=== PATIENT | female | born 1975 | race Caucasian/White ===

== ENCOUNTER 2023-09-09 10:20 | Outpatient (OUT) | payer OTHER, SELFPAY ==
[2023-09-09 11:13] LABS: Basophils Absolute Auto 0.1 10^3/uL (0.0-0.1); Basophils Percent Auto 0.7 % (0.2-2.0); Eosinophils Absolute Auto 0.1 10^3/uL (0.0-0.7); Eosinophils Percent Auto 0.9 % (0.9-7.0); Hematocrit 41.6 % (36.0-48.0); Immature Granulocytes Abs Auto 0.04 10^3/uL (0.00-0.03); Immature Granulocytes Pct Auto 0.4 % (0.0-0.5); Lymphocytes Absolute Auto 3.5 10^3/uL (1.2-3.8); Lymphocytes Percent Auto 38.1 % (20.5-60.0); Mean Corpuscular HGB Conc 33.7 g/dL (29.9-35.2); Mean Corpuscular Volume 92.2 fL (81.0-99.0); Monocytes Absolute Auto 0.7 10^3/uL (0.3-0.8); Monocytes Percent Auto 7.8 % (1.7-12.0); Neutrophils Absolute Auto 4.7 10^3/uL (1.4-6.5); Neutrophils Percent Auto 52.1 % (43.0-75.0); Platelet Count 296 10^3/uL (150-450); Red Blood Count 4.51 10^6/uL (4.20-5.40); Red Cell Distribution Width 12.9 % (11.0-15.0); White Blood Count 9.1 10^3/uL (4.0-11.0)
== END 2023-09-09 10:21 | disposition home or self-care (01) ==
LOC: PST 10:29
PROVIDERS: PCP Family Medicine; Visit Provider Otolaryngology
DX: Z01.812 Encounter for preprocedural laboratory examination (principal); H69.93 Unspecified Eustachian tube disorder, bilateral
CPT/HCPCS: 85025

== ENCOUNTER 2023-09-16 07:54 | Day surgery (SDC) | payer OTHER, SELFPAY ==
[2023-09-09 11:01] VITALS: BP 144/94; PULSE 75; RESP 20; TEMP 36.2; O2SAT 98; BMI 34.6
[2023-09-16] VITALS (11 sets, daily range): BP systolic 87–156; BP diastolic 52–95; PULSE 69–78; RESP 8–16; TEMP 35.9–36.2; O2SAT 92–98; BMI 34.4
--- NOTE | 2023-09-16 | OP_ITS ---
OPERATION DATE: 09/16/2023 PRIMARY CARE PHYSICIAN: Fausto Jarvis M.D. SURGEON: Myesha Allison M.D. PREOPERATIVE DIAGNOSIS: Right eustachian tube dysfunction. POSTOPERATIVE DIAGNOSIS: Right eustachian tube dysfunction. PROCEDURE: Right myringotomy and tube with microdissection, placement of a T- tube. ANESTHESIA: General LMA. COMPLICATIONS: None. FINDINGS: Anterior right tympanic membrane retraction. INDICATIONS: This 48-year-old woman has a history of chronic eustachian tube dysfunction and developed symptoms once her previously placed tube came out and the eardrum healed. PROCEDURE: Patient identified in the holding area and taken back to the OR where she was placed in the supine position. After induction of general anesthesia, the right ear was approached with the otomicroscope. An anterior radial myringotomy was performed and a modified Wes?s T-tube was folded, inserted through the myringotomy and opened in the middle ear using microdissection. Patient was then awakened and taken to the recovery room in good condition. [place]
--- OUTSIDE RECORDS SUMMARY | 2023-09-16 07:57 | XMS_ITS | CCD ---
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 Name Role Phone LUISANA ANG Unavailable Unavailable KALYANI JERRY (PA) Unavailable Unavail able Charlotte Sweeney Primary Care Provider BRUCE RODRIGUEZ Referring Unavailable CHARLOTTE SWEENEY Primary Care Unavailable Charlotte Sweeney MD Primary Care Provider [phone] CHARLOTTE SWEENEY Primary Care Unavailable KAY LAU Referring Unavailable YESSENIA, SELVON F Referring Unavailable DEFCHARLOTTE ROMERO Primary Care Unavailable YESSENIA, SELVON F Referring Unavailable DEFCHARLOTTE ROMERO Primary Care Unavailable GAMAL DOMINGUEZ Consulting Unavailab le YESSENIA, SELVON F Attending Unavailable YESSENIA, SELVON F Admitting Unavailable DEFCHARLOTTE ROMERO Primary Care Unavailable MARY ALONSO Consulting UnavailANDI Blunt Consulting Unavailable TIMMIS, DR MICHAELS Attending Unavailable TIMMIS, DR MICHAELS Consulting Unavailable TIMMIS, DR MICHAELS Admitting Unavailable DEFRANCE, DR PORTER Primary Care Unavailable CHARLOTTE BEAR Consulting Unavailable NINI II, BETSY Consulting Unavailable TIMMIS, DR MICHAELS Attending Unavailable TIMMIS, DR MICHAELS Consulting Unavailable TIMMIS, DR MICHAELS Admitting Unavailable DEFRANCE, DR PORTER Primary Care Unavailable CRISTOBAL CRUZ Consulting Unavailable NINI II, BETSY Consulting Unavailable Charlotte Sweeney MD Primary Care Provider CHARLOTTE PRUITT Referring Unavailable CHARLOTTE SWEENEY Primary Care Unavailable CHARLOTTE SWEENEY Primary Care Unavailable BRUCE RODRIGUEZ Referring Unavailable CHARLOTTE SWEENEY Primary Care Unavailable BRUCE RODRIGUEZ Referring Unavailable Noel Gould Unavailable MD Neel Fernandes Attending Provider [phone] MD Charlotte Sweeney Primary Care Provider [phone] Neel Fernandes Admitting Unavailable Neel Fernandes Attending Unavailable Charlotte Sweeney Primary Care Unavailable BRANDO JIMENEZ Attending Unavailable UNALLOCATED, NOMS PROVIDER Referring Unava ilable Charlotte Sweeney MD Primary Care Provider Allergies Allergy Classification Reported Allergen(s) Allergy Type Date of Onset Reaction(s) Facility Adhesive Tape (1 source) Adhesive Tape Substance Allergy 018 [facility] Cephalosporins (antibiotic) (1 source) Cefaclor Drug Allergy [facility] Corticosteroids (1 source) predniSONE Drug Allergy Palpitations [facility] Opioid Agonists (1 source) HYDROcodone Drug Allergy 018 [facility] sulfaSALAzine (1 source) sulfaSALAzine Drug Allergy 017 [facility] Sulfonamides (antibiotic) (1 source) Sulfonamides (Antibiotic) Drug Allergy [facility] (12 sources) cefaclor; Translations: [CEFACLOR] Drug Allergy [facility] Repository (1 source) Contrast media; Translations: [CONTRAST DYE] Propensity to adverse reactions to drug (disorder) 006 [facility] Repository (6 sources) Sulfonamides (Antibiotic); Translations: [SULFA (SULFONAMIDE ANTIBIOTICS)] Propensity to adverse reactions to drug (disorder) [facility] Repository (7 sources) Adhesive Tape; Translations: [Adhesive tape] Propensity to adverse reactions to drug 014 Dermatitis [facility], [place] (9 sources) HYDROcodone Drug Allergy 018 Itching, Nausea And Vomiting [facility], [place] (9 sources) predniSONE Drug Allergy 018 Palpitations [facility], [place] (9 sources) sulfaSALAzine Drug Allergy 017 [facility], [place] (5 sources) Sulfonamides (Antibiotic) Propensity to adverse reactions to drug 003 [facility], [place] (9 sources) Iodides Propensity to adverse reactions to drug 018 Hives, Swelling [facility] [employer], [place] (2 sources) Other Propensity to adverse reactions 015 [facility] [employer] (3 sources) Acetaminophen / Codeine Drug Allergy 022 Nausea And Vomiting [facility] Phone: (6 sources) celecoxib Drug Allergy 021 Hives, Swelling, Other (See Comments) [facility] Phone: (6 sources) Ciprofloxacin Drug Allergy 022 TRANSCORP [facility] Phone: (3 sources) Nitrofurantoin Drug Allergy 022 Hives, Other (See Comments) [facility] Phone: (3 sources) Cefaclor Drug Allergy 014 Unknown [facility] Repository (1 source) celecoxib Drug Allergy [facility] Repository (1 source) Influenza virus vaccine Drug Allergy [facility] Repository (1 source) Iodine (And Iodine Containting Drugs) Drug allergy (disorder) [facility] Repository (1 source) methylPREDNISolone Drug Allergy [facility] Repository (1 source) Nitrofurantoin Drug Allergy 021 [facility] Repository (1 source) Sulfonamides (Antibiotic) Drug allergy (disorder) [facility] Repository (1 source) Sulfonamides (Antibiotic) Propensity to adverse reactions to drug 003 Hives [facility] [employer] [facility] sources) Iodides Propensity to adverse reactions to drug 017 Hives, Swelling [facility] (2 sources) Contrast media Propensity to adverse reactions Unknown [facility] Other (2 sources) Sulfacetamide / Sulfur Drug Allergy Unknown [employer] Other (2 sources) Iodinated Cont[employer] Media; Translations: [Iodinated Contrast Media] Allergy to substance 023 Anaphylaxis [facility] (3 sources) NITROFURANTOIN, MACROCRYSTALS / Nitrofurantoin, Monohydrate Drug Allergy 022 Other (See Comments) [facility] (3 sources) Adhesive Tape-Silicones Propensity to adverse reactions to drug [facility] NEGATED: Highlighted row has been ruled out!Unclassified (1 source) Other Propensity to adverse reactions [facility] [employer] [facility] Medications Current Medications Medication Drug Class(es) Dates Sig (Normalized) Sig (Original) acetaminophen 325 mg / oxyCODONE hydrochloride 5 mg oral tablet (1 source) Opioid Agonist Start: 01-19-2022 End: 01-26-2022 oxyCODONE-acetamin ophen (PERCOCET) 5-325 MG per tablet Indications: Lumbosacral spinal stenosis Take 1 tablet by mouth every 6 hours as needed for Pain for up to 7 days. Intended supply: 7 days. Take lowest dose possible to manage pain 28 tablet 0 01/19/2022 01/26/2022 Active amoxicillin 500 mg oral capsule (4 sources) Penicillin-class Antibacterial Start: 05-02-2021 amoxicillin (AMOXIL) 500 MG capsule Indications: Prophylactic antibiotic Take 2 tabs 1 hour prior to appointment time, and 1 tab twice daily until gone 6 capsule 0 05/02/2021 Active 5 ml bupivacaine hydrochloride 5 mg/ml injection (2 sources) Amide Local Anesthetic Start: 03-10-2023 bupivacaine (PF) (MARCAINE) 0.5 % injection Start: 05-09-2020 End: 05-09-2020 bupivacaine (PF) (MARCAINE) 0.5 % injection 20 mg [id number] 0.3 ml EPINEPHrine 1 mg/ml auto-injector (3 sources) alpha-Adrenergic Agonist, beta-Adrenergic Agonist, Catecholamine Start: 09-13-2021 EPINEPHrine (EPIPEN) 0.3 mg/0.3 mL auto-injector inject 0.3 milliliters ( 0.3 milligrams ) intramuscularly in OUTE... (REFER TO PRESCRIPTION NOTES). 0 09/13/2021 Active hydrOXYzine pamoate 25 mg oral capsule (2 sources) Antihistamine Start: 01-19-2022 End: 01-27-2022 take 1 capsule by mouth three times daily as needed for muscle spasms hydrOXYzine (VISTARIL) 25 MG capsule Take 1 capsule by mouth 3 times daily as needed (muscle spasms) 21 capsule 0 01/20/2022 01/27/2022 Active levothyroxine sodium 0.05 mg oral tablet (15 sources) l-Thyroxine Start: 05-16-2023 End: 09-04-2023 take 1 tablet by mouth in the morning levothyroxine (SYNTHROID, LEVOTHROID) 50 MCG tablet Take 1 tablet (50 mcg total) by mouth in the morning. 90 tablet 3 09/04/2023 Active Start: 01-19-2022 take 50 ug by mouth once daily 50 mcg, Oral, DAILY, First dose on 01/19/22 at 0700, Until Discontinued Tube feeding (TF) interaction, obtain physician order to manage, recommend holding TF for 30 minutes before and after dose. Levothyroxine So dium 50 MCG Oral for 90 Days Active 10 ml lidocaine hydrochloride 10 mg/ml injection (3 sources) Antiarrhythmic, Amide Local Anesthetic Start: 03-10-2023 lidocaine 1 % injection Start: 05-09-2020 End: 05-09-2020 lidocaine 1 % injection Start: 05-09-2020 End: 05-09-2020 lidocaine PF 1 % injection 4 mL 1 ml methylPREDNISolone acetate 40 mg/ml injection (1 source) Corticosteroid Start: 03-10-2023 methylPREDNISo lone acetate (DEPO-MEDROL) injection ondansetron (ZOFRAN-ODT) disintegrating tablet 4 mg (1 source) Start: 01-18-2022 ondansetron (Z OFRAN-ODT) disintegrating tablet 4 mg oxyCODONE (2 sources) Opioid Agonist Start: 01-19-2022 oxyCODONE (RENATO ICODONE) immediate release tablet 5 mg Start: 01-18-2022 End: 01-19-2022 oxyCODONE (ROXICODONE) immed iate release tablet 5 mg pantoprazole 40 mg delayed release oral tablet (15 sources) Proton Pump Inhibitor Start: 09-08-2023 take 1 tablet by mouth once daily in the morning pantoprazole (PROTONIX) 40 mg EC tablet take 1 tablet by mouth every morning 90 tablet 3 09/08/2023 Active Start: 07-20-2018 End: 09-08-2023 take 1 tablet by mouth once daily in the morning pantoprazole (PROTONIX) 40 mg EC tablet take 1 tablet by mouth every morning 90 tablet 0 06/13/2023 09/08/2023 Discontinued 72 hr scopolamine 0.0139 mg/hr transdermal system (1 source) Anticholinergic Start: 01-18-2022 scopolamine (TRANSDERM-SCOP) transdermal patch 1 patch sertraline 100 mg oral tablet (19 sources) Serotonin Reuptake Inhibitor Start: 01-14-2020 End: 09-03-2023 take 1 tablet by mouth once daily sertraline (ZOLOFT) 100 mg tablet take 1 tablet by mouth once daily 90 tablet 0 09/03/2023 Active Start: 01-14-2020 End: 01-03-2022 take 1 tablet by mouth once daily sertraline (ZOLOFT) 50 MG tablet Take 50 mg by mouth daily 0 01/14/2020 01/03/2022 Discontinued (Therapy completed) Completed/Discontinued Medications Medication Drug Class(es) Dates Sig (Normalized) Sig (Original) acetaminophen 325 mg oral tablet (1 source) Start: 01-18-2022 take 650 mg by mouth every six hours as needed, then take 4000 mg by mouth every twenty-four hours as needed 650 mg, Oral, EVERY 6 HOURS PRN, Starting on Fri01/18/22 at 1556, Until Discontinued, Pain Mild (1-3) Maximum dose of acetaminophen is 4000 mg from all sources in 24 hours. Post-op betamethasone 3 mg/ml / betamethasone acetate 3 mg/ml injectable suspension (1 source) Corticosteroid Start: 05-09-2020 End: 05-09-2020 betamethasone acetate-betamethas one sodium phosphate (CELESTONE) injection 6 mg bisacodyl 5 mg delayed release oral tablet (2 sources) Stimulant Laxative Start: 01-18-2022 take 5 mg by mouth once daily 5 mg, Oral, DAILY, First dose on Fri01/18/22 at 1730, Until Discontinued Do not crush or break. Post-op Start: 01-18-2022 take 10 mg rectal ro [place] once daily as needed 10 mg, Rectal, DAILY PRN, Starting on Fri01/18/22 at 1702, Until Discontinued, Constipation First line therapy for constipation Post-op calcium carbonate 500 mg oral tablet (2 sources) End: 01-03-2022 take 1 tablet by mouth once daily calcium carbonate (OSCAL) 500 MG TABS tablet Take 500 mg by mouth daily 0 01/03/2022 Discontinued (Therapy completed) cyclobenzaprine hydrochloride 10 mg oral tablet (1 source) Muscle Relaxant Start: 01-18-2022 take 10 mg by mouth three times daily as needed 10 mg, Oral, 3 TIMES DAILY PRN, Starting on Fri01/18/22 at 1452, Until Discontinued, Muscle spasms, Post-op diclofenac sodium 50 mg delayed release oral tablet (6 sources) Nonsteroidal Anti-inflammatory Drug Start: 05-19-2019 End: 01-19-2022 take 1 tablet by mouth twice daily diclofenac (VOLTAREN) 50 MG EC tablet Indications: Pain, joint, hip, right Take 1 tablet by mouth 2 times daily 60 tablet 3 05/19/2019 01/19/2022 Discontinued (Stop Taking at Discharge) docusate sodium 50 mg / sennosides, intermediate 8.6 mg oral tablet (1 source) Start: 01-18-2022 take 1 tablet by mouth twice daily 1 tablet, Oral, 2 TIMES DAILY, First dose on Fri01/18/22 at 2100, Until Discontinued, Post-op folic acid 0.8 mg oral tablet (4 sources) End: 01-03-2022 take 1 tablet by mouth once daily folic acid (FOLVITE) 800 MCG tablet Take 800 mcg by mouth daily 0 01/03/2022 Discontinued (Therapy completed) gabapentin 600 mg oral tablet (8 sources) Anti-epileptic Agent Start: 01-18-2022 take 600 mg by mouth three times daily 600 mg, Oral, 3 TIMES DAILY, First dose on Fri01/18/22 at 2100, Until Discontinued Start: 09-18-2018 End: 01-03-2022 take 1 tablet by mouth every month gabapentin (NEURONTIN) 800 MG tablet Take 800 mg by mouth.. 0 09/18/2018 01/03/2022 Discontinued (DOSE ADJUSTMENT) 1 ml HYDROmorphone hydrochloride 1 mg/ml cartridge (3 sources) Opioid Agonist Start: 01-18-2022 End: 01-18-2022 HYDROmorphone (DILAUDID) 1 MG/ML injection Start: 01-18-2022 End: 01-19-2022 HYDROmorphone (DILAUDID) inj ection 0.5 mg ibuprofen 800 mg oral tablet (6 sources) Nonsteroidal Anti-inflammatory Drug Start: 08-13-2018 End: 01-19-2022 ibuprofen (ADVIL;MOTRIN) 800 MG tablet Take 800 mg by mouth 0 08/13/2018 01/19/2022 Discontinued (Stop Taking at Discharge) meloxicam 15 mg oral tablet (2 sources) Nonsteroidal Anti-inflammatory Drug Start: 09-13-2020 End: 01-03-2022 take 1 tablet by mouth once daily meloxicam (MOBIC) 15 MG tablet Indications: Right hip pain Take 1 tablet by mouth daily 30 tablet 3 09/13/2020 01/03/2022 Discontinued (Therapy completed) polyethylene glycol 3350 07538 mg powder for oral solution (1 source) Osmotic Laxative Start: 01-18-2022 17 g, Oral, DAILY, First dose on Fri01/18/22 at 1730, Until Discontinued, Post-op Sodium Chloride (5 sources) Start: 01-19-2022 End: 01-19-2022 0.9 % sodium chloride bolus Start: 01-18-2022 take 1 dose intraven ously twice daily 5-40 mL, IntraVENous, EVERY 12 HOURS SCHEDULED (2 times per day), First dose on Fri01/18/22 at 2100, Until Discontinued For Line Patency: Peripheral IV = 5 mL; Midline or Central Line = 10 mL/lumen. If following IV push medication, administer flush at same rate as the IV push. Flush volume is determined by type of infusion therapy being given. For non-viscous solutions use: Peripheral IV = 5 mL Midline or Central Line = 10 mL/lumen For viscous solutions (i.e. blood components, parenteral nutrition, contrast media, or after obtaining blood sample) use: Peripheral IV = 10 mL Midline or Central Line = 20 mL/lumen Post-op Start: 01-18-2022 IntraVENous, a t 5-250 mL/hr, PRN, if patient receiving piggyback infusions and maintenance fluids are not ordered OR KVO fluids to protect IV site / prevent frequent line interruptions/ long duration, Starting on Fri01/18/22 at 1702 For piggyback infusion, administer at same rate as piggyback for a total of 25 mL. Enter 25 mL into dose field and piggyback rate into rate field of order. If piggyback is infusing at a rate less than 100 mL/hr, enter 25 mL into dose field and 100 mL/hr into rate field of order. For KVO fluids, enter rate of 20 mL/hr or less into rate field of order. Post-op Start: 01-18-2022 take 5-40 mL intrave nously once as needed 5-40 mL, IntraVENous, PRN, Starting on Fri01/18/22 at 1702, Until Discontinued, Line Care, After every IV line use For Line Patency: Peripheral IV = 5 mL; Midline or Central Line = 10 mL/lumen. If following IV push medication, administer flush at same rate as the IV push. Flush volume is determined by type of infusion therapy being given. For non-viscous solutions use: Peripheral IV = 5 mL Midline or Central Line = 10 mL/lumen For viscous solutions (i.e. blood components, parenteral nutrition, contrast media, or after obtaining blood sample) use: Peripheral IV = 10 mL Midline or Central Line = 20 mL/lumen Post-op Start: 01-18-2022 End: 01-18-2022 0.9 % sodium chloride infusi on vancomycin (VANCOCIN) 1,500 mg in dextrose 5 % 500 mL IVPB (1 source) Start: 01-19-2022 End: 01-19-2022 1,500 mg, IntraVENous, EVERY 12 HOURS, 1 dose, First dose on Fri01/19/22 at 0200 Antimicrobial Indications: Surgical Prophylaxis Post-op vitamin b12 0.5 mg oral tablet (4 sources) Vitamin B12 End: 01-03-2022 take 1 tablet by mouth once daily cyanocobalamin 500 MCG tablet Take 500 mcg by mouth daily 0 01/03/2022 Discontinued (Therapy completed) Problems Active Problems Problem Classification Problem Date Documented Da te Episodic/Chronic Abdominal hernia (6 sources) Hiatal hernia; Translations: [Diaphragmatic hernia without obstruction or gangrene] Episodic Biliary tract disease (1 source) Disease of gallbladder, unspecified Episodic Cardiac dysrhythmias (3 sources) Premature atrial contraction; Translations: [Atrial premature depolarization] Onset: 9 12-14-2018 Chronic Esophageal disorders (6 sources) Gastroesophageal reflux disease; Translations: [Gastro-esophageal reflux disease without esophagitis] Chronic Esophageal disorders (1 source) Esophageal disorders; Translations: [Gastro-esophageal reflux disease without esophagitis] Onset: 3 Menopausal disorders (1 source) Hormone replacement therapy; Translations: [HORMONE REPLACEMENT THERAPY] Onset: 3 Episodic Osteoarthritis (15 sources) Osteoarthritis of right hip joint; Translations: [Unilateral primary osteoarthritis, right hip] Onset: 8 06-02-2018 Chronic Osteoarthritis (2 sources) Osteoarthritis of right hip joint; Translations: [Primary osteoarthritis of right hip] Onset: 8 06-02-2018 Other aftercare (1 source) Other senior care (current) drug therapy; Translations: [OTH BASTER HAND CURRENT DRUG THERAPY] Onset: 3 Episodic Other connective tissue disease (1 source) Fibromyalgia; Translations: [FIBROMYALGIA] Onset: 3 Episodic Other ear and sense organ disorders (1 source) Sensorineural hearing loss, bilateral; Translations: [SENSORINEURAL HEAR LOSS BILATERAL] Onset: 3 Chronic Other gastrointestinal disorders (2 sources) Food-borne gastroenteritis; Translations: [Toxic gastroenteritis and colitis] Episodic Other non-traumatic joint disorders (1 source) Pain of left hip joint; Translations: [Pain in left hip] Episodic Other non-traumatic joint disorders (1 source) Pain in left hip; Translations: [Pain in left hip] Onset: 3 Episodic Other non-traumatic joint disorders (1 source) Pain of left hip joint; Translations: [Pain of left hip joint] Other nutritional; endocrine; and metabolic disorders (3 sources) Obesity; Translations: [Obesity, unspecified] 12-10-2018 Chronic Otitis media and related conditions (5 sources) Other specified disorders of Eustachian tube, bilateral; Translations: [OTH SPEC D/O EUST TUBE BILATERAL] Onset: 3 Episodic Residual codes; unclassified (1 source) Tobacco use; Translations: [TOBACCO USE] Onset: 3 Episodic Residual codes; unclassified (2 sources) Postoperative state; Translations: [Postoperative state] 06-03-2018 Spondylosis; intervertebral disc disorders; other back problems (11 sources) Lumbosacral stenosis; Translations: [Spinal stenosis, lumbosacral region] Onset: 8 Episodic Substance-related disorders (1 source) Nicotine dependence, cigarettes, uncomplicated; Translations: [NICOTINE DEPEND CIGARETTES UNCOMP] Onset: 3 Chronic Thyroid disorders (7 sources) Hypothyroidism, unspecified; Translations: [Acquired hypothyroidism] Onset: 8 04-30-2018 Chronic Unclassified (1 source) Patient encounter status; Translations: [Encounter for well woman exam with routine gynecological exam] Unclassified (1 source) PERSONAL HISTORY OF COVID-19; Translations: [PERSONAL HISTORY OF COVID-19] Onset: 3 Past or Other Problems Problem Classification Problem Date Documented Date Episodic/Chronic Cardiac dysrhythmias (3 sources) Palpitations; Translations: [Palpitations] Onset: 12-14-2018 12-14-2018 Episodic Mood disorders (3 sources) Mood disorders Onset: 06-24-2023 06-24-2023 Other and unspecified benign neoplasm (3 sources) History of polyp of colon; Translations: [Personal history of colonic polyps] Onset: 02-12-2018 02-12-2018 Episodic Other connective tissue disease (3 sources) Fibromyalgia; Translations: [Fibromyalgia] Onset: 10-15-2017 10-15-2017 Episodic Other connective tissue disease (3 sources) Diastasis recti; Translations: [Separation of muscle (nontraumatic), other site] Onset: 11-09-2020 11-09-2020 Episodic Other non-traumatic joint disorders (3 sources) Hip pain; Translations: [Pain in right hip] Onset: 02-18-2018 02-18-2018 Episodic Other screening for suspected conditions (not mental disorders or infectious disease) (3 sources) History of adenomatous polyp of colon; Translations: [Encounter for screening for malignant neoplasm of colon] Onset: 11-09-2020 11-09-2020 Episodic Residual codes; unclassified (8 sources) Postoperative state; Translations: [Other specified postprocedural states] Onset: 11-07-2018 06-03-2018 Episodic Residual codes; unclassified (6 sources) Family history of cancer of colon; Translations: [Family history of malignant neoplasm of digestive organs] Onset: 02-12-2018 02-12-2018 Episodic Unclassified (3 sources) Onset: 02-07-2021 02-07-2021 Results Test Name Value Interpretation Reference Range Facility HCG ( test) Wilian d Ql (U)Ordered By: Neel Fernandes on 07-08-2023 HCG ( test) Ql (U) Negative [facility] HCG,Urineon 07-08-2023 Beta HCG ( test) Ql (U) Negative Normal [facility] Comment on above: Result Comment: PERF ORMED BY: [place] [address] PATHOLOGIST HEARING AID TECHNICIAN CAIN ALMAGUER M.D. Performed By: #### U HCG #### [address] IR ARTHR/ASP/INJ MAJOR JT/BU RSA LEFT WO USon 03-10-2023 IR ARTHR/ASP/INJ MAJOR JT/BURSA LEFT WO US EXAMINATION: FLUOROSCOPIC GUIDED INJECTION OF THE LEFT HIP 03/10/2023 9:00 am HISTORY: ORDERING SYSTEM PROVIDED HISTORY: Pain of left hip joint FLUOROSCOPY DOSE AND TYPE: Radiation Exposure Index: Fluoro time 0.3 minutes DAP 29.28 cGy cm 2 Views: 4 PROCEDURE: TRIMMER HELPER: Aj Larry This procedure was performed by Aj Larry PA-C under indirect supervision of . Informed consent was obtained after a detailed explanation of the procedure including the risks, benefits, and alternatives. All elements of maximal sterile barrier technique, including cap, mask, sterile gown, sterile gloves, a large sterile sheet, hand hygiene and 2% chlorhexidine for cutaneous antisepsis were followed. The patient was placed supine and the left hip was prepped and draped in standard sterile fashion using maximum sterile barrier technique. Using fluoroscopic guidance a appropriate location was chosen on theleft hip and local anesthesia was achieved using 1% lidocaine. Using fluoroscopic guidance, a 20 g needle was advanced to the superior lateral margin of the femoral head neck junction until bone was reached. Subsequently, the steroid mixture (4 mL 1% xylocaine, 4 mL 0.5 percent Marcaine, and 1 mL of 80 milligram/milliliter Depo-Medrol) was administered. The needle was withdrawn and a Band-Aid was applied at the site. Estimated blood loss was less than 1 mL. The patient tolerated the procedure well and left the Department in stable condition. IMPRESSION: Successful fluoroscopic-guided left hip injection. Interpreted by: MD Aj Herrera PA Signed by: Gennaro Lamb MD 03/10/23 Final result Normal [facility] Successful fluoroscopic-guided left hip injection. [facility] EXAMINATION: FLUOROSCOPIC GUIDED INJECTION OF THE LEFT HIP 03/10/2023 9:00 am HISTORY: ORDERING SYSTEM PROVIDED HISTORY: Pain of left hip joint FLUOROSCOPY DOSE AND TYPE: Radiation Exposure Index: Fluoro time 0.3 minutes DAP 29.28 cGy cm 2 Views: 4 PROCEDURE: TRIMMER HELPER: Aj Larry This procedure was performed by Aj Larry PA-C under indirect supervision of . Informed consent was obtained after a detailed explanation of the procedure including the risks, benefits, and alternatives. All elements of maximal sterile barrier technique, including cap, mask, sterile gown, sterile gloves, a large sterile sheet, hand hygiene and 2% chlorhexidine for cutaneous antisepsis were followed. The patient was placed supine and the left hip was prepped and draped in standard sterile fashion using maximum sterile barrier technique. Using fluoroscopic guidance a appropriate location was chosen on theleft hip and local anesthesia was achieved using 1% lidocaine. Using fluoroscopic guidance, a 20 g needle was advanced to the superior lateral margin of the femoral head neck junction until bone was reached. Subsequently, the steroid mixture (4 mL 1% xylocaine, 4 mL 0.5 percent Marcaine, and 1 mL of 80 milligram/milliliter Depo-Medrol) was administered. The needle was withdrawn and a Band-Aid was applied at the site. Estimated blood loss was less than 1 mL. The patient tolerated the procedure well and left the Department in stable condition. [facility] Gennaro Lamb MD - 03/10/2023 EXAMINATION: FLUOROSCOPIC GUIDED INJECTION OF THE LEFT HIP 03/10/2023 9:00 am HISTORY: ORDERING SYSTEM PROVIDED HISTORY: Pain of left hip joint FLUOROSCOPY DOSE AND TYPE: Radiation Exposure Index: Fluoro time 0.3 minutes DAP 29.28 cGy cm 2 Views: 4 PROCEDURE: TRIMMER HELPER: Aj Larry This procedure was performed by Aj Larry PA-C under indirect supervision of . Informed consent was obtained after a detailed explanation of the procedure including the risks, benefits, and alternatives. All elements of maximal sterile barrier technique, including cap, mask, sterile gown, sterile gloves, a large sterile sheet, hand hygiene and 2% chlorhexidine for cutaneous antisepsis were followed. The patient was placed supine and the left hip was prepped and draped in standard sterile fashion using maximum sterile barrier technique. Using fluoroscopic guidance a appropriate location was chosen on theleft hip and local anesthesia was achieved using 1% lidocaine. Using fluoroscopic guidance, a 20 g needle was advanced to the superior lateral margin of the femoral head neck junction until bone was reached. Subsequently, the steroid mixture (4 mL 1% xylocaine, 4 mL 0.5 percent Marcaine, and 1 mL of 80 milligram/milliliter Depo-Medrol) was administered. The needle was withdrawn and a Band-Aid was applied at the site. Estimated blood loss was less than 1 mL. The patient tolerated the procedure well and left the Department in stable condition. IMPRESSION: Successful fluoroscopic-guided left hip injection. [facility] Radiology Study observation (narrative) [facility] IR ARTHR/ASP/INJ MAJOR JT/BU RSA LEFT WO USOrdered By: Gennaro Lamb on 03-10-2023 [facility] Work Phone: XR PELVIS (1-2 VIEWS)on XR PELVIS (1-2 VIEWS) X-rays taken today reviewed by me show standing AP of the pelvis. Patient is status post right total of arthroplasty components appear to be in good position alignment without any interval change from previous views. Patient has some very modest joint space narrowing of the left hip no evidence for avascular necrosis very minimal acetabular impingement. A's small screw was visible from the lower lumbar spine Interpreted by: Bruce Rodriguez MD Signed by: Bruce Rodriguez MD 02/27/23 Final result Normal [facility] PREG HCG QUALon 12-31-2022 , QUAL Negative Normal NEGATIVE [facility] Comment on above: Performed By: #### P REG #### [facility] [address] [address] [address] Eusebio Augustine XR CHEST 2 Von 12-26-2022 XR CHEST 2 V EXAMINATION: XR CHES T 2 V HISTORY: Smoker COMPARISON: No relevant comparison available. TECHNIQUE: PA and lateral FINDINGS: LUNGS: No significant pulmonary parenchymal abnormalities. VASCULATURE: No increased pulmonary vasculature. PLEURA: No pneumothorax, effusion, or pleural thickening. CARDIAC: No cardiomegaly or cardiac silhouette abnormality. MEDIASTINUM: No visible mass or adenopathy. BONES: No fracture or visible bone lesion. OTHER: Negative. IMPRESSION: No acute disease. Electronically authenticated by: CHARLOTTE BEAR Date: 2022-12-26 08:25 Normal [facility] CBC AUTO DIFFon 12-24-2022 BASO # 0.1 103/ul Normal 0.0-0.1 [facility] Comment on above: Performed By: #### C BC #### [facility] [address] [place] [address] Dr. Eusebio Augustine Basophils/100 WBC (Bld) 0.5 % Normal 0.2-2.0 [facility] Comment on above: Performed By: #### C BC #### [facility] [address] [place] [address] Dr. Eusebio Augustine EO # 0.1 103/ul Normal 0.0-0.7 [facility] Comment on above: Performed By: #### C BC #### [facility] [address] [place] [address] Dr. Eusebio Augustine Eosinophils/100 WBC (Bld) 0.6 % Critically low 0.9-7.0 [facility] Comment on above: Performed By: #### C BC #### [facility] [address] [address] [address] Eusebio Augustine Erythrocyte distribution width (RBC) [Ratio] 13.5 % Normal 11.0-15.0 [facility] Comment on above: Performed By: #### C BC #### [facility] [address] [place] [address] Dr. Eusebio Augustine Hematocrit (Bld) [Volume fraction] 43.6 % Normal 36.0-48.0 [facility] Comment on above: Performed By: #### C BC #### [facility] [address] [address] [address] Eusebio Augustine Hemoglobin (Bld) [Mass/Vol] 14.6 g/dL Normal 12.0-16.0 [facility] Comment on above: Performed By: #### C BC #### [facility] [address] [address] [address] Eusebio Augustine IG # 0.02 10e3/ul Normal 0.00-0.03 [facility] Comment on above: Performed By: #### C BC #### [facility] [address] [place] [address] Dr. Eusebio Augustine IG % 0.2 % Normal 0.0-0.5 [facility] Comment on above: Performed By: #### C BC #### [facility] [address] [place] [address] Dr. Eusebio Augustine LYMPH # 3.5 103/ul Normal 1.2-3.8 [facility] Comment on above: Performed By: #### C BC #### [facility] [address] [place] [address] Dr. Eusebio Augustine Lymphocytes/100 WBC (Bld) 30.5 % Normal 20.5-60.0 [facility] Comment on above: Performed By: #### C BC #### [facility] [address] [place] [address] Dr. Eusebio Augustine MANUAL DIFF REQ NO Normal [facility] Comment on above: Performed By: #### C BC #### [facility] [address] [place] [address] Dr. Eusebio Augustine MCH (RBC) [Entitic mass] 31.5 pg Normal 26.7-34.0 [facility] Comment on above: Performed By: #### C BC #### [facility] [address] [place] [address] Dr. Eusebio Augustine MCHC (RBC) [Mass/Vol] 33.5 g/dL Normal 29.9-35.2 [facility] Comment on above: Performed By: #### C BC #### [facility] [address] [address] [address] Eusebio Augustine MCV (RBC) [Entitic vol] 94.0 fL Normal 81.0-99.0 [facility] Comment on above: Performed By: #### C BC #### [facility] [address] [address] [address] Eusebio Augustine MONO # 0.8 103/ul Normal 0.3-0.8 [facility] Comment on above: Performed By: #### C BC #### [facility] [address] [address] [address] Eusebio Augustine Monocytes/100 WBC (Bld) 7.0 % Normal 1.7-12.0 [facility] Comment on above: Performed By: #### C BC #### [facility] [address] [place] [address] Dr. Eusebio Augustine NEUT # 6.9 103/ul Critically high 1.4-6.5 [facility] Comment on above: Performed By: #### C BC #### [facility] [address] [place] [address] Dr. Eusebio Augustine Neutrophils/100 WBC (Bld) 61.2 % Normal 43.0-75.0 [facility] Comment on above: Performed By: #### C BC #### [facility] [address] [place] [address] Dr. Eusebio Augustine Platelet mean volume (Bld) [Entitic vol] 10.2 fL Normal 9.5-13.5 [facility] Comment on above: Performed By: #### C BC #### [facility] [address] [place] [address] Dr. Eusebio Augustine PLT 334 103/ul Normal 150-450 [facility] Comment on above: Performed By: #### C BC #### [facility] [address] [address] [address] Eusebio Augustine RBC 4.64 106/ul Normal 4.20-5.40 [facility] Comment on above: Performed By: #### C BC #### [facility] [address] [place], [place] [address] Dr. Eusebio Augustine WBC 11.3 103/ul Critically high 4.0-11.0 [facility] Comment on above: Performed By: #### C BC #### [facility] [address] [place], [place] [address] Dr. Eusebio Augustine ANION GAPon 01-20-2022 Anion gap [Moles/Vol] 8.0 mmol/L Normal 8.0-16.0 [facility] Comment on above: Result Comment: ANIO N GAP = Sodium -(Chloride + CO2) Performed By: #### H H, BMP, ANION, EGFR1 #### [facility] [address] [place] [address] Anion Gapon 01-20-2022 Anion gap [Moles/Vol] 8.0 mmol/L 8.0 - 16.0 meq/L [facility] Comment on above: ANION GAP = Sodium - (Chloride + CO2) Performed at [facility] [address] [place] [id number] BASIC METABOL PANELon 2021 Calcium [Mass/Vol] 8.2 mg/dL Low 8.5-10.5 [facility] Comment on above: Performed By: #### H H, BMP, ANION, EGFR1 #### [facility] [address] [place] [address] Chloride [Moles/Vol] 108 mmol/L Normal 98-111 [facility] Comment on above: Performed By: #### H H, BMP, ANION, EGFR1 #### [facility] [address] [place] [address] CO2 [Moles/Vol] 25 mmol/L Normal 23-33 [facility] Comment on above: Performed By: #### H H, BMP, ANION, EGFR1 #### [facility] [address] [place] [address] Creatinine [Mass/Vol] 0.6 mg/dL Normal 0.4-1.2 [facility] Comment on above: Performed By: #### H H, BMP, ANION, EGFR1 #### [facility] [address] [place] [address] Glucose [Mass/Vol] 91 mg/dL Normal 70-108 [facility] Comment on above: Performed By: #### H H, BMP, ANION, EGFR1 #### [facility] [address] [place] [address] Potassium [Moles/Vol] 4.0 mmol/L Normal 3.5-5.2 [facility] Comment on above: Performed By: #### H H, BMP, ANION, EGFR1 #### [facility] [address] [place] [address] Sodium [Moles/Vol] 141 mmol/L Normal 135-145 [facility] Comment on above: Performed By: #### H H, BMP, ANION, EGFR1 #### [facility] [address] [place] [address] Urea nitrogen [Mass/Vol] 11 mg/dL Normal 7-22 [facility] Comment on above: Performed By: #### H H, BMP, ANION, EGFR1 #### [facility] [address] [place] [address] Basic Metabolic Panelon 12-24 Calcium [Mass/Vol] 8.2 mg/dL Low 8.5 - 10.5 mg/dL [facility] Comment on above: Performed at [facility] [address] [place] [address] Chloride [Moles/Vol] 108 mmol/L 98 - 111 meq/L [facility] [employer] CO2 [Moles/Vol] 25 mmol/L 23 - 33 meq/L [facility] Creatinine [Mass/Vol] 0.6 mg/dL 0.4 - 1.2 mg/dL [facility] [employer] Glucose [Mass/Vol] 91 mg/dL 70 - 108 mg/dL [facility] Interpretation and review of laboratory results Abnormal [facility] Potassium [Moles/Vol] 4.0 mmol/L 3.5 - 5.2 meq/L [facility] [employer] Sodium [Moles/Vol] 141 mmol/L 135 - 145 meq/L [facility] [employer] Urea nitrogen (BldV) [Mass/Vol] 11 mg/dL 7 - 22 mg/dL [facility] GFR, ESTIMATEDon 01-20-2022 GFR/1.73 sq M.predicted MDRD (S/P/Bld) [Vol rate/Area] mL/min/{1.73_m2} Normal [facility] Comment on above: Result Comment: Stag e Description GFR, ml/min/1.73 m2 - At increased risk > or = 60 (with chronic kidney disease risk factors) 1 Normal or increased GFR > or = 90 2 Mildly or decreased GFR 60 - 89 3 Moderately decreased GFR 30 - 59 4 Severely decreased GFR 15 - 29 5 Kidney failure <15 (or dialysis) Estimated GFR calculated using abbreviated MDRD formula as recommended by National Kidney Foundation. Calculation based upon serum creatinine and adjusted for age, gender & race. Lindsay. Internal Med., Vol. 139 (2) pg 137-147. Performed By: #### C BCND, PT, BMP, ANION, EGFR1, APTT #### [facility] [address] [place] [address] Glomerular Filtration Rate, Estimatedon 01-20-2022 GFR/1.73 sq M.predicted MDRD (S/P/Bld) [Vol rate/Area] mL/min/{1.73_m2} ml/min/1.73 m2 [facility] Comment on above: Stage Description GF R, ml/min/1.73 m2 - At increased risk > or = 60 (with chronic kidney disease risk factors) 1 Normal or increased GFR > or = 90 2 Mildly or decreased GFR 60 - 89 3 Moderately decreased GFR 30 - 59 4 Severely decreased GFR 15 - 29 5 Kidney failure <15 (or dialysis) Estimated GFR calculated using abbreviated MDRD formula as recommended by National Kidney Foundation. Calculation based upon serum creatinine and adjusted for age, gender & race. Lindsay. Internal Med., Vol. 139 (2) pg 137-147. Performed at [facility] [address] [place] [address] HGB,HCTon 01-20-2022 Hematocrit (Bld) [Volume fraction] 32.8 % Low 37.0-47.0 [facility] Comment on above: Performed By: #### H H, BMP, ANION, EGFR1 #### [facility] [address] [place] [address] Hemoglobin (Bld) [Mass/Vol] 10.5 g/dL Low 12.0-16.0 [facility] Comment on above: Performed By: #### H H, BMP, ANION, EGFR1 #### [facility] [address] [place] [address] Hemoglobin and hematocrit, b loodon 01-20-2022 Hematocrit (Bld) [Volume fraction] 32.8 % Low 37.0 - 47.0 % [facility] Comment on above: Performed at [facility] [address] [place] [address] Hemoglobin.gastro intestinal spec 1 Ql (Stl) 10.5 Low [facility] Interpretation and review of laboratory results Abnormal [facility] No Panel Informationon 01-20 [facility] ANION GAPon 01-19-2022 Anion gap [Moles/Vol] 11.0 mmol/L Normal 8.0-16.0 [facility] Comment on above: Result Comment: ANIO N GAP = Sodium -(Chloride + CO2) Performed By: #### C BCND, PT, BMP, ANION, EGFR1, APTT #### [facility] [address] [place] [address] Anion Gapon 01-19-2022 Anion gap [Moles/Vol] 11.0 mmol/L 8.0 - 16.0 meq/L [facility] Comment on above: ANION GAP = Sodium - (Chloride + CO2) Performed at [facility] [address] [place] [address] BASIC METABOL PANELon 2021 Calcium [Mass/Vol] 8.5 mg/dL Normal 8.5-10.5 [facility] Comment on above: Performed By: #### C BCND, PT, BMP, ANION, EGFR1, APTT #### [facility] [address] [place] [address] Chloride [Moles/Vol] 106 mmol/L Normal 98-111 [facility] Comment on above: Performed By: #### C BCND, PT, BMP, ANION, EGFR1, APTT #### [facility] [address] [place] [address] CO2 [Moles/Vol] 25 mmol/L Normal 23-33 [facility] Comment on above: Performed By: #### C BCND, PT, BMP, ANION, EGFR1, APTT #### On [facility] [address] [place] [address] Creatinine [Mass/Vol] 0.5 mg/dL Normal 0.4-1.2 [facility] Comment on above: Performed By: #### C BCND, PT, BMP, ANION, EGFR1, APTT #### [facility] [address] [place] [address] Glucose [Mass/Vol] 117 mg/dL High 70-108 [facility] Comment on above: Performed By: #### C BCND, PT, BMP, ANION, EGFR1, APTT #### [address] [address] Potassium [Moles/Vol] 4.5 mmol/L Normal 3.5-5.2 [facility] Comment on above: Performed By: #### C BCND, PT, BMP, ANION, EGFR1, APTT #### [address] [address] Sodium [Moles/Vol] 142 mmol/L Normal 135-145 [facility] Comment on above: Performed By: #### C BCND, PT, BMP, ANION, EGFR1, APTT #### [address] [address] Urea nitrogen [Mass/Vol] 11 mg/dL Normal 7-22 [facility] Comment on above: Performed By: #### C BCND, PT, BMP, ANION, EGFR1, APTT #### [address] [address] Basic Metabolic Panelon 05-2 Calcium [Mass/Vol] 8.5 mg/dL 8.5 - 10.5 mg/dL [facility] Comment on above: Performed at [facility] [address] [place] [address] Chloride [Moles/Vol] 106 mmol/L 98 - 111 meq/L [facility] CO2 [Moles/Vol] 25 mmol/L 23 - 33 meq/L [facility] Creatinine [Mass/Vol] 0.5 mg/dL 0.4 - 1.2 mg/dL [facility] Glucose [Mass/Vol] 117 mg/dL High 70 - 108 mg/dL [facility] Interpretation and review of laboratory results Abnormal [facility] Potassium [Moles/Vol] 4.5 mmol/L 3.5 - 5.2 meq/L [facility] Sodium [Moles/Vol] 142 mmol/L 135 - 145 meq/L [facility] Urea nitrogen (BldV) [Mass/Vol] 11 mg/dL 7 - 22 mg/dL [facility] GFR, ESTIMATEDon 01-19-2022 GFR/1.73 sq M.predicted MDRD (S/P/Bld) [Vol rate/Area] mL/min/{1.73_m2} Normal [facility] Comment on above: Result Comment: Stag e Description GFR, ml/min/1.73 m2 - At increased risk > or = 60 (with chronic kidney disease risk factors) 1 Normal or increased GFR > or = 90 2 Mildly or decreased GFR 60 - 89 3 Moderately decreased GFR 30 - 59 4 Severely decreased GFR 15 - 29 5 Kidney failure <15 (or dialysis) Estimated GFR calculated using abbreviated MDRD formula as recommended by National Kidney Foundation. Calculation based upon serum creatinine and adjusted for age, gender & race. Lindsay. Internal Med., Vol. 139 (2) pg 137-147. Performed By: #### C BCND, PT, BMP, ANION, EGFR1, APTT #### [facility] [address] [place] [address] Glomerular Filtration Rate, Estimatedon 01-19-2022 GFR/1.73 sq M.predicted MDRD (S/P/Bld) [Vol rate/Area] mL/min/{1.73_m2} ml/min/1.73 m2 [facility] Comment on above: Stage Description GF R, ml/min/1.73 m2 - At increased risk > or = 60 (with chronic kidney disease risk factors) 1 Normal or increased GFR > or = 90 2 Mildly or decreased GFR 60 - 89 3 Moderately decreased GFR 30 - 59 4 Severely decreased GFR 15 - 29 5 Kidney failure <15 (or dialysis) Estimated GFR calculated using abbreviated MDRD formula as recommended by National Kidney Foundation. Calculation based upon serum creatinine and adjusted for age, gender & race. Lindsay. Internal Med., Vol. 139 (2) pg 137-147. Performed at [facility] [address] [place] [address] HGB,HCTon 01-19-2022 Hematocrit (Bld) [Volume fraction] 35.7 % Low 37.0-47.0 [facility] Comment on above: Performed By: #### C BCND, PT, BMP, ANION, EGFR1, APTT #### On License Of [facility] [address] [place] [address] Hemoglobin (Bld) [Mass/Vol] 11.7 g/dL Low 12.0-16.0 [facility] Comment on above: Performed By: #### C BCND, PT, BMP, ANION, EGFR1, APTT #### [place] [address] Hemoglobin and hematocrit, b loodon 01-19-2022 Hematocrit (Bld) [Volume fraction] 35.7 % Low 37.0 - 47.0 % [facility] Comment on above: Performed at [facility] [address] [place] [address] Hemoglobin.gastro intestinal spec 1 Ql (Stl) 11.7 Low [facility] Interpretation and review of laboratory results Abnormal [facility] [employer] No Panel Informationon 01-19 [facility] TYPE AND SCREENon 01-18-2022 ABO O [facility] Rh Factor Positive [facility] [employer] [facility] [facility] TYPE AND SCREEN CAPTUREon ABO CAPTURE O Normal [facility] Comment on above: Performed By: #### C BCND, PT, BMP, ANION, EGFR1, APTT #### [facility] [place] [address] INDIRECT GREG CAPTURE Negative Normal [facility] Comment on above: Performed By: #### C BCND, PT, BMP, ANION, EGFR1, APTT #### [facility] [place] [address] RH CAPTURE (2 D CLONES) Positive Normal [facility] Comment on above: Performed By: #### C BCND, PT, BMP, ANION, EGFR1, APTT #### [facility] [address] [place] [address] XR LUMBAR SPINE 1 VWon 01-18 Limited intraoperati ve images demonstrating L4 S1 laminectomy and fusion This report has been created using voice recognition software. It may contain minor errors which are inherent in voice recognition technology. Final report electronically signed by Dr. Gennaro Hernandez on 01/18/2022 3:33 PM [facility] Gennaro Carlson MD - 01/18/2022 PROCEDURE: XR LUMBAR SPINE 1 VW CLINICAL INFORMATION: post L4 S1 decompression . TECHNIQUE: Crosstable lateral portable in the OR COMPARISON: No prior study. FINDINGS: Single lateral image demonstrates L4-S1 laminectomy and fusion. Pedicle screws superimpose the pedicles on the lateral projection.. IMPRESSION: Limited intraoperative images demonstrating L4 S1 laminectomy and fusion This report has been created using voice recognition software. It may contain minor errors which are inherent in voice recognition technology. Final report electronically signed by Dr. Gennaro Hernandez on 01/18/2022 3:33 PM [employer] Phone: Radiology Study observation (narrative) [employer] Phone: XR LUMBAR SPINE 1 VWOrdered By: Gennaro Hernandez on 01-18-2022 [employer] Phone: ANION GAPon 01-03-2022 Anion gap [Moles/Vol] 10.0 mmol/L Normal 8.0-16.0 [facility] Comment on above: Result Comment: ANIO N GAP = Sodium -(Chloride + CO2) Performed By: #### C BCND, PT, BMP, ANION, EGFR1, APTT #### [facility] [address] [place] [address] APTTon 01-03-2022 aPTT Coag (Bld) [Time] 37.6 s Normal 22.0-38.0 [facility] Comment on above: Result Comment: Ther apeutic Heparin Reference Range= 60-95 seconds (corresponds to 0.3 to 0.7 u/mL Anti-Xa factor activity) Performed By: #### C BCND, PT, BMP, ANION, EGFR1, APTT #### On License Of [facility] [address] [place] [address] aPTT Coag (Bld) [Time] 37.6 s [facility] Comment on above: Therapeutic Heparin Reference Range= 60-95 seconds (corresponds to 0.3 to 0.7 u/mL Anti-Xa factor activity) Performed at [facility] [address] Anion Gapon 01-03-2022 Anion gap [Moles/Vol] 10.0 mmol/L 8.0 - 16.0 meq/L [facility] Comment on above: ANION GAP = Sodium - (Chloride + CO2) [place] [address] BASIC METABOL PANELon 2021 Calcium [Mass/Vol] 9.6 mg/dL Normal 8.5-10.5 [facility] Comment on above: Performed By: #### C BCND, PT, BMP, ANION, EGFR1, APTT #### [facility] [employer] [address] [place] [address] Chloride [Moles/Vol] 103 mmol/L Normal 98-111 [facility] Comment on above: Performed By: #### C BCND, PT, BMP, ANION, EGFR1, APTT #### On License Of [facility] [address] [place] [address] CO2 [Moles/Vol] 26 mmol/L Normal 23-33 [facility] Comment on above: Performed By: #### C BCND, PT, BMP, ANION, EGFR1, APTT #### [employer] [facility] [employer] [address] [place] [address] Creatinine [Mass/Vol] 0.5 mg/dL Normal 0.4-1.2 [facility] Comment on above: Performed By: #### C BCND, PT, BMP, ANION, EGFR1, APTT #### [employer] [facility] [employer] [address] [place] [address] Glucose [Mass/Vol] 92 mg/dL Normal 70-108 [facility] Comment on above: Performed By: #### C BCND, PT, BMP, ANION, EGFR1, APTT #### [address] [address] Potassium [Moles/Vol] 4.6 mmol/L Normal 3.5-5.2 [facility] Comment on above: Performed By: #### C BCND, PT, BMP, ANION, EGFR1, APTT #### [address] [address] Sodium [Moles/Vol] 139 mmol/L Normal 135-145 [facility] Comment on above: Performed By: #### C BCND, PT, BMP, ANION, EGFR1, APTT #### [address] [address] Urea nitrogen [Mass/Vol] 12 mg/dL Normal 7-22 [facility] Comment on above: Performed By: #### C BCND, PT, BMP, ANION, EGFR1, APTT #### [address] [address] Basic Metabolic Panelon 12-23 Calcium [Mass/Vol] 9.6 mg/dL 8.5 - 10.5 mg/dL [facility] [employer] Comment on above: Performed at [facility] [address] [place] [address] Chloride [Moles/Vol] 103 mmol/L 98 - 111 meq/L [facility] [employer] CO2 [Moles/Vol] 26 mmol/L 23 - 33 meq/L [facility] Creatinine [Mass/Vol] 0.5 mg/dL 0.4 - 1.2 mg/dL [facility] [employer] Glucose [Mass/Vol] 92 mg/dL 70 - 108 mg/dL [facility] [employer] Potassium [Moles/Vol] 4.6 mmol/L 3.5 - 5.2 meq/L [facility] Sodium [Moles/Vol] 139 mmol/L 135 - 145 meq/L [facility] [employer] Urea nitrogen (BldV) [Mass/Vol] 12 mg/dL 7 - 22 mg/dL [facility] [employer] CBCon 01-03-2022 Erythrocyte distribution width (RBC) [Ratio] 12.9 % 11.5 - 14.5 % [facility] [employer] Erythrocyte distribution width (RBC) [Ratio] 44.8 fL 35.0 - 45.0 fL [facility] Hematocrit (Bld) [Volume fraction] 44.2 % 37.0 - 47.0 % [facility] Hemoglobin.gastro intestinal spec 1 Ql (Stl) 15.0 [facility] MCH (RBC) [Entitic mass] 32.3 pg 26.0 - 33.0 pg [facility] MCHC (RBC) [Mass/Vol] 33.9 g/dL [facility] MCV (RBC) [Entitic vol] 95.1 fL 81.0 - 99.0 fL [facility] [employer] Platelet mean volume (Bld) [Entitic vol] 9.7 fL 9.4 - 12.4 fL [facility] Comment on above: Performed at [facility] [address] [place] [address] Platelets (Bld) [#/Vol] 332 10*3/uL [facility] [employer] RBC (Bld) [#/Vol] 4.65 10*6/uL [facility] [employer] WBC (Bld) [#/Vol] 10.5 10*3/uL [facility] CBC NO DIFFERENTIALon 2021 Erythrocyte distribution width (RBC) [Ratio] 12.9 % Normal 11.5-14.5 [facility] Comment on above: Performed By: #### C BCND, PT, BMP, ANION, EGFR1, APTT #### [facility] [employer] [address] [place] [address] Hematocrit (Bld) [Volume fraction] 44.2 % Normal 37.0-47.0 [facility] Comment on above: Performed By: #### C BCND, PT, BMP, ANION, EGFR1, APTT #### [employer] [address] [place] [address] Hemoglobin (Bld) [Mass/Vol] 15.0 g/dL Normal 12.0-16.0 [facility] Comment on above: Performed By: #### C BCND, PT, BMP, ANION, EGFR1, APTT #### [facility] [employer] [address] [place] [address] MCH (RBC) [Entitic mass] 32.3 pg Normal 26.0-33.0 [facility] Comment on above: Performed By: #### C BCND, PT, BMP, ANION, EGFR1, APTT #### [place] [address] MCHC (RBC) [Mass/Vol] 33.9 g/dL Normal 32.2-35.5 [facility] Comment on above: Performed By: #### C BCND, PT, BMP, ANION, EGFR1, APTT #### [place] [address] MCV (RBC) [Entitic vol] 95.1 fL Normal 81.0-99.0 [facility] Comment on above: Performed By: #### C BCND, PT, BMP, ANION, EGFR1, APTT #### [place] [address] PLATELET 332 thou/mm3 Normal 130-400 [facility] Comment on above: Performed By: #### C BCND, PT, BMP, ANION, EGFR1, APTT #### [place] [address] Platelet mean volume (Bld) [Entitic vol] 9.7 fL Normal 9.4-12.4 [facility] Comment on above: Performed By: #### C BCND, PT, BMP, ANION, EGFR1, APTT #### [place] [address] RBC 4.65 mill/mm3 Normal 4.20-5.40 [facility] Comment on above: Performed By: #### C BCND, PT, BMP, ANION, EGFR1, APTT #### [place] [address] RDW-SD 44.8 fL Normal 35.0-45.0 [facility] Comment on above: Performed By: #### C BCND, PT, BMP, ANION, EGFR1, APTT #### [place] [address] WBC 10.5 thou/mm3 Normal 4.8-10.8 [facility] Comment on above: Performed By: #### C BCND, PT, BMP, ANION, EGFR1, APTT #### [facility] [address] [place] [address] EKG 12 LeadOrdered By: Gavin Guerrero on 01-03-2022 Atrial Rate 65 BPM [employer] Work Phone: P [place] 53 degrees [employer] Work Phone: P-R Interval 162 ms [employer] Work Phone: Q-T Interval 430 ms [employer] Work Phone: QRS Duration 92 ms [employer] Work Phone: QTc Calculation (Bazett) 447 ms [employer] Work Phone: R [place] 4 degrees [employer] Phone: T [place] 15 degrees [employer] Phone: Ventricular Rate 65 BPM [employer] Work Phone: [employer] Phone: EKG 12 Leadon 01-03-2022 Normal sinus rhythm Normal ECG No previous ECGs available Confirmed by MICHAELLE GUERRERO ([id number]) on 01/03/2022 1:51:07 PM [facility] Michaelle Marin MD - 01/03/2022 Normal sinus rhythm Normal ECG No previous ECGs available Confirmed by MICHAELLE GUERRERO ([id number]) on 01/03/2022 1:51:07 PM [employer] Work Phone: EKG 12-LEADon 01-03-2022 EKG 12-LEAD 65 65 162 92 [phone] Normal sinus rhythm Normal ECG No previous ECGs available Confirmed by MICHAELLE GUERRERO ([id number]) on 01/03/2022 1:51:07 PM [email or web address]=07-29-2022&Time= 12%3a42%3a25%3a00&TestType= ECG&Site=3&OutputType=PDF&E xt=PDF Normal [facility] GFR, ESTIMATEDon 01-03-2022 GFR/1.73 sq M.predicted MDRD (S/P/Bld) [Vol rate/Area] mL/min/{1.73_m2} Normal [facility] Comment on above: Result Comment: Stag e Description GFR, ml/min/1.73 m2 - At increased risk > or = 60 (with chronic kidney disease risk factors) 1 Normal or increased GFR > or = 90 2 Mildly or decreased GFR 60 - 89 3 Moderately decreased GFR 30 - 59 4 Severely decreased GFR 15 - 29 5 Kidney failure <15 (or dialysis) Estimated GFR calculated using abbreviated MDRD formula as recommended by National Kidney Foundation. Calculation based upon serum creatinine and adjusted for age, gender & race. Lindsay. Internal Med., Vol. 139 (2) pg 137-147. Performed By: #### C BCND, PT, BMP, ANION, EGFR1, APTT #### [employer] [address] [place] [address] Glomerular Filtration Rate, Estimatedon 01-03-2022 GFR/1.73 sq M.predicted MDRD (S/P/Bld) [Vol rate/Area] mL/min/{1.73_m2} ml/min/1.73 m2 [facility] Comment on above: Stage Description GF R, ml/min/1.73 m2 - At increased risk > or = 60 (with chronic kidney disease risk factors) 1 Normal or increased GFR > or = 90 2 Mildly or decreased GFR 60 - 89 3 Moderately decreased GFR 30 - 59 4 Severely decreased GFR 15 - 29 5 Kidney failure <15 (or dialysis) Estimated GFR calculated using abbreviated MDRD formula as recommended by National Kidney Foundation. Calculation based upon serum creatinine and adjusted for age, gender & race. Lindsay. Internal Med., Vol. 139 (2) pg 137-147. Performed at [facility] [address] [place], [place] [id number] NASAL COMPLETE SCREEN RT-PCR on 01-03-2022 MRSA SCREEN RT-PCR Negative Normal [facility] Comment on above: Result Comment: MRSA target DNA NOT DETECTED by Real Time - Polymerase Chain Reaction. A MRSA NEGATIVE, test result does not preclude MRSA nasal colonization. . Performed By: #### N ASCP #### [facility] [employer] [address] [place] [address] SA SCREEN RT-PCR Positive Abnormal [facility] Comment on above: Result Comment: Stap hylococcus aureus (SA) target DNA DETECTED by Real Time - Polymerase Chain Reaction. A positive test result does not necessarily indicate the presence of viable organisms. It is, however presumptive for the presence of SA DNA. Performed By: #### N ASCP #### [place] [address] Nasal Complete Screen RT-PCR on 01-03-2022 Interpretation and review of laboratory results Abnormal [facility] MRSA Nasal Screen RT-PCR Negative [facility] Comment on above: MRSA target DNA NOT DETECTED by Real Time - Polymerase Chain Reaction. A MRSA NEGATIVE, test result does not preclude MRSA nasal colonization. . Staph Aureus Screen RT-PCR Positive Abnormal [facility] Comment on above: Staphylococcus aureu s (SA) target DNA DETECTED by Real Time - Polymerase Chain Reaction. A positive test result does not necessarily indicate the presence of viable organisms. It is, however presumptive for the presence of SA DNA. Performed at [facility] [address] [place] [address] No Panel Informationon 01-03 [facility] [employer]BIN TIMEon 01-03-2022 INR Coag (Bld) [Relative time] 1.00 {INR} Normal 0.85-1.13 [facility] Comment on above: Result Comment: ---- -----INDICATION INR Reference Range DVT, PE, AF, AMI, tissue heart valve 2.0 to 3.0 Mechanical prosthetic valves 2.5 to 3.5 Performed By: #### C BCND, PT, BMP, ANION, EGFR1, APTT #### [facility] [place] [address] [employer] 01-03-2022 INR Coag (Bld) [Relative time] 1.00 {INR} [facility] Comment on above: ---------INDICATION- INR Reference Range DVT, PE, AF, AMI, tissue heart valve 2.0 to 3.0 Mechanical prosthetic valves 2.5 to 3.5 Performed at [facility] [address] [place] [id number] [place] [address] XR CHEST (2 VW)on 01-03-2022 There is no acute intrathoracic process. This report has been created using voice recognition software. It may contain minor errors which are inherent in voice recognition technology. Final report electronically signed by Dr Carl Troy on 01/03/2022 1:32 PM [facility] Carl Lentz MD - 01/03/2022 PROCEDURE: XR CHEST (2 VW) CLINICAL INFORMATION: Lumbosacral spinal stenosis, Preop testing. COMPARISON: No prior study. TECHNIQUE: PA and lateral views of the chest were obtained. FINDINGS: The lungs are clear. The cardiac silhouette and pulmonary vasculature are within normal limits. There is no significant pleural effusion or pneumothorax. Visualized portions of the upper abdomen are within normal limits. The osseous structures are intact. No acute fractures or suspicious osseous lesions. IMPRESSION: There is no acute intrathoracic process. This report has been created using voice recognition software. It may contain minor errors which are inherent in voice recognition technology. Final report electronically signed by Dr Carl Troy on 01/03/2022 1:32 PM [facility] Work Phone: Radiology Study observation (narrative) [employer] Work Phone: XR CHEST (2 VW)Ordered By: Eduard Troy on 01-03-2022 [facility] [employer] Coding Summaryon 05-23-2021 Coding Summary [employer]Base 64 VlzaglrgEPy2vDe+PGhlYWQ+PE1 USCCmL59doJXudB1GT1yWHL4PJG VIZHAFBS8ZTV0zrGY1AMcvQ0Cvt iAv QdxvbTOtUJ28UUz7YKP1dPiiNAb rwG7clZYtQ8w1SbGmLY46jX80UH duZIWnGaS8YhHphphriAQj D7ijQsTfbBLdYnp+PHRhYmxlIHd gZNQeKYjoGMNkIhEqcEdjLG6xVw 9yZGVyLWNvbGxhcHNlOiBj y0hcUWHjIMmiKA3zcOqqX2RnvLJ 8OIOdy3l5Jn83fFA+TFPbULQ1rR byAWqpe916WvWzy2mzWFW6 oRUcSLzhIPR3V37so5A6HEIzSVK bLCE4oOJ0xC3cuVrdqjsvW4MyvN JoIjI2XNX2xIAjkG6zhNud kxphrN8wTfn+O94MLR5EGQBTGE1 WLdf4X7GcJzavsQJ+BT38CEUjZN 44qVZkbOZvy1gawVj0YnWj AFZsZAC9kWzlUHefl4MlBBAoX87 czWRao0D5LXMcpRfhqSPwPsXpnM H9fL5gEZtebgrwx9slylms Xbxja5jotw56aU47M55vEOkuBMW jPCR5SBElWOUauCrkpw7njR9sTg 8+NGqqc2esg6btuXm2VeJr KKBevhBuxVabUVQ9p0NqYp51N1P gbLhxg4KpHph3at83yRNxr0S2cH F1EUslNKYxoA3sNLbfBsA9 SDOeWlXytE41nHQoVPbpWj1lpJk apHxbHG8lPWRotkuxYWFomE9tYT WmzKIevWkbHN9kAVXoqeuf d861TqExADT1ZQVvzPGpJ3KeqB9 xFjQlGZNsBDDpJ0DyhJNoFMbhQ3 32LRngWwF3HNLgryJfS7Ln FXBoySwdCkN8o5L7Ux9Iy1Piqik fMDZ6ECirJAN4NcD4SbAvFyL0Q2 NqUfz1ERUeaVolGF2yA4Pi VCBsilxxboyhfEO5BYFjQDRiyM2 6aSMqILjhNp3pm8N5m497BVGnZP MpaM98Ia8glZmkSDNddNXC tC4skwghs6tcuwkdJlGtCQFaCPc 9SYb3UECfsBshJjUiYXB1GhN2OV Z5oZNycE9kvPrkzkzltG6a Oyc+U20kpV9gCYZ2MBH2ipwdQXM ijoWjQK99HD01B8MsSqdwzGZxxF U+AKSibwLgiJrcNU3bRjMp o3hwn1LpSZbhI5RuNKTsNUvbJll 5OQFyQMT5nAU9mK7zGZJqFMfgb0 E9bKC8T5OjirOyyc0mx6cf HEDsNBuzR07erDIto3S3CFKfaXT 4GECbcUjsJaYvzT06Wza+PGNvbG xox8IdRtesd2mqf8tngRf4 IrPqVZEsikZvmKwpVIZ1b5EuFk5 3D96xLWwqBBQyJPHsBHXiGNNthM uric9hrV9mQo6+PGNvbCB3 qLI7kX0xVULzWqD9SYwoC621UrP moDXtDlexp3fhs0ffoPd5XcKvEJ KjnxJzxTvbZOA7g9EgRq08 L64oYEhoDIDrLPCzGHWtVENliWw are1deC7rCt6+NG9tc1molh13iF 48dHI+QHKwFHN2lUlqFKsa YQDsqY0mWYrjYoM0JNFqQdQmdW9 1fDIsPVvrWc5hzHgblGaaRI7mHR Zjgdyly535CjAbu8gdQNWc vKDgVWzuAQA1N06lv0C7NOGiOVT jRIN5yUQ7xF6loDdlirgimTHurJ lcrwYjkWxyGDobNDbtD695 IHRvcDsnPlBhdGllbnQgTmFtZTo 3S4FiVuo0IQMrpLpxZO8hiOBnZO qbBz7zyBicyYupJE1oZBWe cixqx065ZgLoc5yoPEMbtYGxUBm yAKV2J90jm7Y3AGEdBGPaFTI8lM X4dV0xzHmxyosabICecQxl oyRruJzpZPeeNMnoL763JTQzaWl tUcPwqpSxCDZjuKP9AA75XK38qZ Nyf9I2fKQ3X3ApTQTokupj tqxvgOM8FHWfAYExlQ67Fc1keJh vIq5hNXVbIED6MEByfTKfD4NojN 3uGgPwSCFqLKUbV0TfiRSl WHkaB570KKdeZuG1XXVgghKaW1Z nWVKpiSqePhU7h4E1Dr6CB9E0KM 22YE32wPXdg4H7lGM6P3Ak NWFfaabvrsrrmAB3WCHhDAUezV0 3Ws9mxTqmBe8jWNHyHFY7YNPcoB TmW7EafO4qSiDkCHYhZIMy M5BdmHAyBVdrE353HQtmZaM0PLQ wglDvW7EbYZKnuZgyQsM8z0S5Fj 1BEDh3FQ10WM15mTDln4A8 vOQ0U6DgJQDvzjlibxcfsFM3JVQ rRJMqtD57Zw1vjJudAp8fPTWiFX Y1OOLdjDKnG3MfyY1uWoNg YQPzIHZhK9ErnEIuDBpjR968FYt pZcP4HQPrkbXpI7HyPVHxpCwaZf R9u1Q9Pm1ZBSZeSM77LTG1 iYW7BS85MY54B8AcFusuoISorKT +PHRhYmxlIHdpZHRoPScxMDAlJy ZpcRzkSV5bWb9gUFVbGTYp vXtfcUOqSxKhn5nrQGKbHWjzAP4 jiPxkA0IwvYG0IGFuz9g4Oy96X1 7bJ9NixNW+SVOklCG8kHB0 tA4zMiWgPgB6LGkoB771YdIejUR nEznbb1kyr0gwhRe9MmA6HBHszk JdkZopQME5b7GvZz37G97a IHdpZHRoPSIxNSUiIHZhbGlnbj0 jyU1vQz0+TXWnkMD6cGC1fR6uEb CtIgI3WUraU180PwScwIGh Pmrsb1nlf6lxtHv4EoKfIPBqkuT ydTnuMCZ3j6HuJp75G7QdzFvly6 GxOia0kd47dQBvu3W0cFK3 H7YoRHNaaedcdHXjvVylLE7cYID envlvMWWdiX1nXNShL2g2RhJpLk K1PMqkQ0BysfU8YCWwdLFa FUbaSZN5J01uu6R2EOMbBERpTAY 2nSM3oA2vgChehnetzXGpsHphng ZmkVcpJQavCJxbZ003XXZq iBgbGMWrmV1uQKKbpDRsrBqvET6 wNTBpbjsnPkhBQVIsIEtFTExZIE x3Z1PjJqw3EBWvrKqaLL4n qOMnWTqpHz3qmXccvExpEZ8uZFB kyyasGCXemV2iSHDvaAKpcOlqGV 3zGHTmwaznh397QzRmQFO4 LJYjvVFoP2JdwF5jPnBjLUMeJSC yI5JliFHcBNtaD054CNmuXcJ1FF QnblWaB9VtDEKojVtnPgP8 u2F5Ou8dVQ1xXN5qVTdqWP38JY9 6cXItf5R1pMZ9G7DwDKJnbvrbdd ysuVA6TMAgYHSemS14dPCr NWfjAw7fr1W7z726KSNlGRHyrH1 3Mr2xnYogHXNnvXTKpG0mzevsb8 bxtyoyOlAtSHAuGOf0LPe9 GOQsrSuyVgZzDQR3ZoM4FGA7tSI tiA1euDhrurohwW5gXmc+NDggWW QzohF3M8CiBvc2MQNbeJzg AP3bjRDgZZknTe4ryOqfbPopEJ9 tDLYfcawlOXPfgF9eFXEgwPMgkJ eaBC9iLDPwcxdlb475XiCd CSS5XRGjyGXwP3OtzN6aGhAeQRH fGAYlS5BzvNCkOAetC338VNvySx O5ZMIvpiGrA0LaVUVluLri FjA3k3B7Dg5OJZ1VPFW5P1ZlZpe 9AHNuuUgnHN0thRDcNEwaWv1fgH rmeZodBI5tPSQnsayeJAHa yR8jLQCteZNxuAwhGD5lFWHgbmn bd066HmPnQYP3AYDngEXbV7KltD 4dDsXjIPTcCUKoQ8DgqZFx IVpgK309WRrhFnV0NVQjwnMzM0T pGDCqxZzzWvE6y8X3Gh5VRWsmrZ Q+MY73hx84N0IcFpoiBff5 YDInDHE2rHL9aJ1jMIFqCWlbw3Q 5rDK9V2NnduLulu4cd6stBSPdDJ fhQ71ywXUqh5N1FTAldYD2 OUYwgVtlBiTvdH56Gug+PGNvbGd xn8QyNrfmr0cdz8ethRd9BwKdXY CeyxMqzRlqSGH4u7AqMc50 K65jUFjzZPBrWSApDMYuLQSvdYx mjb4nlV3qMp2+RSQpjXC3rKT5tP 8aTlUkJqH7TYngL926UxYo rEHvOkyuy2hsq4ekpOy3CnBmHFA phoRhtSjoDAQ1p9MwTy21P0UbwP jcb8DjHiy3mi55zHUwd8Y4 aIY9T8OpEGMidtuslIPmzXmxGG2 uWMHserofCSHliZ7oOZCpW2l7Jk FbVeA2RVjnX5RzxjS6NKMw iNYmAJVhpCTKkP0gqwcow2cdvct dEsSmZTTyCFy6IHv2XFZkiParTq EjRAX1WsJ8RNB0aZFjsL0y tLbdrfbxoN6lZag+NBx7r2jzrFM jUE5vlXG5JX70MO94nQFkd2B3sN O3I2AuVJXewpsundqqhUF5 YNNjLEXkyA59Qa6ncTndKw0uPOW iESO1FENqqBKsQ8TubE4aCeVzZX EfBLWfC7VitZAzBFpiI102 QKebMgH1FPJpgkUfJ3LyGHCggCb lPnZ9f4X9Qt8IOU61LB16QG87uJ Aij9W4vIA5U1MrZFGbokjq ezzkkTB4QTDyQKBteX76Wo6eaSv iWl4rQHGaIMT1GBShsOKrF1AmcD 8jVvKqBIDpYMCuE3XxwJLp ZLhbQ872RUlcPvI5WSQlhkUjT0E yHIFxnHhwPuP1g6B9Qj3KCr45BA 85AC62nDAsb5Q0hOQ6R0Pr JBEgalwcurryiUJ1QJWjOGUevI1 0Ka9zvGljYt8fFGGnUXR7GXSwpL JsC9LvjG2fKzKpRTEwSDXi J0CopFWdAXskV813YJyaRnU7PYB mvtWwP6EaGPShsUqfDsN2k5Y6Ou 3EETpbrdi4G2HyKxaxyZH+ FM02UHTjZB16yHOdnXYdk3rjvOt 5LnMeAKTiWER4yQszOFors5UwHJ LlA08tcNQtu1P0GPImwPcg cHN (more content not included)... Normal [facility] ED Clinical Summaryon 2020 ED Clinical Summary [facility] ? Urgent Care [address] [place] [address] [id number] Clinical Summary PERSON INFORMATION Name: TORY GATES Age: 46 Years Sex: FEMALE : 1975 MRN: Acct#: Visit Reason: UC - Allergic Reaction: minor; RASH ALL OVER BODY/POSS ALLERGIC REACTION Arrival: 05/19/2021 20:15:53 Discharge: 05/19/2021 20:44:00 LOS: 000 00:29 Check In: 05/19/2021 20:15:53 Checkout: 05/19/2021 20:44:00 Address: [address] [place], [place] [id number] PCP: CHARLOTTE SWEENEY PROVIDER INFORMATION Provider Role Assigned Unassigned Ira FLOR, Andreia Grider ED Nurse 05/19/2021 20:18:53 Tay Peña PA-C ED PA 05/19/2021 20:20:45 VITALS INFORMATION Vital Sign Triage Latest Temperature Tympanic Temperature Temporal Artery Pulse Rate O2 Sat 97 % 97 % Respiratory Rate Blood Pressure /83 mmHg /83 mmHg MEDICAL INFORMATION Medications Given: Medication Dose Route methylPREDNISolone (SOLU-Medrol) 125 mg IM Allergy Information: sulfamethoxazole; cefaclor; contrast dye PHYSICIAN DOCUMENTATION DISCHARGE INFORMATION: Discharge Disposition: Home Discharge Location: Home PATIENT EDUCATION INFORMATION Instructions: Drug Rash; Drug Allergy, Vcka-bc-Njzn Follow-Up: With: Address: When: CHARLOTTE SWEENEY [address] [place] [id number] [facility] (1) Within 1 week Comments: Please follow-up with Dr. Sweeney, call the office schedule an appointment to be seen in a week or sooner for continued care, take your prednisone as prescribed, take gdye-gwn-vceytql Benadryl every 8 hours as needed there are 25 mg tablets, please and forget that Benadryl can cause sedation, try not to work or drive while you are taking Benadryl, and return back to the urgent care center for any worsening symptoms, concerns, or complications. DIAGNOSIS: 1:Medication reaction Patient Understands: Yes - Patient/family/caregiver verbalizes understanding of instructions given Comment: Normal [facility] ED Patient Summaryon 021 ED Patient Summary [facility] ? Urgent Care [address] [place] [address] [id number] PATIENT DISCHARGE INSTRUCTIONS Patient Information Name: TORY GATES Age: 46 Years Date of : 1975 Reason For Visit: UC - Allergic Reaction: minor; RASH ALL OVER BODY/POSS ALLERGIC REACTION Arrival Time: 05/19/2021 20:15:53 Primary Care Physician: CHARLOTTE SWEENEY Attending Physician: Tay Peña PA-C Comment: Patient Education With: Address: When: CHARLOTTE SWEENEY [facility] [address] [employer] (1[place] Within 1 week Comments: Please follow-up with Dr. Sweeney, call the office schedule an appointment to be seen in a week or sooner for continued care, take your prednisone as prescribed, take pxvp-nfv-upfmwle Benadryl every 8 hours as needed there are 25 mg tablets, please and forget that Benadryl can cause sedation, try not to work or drive while you are taking Benadryl, and return back to the urgent care center for any worsening symptoms, concerns, or complications. Drug Rash A drug rash occurs when a medicine causes a change in the color or texture of the skin. It can develop minutes, hours, or days after you take the medicine. The rash may appear on a small area of skin or all over your body. What are the causes? This condition is usually caused by your body's reaction (allergy) to a medicine. It can also be caused by exposure to sunlight after taking a medicine that makes your skin sensitive to light. Though any medicine can cause a rash or reaction, medicines that are more likely to cause rashes include: ? Penicillin. ? Antibiotic medicines. ? Medicines that treat seizures. ? Medicines that treat cancer (chemotherapy). ? Aspirin and other NSAIDs. ? Injectable dyes that contain iodine. ? Insulin. What are the signs or symptoms? Symptoms of this condition include: ? Redness. ? Tiny bumps. ? Peeling. ? Itching. ? Itchy welts (hives). ? Swelling. How is this diagnosed? This condition may be diagnosed based on: ? A physical exam. ? Tests to find out which medicine caused the rash. These tests may include: ? Skin tests. ? Blood tests. ? Challenge test. For this test, you stop taking all the medicines that you do not need to take. Then, you start taking them again by adding back one medicine at a time. How is this treated? This condition is treated with medicines, including: ? Antihistamine. This may be given to relieve itching. ? NSAIDs. These may be given to reduce swelling and to treat pain. ? A steroid medicine. This may be given to reduce swelling. The rash usually goes away when you stop taking the medicine that caused it. Follow these instructions at home: ? Take isfm-umo-btrttpl and prescription medicines only as told by your health care provider. ? Tell all your health care providers about any medicine reactions that you have had in the past. ? If your rash was caused by sensitivity to sunlight, and while your rash is healing: ? Avoid being in the sun if possible, especially when it is strongest, usually between 10 a.m. and 4 p.m. ? Cover your skin with pants, long sleeves, and a hat when you are exposed to sunlight. ? If you have hives: ? Take a cool shower or use a cool compress to relieve itchiness. ? Take xnhy-tiz-mjfnhze antihistamines, as recommended by your health care provider, until the hives are gone. Hives are not contagious. ? Keep all follow-up visits as told by your health care provider. This is important. Contact a health care provider if you have: ? A fever. ? A rash that is not going away. ? A rash that gets worse. ? A rash that comes back. ? Wheezing or coughing. Get help right away if: ? You start to have breathing problems. ? You start to have shortness of breath. ? Your face or throat starts to swell. ? You have severe weakness with dizziness or fainting. ? You have chest pain. These symptoms may represent a serious problem that is an emergency. Do not wait to see if the symptoms will go away. Get medical help right away. Call your local emergency services (911 in the [place] Do not drive yourself to the hospital. Summary ? A drug rash occurs when a medicine causes a change in the color or texture of the skin. The rash may appear on a small area of skin or all over your body. ? It can develop minutes, hours, or days after you take the medicine. ? Your health care provider will do various tests to determine what medicine caused your rash. ? The rash may be treated with medicine to relieve itching, swelling, and pain. This information is not intended to replace advice given to you by your health care provider. Make sure you discuss any questions you have with your health care provider. Document Revised: 07/24/2018 Document Reviewed: 07/02/2018 [employer] Patient Education ? 2019 (more content not included)... Normal [facility] [address] Urgent Care Record [facility] ? Urgent Care [address] [place] [address] PATIENT DISCHARGE INSTRUCTIONS Patient Information Name: TORY GATES Age: 46 Years Date of : 1975 Reason For Visit: RASH ALL OVER BODY/POSS ALLERGIC REACTION Arrival Time: 05/19/2021 20:15:53 Primary Care Physician: CHARLOTTE SWEENEY Attending Physician: Tay Peña PA-C Comment: Visit Diagnosis: Diagnoses This Visit Medication reaction (T50.905A) If you received any narcotics, sedation, or any other medication that causes drowsiness for the next 24 hours, unless otherwise directed: ? Do not drive a car. ? Do not operate machinery such as power tools, lawn mowers, drills, sewing machines, or stoves ? Avoid alcoholic beverages and drugs for allergies, nerves, or sleep ? Do not make important personal or business decisions or sign any legal documents With: Address: When: CHARLOTTE SWEENEY [address] [place] [id number] Business (1) Within 1 week Comments: Please follow-up with Dr. Sweeney, call the office schedule an appointment to be seen in a week or sooner for continued care, take your prednisone as prescribed, take [id number] Benadryl every 8 hours as needed there are 25 mg tablets, please and forget that Benadryl can cause sedation, try not to work or drive while you are taking Benadryl, and return back to the urgent care center for any worsening symptoms, concerns, or complications. Medication Information: The exam and treatment you received today in the [facility] were for an urgent problem and are not intended as complete care. It is important for you to follow up with a doctor, nurse practitioner, or physician?s licensed physical therapy assistant for ongoing care. If your symptoms become worse or you do not improve as expected and you are unable to reach your usual health care provider, you should return to the Emergency Department, we are available 24 hours a day. For those patients who have received Radiology results, the interpretation of your X-ray as given to you by our Urgent Care physician is only a preliminary report. The Radiologist will review your films and if there is a change in the diagnosis you will be notified by phone. Please make sure you have provided a working phone number so we can reach you if necessary. In the event that you had a lab culture while you were a patient in the Urgent Care, you will be notified by phone if there is a need to change your antibiotic. Please make sure you have provided a working phone number so we can reach you if necessary. [facility] has provided you with a complete list of medications post discharge. Please inform your line driver/provider of your visit and for further instruction on these medications. Any specific questions regarding your chronic medications and dosages should be discussed with your primary care physician(s) and/or pharmacist. New Medications [facility], [address] [place], [place] [id number], [phone] predniSONE (predniSONE 20 mg oral tablet) 2 tab(s) Oral every day for 7 Days. Refills: 0. Visit Information Allergies: Substance Reaction Symptoms Type Comments contrast dye sulfamethoxazole cefaclor Drug Vital Signs: Vitals and Measurements this Visit (last charted value for your 05/19/2021 visit) No vitals and measurements documented Problems List: Problem Onset Comments Degenerative disc disease Patient Education Drug Rash A drug rash occurs when a medicine causes a change in the color or texture of the skin. It can develop minutes, hours, or days after you take the medicine. The rash may appear on a small area of skin or all over your body. What are the causes? This condition is usually caused by your body's reaction (allergy) to a medicine. It can also be caused by exposure to sunlight after taking a medicine that makes your skin sensitive to light. Though any medicine can cause a rash or reaction, medicines that are more likely to cause rashes include: ? Penicillin. ? Antibiotic medicines. ? Medicines that treat seizures. ? Medicines that treat cancer (chemotherapy). ? Aspirin and other NSAIDs. ? Injectable dyes that contain iodine. ? Insulin. What are the signs or symptoms? Symptoms of this condition include: ? Redness. ? Tiny bumps. ? Peeling. ? Itching. ? Itchy welts (hives). ? Swelling. How is this diagnosed? This condition may be diagnosed based on: ? A physical exam. ? Tests to find out which medicine caused the rash. These tests may include: ? Skin tests. ? Blood tests. ? Challenge test. For this test, you stop taking all the medicines that you do not need to take. Then, you start taking them again by adding back one medicine at a time. How is this treated? This condition is treated with medicines, (more content not included)... [facility] Cytologyon 03-08-2021 Cytology (NOTE) INTERPRETATION Cervical material, (ThinPrep vial, Imaging-assisted review): Specimen Adequacy: Satisfactory for evaluation. - Endocervical/transformation zone component present. Descriptive Diagnosis: Negative for intraepithelial lesion or malignancy. Political Science Research Assistant: TRINY GONZALEZ(ASCP) Electronically Signed Out /03/15/2021 Source: 1: Cervical material, (ThinPrep vial, Imaging-assisted review) Clinical History Endometrial ablation LEEP Z01.419 Routine automatic seamer exam without abnormal findings High risk HPV DNA testing is requested if the diagnosis is abnormal GYNECOLOGIC CYTOLOGY REPORT Patient Name: TORY GATES [facility] Rec: [id number] Path Number: [id number] [facility] ANATOMIC PATHOLOGY [address] [place] [id number] [facility] Comment on above: Performed By: #### P PPVP #### [employer] [address] [place] [id number] Automotive Alignment Specialist: Andrew Mas MD IR ARTHR/ASP/INJ MAJOR JT/BU RSA LEFT WO USon 05-09-2020 IR ARTHR/ASP/INJ MAJOR JT/BURSA LEFT WO US EXAMINATION: FLUOROSCOPIC GUIDED INJECTION OF THE LEFT HIP 05/09/2020 11:06 am HISTORY: ORDERING SYSTEM PROVIDED HISTORY: Pain of left hip joint TECHNOLOGIST PROVIDED HISTORY: Is the patient ?->No FLUOROSCOPY DOSE AND TYPE OR TIME AND EXPOSURES: 33 seconds; D AP 79 cGy cm2 PROCEDURE: TRIMMER HELPER: Goyo Guerrero MD Informed consent was obtained and universal protocol was observed. Under standard sterile condition, local anesthesia with subcutaneous 2% lidocaine was administered. A skin entry site was selected with fluoroscopy. A 22 gauge spinal needle was inserted into the left hip joint under fluoroscopic guidance. Fluoroscopy shows mild degenerative changes of the hip. Approximately 2 cc of air was injected verifying needle position within the joint space. The patient reports a history of iodine contrast allergy. Subsequently, 4 cc of 1% xylocaine, 4 cc of 0.5% bupivacaine, and 1 cc Celestone (6 mg) were injected into the joint as requested. The needle was removed and a sterile bandage was placed. The hip joint was then passively exercised. EBL: None IMPRESSION: Successful fluoroscopic-guided left hip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 [facility] Start: 07-08-2023 [facility] Start: 04-25-2023 Influenza vaccination Influenza Vacc ine [facility] Start: 2023 Administration of varicella zoster vaccine Zoster (Shingles) Vaccine (1 of 2) [facility] Start: 03-25-2023 Influenza vaccination Flu vaccine (# 1) [facility] Start: 03-13-2023 Screening for malign ant neoplasm of cervix Cervical cancer screen [place], [place] Start: 04-25-2022 Influenza vaccination Flu vacc ine (Season Ended) [facility] Start: 01-18-2022 End: 01-18-2022 Admission to same day surgery center 01/18/2022 Surgery IP Unit Dileep Abad MD [address] [place] [address] L4-S1 DECOMPRESSION L4-S1 POSTERIOR FUSION L5-S1 TLIF [facility] OR Comment on above: L4-S1 DECOMPRESSION L4-S1 POSTERIOR FUSION L5-S1 TLIF Start: 01-18-2022 End: 01-18-2022 Posterior segmental instrumentation 3-6 vrt seg [facility] OR Start: 01-18-2022 Subsequent hospital visit by physician 01/18/2022 Hospital Encounter IP Unit Dileep Abad MD [address] [place] [address] [facility] OR Start: 09-24-2021 Screening for malign ant neoplasm of cervix Cervical cancer screen [place], [place] Start: 04-25-2021 Influenza vaccination Flu vaccine (# 1) [facility] Work Phone: Start: 03-19-2021 End: 03-19-2021 Office Visit 03/19/2021 Office Visit Obstetrics and Gynecology Kay [place] [address] [phone] [facility] Start: 04-25-2020 Influenza vaccination Flu vaccine (# 1) [place] Start: 2018 Screening for malign ant neoplasm of colon [facility] Start: 2013 Lipid panel [facility] Start: 2003 Screening for malign ant neoplasm of cervix HPV (without or with Pap) [facility] [employer] Start: 1991 Adult BMI Follow Up Plan Adult BMI Follow Up Plan [facility] [employer] [facility] Start: 1991 Hepatitis C screening Hepatitis C [facility] Start: 1988 HIV screening HIV screen [facility] Start: 1985 COVID-19 Vaccine (1) COVID-19 Vaccin e (1) [facility] [employer] Work Phone: Start: 1985 Depression Screen Depression Screen [facility] Start: 1979 Pneumococcal 0-64 ye ars Vaccine (1 - PCV) Pneumococcal 0-64 years Vaccine (1 - PCV) [facility] Start: 1979 Pneumococcal 0-64 ye ars Vaccine (1 of 1 - PPSV23) Pneumococcal 0-64 years Vaccine (1 of 1 - PPSV23) [facility] [employer] Start: 1979 Pneumococcal 0-64 ye ars Vaccine (1 of 2 - PPSV23) Pneumococcal 0-64 years Vaccine (1 of 2 - PPSV23) [facility] [employer] Phone: Start: 1978 COVID-19 Vaccine (1) COVID-19 Vaccin e (1) [facility] [employer] Start: 1973 COVID-19 Vaccine (#1) COVID-19 Vacci ne (#1) [facility] [employer] [facility] [employer] Start: 1973 Hepatitis C screening Hepatitis C in sobeida [facility] [employer] Phone: Start: 1973 Tobacco Counseling Tobacco Counselin g [facility] [employer] [facility] End: 01-25-2022 Basic metabolic 2000 panel - Serum or Plasma Basic Metabolic Panel Lab Routine Daily for 1 Weeks starting 01/19/2022 until 01/25/2022, 2 completed [employer] Phone: Comment on above: Daily for [address] arting 01/19/2022 until 01/25/2022, 2 completed End: 03-13-2020 Cytopathology procedure, preparation of smear, genital source PAP SMEAR Lab Routine Encounter for well woman exam with routine gynecological exam 1 Occurrences starting 03/13/2020 until 03/13/2020 [facility]- [place], [place] Comment on above: 1 Occurrences starti ng 03/13/2020 until 03/13/2020 End: 03-08-2021 Cytopathology procedure, preparation of smear, genital source PAP SMEAR Lab Routine Women's annual routine gynecological examination 1 Occurrences starting 03/08/2021 until 03/08/2021 [facility] Work Phone: Comment on above: 1 Occurrences starti ng 03/08/2021 until 03/08/2021 End: 01-25-2022 Hemoglobin and hematocrit, blood Hemoglobin and hematocrit, blood Lab Routine Daily for 1 Weeks starting 01/19/2022 until 01/25/2022, 2 completed [employer] Phone: Comment on above: Daily for [address] arting 01/19/2022 until 01/25/2022, 2 completed Oxygen therapy [[facility] Data Set] Initiate Oxygen Therapy Protocol Respiratory Care Routine As Needed until discontinued starting 01/18/2022 [employer] Phone: Comment on above: As Needed until disc ontinued starting 01/18/2022 Spirometry panel Incentive rangel metry Respiratory Care Routine Every 2hr while awake until discontinued starting 01/18/2022 [employer] Phone: Comment on above: Every 2hr while awak e until discontinued starting 01/18/2022 Immunizations Immunization Date Immunization Notes Care Provider Nevin leon 04-15-2017 tetanus toxoid, redu gary diphtheria toxoid, and acellular pertussis vaccine, adsorbed Charlotte Sweeney MD Work Phone: [facility] 12-28-2003 hepatitis B vaccine, adult dosage Charlotte Sweeney MD Work Phone: [facility] 12-28-2003 hepatitis B vaccine, unspecified formulation Charlotte Sweeney MD Work Phone: [facility] 08-26-2003 hepatitis B vaccine, adult dosage Charlotte Sweeney MD Work [facility] 08-26-2003 hepatitis B vaccine, unspecified formulation Charlotte Sweeney MD Work Phone: [facility] [employer] System Payers Date Payer Category Payer Self-pay 2023 Medicaid [facility] MEDICAID [facility] [id number] 2023-Present [phone] [address] [place] [address] [id number] 2021 Unknown [id number]. [id number] 2021 Unknown [id number]. [id number] 2015 Unknown [employer] [address] [id number] 2015-Present [phone] [address] [place] [address] [id number] [id number]. [id number] 2015 Unknown [id number] [id number]. [id number] 1973 Unknown [id number] [id number] 1973 Unknown [id number] [id number] 1973 Unknown [id number] [id number] 1973 Unknown [id number] [id number] 1973 Unknown [id number] 2.16.840.1.200976.3.579.2.93 1973 Unknown [id number] [id number] 1973 Unknown [id number] [id number] 1973 Unknown [id number] [id number] 1973 Unknown [id number] [id number] 1973 Unknown [id number] [id number] 1973 Unknown [id number] [id number] 1959 Unknown [id number] Unknown [id number] Social History Date Type Detail Facility Start: 03-13-2020 End: 10-11-2022 Tobacco smoking status NHIS Current every day smoker [place], [place] Start: 03-13-2020 End: 10-02-2020 Cigarettes smoked current (pack per day) - Reported [facility] Start: 03-13-2020 End: 10-11-2022 Tobacco use and exposure Never used [place], [place] Start: 03-13-2020 End: 03-10-2023 Alcohol intake Current non-drinker of alcohol (finding) [place], [place] Start: 1975 Sex Assigned At Not on file [place], [place] Start: 12-24-2021 End: 01-18-2022 Exposure to SARS-CoV-2 (event) Not sure [place], [place] History of tobacco use Cigarette Smoker [facility] [employer] Work Phone: Start: 04-12-2020 End: 10-02-2020 Sex Assigned At [facility] Start: 07-08-2023 Tobacco smoking stat us WVIS Smoker (finding) [facility] Start: 1975 Sex Assigned At Female F [facility] Start: 06-24-2023 Alcohol intake Ex-drinker (finding) [facility] Do you belong to any clubs or organizations such as nondenominational groups, unions, fraternal or athletic groups, or school groups? No [facility] Are you now , , , , never or living with a partner? [facility] How often to you hav e a drink containing alcohol? Never [facility] How many standard dr inks containing alcohol do you have on a typical day? Patient declined [facility] Do you feel stress - tense, restless, nervous, or anxious, or unable to sleep at night because your mind is troubled all the time - these days [OSQ] Not at all [facility] Start: 04-12-2020 Education 15 [facility] Medical Equipment Procedure Code Equipment Code Equipment Origin al Text Equipment Identifier Dates Impl Hip Liner A cet Neut 36mm Sz E [id number] Start: 06-02-2018 Impl Hip Shell A cet 3hl Finned 52mm [id number] Start: 06-02-2018 Impl Hip Stem Fe m Std Offst/Tap [id number] Start: 06-02-2018 Impl Hip Head Ce r Biolox Option Hd 36mm [id number] Start: 06-02-2018 Impl Hip Sleeve Cer Option Type 1 Tpr Sz 3 [id number] Start: 06-02-2018 Set Scr Spnl Ti Streamline - [id number] Start: 01-18-2022 Screw Spnl L40mm Dia6.5mm Thorlum Ti Ally Polyax Streamline - [id number] Start: 01-18-2022 Screw Spnl L45mm Dia6.5mm 60deg Thorlum Pedcl Ti Ally - [id number] Start: 01-18-2022 Davis Spnl L60mm [id number] Thorlum Prebent For Fix Sys Qnt - [id number] Start: 01-18-2022 Goals Date Patient Goal Desired Activity /State Clinical Notes 05-19-2021 to 09-07-2023 Telephone Encounter - Adwoa Quintero LPN - 09/07/2023 9:55 AM ESTTelephone Encounter - Adwoa Quintero LPN - 09/07/2023 9:55 AM ESTTelephone Encounter - Adwoa Quintero LPN - 09/04/2023 9:54 AM EST Note Date & Type Note Facility 09-07-2023 Miscellaneous Notes Formattin g of this note might be different from the original. [facility] requesting refill of Pantoprazole documented in this encounter [facility] 09-07-2023 Telephone encount er Note [facility] requesting refill of Pantoprazole [facility] 09-04-2023 Miscellaneous Notes Formattin g of this note might be different from the original. [facility] requesting refill of Levothyroxine documented in this encounter [facility] 09-04-2023 Telephone encount er Note [facility] requesting refill of Levothyroxine [facility] 09-03-2023 Miscellaneous Notes Formattin g of this note might be different from the original. [facility] requesting refill of Sertraline documented in this encounter [facility] 09-03-2023 Telephone encount er Note [facility] requesting refill of Sertraline [facility] 07-08-[address] [facility] 07-01-2023 Evaluation note Encounter Date Diagnosis Assessment Notes Jun, GERD (gastroesophag eal reflux disease) (ICD-10 - K21.9) Patient has taken naproxen in the past for 5 years and stop with some relief to her symptoms Patient is advised to have an EGD to screen for Melchor's esophagus Jun, Hiatal hernia (ICD-10 - K44.9) Patient is currently taking Protonix with mild relief Patient is advised to have an EGD scheduled today prep instrudtions given Jun, Gallbladder disorder (ICD-10 - K82.9) Patient did have a CT scan of the abdomin that did show a contracted gall bladder Pateint is advised to have a CT of the gall bladder ordered today [facility] Other 05-09-2023 NoteOPERATIVE NOTE OPERATION DATE: 12/31/2022 PRIMARY CARE PHYSICIAN: Charlotte Sweeney M.D. SURGEON: Charlotte Sweeney M.D. PREOPERATIVE DIAGNOSIS: Eustachian tube dysfunction. POSTOPERATIVE DIAGNOSIS: Eustachian tube dysfunction. PROCEDURE: Bilateral myringotomy and tubes with microdissection, placement of Triune tubes. ANESTHESIA: General. COMPLICATIONS: None. FINDINGS: Right anterior and left posterior tympanic membrane retraction pockets. INDICATIONS: This 47-year-old woman presented with symptomatic eustachian tube dysfunction, unresponsive to aggressive medical management. PROCEDURE: Patient identified in the holding area and taken back to the OR where she was placed in the supine position. After induction of general anesthesia, the right ear was approached with the otomicroscope. An anterior radial myringotomy was performed and a Triune tube was inserted with microdissection. Attention was then turned to the left ear and the same procedure performed. Patient was then awakened and taken to the recovery room in good condition.[facility] [id number] History of Present illness Narrative* Camilo Caldwell RN - 01/20/2022 2:27 PM EDT Discharge instructions given to patient and family. Scripts given. All questions answered. All belongings packed and ready for transport. Transport called to assist to private car via wheelchair. * Lise Gonzalez OT - 01/20/2022 9:01 AM EDT [facility] INPATIENT OCCUPATIONAL THERAPY [facility] 7K EVALUATION Time: Time In: 900 Time Out: 932 Timed Code Treatment Minutes: 23 Minutes Minutes: 32 Date: 01/20/2022 Patient Name: Tory Gates, Gender: female : 1975 (46 y.o.) Referring Practitioner: SEJAL Strange Diagnosis: Lumbosacral spinal stenosis Additional Pertinent Hx: admit with above diagnosis, s/p L4-S1 decompression and fusion on 01-18-22 Restrictions/Precautions: Required Braces or Orthoses Spinal: Lumbar Corset Position Activity Restriction Spinal Precautions: No Bending,No Lifting,No Twisting Subjective Chart Reviewed: Yes,Orders,Progress Notes,Operative Notes Patient assessed for rehabilitation services?: Yes Response to previous treatment: Patient with no complaints from previous session Family / Caregiver Present: Yes (daughter and boyfriend) Subjective: RN approved of OT session. Pt sitting EOB on OT arrival and agreeable to therapy. Pt requested to receive home health therapy once discharged - RN notifed Pain: 06/03: lower back at end of session - RN notified Vitals: Vitals not assessed per clinical judgement, see nursing flowsheet Social/Functional History: Lives With: Daughter Type of Home: House Home Layout: Two level,Bed/Bath upstairs Home Access: Stairs to enter without rails Entrance Stairs - Number of Steps: 1 Home Equipment: Walker, rolling (borrowing walker) Bathroom Shower/Tub: Tub/Shower unit Bathroom Toilet: Standard ADL Assistance: Independent Homemaking Assistance: Independent Ambulation Assistance: Independent Transfer Assistance: Independent 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 cues for hand placement *discussed LHAE with pt. Pt declined as family is there to help. OT recommended manager branch to help incase drop anything. *discussed shower safety. Pt stated she plans to sit on the edge of the tub to take a shower. OT voiced safety concerns and recommended pt use a shower chair. OT provided where to purchase a shower chair at. *If pt disregards recommendations,OT recommended to at least place a non-slip mat down on the edge of the tub to avoid a fall and have someone present entire shower - however OT again advised not siton the edge of the tub and to use a shower chair instead d/t safety concerns. BALANCE: Sitting Balance: Modified Independent. Standing Balance: Stand By Assistance. with 2 UE support on walker BED MOBILITY: Sit to Supine: Supervision TRANSFERS: Sit to Stand: Stand By Assistance. Stand to Sit: Stand By Assistance. FUNCTIONAL MOBILITY: Assistive Device: 4 Wheeled Walker Assist Level: Stand By Assistance. Distance: to/from bathroom & around unit Exercise: OT provided pt with mod resistant theraband and BUE exercise handout Activity Tolerance: Patient tolerance of treatment: good. Assessment: Assessment: Pt admitted to the hospital d/t lumosacral spinal stenosis. Pt demo'ed performance deficits with requiring SBA for ADL tasks and requires SBA for functional mobility and transfers which effect ability to perform ADLs and IADLs. Pt displayed decreased endurance, balance, safety awarenessand ability to complete ADL tasks and mobility at OF. Pt requires further skilled OT Services to improve performance in functional tasks and educate on safety awareness for more indep with ADL tasks and mobility to return home. Performance deficits / Impairments: Decreased functional mobility ,Decreased ADL status,Decreased endurance,Decreased high-level IADLs,Decreased strength REQUIRES OT FOLLOW-UP: Yes Decision Making: Medium Complexity Treatment Initiated: Treatment and education initiated within context of evaluation. Evaluation time included review of current medical information, gathering information related to past medical, social and functional history, completion of standardized testing, formal and informal observation of tasks, assessment of data and development of plan of care and goals. Treatment time included skilled education and facilitation of tasks to increase safety and independence with ADL's for improved functional independence and quality of life. Discharge Recommendations: Home with assist PRN,Home with Home health OT Patient Education: Patient Education Education Given To: Patient Education Provided: Role of Therapy,Plan of Care,ADL Adaptive Strategies,Precautions,Home Exercise Program Equipment Recommendations: Equipment Needed: Yes (manager branch, tub transfer bench) Plan: Times per Week: 6x Times per Day: Daily Current Treatment Recommendations: Strengthening,Balance training,Functional mobility training,Painmanagement,Safety education & training,Self-Care / ADL,Patient/Caregiver education & training,Endurance training,Equipment evaluation, education, & procurement. See long-term goal time frame for expected duration of plan of care. If no long-term goals established, a short length of stayis anticipated. Goals: Patient goals : return home Short Term Goals Time Frame for Short term goals: by discharge Short Term Goal 1: pt will complete BADL tasks mod-I, using LHAE prn, while maintaining spinal precautions to increase indep with self care tasks Short Term Goal 2: pt will complete BUE mod resisitive exercises with using handout to increase strength and endurance required for ADLs Short Term Goal 3: pt will complete functional mobility within HH distances mod- I to access ADLs [employer] Leader Goals Time Frame for [facility] goals : no LTG established to ELOS Following session, patient left in safe position with all fall risk precautions in place. * Mary Alonso MD - 01/20/2022 7:09 AM EDT IM Progress Note Dr. Alonso for Dr Antunez 01/20/2022 7:09 AM Patient name Tory Gates [facility]1975 PCP: Charlotte Sweeney MD Admit Date: 01/18/2022 Subjective: Interval History: Pt sitting in side of bed No cp or sob Had low BP yesterday improved with fluids , suspect sec to narcotics Diet: ADULT DIET; Regular I/O last 3 completed shifts: In: 2009 [P.O.:2009] Out: 2980 [Urine:2275; Drains:705] No intake/output data recorded. Admission weight: 181 lb 12.8 oz (82.5 kg) as of 01/18/2022 8:32 AM Wt Readings from Last 3 Encounters: 01/18/22 181 lb 12.8 oz (82.5 kg) 01/03/22 180 lb 1.9 oz (81.7 kg) 03/08/21 184 lb (83.5 kg) Body mass index is 33.25 kg/m . ROS CVS; no cp or palpitation Resp: no SOB or cough Neuro: No numbness or weakness or dizziness Abd: no nausea or vomiting or abd pain Medications: Scheduled Meds: scopolamine 1 patch TransDERmal Once gabapentin 600 mg Oral TID levothyroxine 50 mcg Oral Daily pantoprazole 40 mg Oral QAM AC sertraline 100 mg Oral Daily sodium chloride flush 5-40 mL IntraVENous 2 times per day polyethylene glycol 17 g Oral Daily bisacodyl 5 mg Oral Daily sennosides-docusate sodium 1 tablet Oral BID Continuous Infusions: sodium chloride Labs : CBC: Recent Labs 01/19/22 0610 01/20/22 0546 HGB 11.7* 10.5* BMP: Recent Labs 01/19/22 0610 01/20/22 0546 NA 142 141 K 4.5 4.0 CL 106 108 CO2 25 25 BUN 11 11 CREATININE 0.5 0.6 GLUCOSE 117* 91 Hepatic: No results for input(s): AST, ALT, ALB, BILITOT, ALKPHOS in the last 72 hours. Troponin: No results for input(s): TROPONINI in the last 72 hours. BNP: No results for input(s): BNP in the last 72 hours. Lipids: No results for input(s): CHOL, HDL in the last 72 hours. Invalid input(s): LDLCALCU INR: No results for input(s): INR in the last 72 hours. Radiology Objective: Vitals: BP 133/78 Pulse 59 Temp 97.7 F (36.5 C) (Oral) Resp 18 Ht 5' 2 (1.575 m) Wt 181 lb 12.8 oz (82.5 kg) SpO2 98% BMI 33.25 kg/m HEENT: Head:pupils react Neck: supple Lungs: clear to auscultation Heart: regular rate and rhythm Abdomen: soft BS heard Extremities: warm edema Neurologic: Alert, oriented X3 Impression: : Status post L4-L5 decompression and fusion Hypothyroidism Anxiety History of fibromyalgia Hyperglycemia resolved Anemia GERD Plan: Cont PT OT Cont home meds Bowel program Mary Alonso MD, MD * SEJAL Strange - 01/20/2022 7:06 AM EDT Department of Orthopedic Surgery Spine Service Attending Progress Note Subjective: POD#2 patient c/o back pain. Radicular sx improved. No BM. (+) flatus. Ambulated in halls. No issues voiding since having barth removed. Vitals VITALS: BP 133/78 Pulse (!) 40 Temp 97.7 F (36.5 C) (Oral) Resp 18 Ht 5' 2 (1.575 m) Wt 181 lb 12.8 oz (82.5 kg) SpO2 98% BMI 33.25 kg/m 24HR INTAKE/OUTPUT: Intake/Output Summary (Last 24 hours) at 01/20/2022 0706 Last data filed at 01/20/2022 0313 Gross per 24 hour Intake 1670 ml Output 1595 ml Net 75 ml URINARY CATHETER OUTPUT (Barth): [REMOVED] Urinary Catheter-Output (mL): 1200 mL DRAIN/TUBE OUTPUT: Closed/Suction Drain Inferior;Midline;Left Back Accordion- Output (ml): 50 ml Closed/Suction Drain Inferior;Midline;Right Back Accordion-Output (ml): 45 ml PHYSICAL EXAM: Orientation: alert and oriented to person, place and time Incision: dressing in place, clean, dry, intact Lower Extremity Motor : quadriceps, extensor hallucis longus, dorsiflexion, plantarflexion 5/5 bilaterally Lower Extremity Sensory: Intact L1-S1 Flatus: positive LABS: HgB: Lab Results Component Value Date HGB 10.5 01/20/2022 Hemoglobin/Hematocrit: Lab Results Component Value Date HGB 10.5 01/20/2022 HCT 32.8 01/20/2022 BMP: Lab Results Component Value Date NA 141 01/20/2022 K 4.0 01/20/2022 CL 108 01/20/2022 CO2 25 01/20/2022 BUN 11 01/20/2022 CREATININE 0.6 01/20/2022 CALCIUM 8.2 01/20/2022 GFRAA >60 05/19/2018 LABGLOM >90 01/20/2022 GLUCOSE 91 01/20/2022 ASSESSMENT AND PLAN: Post operative day 2 status post L4-S1 decompression and fusion 1: Monitor labs and drain output 2: Activity Level: As tolerated, PT/OT, back brace ordered and to be worn when ambulating 3: Pain Control: Better 4: Discharge Planning: Discharge home today. HH not set up at this time, patient okay with managingdrain and will follow up in office on Friday to have drain removed. 5: Patient to continue stool softener/bowel medication at home while taking pain medications. SEJAL Strange * Camilo Caldwell RN - 01/19/2022 4:18 PM EDT Patient to go home and manage her own drains. Patient educated on how to manage them and record output. Patient to call Durga Swartz with drain output on Friday01/23/22 and iif able to removed will go to office at 1200 that day to remove. * Camilo Caldwell RN - 01/19/2022 1:34 PM EDT Patient insistent on going outside to smoke. Discussed liability with patient. Patient signed smoking waiver. Discussed with Durga Swartz PAC. See order for ok to go outside. Patient offered nicotine replacement and refused. Discussed with patient. Wheelchair provided and patient to go outside with family members. Patient instructed to keep off unit activities to 30 min or less. * Felecia Erickson, PT - 01/19/2022 11:45 AM EDT [facility] INPATIENT PHYSICAL THERAPY EVALUATION [facility] 7K - 7K-07/007-A Time In: 1030 Time Out: 1106 Timed Code Treatment Minutes: 23 Minutes Minutes: 36 Date: 01/19/2022 Patient Name: Tory Gates, Gender: female : 1975 (46 y.o.) Referring Practitioner: SEJAL Baird Diagnosis: lumbosacral stenosis Additional Pertinent Hx: admit with above diagnosis, s/p L4-S1 decompression and fusion on 01-18-22 Restrictions/Precautions: Required Braces or Orthoses Spinal: Thoracic Lumbar Sacral Orthotics Position Activity Restriction Spinal Precautions: No Bending,No Lifting,No Twisting Subjective: Chart Reviewed: Yes Patient assessed for rehabilitation services?: Yes Subjective: pleasant and cooperative, pt motivated to get up and moving and go home General: Hearing: Within functional limits Pain: 04/03: back per pt Vitals: Vitals not assessed per clinical judgement, see nursing flowsheet Social/Functional History: Lives With: Daughter Type of Home: House Home Layout: Two level,Bed/Bath upstairs Home Access: Stairs to enter without rails Entrance Stairs - Number of Steps: 1 Home Equipment: Walker, rolling (borrowing walker) Ambulation Assistance: Independent Transfer Assistance: Independent OBJECTIVE: Range of Motion: Bilateral Lower Extremity: WFL Strength: Bilateral Lower Extremity: WFL Balance: Static Sitting Balance: Modified Independent Dynamic Sitting Balance: Modified Independent, for toileting and adjusting gown/back brace Static Standing Balance: Stand By Assistance Dynamic Standing Balance: Contact Guard Assistance, without AD, SBA with RW Bed Mobility: Rolling to Left: Modified Independent Supine to Sit: Stand By Assistance Scooting: Stand By Assistance Cues for log roll technique Transfers: Sit to Stand: Contact Guard Assistance Stand to Sit:Stand By Assistance Ambulation: Contact Guard Assistance, first 5' without AD, SBA with RW Distance: 5'x2, 10'x1, 100'x1, 130'x1 Surface: Level Tile Device:Rolling Walker Gait Deviations: Slow Sharon and unsteady for first 5' without AD, improved balance and posture with use of RW Negotiated 4 steps with LHR, nonreciprocal, cues to maintain precautions and for sequencing, SBA Functional Outcome Measures: Completed [facility] Inpatient Mobility Raw Score : 19 [facility] Inpatient T-Scale Score : 45.44 ASSESSMENT: Activity Tolerance: Patient tolerance of treatment: good. Treatment Initiated: Treatment and education initiated within context of evaluation. Evaluation time included review of current medical information, gathering information related to past medical, social and functional history, completion of standardized testing, formal and informal observation of tasks, assessment of data and development of plan of care and goals. Treatment time included skilled education and facilitation of tasks to increase safety and independence with functional mobility forimproved independence and quality of life. Assessment: Body Structures, Functions, Activity Limitations Requiring Skilled Therapeutic Intervention: Decreased functional mobility ,Decreased strength,Decreased endurance,Decreased tolerance to work activity,Decreased balance,Increased pain Assessment: pt s/p lumbar surgery with drain and back brace, back pain, generalized weakness, dec balance, use of walker and inc assist for safe mobility, recommend cont PT to inc pt I with functional mobility Therapy Prognosis: Excellent Requires PT Follow-Up: Yes Discharge Recommendations: Discharge Recommendations: Continue to assess pending progress,Home with assist PRN Patient Education: . Patient Education Education Given To: Patient Education Provided: Role of Therapy,Plan of Care,Precautions Education Method: Demonstration,Verbal Education Outcome: Verbalized understanding,Demonstrated understanding,Continued education needed Equipment Recommendations: Equipment Needed: No Plan: Specific Instructions for Next Treatment: therex and mobility with back precautions Plan: (6X O) Specific Instructions for Next Treatment: therex and mobility with back precautions Goals: Patient goals : go home Short Term Goals Time Frame for Short term goals: by discharge Short term goal 1: bed mobility with MOD I to get in/out of bed Short term goal 2: transfer with MOD I to get in/out of chairs Short term goal 3: amb >150'x1 with LRAD and MOD I to walk safely in home Short term goal 4: negotiate flight of steps with HR and S to get to second floor bedroom/bathroom safely Jail Goals Time Frame for molecular technologist goals : no LTGs set secondary to short ELOS Following session, patient left in safe position with all fall risk precautions in place. * SEJAL Strange - 01/19/2022 9:45 AM EDT Department of Orthopedic Surgery Spine Service Attending Progress Note Subjective: POD#1 patient doing well, denies leg pain. Numbness in right foot improving from preop.Barth in place. No BM. Patient has not been out of bed yet, but is hopeful for discharge home today. Hgb 11.7 Vitals VITALS: BP (!) 112/42 Pulse 81 Temp 97.3 F (36.3 C) (Oral) Resp 18 Ht 5' 2 (1.575 m) Wt 181 lb 12.8 oz (82.5 kg) SpO2 96% BMI 33.25 kg/m 24HR INTAKE/OUTPUT: Intake/Output Summary (Last 24 hours) at 01/19/2022 0945 Last data filed at 01/19/2022 0348 Gross per 24 hour Intake 3190 ml Output 1635 ml Net 1555 ml URINARY CATHETER OUTPUT (Barth): Urinary Catheter-Output (mL): 250 mL DRAIN/TUBE OUTPUT: Closed/Suction Drain Inferior;Midline;Left Back Accordion- Output (ml): 40 ml Closed/Suction Drain Inferior;Midline;Right Back Accordion-Output (ml): 30 ml PHYSICAL EXAM: Orientation: alert and oriented to person, place and time Incision: dressing in place, clean, dry, intact Lower Extremity Motor : quadriceps, extensor hallucis longus, dorsiflexion, plantarflexion 5/5 bilaterally Lower Extremity Sensory: Intact L1-S1 Flatus: positive LABS: HgB: Lab Results Component Value Date HGB 11.7 01/19/2022 Hemoglobin/Hematocrit: Lab Results Component Value Date HGB 11.7 01/19/2022 HCT 35.7 01/19/2022 BMP: Lab Results Component Value Date NA 142 01/19/2022 K 4.5 01/19/2022 CL 106 01/19/2022 CO2 25 01/19/2022 BUN 11 01/19/2022 CREATININE 0.5 01/19/2022 CALCIUM 8.5 01/19/2022 GFRAA >60 05/19/2018 LABGLOM >90 01/19/2022 GLUCOSE 117 01/19/2022 ASSESSMENT AND PLAN: Post operative day 1 status post L4-S1 decompression and fusion 1: Monitor labs and drain output 2: Activity Level: As tolerated, PT/OT, back brace ordered and to be worn when ambulating 3: Pain Control: Ok, change muscle relaxer 4: Discharge Planning: Pending - plan for discharge home tomorrow. HH not set up at this time, patient okay with managing drain and will follow up in office on Friday to have drain removed. 5: Remove barth SEJAL Strange * Arabella Bone RN - 01/18/2022 5:40 PM EDT Patient arrived to floor flailing around in bed and stating that she is having excruciating pain at10/10. RN informed her that morphine was given right before transport and patient states that morphine does not work for her. RN contacted SEJAL Lew regarding patient's request for different pain medication. New orders placed. RN administered pain medication per MAR and educated patient on importance of not twisting around in bed due to recent back surgery. Patient verbalized understanding, but continued to move about. RN attempted to reposition patient several times. Patient voices that the pain is not getting any better, and RN informs that the medication does take time to work. 1809- RN rounded on patient. Appears to be resting comfortably in bed at this time. Family present at bedside. * Cara Dobson RN - 01/18/2022 4:48 PM EDT Transport on unit to take pt to . * Cara Dobson RN - 01/18/2022 4:30 PM EDT Report called to . Spoke with Shahida FLOR. * Cara Dobson RN - 01/18/2022 3:45 PM EDT Pt returned to [facility] room 16. Vitals and assessment as charted. 0.9 infusing. Family at the bedside. Pt and family verbalized understanding of discharge criteria and call light use. Call light in reach. * Luis Monsalve RN - 01/18/2022 2:56 PM EDT 1440 Arouses to name on arrival to PACU with NC , HOB elevated 1442 awake and oriented ,pt moaning and c/o # 10 back pain , 1445 medicated with Dilaudid 0.5 mg IV 1450 no change , medicated with Dilaudid 0.5 mg IV 1500 resting with snoring resp 1515 resting resp easy 1525 pt awakens to name , once awake states pain a # 10 but drifts back to sleep easily 1530 meets criteria fro discharge ,transported to [facility] until room ready * Sophy Vargas RN - 01/18/2022 9:15 AM EDT ADMITTED TO [facility] AND ORIENTED TO UNIT. SCDS ON. FALL AND ALLERGY BANDS ON. PT VERBALIZED APPROVAL FOR FIRST NAME, LAST INITIAL AND PHYSICIAN NAME ON UNIT WHITEBOARD. Boyfriend, Robert with the patient. * Josy Garcia RN - 01/16/2022 11:42 AM EDT I for [facility] medical records; please fax consent and pre Op clearance. Thank you. * Harman French - 12/31/2021 10:18 AM EDT PAT appointment reminder call Arrival time and location given 01/03 at 10:30 in [facility] Bring drivers license and insurance Bring list of medications with dosage and frequency If possible bring caregiver for appointment Appointment may last 2 hours documented in this [facility] Work Phone: [phone]) 335-277305-29-2022 Hospital Discharge instructions* Pharmacy* Camilo Caldwell RN - 01/20/2022 10:04 AM EDT Take medications as directed * Discharge Instr - Activity* Camilo Caldwell RN - 01/20/2022 10:04 AM EDT Up and walking as tolerated * Discharge Instr - Diet* Camilo Caldwell RN - 01/20/2022 10:05 AM EDT Good nutrition is important when healing from an illness, injury, or surgery. Follow any nutrition recommendations given to you during your hospital stay. If you were given an oral nutrition supplement while in the hospital, continue to take this supplement at home. You can take it with meals, in-between meals, and/or before bedtime. These supplements can be purchased at most local grocery stores, pharmacies, and chain [employer]-stores. If you have any questions about your diet or nutrition, call the hospital and ask for the dietitian. Regular Diet Increase fluid and fiber intake to prevent constipation * Additional Instructions* Camilo Caldwell, RN - 01/19/2022 Hold ibuprofen and Diclofenac for 6 months after surgery Record drain outputs every 8 hours Empty and then re-compress Keep track of all measurements Back Surgery Activity No lifting, pushing, or pulling Up as tolerated at least 3-4 times per day. Up walking-helps to decrease the risk of blood clots Wear champ hose as directed per your physician No driving until cleared by your physician Back Brace or abdominal binder If your physician prescribes a brace/abdominal binder, wear back brace at all times. May remove when in bed or bathing Follow all back precautions. Incision Care Keep back incision dry and intact. Apply clean dry dressing once a day AFTER DRAIN REMOVED. May shower if no drainage from your incision-unless otherwise directed per your physician No tub baths-no soaking of incision-no swimming No heaving lifting of more than 5 lbs/or as directed per your physician Diet Increase Fluid/Water intake, eat foods high in fiber; fruits and vegetables to help to prevent constipation Examples of foods high in fiber Vegetables All vegetables, especially asparagus, casas sprouts, broccoli, [place] sprouts, cabbage, carrots, cauliflower, celery, corn, greens, green beans, green pepper, onions, peas, potatoes (with skin), snow peas, spinach, squash, sweet potatoes, tomatoes, zucchini For maximum fiber intake, eat the peels of fruits and vegetables just be sure to wash them well first. Fruits All fruits, especially apples, berries, grapefruits, mangoes, nectarines, oranges, peaches, pears, dried fruits (figs, dates, prunes, raisins) Choose raw fruits and vegetables over juice, cooked, or canned raw fruit has more fiber. Dried fruit is also a good source of fiber. Some of the common symptoms of a surgical site infection are: Symptoms in the area where the surgery took place: Redness Drainage Pus Pain Swelling Bad smell Prevention of surgical site infection: Make sure that your healthcare providers clean their hands before examining you - either with soap and water or an alcohol-based hand rubs. Family and friends who visit you should not touch the surgical wound or dressings. Family and friends should clean their hands with soap and water or an alcohol- based hand rub beforeand after visiting you. If you do not see them clean their hands, ask them to clean their hands. Wash hands frequently Do not allow pet to sleep in the bed with you until your incision is completely healed. Keep bed sheets clean If you are taking medications, follow these general guidelines: Take your medication as directed. Do not change the amount or the schedule. Do not stop taking them without talking to your doctor. Do not share them. Know what the results and side effects are. Report them to your doctor. Some drugs can be dangerous when mixed. Talk to a doctor or pharmacist if you are taking more than one drug. This includes [id number] medication and herb or dietary supplements. Plan ahead for refills so you do not run out. Call Your Doctor If Any of the Following Occurs It is important for you to check your recovery once you leave the hospital. That way, you can alertyour doctor to any problems immediately. If any of the following occur, call your doctor: Signs of infection, including fever, chills, redness, swelling, increasing pain, excessive bleeding, or discharge from the incision site The stitches or tati come apart at the incision site Nausea and/or vomiting that you can't control with the medications you were given after surgery, orwhich persist for more than two days after discharge from the hospital Pain that you can't control with the medications you've been given Cough shortness of breath, or chest pain Joint pain, fatigue, stiffness, rash, or other new symptoms Numbness, tingling, pain, or weakness, especially in the arms, hands, legs, or feet Pain, swelling in your feet, legs, or calves Loss of bladder or bowel function Pain, burning, urgency, frequency of urination, or persistent blood in the urine In case of an emergency call 911 Refer to medication education sheets for general information and possible side effects documented in this [facility] [employer] Work Phone: [phone]) 258-125005-27-2022 NotePROCEDURE: XR LUMBAR SPINE 1 VW CLINICAL INFORMATION: post L4 S1 decompression . TECHNIQUE: Crosstable lateral portable in the OR COMPARISON: No prior study. FINDINGS: Single lateral image demonstrates L4-S1 laminectomy and fusion. Pedicle screws superimpose the pedicles on the lateral projection.. IMPRESSION: Limited intraoperative images demonstrating L4 S1 laminectomy and fusion This report has been created using voice recognition software. It may contain minor errors which are inherent in voice recognition technology. Final report electronically signed by Dr. Gennaro Hernandez on 01/18/2022 3:33 PM Interpreted by: Gennaro Hernandez MD Signed by: Gennaro Hernandez MD 01/18/[address] [facility]2022 NotePROCEDURE: XR LUMBAR SPINE 1 VW CLINICAL INFORMATION: post L4 S1 decompression . TECHNIQUE: Crosstable lateral portable in the OR COMPARISON: No prior study. FINDINGS: Single lateral image demonstrates L4-S1 laminectomy and fusion. Pedicle screws superimpose the pedicles on the lateral projection.. [facility] [id number] NotePROCEDURE: XR CHEST (2 VW) CLINICAL INFORMATION: Lumbosacral spinal stenosis, Preop testing. COMPARISON: No prior study. TECHNIQUE: PA and lateral views of the chest were obtained. FINDINGS: The lungs are clear. The cardiac silhouette and pulmonary vasculature are within normal limits. There is no significant pleural effusion or pneumothorax. Visualized portions of the upper abdomen are within normal limits. The osseous structures are intact. No acute fractures or suspicious osseous lesions. IMPRESSION: There is no acute intrathoracic process. This report has been created using voice recognition software. It may contain minor errors which are inherent in voice recognition technology. Final report electronically signed by Dr Carl Troy on 01/03/2022 1:32 PM Interpreted by: Carl Troy MD Signed by: Carl Troy MD 01/03/[address] [facility] NotePROCEDURE: XR CHEST (2 VW) CLINICAL INFORMATION: Lumbosacral spinal stenosis, Preop testing. COMPARISON: No prior study. TECHNIQUE: PA and lateral views of the chest were obtained. FINDINGS: The lungs are clear. The cardiac silhouette and pulmonary vasculature are within normal limits. There is no significant pleural effusion or pneumothorax. Visualized portions of the upper abdomen are within normal limits. The osseous structures are intact. No acute fractures or suspicious osseous lesions. 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 * Josy Garcia RN - 01/03/2022 10:30 AM EDT Nasal Swab positive for MSSA. Mupirocin ointment 22 grams BID to both nostrils for 5 days, with No refills called into [facility] pharmacy in [facility]. I Left telephone message for Tory regarding positive nasal swab for MSSA and I asked her to call me back to confirm she received message; [phone]. * Josy Garcia RN - 01/03/2022 10:30 AM EDT Preliminary Discharge Planning Questionnaire Date of Surgery 01/18/[address] [facility] Having the proper help and care after surgery is very important to your recovery. Who will be able to help you at home when you are discharged from the hospital? ([facility] - 17/03 for a minimum of 2 weeks) significant other Name(s) Robert How many steps to enter your home? 3 Bathroom on first floor? Yes Bedroom on the first floor? No Do you have an elevated toilet seat to use at home? No Do you have a walker to use at home? Total Joints - with wheels No Spine - with wheels No Have you been doing home exercises? Yes *You will go home with some outpatient physical therapy, where do you prefer to go? Prefers Home therapy *If needed, what home health agency would you like to use? Lives in [facility] *Cardiac Rehab plans NA * Josy Garcia RN - 01/03/2022 10:30 AM EDT Pain: Tory has constant posterior lower back pain- across back radiating to bilateral hips, thighs, legs and feet with numbness R > L , rated 7/10 today. Pain is sharp at times. Pain scale and pain management reviewed with understanding verbalized. * Josy Garcia RN - 01/03/2022 10:30 AM EDT Images from the original note were not included. Keeping You Safe for Surgery Staphylococcus aureus or Staph is a germ that lives on the skin and in the nose of some healthy people. Your skin protects you from those germs. However, when you have surgery, we will be cutting your skin. Sometimes germs can get into those cuts and cause infection. How do we screen for Staph? We will swab your nose to see if you are a carrier of Staph. The results will be available about 2 hours after we obtain the nasal specimen. A positive test does not mean you have an infection; it just means you are a carrier of Staph. Yoursurgery most likely will not be canceled or delayed. If my test is positive, what happens? If your test is positive, a nurse will call you and tell you to get Mupirocin Ointment (Bactroban) at your pharmacy. The medicine may come in one large tube or may come in many small packets. When the medication is administered into your nose, it works by killing some of the germs that could cause you to get a surgical site infection. If you get a big tube of Mupirocin, place enough medicine to cover the tip of a cotton swab (Q-tip). Place the cotton swab inside one nostril and rub the medicine onto the inside of the nose. Then repeat this same procedure in your other nostril. If you get small individual tubes, put half the tube on a cotton swab and put the medicine in one nostril. Then the other half in the other nostril. After the medication has been inserted into each nostril, gently press your nose together and release for about a minute to get the medicine all over the inside of your nose. Do this once in the morning and once at night for 5 days prior to your scheduled surgery date. If I have Staph, will I be treated differently in the hospital? If you have a certain type of Staph called MRSA (Methicillin-Resistant Staph aureus), you will be in a single room on Contact Precautions. This means your doctors and nurses will wear gloves and gowns when taking care of you. We do this (along with good hand hygiene) to make sure we do not spread MRSA to any another patients in our care. SURGERY PREPARATION CHECKLIST NAME: Tory Gates DATE OF SURGERY: 01/18/22 Enter Dates, Check (?) circles to indicate task is completed. Date MUPIROCIN NASAL OINTMENT BODY CLEANSING DAY 1 01/13 Morning Evening Day 2 01/14 Morning Evening Day 3 01/15 Morning Evening Day 4 01/16 Morning Evening Day 5 01/17 Morning Evening Day 6 01/18 (Day of Surgery) PLEASE COMPLETE and BRING THIS CHECKLIST WITH YOU TO THE HOSPITAL to give to your nurse on the day of surgery. You will be notified if you need to use Mupirocin Nasal Ointment. * Josy Garcia RN - 01/03/2022 10:30 AM EDT Images from the original note were not included. Lumbar Spine Surgery Pre-op Instructions Nothing to eat or drink after midnight Bring your medications in the original bottles Bring photo ID and any health insurance cards Wear comfortable clean loose fitting clothing Do not wear any jewelry Bring your walker Bring your back brace if you were given one Bring your CPAP machine if you have one Wear clean clothes to bed and place fresh clean sheets and pillowcases on your bed the night beforesurgery Patient viewed physical therapy video Routine preop instructions given for pain, hand hygiene, fall prevention, infection prevention, anesthesia, cough and deep breath, and progressive diet and ambulation Showering: o Shower 2 days before, day before and morning of surgery using the StartClean kit provided (followthe instructions provided with the kit), o Do not shave the surgical area! If needed, your nurse will use clippers to remove any excess hairat the surgical site when you come in for surgery. Do not use a razor on the site of your surgery for at least 2 days prior to surgery because shaving can leave tiny nicks in the skin which may allowgerms to enter and cause infection. Perform the exercises given in your booklet 3 times daily starting today Start Clean Shower Instructions _01/16 (date) FIRST SHOWER: Two days before surgery: Take a shower and wash your entire body, including your hair and scalp in the following manner: Wash your hair using normal shampoo. Make sure you rinse the shampoo from your hair and body. Wash your face with your regular soap or cleanser. Use one of the sponges in the StartClean kit and apply 1/3 of the Chlorhexidine soap to the sponge,wash from your neck down. This is very important. Do not use the soap on your face or hair and avoid private areas. Rinse your body thoroughly. This is very important. Using a fresh, clean towel, dry your body. Dress in freshly washed clothes. Do not use lotions, powders, or creams after this shower. ___01/17 (date) SECOND SHOWER: The day before surgery: Take a shower and wash your entire body,including your hair and scalp in the following manner: Wash your hair using normal shampoo. Make sure you rinse the shampoo from your hair and body. Wash your face with your regular soap or cleanser. Use one of the sponges in the StartClean kit and apply 1/3 of the Chlorhexidine soap to the sponge,wash from your neck down. This is very important. Do not use the soap on your face or hair and avoid private areas. Rinse your body thoroughly. This is very important. Using a fresh, clean towel, dry your body. Dress in freshly washed clothes. Fresh clean sheets and pillow cases should be used after this shower. Do not use lotions, powders, or creams after this shower. __01/18 (date) THE FINAL SHOWER: The morning of surgery: Take a shower and wash your entire body, including your hair and scalp in the following manner: Wash your hair using normal shampoo. Make sure you rinse the shampoo from your hair and body. Wash your face with your regular soap or cleanser. Use one of the sponges in the StartClean kit and apply 1/3 of the Chlorhexidine soap to the sponge,wash from your neck down. This is very important. Do not use the soap on your face or hair and avoid private areas. Rinse your body thoroughly. This is very important. Using a fresh, clean towel, dry your body. Dress warmly with freshly washed clean clothes. Keeping warm before surgery decreases your risk of developing and infection. * Krystin Sawyer RN - 01/03/2022 10:30 AM EDT PAT call attempted to rmind pt of her PAT appoiment, patient unavailable, left message to please call us back at your earliest convenience; [phone] * Sophy Shaver RN - 01/03/2022 10:30 AM EDT PAT appointment reminder call unable to leave message voice mail not set up. documented in this [facility] [employer] Work Phone: [phone] [phone] NotePatient Education Materials Follows: Drug Rash A drug rash occurs when a medicine causes a change in the color or texture of the skin. It can develop minutes, hours, or days after you take the medicine. The rash may appear on a small area of skinor all over your body. What are the causes? This condition is usually caused by your body's reaction (allergy) to a medicine. It can also be caused by exposure to sunlight after taking a medicine that makes your skin sensitive to light. Though any medicine can cause a rash or reaction, medicines that are more likely to cause rashes include: ? Penicillin. ? Antibiotic medicines. ? Medicines that treat seizures. ? Medicines that treat cancer (chemotherapy). ? Aspirin and other NSAIDs. ? Injectable dyes that contain iodine. ? Insulin. What are the signs or symptoms? Symptoms of this condition include: ? Redness. ? Tiny bumps. ? Peeling. ? Itching. ? Itchy welts (hives). ? Swelling. How is this diagnosed? This condition may be diagnosed based on: ? A physical exam. ? Tests to find out which medicine caused the rash. These tests may include: ? Skin tests. ? Blood tests. ? Challenge test. For this test, you stop taking all the medicines that you do not need to take. Then, you start taking them again by adding back one medicine at a time. How is this treated? This condition is treated with medicines, including: ? Antihistamine. This may be given to relieve itching. ? NSAIDs. These may be given to reduce swelling and to treat pain. ? A steroid medicine. This may be given to reduce swelling. The rash usually goes away when you stop taking the medicine that caused it. Follow these instructions at home: ? Take mqvi-dwb-ffrnpnk and prescription medicines only as told by your health care provider. ? Tell all your health care providers about any medicine reactions that you have had in the past. ? If your rash was caused by sensitivity to sunlight, and while your rash is healing: ? Avoid being in the sun if possible, especially when it is strongest, usually between 10 a.m. and 4 p.m. ? Cover your skin with pants, long sleeves, and a hat when you are exposed to sunlight. ? If you have hives: ? Take a cool shower or use a cool compress to relieve itchiness. ? Take fmox-ujn-cdyndgp antihistamines, as recommended by your health care provider, until the hives are gone. Hives are not contagious. ? Keep all follow-up visits as told by your health care provider. This is important. Contact a health care provider if you have: ? A fever. ? A rash that is not going away. ? A rash that gets worse. ? A rash that comes back. ? Wheezing or coughing. Get help right away if: ? You start to have breathing problems. ? You start to have shortness of breath. ? Your face or throat starts to swell. ? You have severe weakness with dizziness or fainting. ? You have chest pain. These symptoms may represent a serious problem that is an emergency. Do not wait to see if the symptoms will go away. Get medical help right away. Call your local emergency services (911 in the [place] Do not drive yourself to the hospital. Summary ? A drug rash occurs when a medicine causes a change in the color or texture of the skin. The rash may appear on a small area of skin or all over your body. ? It can develop minutes, hours, or days after you take the medicine. ? Your health care provider will do various tests to determine what medicine caused your rash. ? The rash may be treated with medicine to relieve itching, swelling, and pain. This information is not intended to replace advice given to you by your health care provider. Make sure you discuss any questions you have with your health care provider. Document Revised: 07/24/2018 Document Reviewed: 07/02/2018 [employer] Patient Education ? 2020 [employer] Pharmacology Drug Allergy A drug allergy is when your body reacts in a bad way to a medicine. The reaction may be mild or very bad. In some cases, it can be life-threatening. If you have an allergic reaction, get help right away. You should get help even if the reaction seems mild. What are the causes? This condition is caused by a reaction in your body's defense system (immune system). The system sees a medicine as being harmful when it is not. What are the signs or symptoms? Symptoms of a mild reaction ? A stuffy nose (nasal congestion). ? Tingling in your mouth. ? An itchy, red rash. Symptoms of a very bad reaction ? Swelling of your eyes, lips, face, or tongue. ? Swelling of the back of your mouth and your throat. ? Breathing loudly (wheezing). ? A hoarse voice. ? Itchy, red, swollen areas of skin (hives). ? Feeling dizzy or light-headed. ? Passing out (fainting). ? Feeling worried or nervous (anxiety). ? Feeling mixed up (confused). ? Pain in your belly (abdomen). ? Trouble (more content not included)...[facility] Diagnosis Women's annual routine gynecological examination documented in this encounter [employer] Phone: evaluation note* Diagnosis Lumbosacral spinal stenosis Spinal stenosis, lumbar region, without neurogenic claudication Preop testing Preoperative examination, unspecified documented in this encounter [employer] Phone: evaluation note* Diagnosis Lumbosacral spinal stenosis- Primary Spinal stenosis, lumbar region, without neurogenic claudication documented in this encounter [facility] [employer] Phone: evaluation note* Diagnosis Pain of left hip joint documented in this encounter [facility] [employer] [facility]ystem[facility]ristianacare noteNo assessment information available [facility] Work Phone: Evaluation noteNo InformationNort [employer] Other History and physical note Author Neel Fernandes [facility] July 08, 2023 12:40pm Note Date/Time July 08, 2023 12:40pm [facility] [address] [place] [address] Gastroenterology H&P Signed Patient: Tory Ochoa MR#: [id number] : 1975 Acct:[id number] Age/Sex: 48 / F Adm Date: 3 Loc: Room: Type: [facility] Attending Dr: Neel Fernandes MD Copies to: MD Charlotte Love MD~ Date of Service: 07/08/2023 HISTORY & PHYSICAL: Patient's history with special attention to the cardiovascular, pulmonary systems and the current problem was reviewed with the patient immediately prior to the procedure. Present medications and doses reviewed in the EMR. Allergies and pertinent laboratory tests were also reviewedat this time in the EMR. The physical examination, as below, was then performed. Indication, assessment and HPI: 48-year-old female with a history of GERD presents for Melchor's screening Family history of GI malignancy? No PHYSICAL EXAMINATION Mouth and Pharynx : Moist mucus membranes, normal dentition Cardiac: Regular rate, regular rhythm Pulmonary: Clear to auscultation bilaterally, no wheezing Neurological: Alert and oriented x3, no focal deficits noted Abdomen: Abdomen soft, non-tender REVIEW OF SYSTEMS Constitutional: Denies malaise, fevers Cardiovascular: Denies chest pain, palpitations Respiratory: Denies shortness of breath, wheezing Gastrointestinal: Per HPI Genitourinary: Denies dysuria, polyuria Musculoskeletal: Denies joint swelling, joint stiffness Neurological: Denies numbness, tingling Integumentary: Denies rashes, skin lesions Endocrine: Denies fatigue, weight loss Written informed consent obtained from the patient. Risks (including but not limited to perforation, infection, bloating, bleeding, need for emergent surgeryand loss of life), benefits and alternatives explained and questions answered. The patient verbalized understanding. Based on history patient is an appropriate candidate for the procedure. Neel Fernandes MD Documented By: Neel Fernandes MD 07/08/231239 Signed By: <Electronically signed by Neel Fernandes MD> 07/08/231239 [facility] Work Phone: History general Narrative - Reported* Type Description Date Medical History Fibromyalgia Medical History Arthritis Surgical History ablasion Surgical History ear tubes Hospitalization History see above [employer] Other Hospital Discharge instructions Additional Instructions DISCHARGE INSTRUCTIONS FOR UPPER ENDOSCOPY WHAT TO EXPECT: - You may feel full, gassy or cramping after your procedure. In some cases, this may be from a few hours to a day. Walking may help relieve the discomfort. - Your throat may feel sore today from the scope that the doctor passed through your throat to visualize your stomach. Take a throat lozenge or suck on ice to ease the discomfort. - You may notice some streaks of blood in your sputum if the doctor has taken a biopsy. - You should begin to recover from anesthesia within 1 hour of the procedure, however may feel groggy for the next 24 hours. DO's AND DON'Ts: - Call your doctor right away if you have a hard abdomen, severe pain, vomiting or if you cough up large amounts of blood. - Call your doctor if you develop any rashes, hives or difficulty breathing. - If you take 81 mg aspirin for your heart it is safe to resume this medication. - If you take other blood thinner medications your doctor will instruct you when these can safely be resumed. - Do NOT drive for 24 hours. - Do NOT operate machinery such as power tools, [employer] mowers, snow blowers, sewing machines, etc. for 24 hours. - Avoid alcoholic beverages and drugs for allergies, nerves, or sleep. - Do NOT stay alone. Do NOT leave your child unattended. - Do NOT make important personal or business decisions or sign any legal documents. - Eat solid foods and drink liquids in smaller amounts than usual until normal appetite returns. If you should experience an upset stomach, liquids high in sugar content (soda, Alistair-Aid, non-acid juices) are recommended. - Do NOT smoke. - Do take it easy today. You need not stay in bed, but avoid strenuous activities such as jogging or working out. FOLLOW UP & RECOMMENDATIONS: -The GI office will schedule a follow up appointment. -Notify the doctor if you have any problems. -Follow up with PCP. -Office number [phone].[facility] Work Phone: InstructionsNot on filedocumented in this encounter [facility] Narr[facility]* Auth/Cert Specialty Diagnoses / Procedures Referred By Osiel langston Referred To Contact Diagnoses Lumbosacral spinal stenosis LUMBOSACRAL SPINAL STENOSIS Procedures POSTERIOR SEGMENTAL INSTRUMENTATION 3-6 VRT SEG LA ARTHRODESIS COMBINED TQ 1NTRSPC LUMBAR LA ARTHRODESIS PST/PSTLAT TQ 1NTRSPC EA ADDL NTRSPC LA FITCH FACETEC/FORAMOT DRG ARTHRD LUMBAR 1 VRT SGM LA FITCH FACETEC/FORAMOT DRG ARTHRD LMBR EA ADDL SGM LA INSJ BIOMCHN DEV INTERVERTEBRAL DSC SPC W/ARTHRD LA ALLOGRAFT FOR SPINE SURGERY ONLY MORSELIZED LAMINEC/FACETECT/FORAMIN,LUMBA R 1 SEG L4-S1 DECOMPRESSION L4-S1 POSTERIOR FUSION L5-S1 TLIF Dileep Abad MD [address] [place] [address] [place] [address] [facility] [address] [place] [address] Referral ID Status Reason Start Date Expiration Date Visits Re quested Visits Authorized 1 1 [facility] Work Phone: Summary Purpose Family History Relationship Condition Age at Onset Recorded Date/T meg Not Specified Heart disease Unknown Malignant neoplasm of kidney Unknown father Malignant neoplasm of colon Unknown sister Cerebrovascular accident (CVA) Unknown Advance Directives Documents on File Type Date Recorded 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 Advance Directives and Living Will Power of Director Of Maternity Services Latest Code Status on File Code Status Date Activated Date Inactivated Comments Full Code 06/02/2018 4:10 PM 06/03/2018 4:21 PM Full Code 06/02/2018 10:40 AM 06/02/2018 4:00 PM Documents on File Type Date Recorded 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 ACP-Advance Directive ACP-Power of Director Of Maternity Services Latest Code Status on File Code Status Date Activated Date Inactivated Comments Full Code 06/02/2018 4:10 PM 06/03/2018 4:21 PM Full Code 06/02/2018 10:40 AM 06/02/2018 4:00 PM Documents on File Type Date Recorded 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 ACP-Advance Directive ACP-Power of Director Of Maternity Services Latest Code Status on File Code Status Date Activated Date Inactivated Comments Full Code 01/18/2022 9:06 AM Full Code 06/02/2018 4:10 PM 06/03/2018 4:21 PM Latest Code Status on File Code Status Date Activated Date Inactivated Comments Full Code 01/23/2022 12:11 PM Code Status History Code Status Date Activated Date Inactivated Comments Full Code 01/18/2022 9:06 AM 01/20/2022 4:37 PM Full Code 06/02/2018 4:10 PM 06/03/2018 4:21 PM Full Code 06/02/2018 10:40 AM 06/02/2018 4:00 PM Advance Directive Response Recorded Date/ Time Advance Directives No June 11:27am Assessments Diagnosis Encounter for well woman exam with routine gynecological exam Diagnosis Pain of left hip joint Reason for Referral Status Reason Specialty Diagnoses / Procedures Referre d By Contact Referred To Contact Closed Radiology Diagnoses Pain of left hip joint Procedures IR ARTHR/ASP/INJ MAJOR JT/BURSA LEFT WO Bruce Fowler MD [address] [place] [id number] Specialty Diagnoses / Procedures Referred By Contac t Referred To Contact Radiology Diagnoses Pain of left hip joint Procedures IR ARTHR/ASP/INJ MAJOR JT/BURSA LEFT WO Bruce Fowler MD [address] [place] [address] Referral ID Status Reason Start Date Expiration Date Visits Re quested Visits Authorized [id number] Open 02/27/2023 02/27/2024 1 1 Discharge Instructions * Instructions* Rupinder Leone RN - 05/09/2020 After your JOINT INJECTION: You should be able to return to a normal routine the next day. Please refrain from strenuous athletic activity for 24-48 hours. Most of the contrast medium will be absorbed by the first 24 hours and any gas should be absorbed by 48 hours. Slight swelling and discomfort may occur after the exam which can be relieved with ice compresses. If you develop signs of infection (redness, swelling, drainage, fever > 101 degrees) call your physician immediately. If the joint becomes red, hot and painfully swollen or itchy, please contact your physician immediately. Please call your physician's office for follow-up treatment. If you have questions, you can contact our department at [phone] for further information IF YOU CANNOT REACH THE DOCTOR, GO TO THE NEAREST EMERGENCY FACILITY. documented in this encounter Chief Complaint and Reason for Visit Chief Complaint Melchor's Esophagus, Hiatal Hernia, GERD Additional Source Comments INFORMATION SOURCE (unrecogn ized section and content) DATE CREATED AUTHOR 04/24/2018 [employer] [facility] DATE CREATED AUTHOR AUTHOR'S ORGANIZ ATION 05/12/2020 [facility] DATE CREATED AUTHOR AUTHOR'S ORGANIZ ATION 03/16/2021 [facility] DATE CREATED AUTHOR AUTHOR'S ORGANIZ ATION 05/23/2021 [facility] DATE CREATED AUTHOR AUTHOR'S ORGANIZ ATION 01/25/2022 [facility] DATE CREATED AUTHOR AUTHOR'S ORGANIZ ATION 01/03/2023 [facility] DATE CREATED AUTHOR AUTHOR'S ORGANIZ ATION 04/09/2023 [facility] DATE CREATED AUTHOR AUTHOR'S ORGANIZ ATION 07/15/2023 [facility] DATE CREATED AUTHOR AUTHOR'S ORGANIZ ATION 08/28/2023 [facility] EPIC Reason for Visit (unrecogniz ed section and content) Status Reason Specialty Diagnoses / Procedures Referre d By Contact Referred To Contact Closed Radiology Diagnoses Pain of left hip joint Procedures IR ARTHR/ASP/INJ MAJOR JT/BURSA LEFT WO Bruce Fowler MD [address] [place] [address] Specialty Diagnoses / Procedures Referred By Contac t Referred To Contact Radiology Diagnoses Pain of left hip joint Procedures IR ARTHR/ASP/INJ MAJOR JT/BURSA LEFT WO Bruce Rodriguez MD [address] [place] [address] Referral ID Status Reason Start Date Expiration Date Visits Re quested Visits Authorized [id number] Open 02/27/2023 02/27/2024 1 1 Reason Comments Med Refill Care Teams (unrecognized sec tion and content) 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 Start Date End Date Charlotte Sweeney MD [address] [place], [place] [phone] PCP - General Family Medicine 07/22/16 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 [place] [address] [place] [address] [id number] PCP - [facility] 07/22/16 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 Start Date End Date Charlotte Sweeney MD [address] [place], [place] [phone] PCP - General [facility] 07/22/16 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 Start Date End Date Charlotte Sweeney MD [address] [place] [address] PCP - [facility] 07/22/16 Team Status: Active Member Role Status Dates Charlotte Sweeney MD Primary Care Provider Active Team Status: Inactive Member Role Status Dates Neel Fernandes MD Attending Provider Active Charlotte Sweeney MD Primary Care Provider Active 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 Intended supply: 7 days. Take lowest dose possible to manage pain 28 tablet 0 01/19/2022 01/26/2022 Scheduled Active and Recently Administ ered Medications (unrecognized section and content) Medication Order 01/18/2022 01/19/2022 01/20/2022 0.9 % sodium chloride bolus (COMPLETED) 500 mL (6.06 mL/kg), IntraVENous, at 166.7 mL/hr, Administer over 180 Minutes, ONCE, On 01/19/22 at 2115, For 1 dose 2101 (New Bag - Provider: Jessica Arroyo RN)2328 (Stopped - Provider: Betsy Zaman LPN) bisacodyl (DULCOLAX) EC tablet 5 mg 5 mg, Oral, DAILY, First dose on Fri01/18/22 at 1730, Until Discontinued, Do not crush or break., Post-op 1729 (Due) 09 (Not Given - Provider: Geovanna Arzate LPN - Reason: Patient/family refused) 08 (Given - Provider: Camilo Caldwell, BASIA) gabapentin (NEURONTIN) tablet 600 mg 600 mg, Oral, 3 TIMES DAILY, First dose on Fri01/18/22 at 2100, Until Discontinued 2130 (Given - Provider: Naomi Mantilla RN) 09 (Given - Provider: Geovanna Arzate LPN)1310 (Given - Provider: Geovanna Arzate LPN)2103 (Given - Provider: Jessica Arroyo RN) 0821 (Given - Provider: Camilo Caldwell, BASIA)1400 (Due)2100 (Due) levothyroxine (SYNTHROID) tablet 50 mcg 50 mcg, Oral, DAILY, First dose on 01/19/22 at 0700, Until Discontinued, Tube feeding (TF) interaction, obtain physician order to manage, recommend holding TF for 30 minutes before and after dose. 0611 (Given - Provider: Naomi Mantilla RN) 0521 (Given - Provider: Betsy Zaman LPN) pantoprazole (PROTONIX) tablet 40 mg 40 mg, Oral, DAILY BEFORE BREAKFAST, First dose on Fri01/19/22 at 0700, Until Discontinued, Do not crush or break. 0611 (Given - Provider: Naomi Mantilla RN) 0521 (Given - Provider: Betsy Zaman LPN) polyethylene glycol (GLYCOLAX) packet 17 g 17 g, Oral, DAILY, First dose on Fri01/18/22 at 1730, Until Discontinued, Post-op 173 (Due) 09 (Given - Provider: Geovanna Arzate LPN) 0822 (Given - Provider: Camilo Caldwell, BASIA) scopolamine (TRANSDERM-SCOP) transdermal patch 1 patch 1 patch, TransDERmal, Administer over 72 Hours, ONCE, On Fri01/18/22 at 1015, For 1 dose 1006 (Patch Applied - Provider: Sophy Vargas RN) sennosides-docusate sodium (SENOKOT-S) 8.6-50 MG tablet 1 tablet 1 tablet, Oral, 2 TIMES DAILY, First dose on Fri01/18/22 at 2100, Until Discontinued, Post-op 2105 (Given - Provider: Naomi Mantilla RN) 09 (Not Given - Provider: Geovanna Arzate LPN - Reason: Patient/family refused)2103 (Given - Provider: Jessica Arroyo RN) 821 (Given - Provider: Camilo Caldwell, BASIA)2099 (Due) sertraline (ZOLOFT) tablet 100 mg 100 mg, Oral, DAILY, First dose on Fri01/19/22 at 0900, Until Discontinued 901 (Given - Provider: Geovanna Arzate LPN) 820 (Given - Provider: Camilo Caldwell, BASIA) sodium chloride flush 0.9 % injection 5-40 mL 5-40 mL, IntraVENous, EVERY 12 HOURS SCHEDULED (2 times per day), First dose on Fri01/18/22 at 2100, Until Discontinued, For Line Patency: Peripheral IV = 5 mL; Midline or Central Line = 10 mL/lumen. If following IV push medication, administer flush at same rate as the IV push. Flush volume is determined by type of infusion therapy being given. For non-viscous solutions use: Peripheral IV = 5 mL Midline or Central Line = 10 mL/lumen For viscous solutions (i.e. blood components, parenteral nutrition, contrast media, or after obtaining blood sample) use: Peripheral IV = 10 mL Midline or Central Line = 20 mL/lumen, Post-op 2130 (Given - Provider: Naomi Mantilla RN) 908 (Not Given - Provider: Geovanna Arzate LPN - Reason: IV Fluid Infusing)2103 (Given - Provider: Jessica Arroyo RN) 822 (Given - Provider: Camilo Caldwell, BASIA)2099 (Due) vancomycin (VANCOCIN) 1,500 mg in dextrose 5 % 500 mL IVPB (COMPLETED) 1,500 mg, IntraVENous, TYPE DISK QUALITY CONTROL SUPERVISOR TO O.R., 1 dose, On Fri01/18/22 at 0930, Antimicrobial Indications: Surgical Prophylaxis, Administer within 1 hour prior to incision., Pre-op (day of surgery) 1232 (New Bag - Provider: CHAMP Dasilva CRNA - Comment: Administered slowly over 1 hr) vancomycin (VANCOCIN) 1,500 mg in dextrose 5 % 500 mL IVPB (COMPLETED) 1,500 mg, IntraVENous, EVERY 12 HOURS, 1 dose, First dose on Fri01/19/22 at 0200, Antimicrobial Indications: Surgical Prophylaxis, Post-op 0158 (New Bag - Provider: Naomi Mantilla RN)0406 (Stopped - Provider: Naomi Mantilla RN) Continuous Medication Order 01/18/2022 01/19/2022 01/20/2022 0.9 % sodium chloride infusion (CANCELED) IntraVENous, at 125 mL/hr, CONTINUOUS, Starting on Fri01/18/22 at 0930, Pre-op (day of surgery) 0957 (New Bag - Provider: Sophy Vargas RN)1211 (Paused - Provider: CHAMP Dasilva CRNA - Comment: Switch to gravity)1212 (Restarted - Provider: CHAMP Dasilva CRNA)1308 (New Bag - Provider: CHAMP Dasilva CRNA)1410 (Stopped - Provider: CHAMP Dasilva CRNA) PRN Medication Order 01/18/2022 01/19/2022 01/20/2022 0.9 % sodium chloride infusion IntraVENous, at 5-250 mL/hr, PRN, if patient receiving piggyback infusions and maintenance fluids are not ordered OR KVO fluids to protect IV site / prevent frequent line interruptions/ long duration, Starting on Fri01/18/22 at 1702, For piggyback infusion, administer at same rate as piggyback for a total of 25 mL. Enter 25 mL into dose field and piggyback rate into rate field of order. If piggyback is infusing at a rate less than 100 mL/hr, enter 25 mL into dose field and 100 mL/hr into rate field of order. For KVO fluids, enter rate of 20 mL/hr or less into rate field of order., Post-op acetaminophen (TYLENOL) tablet 650 mg 650 mg, Oral, EVERY 6 HOURS PRN, Starting on Fri01/18/22 at 1556, Until Discontinued, Pain Mild (1-3), Maximum dose of acetaminophen is 4000 mg from all sources in 24 hours., Post-op 1219 (Given - Provider: Geovanna Arzate LPN) 0306 (Given - Provider: Betsy Zaman LPN) bisacodyl (DULCOLAX) suppository 10 mg 10 mg, Rectal, DAILY PRN, Starting on Fri01/18/22 at 1702, Until Discontinued, Constipation, First line therapy for constipation, Post-op cyclobenzaprine (FLEXERIL) tablet 10 mg 10 mg, Oral, 3 TIMES DAILY PRN, Starting on Fri01/18/22 at 1452, Until Discontinued, Muscle spasms, Post-op 1611 (Given - Provider: Cara Dobson RN) 1825 (Given - Provider: Geovanna Arzate LPN) 0306 (Given - Provider: Betsy Zaman LPN) HYDROmorphone (DILAUDID) injection 0.5 mg (CANCELED) HYDROmorphone (DILAUDID) 1.5mg IV is equivalent to morphine 10mg IV, 0.5 mg, IntraVENous, EVERY 5 MIN PRN, 4 doses, Starting on Fri01/18/22 at 1453, Until Fri01/18/22 at 1701, Pain Severe (7-10), Phase I - Initial therapy for severe pain., PACU only 1445 (Given - Provider: Luis Monsalve RN)1450 (Given - Provider: Luis Monsalve RN) HYDROmorphone (DILAUDID) injection 0.5 mg (CANCELED) HYDROmorphone (DILAUDID) 1.5mg IV is equivalent to morphine 10mg IV, 0.5 mg, IntraVENous, EVERY 4 HOURS PRN, Starting on Fri01/18/22 at 1743, Until Fri01/19/22 at 0907, Pain Severe (7-10), If oral and IV narcotics ordered, use oral first and only use IV if oral is ineffective or cannot take oral. Do Not give oral and IV within 1 hour of each other unless specifically ordered. 1753 (Given - Provider: Arabella Bone RN)2250 (Given - Provider: Clementine Thrasher RN) 0401 (Given - Provider: Naomi Mantilla RN) hydrOXYzine (VISTARIL) capsule 25 mg 25 mg, Oral, 3 TIMES DAILY PRN, Starting on 01/19/22 at 0911, Until Discontinued, Itching 1220 (Given - Provider: Geovanna Arzate LPN)2328 (Given - Provider: Betsy Zaman LPN) morphine (PF) injection 4 mg (CANCELED) 4 mg, IntraVENous, EVERY 2 HOURS PRN, Starting on Fri01/18/22 at 1556, Until Fri01/18/22 at 1745, Pain Severe (7-10), If oral and IV narcotics ordered, use oral first and only use IV if oral is ineffective or cannot take oral. Do Not give oral and IV within 1 hour of each other unless specifically ordered., Post-op 1607 (Given - Provider: Cara Dobson RN) ondansetron (ZOFRAN) injection 4 mg(Linked Group 1) 4 mg, IntraVENous, EVERY 6 HOURS PRN, Starting on Fri01/18/22 at 1556, Until Discontinued, Nausea, Vomiting, Administer if oral route cannot be used., Post-op ondansetron (ZOFRAN-ODT) disintegrating tablet 4 mg(Linked Group 1) 4 mg, Oral, EVERY 8 HOURS PRN, Starting on Fri01/18/22 at 1556, Until Discontinued, Nausea, Vomiting, Post-op oxyCODONE (ROXICODONE) immediate release tablet 10 mg (CANCELED) 10 mg, Oral, EVERY 6 HOURS PRN, Starting on Fri01/18/22 at 1452, Until 01/19/22 at 1223, Pain Severe (7-10), Post-op 1706 (Given - Provider: Arabella Bone RN) 0203 (See Alternative - Provider: Naomi Mantilla RN)0824 (Given - Provider: Camilo Caldwell, BASIA) oxyCODONE (ROXICODONE) immediate release tablet 10 mg(Linked Group 2) 10 mg, Oral, EVERY 4 HOURS PRN, Starting on 01/19/22 at 1230, Until Discontinued, Pain Severe (7-10), Post-op 1223 (Given - Provider: Camilo Caldwell, BASIA)1638 (Given - Provider: Camilo Caldwell, BASIA)232 (Given - Provider: Betsy Zaman LPN) 0521 (Given - Provider: Betsy Zaman LPN)0938 (Given - Provider: Geovanna Arzate LPN)1334 (Given - Provider: Geovanna Arzate LPN) oxyCODONE (ROXICODONE) immediate release tablet 5 mg (CANCELED) 5 mg, Oral, EVERY 6 HOURS PRN, Starting on Fri01/18/22 at 1452, Until 01/19/22 at 1223, Pain Moderate (4-6), Post-op 1706 (See Alternative - Provider: Arabella Bone RN) 0203 (Given - Provider: Naomi Mantilla RN)0824 (See Alternative - Provider: Camilo Caldwell RN) oxyCODONE (ROXICODONE) immediate release tablet 5 mg(Linked Group 2) 5 mg, Oral, EVERY 4 HOURS PRN, Starting on 01/19/22 at 1230, Until Discontinued, Pain Moderate (4-6), Post-op 1223 (See Alternative - Provider: Camilo Caldwell RN)1638 (See Alternative - Provider: Camilo Caldwell RN)2329 (See Alternative - Provider: Betsy Zaman LPN) 0521 (See Alternative - Provider: Betsy Zaman LPN)0938 (See Alternative - Provider: Geovanna Arzate LPN)1334 (See Alternative - Provider: Geovanna Arzate LPN) sodium chloride flush 0.9 % injection 5-40 mL 5-40 mL, IntraVENous, PRN, Starting on Fri01/18/22 at 1702, Until Discontinued, Line Care, After every IV line use, For Line Patency: Peripheral IV = 5 mL; Midline or Central Line = 10 mL/lumen. If following IV push medication, administer flush at same rate as the IV push. Flush volume is determined by type of infusion therapy being given. For non-viscous solutions use: Peripheral IV = 5 mL Midline or Central Line = 10 mL/lumen For viscous solutions (i.e. blood components, parenteral nutrition, contrast media, or after obtaining blood sample) use: Peripheral IV = 10 mL Midline or Central Line = 20 mL/lumen, Post-op vancomycin (VANCOCIN) injection (CANCELED) PRN, Starting on Fri01/18/22 at 1353, Until Fri01/18/22 at 1439, Intra-op 1353 (Given - Provider: Dileep Abad MD) Linked Groups Order Group 1: ondansetron (ZOFRAN-ODT) disintegrating tablet 4 mgJump to med 4 mg, Oral, EVERY 8 HOURS PRN, Starting on Fri01/18/22 at 1556, Until Discontinued, Nausea, Vomiting, Post-op Or ondansetron (ZOFRAN) injection 4 mgJump to med 4 mg, IntraVENous, EVERY 6 HOURS PRN, Starting on Fri01/18/22 at 1556, Until Discontinued, Nausea, Vomiting
Administer if oral route cannot be used.
Post-op Group 2: oxyCODONE (ROXICODONE) immediate release tablet 5 mgJump to med 5 mg, Oral, EVERY 4 HOURS PRN, Starting on 01/19/22 at 1230, Until Discontinued, Pain Moderate (4-6), Post-op Or oxyCODONE (ROXICODONE) immediate release tablet 10 mgJump to med 10 mg, Oral, EVERY 4 HOURS PRN, Starting on 01/19/22 at 1230, Until Discontinued, Pain Severe (7-10), Post-op FOR RECORDS PERTAINING TO PATIENTS WHO ARE OR HAVE BEEN ENROLLED IN A CHEMICAL DEPENDENCY/SUBSTANCEABUSE PROGRAM, SOME INFORMATION MAY BE OMITTED. This clinical summary was aggregated from multiple sources. Caution should be exercised in using it in the provision of clinical care. This summary normalizes information from multiple sources, and as a consequence, information in this document may materially change the coding, format and clinical context of patient data. In addition, data may be omitted in some cases. CLINICAL DECISIONS SHOULD BE BASED ON THE PRIMARY CLINICAL RECORDS. [employer] [facility]. provides no warranty or guarantee of the accuracy or completeness of information in this document.
[2023-09-16] MEDS: LACTATED RINGER'S SOLUTION 1,000 ML 50 ML IV (08:21)
--- NOTE | 2023-09-16 11:08 | PC.NURSE ---
No active ear drainage noted
== END 2023-09-16 11:08 | disposition home or self-care (01) ==
PROVIDERS: PCP Family Medicine; Visit Provider Otolaryngology
PROC: (CPT 126; principal; 2023-09-16 09:00)
DX: H69.81 Other specified disorders of Eustachian tube, right ear (principal); E03.9 Hypothyroidism, unspecified; M50.30 Other cervical disc degeneration, unspecified cervical region
CPT/HCPCS: 69436; 36415; J1100; J2250; J2405; J2704

== ENCOUNTER 2025-04-07 07:50 | Emergency (ER) | payer OTHER, SELFPAY ==
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
--- OUTSIDE RECORDS SUMMARY | 2025-04-05 13:54 | XMS_ITS | Encounter Summary ---
Author Organization [facility] tem Address [id number] [address] [place] [address] Care Team Providers Care Male Infertility Specialist Name Role Phone Unavailable Primary Care Provider Unavailabl e Reason for Visit * Reason Comments Facial Swelling Patient c/o facial s welling that started 1 day ago. States she has small cysts underneath chin,right side on cheek and left side of forehead. Patient states that cyst under chin has yellowish/green discharge Encounter Details Date Type Department Care Team (Late st Contact Info) Description 04/05/2025 1:54 PM EDT - 04/05/2025 2:35 PM EDT Emergency [facility] - Emergency [address] [place] [address] Impetigo (Primary Dx) Discharge Disposition: Home Social History Tobacco Use Types Packs/Day Years Used Date Smoking Tobacco: Every Day Cigarettes 0.5 20 Smokeless Tobacco: Never Alcohol Use Standard Drinks/Week Comments Not Currently 0 (1 standard drink = 0.6 oz pur e alcohol) Social Connection and Isolat ion Panel [NHANES] Answer Date Recorded In a typical week, how many times do you talk on the phone with family, friends, or neighbors? Three times a week 04/12/2020 How often do you get togethe r with friends or relatives? More than three times a week 04/12/2020 How often do you attend chur ch or pentecostalism services? 1 to 4 times per year 04/12/2020 Do you belong to any clubs o r organizations such as restorationism groups, unions, fraternal or athletic groups, or school groups? No 04/12/2020 How often do you attend meet ings of the clubs or organizations you belong to? Never 04/12/2020 Are you , , di vorced, , never , or living with a partner? 04/12/2020 AUDIT-C Answer Date Recorded Q1: How often do you have a drink containing alc ohol? Never 04/12/2020 Q2: How many drinks containi ng alcohol do you have on a typical day when you are drinking? Patient declined 04/12/2020 Q3: How often do you have si x or more drinks on one occasion? Never 04/12/2020 Overall Financial Resource Strain (CARDIA) Answe r Date Recorded How hard is it for you to pa y for the very basics like food, housing, medical care, and heating? Not hard at all 04/12/2020 PHQ-2 Answer Date Recorded Total Score 0 06/24/2023 [facility] Stress Questionnaire Answer Date Recorded Do you feel stress - tense, restless, nervous, or anxious, or unable to sleep at night because your mind is troubled all the time - these days? Not at all 04/12/2020 Exercise Vital Sign Answer Date Recorde d On average, how many days pe r week do you engage in moderate to strenuous exercise (like a brisk walk)? 4 days 04/12/2020 On average, how many minutes do you engage in exercise at this level? 30 min 04/12/2020 PRAPARE - Transportation Answer Date Re corded In the past 12 months, has l ack of transportation kept you from medical appointments or from getting medications? No 03/25 In the past 12 months, has l ack of transportation kept you from meetings, work, or from getting things needed for daily living? No 04/12/2020 Childcare Answer Date Recorded Do problems getting child ca re make it difficult for you to work or study? No 04/12/2020 Employment Answer Date Recorded Do you need help finding a l ocal career center and/or a training program? No 04/12/2020 Hunger Screening Answer Date Recorded Within the past 12 months we worried whether our food would run out before we got money to buy more. Never True 04/05/2025 Within the past 12 months th e food we bought just didn't last and we didn't have money to get more. Never True 04/05/2025 Purpose - Life Answer Date Recorded Purpose and direction in life Unknown Education Answer Date Recorded What is the highest level of school you have completed or the highest degree you have received? Associate degree: occupational, technical, or vocational program 04/12/2020 Comments No Sex and Gender Information Value Date Recorded Sex Assigned at Not on file Legal Sex Female 11:37 AM EDT Gender Identity Not on file Sexual Orientation Not on file documented as of this encounter Last Filed Vital Signs Vital Sign Reading Time Taken Comments Blood Pressure 156/91 04/05/2025 2:29 PM EDT Provider notified of BP, okay with DC. Pulse 75 04/05/2025 2:29 PM EDT Temperature 36.9 C (98.5 F) 04/05/2025 1:07 PM EDT Respiratory Rate 18 04/05/2025 2:29 PM EDT Oxygen Saturation 96% 04/05/2025 2:2 9 PM EDT Inhaled Oxygen Concentration - - Weight 81.6 kg (180 lb) 04/05/2025 1:07 PM EDT Height 160 cm (5' 3 ) 04/05/2025 1:07 PM EDT Body Mass Index 31.89 04/05/2025 1:07 PM EDT documented in this encounter Discharge Instructions * Discharge Instructions* JUVE Tobin - 04/05/2025 2:20 PM EDT Thank you for choosing us for your medical care. We know you have a choice, and we appreciate you choosing us for your medical concerns! You may receive a survey from the hospital about your visit. We very much appreciate your comments and concerns. Please read all medication insert instructions and side effects when dispensed by the pharmacy. Every medication has side effects, and you may experience any of them. Please call the emergency room with any questions or concerns you have. Please call your doctor for outpatient follow up and recommendations. The emergency room cannot replace ongoing care, and it is important for your personal physician to evaluate you and monitor your health. Return to the ER for increased pain, fever > 101.5, vomiting twice, or any concern you deem emergent. Chanda Robles CNP * Attachments The following attachments cannot be sent through Care Everywhere. * Impetigo ED ([place]imbabwean) documented in this encounter Medications at Time of Discharge albuterol (PROVENTIL HFA;VENTOLIN HFA) 90 mcg/actuation inhalerIndicati ons:Viral URI with cough Inhale 2 puffs every 4 (four) hours as needed for wheezing. 18 g 09/27/2024 atorvastatin (LIPITOR) 40 mg tablet Take 1 tablet (40 mg total) by mouth in the morning. 03/14/2025 benzonatate (TESSALON PERLES) 100 mg capsule Take 1 capsule (100 mg total) by mouth every 8 (eight) hours. 21 capsule 09/27/2024 CEPHalexin (KEFLEX) 500 mg capsule Take 1 capsule (500 mg total) by mouth in the morning and 1 capsule (500 mg total) before bedtime. Do all this for 10 days. 20 capsule 04/05/2025 04/15/20 25 diclofenac (VOLTAREN) 75 mg EC tablet Take 1 tablet (75 mg total) by mouth in the morning and 1 tablet (75 mg total) before bedtime. 03/14/2025 04/13/20 25 EPINEPHrine (EPIPEN) 0.3 mg/0.3 mL auto-injector inject 0.3 milliliters ( 0.3 milligrams ) intramuscularly in OUTE... (REFER TO PRESCRIPTION NOTES). 09/13/2021 ibuprofen (MOTRIN) 800 mg tablet Take 1 tablet (800 mg total) by mouth every 6 (six) hours as needed for pain. 30 tablet 10/13/2024 levothyroxine (SYNTHROID, LEVOTHROID) 50 MCG tablet Take 1 tablet (50 mcg total) by mouth in the morning. 90 tablet 3 09/04/2023 orphenadrine (NORFLEX) 100 mg 12 hr tablet Take 1 tablet (100 mg total) by mouth 2 (two) times a day as needed for muscle spasms. 14 tablet 10/13/2024 pantoprazole (PROTONIX) 40 mg EC tablet take 1 tablet by mouth every morning 90 tablet 3 09/08/2023 sertraline (ZOLOFT) 100 mg tablet TAKE 1 TABLET BY MOUTH IN THE MORNING 90 tablet 09/20/2024 tiZANidine (ZANAFLEX) 4 mg tablet Take 1 tablet (4 mg total) by mouth every 8 (eight) hours as needed for muscle spasms. 9 tablet 05/03/2024 venlafaxine XR (EFFEXOR XR) 37.5 mg 24 hr capsule Take 1 capsule (37.5 mg total) by mouth in the morning. 02/16/2025 04/17/20 documented as of this encounter ED Notes * Chanda Robles APRN-WESLY - 04/05/2025 2:20 PM EDT Images from the original note were not included. [facility] - EMERGENCY Pt Name: Pia Hernandez Birthdate: 1975 Chief Complaint: Chief Complaint Patient presents with Facial Swelling Patient c/o facial swelling that started 1 day ago. States she has small cysts underneath chin,right side on cheek and left side of forehead. Patient states that cyst under chin has yellowish/green discharge History of Present Illness: Pia Hernandez is a 49-year-old female that presents to ED with complaint of sores on face. A sore in the corner of her left side of her mouth. She states it got large crusty started having yellow drainage. She now has 1 on her chin her left yarsani and her right cheek. Patient states she was putting oil of oregano on it which seemed to improve and at 1st but now it is worse and painful. Past Medical History: Past Medical History: Diagnosis Date Allergic Arthritis Back pain DJD (degenerative joint disease) Fibromyalgia Fibromyalgia, primary GERD (gastroesophageal reflux disease) Hiatal hernia HL (hearing loss) Hypothyroid Migraine Neuropathy Obese Prolonged emergence from general anesthesia Recurrent UTI TMJ (dislocation of temporomandibular joint) Varicella Past Surgical History: Past Surgical History: Procedure Laterality Date CERVICAL BIOPSY W/ LOOP ELECTRODE EXCISION COLONOSCOPY N/A 02/12/2021 Performed by Martín Aranda MD at [facility] COLONOSCOPY N/A 02/06/2018 Performed by Martín Aranda MD at [facility] ENDOMETRIAL ABLATION INJECTION LARGE JOINT BURSA Right Hip Joint Right 02/27/2018 Performed by Sonido Saldana MD at [facility] INJECTION SI JOINT Bilateral SI joint Bilateral 12/26/2017 Performed by Sonido Saldana MD at [facility] JOINT REPLACEMENT Right Hip Right sacroiliac joint injection x1 Right 12/05/2017 Performed by Sonido Saldana MD at [facility] TUBAL LIGATION TYMPANOSTOMY TUBE PLACEMENT Family History: Family History Problem Relation Age of Onset Breast cancer Maternal Aunt 60 Cancer Mother Heart disease Mother Hypertension Mother COPD Mother Arthritis Mother Asthma Mother Clotting disorder Mother Stroke Mother Vision loss Mother Hypertension Father Colon cancer Father Heart disease Father Hyperlipidemia Father Stroke Sister Hypertension Sister Cancer Maternal Grandmother Breast cancer Maternal Grandmother Cancer Maternal Grandfather Aneurysm Paternal Grandmother Osteoporosis Paternal Grandmother Heart disease Paternal Grandfather Hypertension Sister Social History: Social History Socioeconomic History Marital status: Highest education level: Associate degree: occupational, technical, or vocational program Tobacco Use Smoking status: Every Day Current packs/day: 0.50 Average packs/day: 0.5 packs/day for 20.0 years (10.0 ttl pk-yrs) Types: Cigarettes Smokeless tobacco: Never Vaping Use Vaping status: Never Used Substance and Sexual Activity Alcohol use: Not Currently Drug use: Not Currently Sexual activity: Defer Other Topics Concern Caffeine Use Yes Social Drivers of Health Financial Resource Strain: Medium Risk (02/13/2025) Received from [facility] Overall Financial Resource Strain (CARDIA) Difficulty of Paying Living Expenses: Somewhat hard Food Insecurity: No Food Insecurity (04/05/2025) Hunger Screening Food Insecurity - Worry: Never True Food Insecurity - Inability: Never True Recent Concern: Food Insecurity - Food Insecurity Present (02/13/2025) Received from [facility] Hunger Vital Sign Worried About Running Out of Food in the Last Year: Sometimes true Ran Out of Food in the Last Year: Sometimes true Transportation Needs: No Transportation Needs (02/13/2025) Received from [facility] PRAPARE - Transportation Lack of Transportation (Medical): No Lack of Transportation (Non-Medical): No Physical Activity: Insufficiently Active (02/13/2025) Received from [facility] Exercise Vital Sign Days of Exercise per Week: 4 days Minutes of Exercise per Session: 30 min Stress: Stress Concern Present (02/13/2025) Received from [facility] [place] [facility] - Occupational Stress Questionnaire Feeling of Stress : Rather much Social Connections: Unknown (02/13/2025) Received from [facility] Social Connection and Isolation Panel [NHANES] Frequency of Communication with Friends and Family: More than three times a week Frequency of Social Gatherings with Friends and Family: Patient declined Attends Congregational Services: Patient declined Active Member of Clubs or Organizations: No Attends Club or Organization Meetings: Never Marital Status: Interpersonal Safety: Not At Risk (02/13/2025) Received from [facility] Humiliation, Afraid, Rape, and Kick questionnaire Fear of Current or Ex-Partner: No Emotionally Abused: No Physically Abused: No Sexually Abused: No Housing Instability: High Risk (02/13/2025) Received from [facility] Housing Stability Vital Sign Unable to Pay for Housing in the Last Year: Yes Homeless in the Last Year: No Review of Systems: Review of Systems Constitutional: Negative for chills and fever. HENT: Negative for ear pain. Eyes: Negative for pain. Respiratory: Negative for shortness of breath. Cardiovascular: Negative for chest pain/discomfort. Gastrointestinal: Negative for abdominal pain, diarrhea, nausea and vomiting. Genitourinary: Negative for flank pain. Musculoskeletal: Negative for back pain. Skin: Positive for wound. Negative for rash. Neurological: Negative for headaches. Psychiatric/Behavioral: Negative for sleep disturbance and suicidal ideas. Physical Exam: ED Triage Vitals [04/05/25 1307] Temp Heart Rate Resp BP SpO2 36.9 ??C (98.5 ??F) 79 20 163/85 98 % Temp Source Heart Rate Source Patient Position BP Location FiO2 (%) Oral Monitor Sitting Left arm -- Vitals: 04/05/25 1307 BP: 163/85 Temp: 36.9 ??C (98.5 ??F) TempSrc: Oral Pulse: 79 Resp: 20 SpO2: 98% Height: 160 cm (5' 3 ) Weight: 81.6 kg (180 lb) Physical Exam Vitals reviewed. HENT: Head: Normocephalic and atraumatic. Eyes: Conjunctiva/sclera: Conjunctivae normal. Musculoskeletal: General: Normal range of motion. Skin: General: Skin is warm and dry. Neurological: General: No focal deficit present. Mental Status: She is alert and oriented to person, place, and time. GCS: GCS eye subscore is 4. GCS verbal subscore is 5. GCS motor subscore is 6. Procedure: Procedures Re-evaluation: Re-Evaluation Medical Decision Making Plan of care - discharge with antibiotic. Patient has allergies to sulfa drugs Risk Prescription drug management. ED Course: Clinical Impressions as of 04/05/251423 Impetigo . ED Disposition ED Disposition Discharge Date/Time FriApr 05, 2025 2:20 PM Comment At the time of discharge, the plan has been discussed with the patient regarding the diagnosis and prognosis. All questions have been answered. Verbal discharge instructions were discussed with the patient. The patient has been advised to follow up w ith their Primary Care Provider within 1 week. The patient was also instructed to return to the ED if their symptoms change, worsen, new symptoms arise or if they have any additional concerns. Medications Prescribed this Visit Sig CEPHalexin (KEFLEX) 500 mg capsule Take 1 capsule (500 mg total) by mouth in the morning and 1 capsule (500 mg total) before bedtime. Do all this for 10 days. ANGEL Supervision Only Supervising Physician was Dr. Qi Grider Please note that portions of this note were completed with a voice recognition program. Efforts were made to edit the dictations but occasionally words are mis-transcribed. JUVE Tobin 04/05/251423 documented in this encounter Plan of Treatment Not on file documented as of this encounter Visit Diagnoses Diagnosis Impetigo- Primary documented in this encounter Additional Health Concerns Assessment Noted Time PHQ-9 Depression Total Score: 0 06/24/20 7:00 AM EDT A Body Mass Index follow-up plan has been documented for the patient 02/07/2021 11:16 AM EDT documented as of this encounter
[2025-04-07 08:01] VITALS: BP 167/93; PULSE 78; TEMP 36.9; O2SAT 97; BMI 31.9
--- OUTSIDE RECORDS SUMMARY | 2025-04-07 08:03 | XMS_ITS | Patient Health Record ---
Author Organization [facility] Address [address] [place] [address] Care Team Providers Care Top Waddy Name Role Phone Fausto Sweeney MD Primary Care Provider Unavail able Dileep Abad Unavailable [phone] Allergies Allergen (clinical drug ingredient) Drug/Non Drug Allergy documented on EMR Reaction Allergy Type Onset Date Status IV DYE (uncoded) hives Allergy Act kristopher Ceclor hives Drug Allergy Active nitrofurantoin, macrocrystals / nitrofurantoin, monohydrate Macrobid hives Drug Allergy Active Reason For Referral No Information Medications Medication SIG (Take, Route, Fr equency, Duration) Notes Start Date End Date Status gabapentin Active Levothyroxine Active pantoprazole Unknown Centrum Unknown Protonix Active Zoloft Active Tylenol Active cyclobenzaprine 10 mg 1 tab(s) orally 3 times a day 02/28/2022 Active traMADol 50 mg 1 tab(s) orally ever y 4 hours PRN for 7 days 02/28/2022 Active Social History Tobacco Use: Social History Observation Description Date Details (start date - stop date) Current Smoker NA - NA Smoking History Question Answer Notes Smoking Status Current Smoker Problems Problem Type SNOMED Code ICD Code Onset Dates Problem Status W/U Status Risk Notes Problem 519782068 Aftercare following surgery of the musculoskeletal system (Z47.89) Active confirmed Problem Skin sensation disturbance (87786329) Numbness and tingling (R20.2) Active confirmed Problem 515574851291156 Carpal tunnel syndrome of right wrist (G56.01) Active confirmed Problem Numbness (28022533) Numbness (R20.0) Active confirmed Problem 25188577 Left hip pain (M25.552) Active confirmed Problem 709351440 Spinal stenosis, lumbosacral region (M48.07) Active confirmed Problem Degeneration of lumbosacral intervertebral disc (55863624) Other intervertebral disc degeneration, lumbosacral region (M51.37) Active confirmed Problem History of left hip replacement (1165805259395641) History of left hip replacement (Z96.642) Active confirmed Problem Total hip replacement Prosthesis (412912226) History of arthroplasty of right hip (Z96.641) Active confirmed Problem 73202190 Left sided sciatica (M54.32) Active confirmed Plan Of Treatment No Information Insurance Providers Payer Name Payer Address Payer Phone Subscriber Number Group Number Insured Name Patient Relationship to Insured Coverage Start Date Coverage End Date [place] [address] [place] [address] [id number] BRIGID [employer]IDER Spouse - patient is the spouse of the insured Medical (General) History Medical History History ICD Code Anesthetic Reactions Yes Hypothyroidism Yes Anxiety: Yes Surgical History Surgery Date(Month/Year) L4-S1 laminectomy, PSF 12/2021 Right total hip replacement 2018 Ablasion 2011 Tubes Tied 2004
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
--- OUTSIDE RECORDS SUMMARY | 2025-04-07 08:03 | XMS_ITS | Encounter Summary ---
Author Organization [facility] Address [id number] [address] [place] [address] Care Team Providers Care Tax Director Name Role Phone Fausto Sweeney MD Primary Care Provider + [phone] Encounter Details Date Type Department Care Team (Late st Contact Info) Description 12/25/2022 Orders Only [facility] [address] [place] [id number] External, Scanning Provider Social History Tobacco Use Types Packs/Day Years [...] often do you attend chur ch or mu-ism services? 1 to 4 times per year 04/12/2020 Do you belong to any clubs o r organizations such as jew groups, unions, fraternal or athletic groups, or [...] PHQ-2 Answer Date Recorded Total Score 0 10/11/2022 [facility] [place] [facility] Occup[facility] ional [facility] - Occupational Stress Questionnaire Answer Date Recorded [...] Do you need help finding a l al career center and/or a training program? No 04/12/2020 Purpose - Life Answer Date Recorded Purpose [...] on file documented as of this encounter Plan of Treatment Not on file documented as of this encounter Procedures Procedure Name Priority Date/Time Associated Diagnosis Comments MULTIPLE LABS Routine 12/24/2022 documented in this encounter Results * Multiple labs (12/24/2022) us Scanning Provider External [facility] Final Result MANUALLY TRANSCRIBED RESULTS documented in this encounter Visit Diagnoses Not on filedocumented in this encounter Additional Health Concerns Infection Onset Date Last Indicated Resolved Time Respiratory Rule-Out 09/27/2024 09/27/2024 025 12:21 PM EST Assessment Noted Time PHQ-9 Depression Total Score: 0 10/11/19 23 7:00 AM EST A Body Mass Index follow-up plan has been documented for the patient 02/07/2021 11:16 AM EDT documented as of this encounter Care Teams Tax Director Relationship Specialty Start Date End Date Fausto Sweeney MD [address] Provider retired 11/23/24 [place] [address] PCP - General Family Medicine 10/13/24 10/19/24 documented as of this encounter
--- OUTSIDE RECORDS SUMMARY | 2025-04-07 08:03 | XMS_ITS | Encounter Summary ---
Author Organization [facility] Address [address] [place] [address] Care Team Providers Care Airport Operations Duty Manager Name Role Phone Fausto Sweeney MD Primary Care Provider [phone] Todd Acosta DO Primary Care Provider [phone] Todd Acosta DO Primary Care Provider [phone] Encounter Details Date Type Department Care Team (Late st Contact Info) Description 07/06/2024 [facility] [address] [place] [id number] Pasha Romano, DPObdulia [address] [place] [address] Social History Tobacco Use Types Packs/Day Years Used Date Smoking Tobacco: Every Day Cigarettes 0.5 33.6 Started: 08/25/1991 Smokeless Tobacco: Never Alcohol Use Standard Drinks/Week Comments Yes 1 (1 standard drink = 0.6 oz pure alcohol) caffeine intake: 1-2 cups per day AUDIT-C Answer Date Recorded Q1: How often do you have a drink containing alc ohol? Monthly or less 09/13/2023 Q2: How many drinks containi ng alcohol do you have on a typical day when you are drinking? 1 or 2 09/13/2023 Q3: How often do you have si x or more drinks on one occasion? Never 09/13/2023 Comments Unknown Sex and Gender Information Value Date Recorded Sex Assigned at Not on file Legal Sex Female 7:06 PM EDT Gender Identity Not on file Sexual Orientation Not on file documented as of this encounter Plan of Treatment Not on file documented as of this encounter Visit Diagnoses Not on filedocumented in this encounter Care Teams Airport Operations Duty Manager Relationship Specialty Start Date End Date Fausto Sweeney MD PCP - General Family Medicine 08/26/23 01/05/25 Todd Acosta DO PCP - General Family Medicine 01/18/25 02/14/25 Todd Acosta DO [address] [address] PCP - General Family Medicine 02/15/25 documented as of this encounter
--- OUTSIDE RECORDS SUMMARY | 2025-04-07 08:03 | XMS_ITS | Encounter Summary ---
Author Organization [employer] Address [id number] [address] [place] [address] Care Team Providers Care Building Construction Superintendent Name Role Phone Unavailable Primary Care Provider Unavailabl e Encounter Details Date Type Department Care Team (Latest Contact Info) Description 04/05/2025 Travel Social History Tobacco Use Types Packs/Day Years [...] 04/12/2020 How often do you attend chur or anabaptist services? 1 to 4 times per year 04/12/2020 Do you belong to any clubs o r organizations such as holiness groups, unions, fraternal or athletic groups, or [...] Answer Date Recorded Total Score 0 [facility] Questionnaire Answer Date Recorded [...] Recorded Do you need help finding a [facility] career center and/or a training program? No [...] filedocumented in this encounter Additional Health Concerns Assessment Noted Time PHQ-9 Depression Total Score: 0 06/24/20 23 7:00 AM EDT A Body Mass Index follow-up plan has been documented for the patient 02/07/2021 11:16 AM EDT documented as of this encounter
--- OUTSIDE RECORDS SUMMARY | 2025-04-07 08:03 | XMS_ITS | Encounter Summary ---
Author Organization [employer] Address [id number] [address] [place] [address] Care Team Providers Care Painting Manager Name Role Phone Fausto Sweeney MD Primary Care Provider + [phone] Reason for Visit * Reason Comments Med Refill Encounter Details Date Type Department Care Team (Late st Contact Info) Description 03/03/2021 Refill [facility] [address] [place] [address] Fausto Sweeney MD [address]. Provider retired 11/23/24 [place] [address] Neuropathy Social History Tobacco Use Types Packs/Day Years [...] often do you attend chur ch or synagogue services? 1 to 4 times per year 04/12/2020 Do you belong to any clubs o r organizations such as samaritan groups, unions, fraternal or athletic groups, or [...] PHQ-2 Answer Date Recorded Total Score 0 02/07/2021 [facility] - Occupational Stress [...] Recorded Do you need help finding a [employer] al career center and/or a training program? [...] on file Sexual Orientation Not on file COVID-19 Exposure Response Date Recorded In the last month, have you been in contact with someone who was confirmed or suspected to have Coronavirus / COVID-19? No / Unsure 02/12/2021 6:22 AM EDT documented as of this encounter Miscellaneous Notes * Telephone Encounter - Adwoa Quintero LPN - 03/03/2021 9:48 AM EDT Requesting refill of Gabapentin documented in this encounter Plan of Treatment Not on file documented as of this encounter Visit Diagnoses Diagnosis Neuropathy Mononeuritis of unspecified site documented in this encounter Additional Health Concerns Infection Onset Date Last Indicated Resolved Time Respiratory Rule-Out 09/27/2024 09/27/2024 025 12:21 PM EST Assessment Noted Time PHQ-9 Depression Total Score: 0 02/08/20 21 10:00 AM EDT A Body Mass Index follow-up plan has been documented for the patient 02/07/2021 11:16 AM EDT documented as of this encounter Care Teams Painting Manager Relationship Specialty Start Date End Date Fausto Sweeney MD [address]. Provider retired 11/23/24 [place] [address] PCP - General Family Medicine 10/13/24 10/19/24 documented as of this encounter
--- OUTSIDE RECORDS SUMMARY | 2025-04-07 08:03 | XMS_ITS | Encounter Summary ---
Author Organization [employer] Address [id number] [address] [place] [address] Care Team Providers Care Malt House Operator Name Role Phone Fausto Sweeney MD Primary Care Provider + [phone] Reason for Visit * Reason Comments Med Refill Encounter Details Date Type Department Care Team (Late st Contact Info) Description 01/28/2021 Refill [facility] [address] [place] [address] Fausto Sweeney MD [address]. Provider retired 11/23/24 [place] [address] Neuropathy Social History Tobacco Use [...] often do you attend chur ch or yazidism services? 1 to 4 times per year 04/12/2020 Do you belong to any clubs o r organizations such as mu-ism groups, unions, fraternal or athletic groups, or [...] PHQ-2 Answer Date Recorded Total Score 0 11/17/2020 [facility]at ional [facility] - Occupational [...] Recorded Do you need help finding a [email or web address] al career center and/or a training program? [...] on file documented as of this encounter Miscellaneous Notes * Telephone Encounter - Adwoa Quintero LPN - 01/28/2021 9:48 AM EDT Requesting refill of Gabapentin documented in this encounter Plan of Treatment Not on file documented as of this encounter Visit Diagnoses Diagnosis Neuropathy Mononeuritis of unspecified site documented in this encounter Additional Health Concerns Infection Onset Date Last Indicated Resolved Time Respiratory Rule-Out 09/27/2024 09/27/2024 025 12:21 PM EST Assessment Noted Time PHQ-9 Depression Total Score: 0 11/18/19 21 3:00 PM EDT A Body Mass Index follow-up plan has been documented for the patient 11/09/2020 2:22 PM EDT documented as of this encounter Care Teams Malt House Operator Relationship Specialty Start Date End Date Fausto Sweeney MD [address] Provider retired 11/23/24 [place] [address] PCP - General Family Medicine 10/13/24 10/19/24 documented as of this encounter
--- OUTSIDE RECORDS SUMMARY | 2025-04-07 08:03 | XMS_ITS | Encounter Summary ---
Author Organization [employer] [facility] [employer] Address [facility] [id number] [address] [place] [address] Care Team Providers Care Seam Hammerer Name Role Phone Fausto Sweeney MD Primary Care Provider + [phone] Reason for Visit * Reason Comments Med Refill Encounter Details Date Type Department Care Team (Late st Contact Info) Description 06/02/2021 Refill [facility] [address] [place] [address] Fausto Sweeney MD [address]. Provider retired 11/23/24 [place] [address] Neuropathy Social History Tobacco Use [...] often do you attend chur ch or rastafarian services? 1 to 4 times per year 04/12/2020 Do you belong to any clubs o r organizations such as hoahaoism groups, unions, fraternal or athletic groups, or [...] Answer Date Recorded Total Score 0 02/07/2021 [facility]at ional [facility] - Occupational Stress [...] Recorded Do you need help finding a [employer] al career center and/or a training program? [...] have Coronavirus / COVID-19? No / Unsure 05/26/2021 12:05 PM EDT documented as of this encounter Plan of [...] documented as of this encounter Care Teams Seam Hammerer Relationship Specialty Start Date End Date Fausto Sweeney MD [address]. Provider retired 11/23/24 [place] [address] PCP - General Family Medicine 10/13/24 10/19/24 documented as of this encounter
--- OUTSIDE RECORDS SUMMARY | 2025-04-07 08:03 | XMS_ITS | Encounter Summary ---
Author Organization [employer] [facility] [employer] Address [id number] [address] [place] [address] Care Team Providers Care Stretching Machine Tender Frame Name Role Phone Fausto Sweeney MD Primary Care Provider + [phone] Reason for Visit * Reason Onset Date Comments Med Refill 07/05/2021 Encounter Details Date Type Department Care Team (Late st Contact Info) Description 07/05/2021 Refill [facility] [address] [place] [id number] Milton Velez CNA Neuropathy Social History Tobacco Use Types Packs/Day [...] any clubs o r organizations such as anabaptist groups, unions, fraternal or athletic groups, or [...] PHQ-2 Answer Date Recorded Total Score 0 07/09/2021 [facility] of Occupat ional Health - Occupational Stress [...] encounter Miscellaneous Notes * Telephone Encounter - Milton Velez CMA - 07/05/2021 10:33 AM EST Patient requesting refill of gabapentin. Patient is scheduled for 3 month check up 07-09-21 documented in this encounter Plan of Treatment Not on file documented as of this encounter Visit Diagnoses Diagnosis Neuropathy Mononeuritis of unspecified site documented in this encounter Additional Health Concerns Infection Onset Date Last Indicated Resolved Time Respiratory Rule-Out 09/27/2024 09/27/2024 025 12:21 PM EST Assessment Noted Time PHQ-9 Depression Total Score: 0 02/08/20 10:00 AM EDT A Body Mass Index follow-up plan has been documented for the patient 02/07/2021 11:16 AM EDT documented as of this encounter Care Teams Stretching Machine Tender Frame Relationship Specialty Start Date End Date Fausto Sweeney MD [address]. Provider retired 11/23/24 [place] [address] PCP - General Family Medicine 10/13/24 10/19/24 documented as of this encounter
--- OUTSIDE RECORDS SUMMARY | 2025-04-07 08:03 | XMS_ITS | Encounter Summary ---
Author Organization [facility] Address [facility] [id number] [address] [place] [address] Care Team Providers Care Coding Educator Name Role Phone Fausto Sweeney MD Primary Care Provider + [phone] Encounter Details Date Type Department Care Team (Late st Contact Info) Description 07/09/2023 Orders Only [facility] [address] [place] [phone] External, Scanning Provider Social History Tobacco Use [...] often do you attend chur ch or mormon services? 1 to 4 times per year 04/12/2020 Do you belong to any clubs o r organizations such as evangelical groups, unions, fraternal or athletic groups, or [...] Answer Date Recorded Total Score 0 06/24/2023 [facility] [place] [facility] Occupat ional Health - Occupational Stress [...] got money to buy more. Never True 06/24/2023 Within the past 12 months th e food we bought just didn't last and we didn't have money to get more. Never True 06/24/2023 Purpose - Life Answer Date Recorded Purpose [...] Date/Time Associated Diagnosis Comments MULTIPLE LABS Routine 07/09/2023 8:49 AM EST documented in this encounter Results * Multiple labs (07/09/2023 8:49 AM EST) us Scanning Provider External [facility] IMAGING Final Result MANUALLY TRANSCRIBED RESULTS documented [...] documented as of this encounter Care Teams Coding Educator Relationship Specialty Start Date End Date Fausto Sweeney MD [address]. Provider retired 11/23/24 [place] [address] PCP - General Family Medicine 10/13/24 10/19/24 documented as of this encounter
--- OUTSIDE RECORDS SUMMARY | 2025-04-07 08:03 | XMS_ITS | Clinical Summary ---
Author Organization [facility] Address [address], [address] [place] [address] Care Team Providers Care Bessemer Bottom Maker Name Role Phone Fausto Sweeney MD Primary Care Provider [phone] Allergies Active Allergy Reactions Criticality Noted Date Comments Cefaclor Hives Medium 05/04/2003 ceclor Celecoxib Hives,Swelling,Other (See Comments) High 07/02/2021 Throat swelling Ciprofloxacin Hives Medium 10/09/2021 Hydrocodone Itching,Nausea And Vomiting Medium 06/17/2018 hot flashes Influenza Virus Vaccine 12/24/2023 Iodides Anaphylaxis,Hives High 04/15/2017 Latex Itching 09/16/2023 Nitrofurantoin Hives,Other (See Comments) Medium 12/21/2021 Prednisone Palpitations High 05/19/2018 Specifically Med-dose Pack Sulfa Antibiotics Hives Medium 05/04/2003 Sulfasalazine Hives Medium 04/15/2017 Sulfur 07/01/2023 Adhesive Tape Dermatitis Medium 05/19/2018 Do not usew clear plastic tape. Paper tape is OK to use. Acetaminophen-Codeine Nausea And Vomiting Low 01/03 Medications levothyroxine (SYNTHROID) 50 MCG tablet Take 1 tablet by mouth Daily Active sertraline (ZOLOFT) 100 MG tablet Take 1 tablet by mouth daily 01/14/20 20 Active EPINEPHrine (EPIPEN) 0.3 MG/0.3ML SOAJ injection inject 0.3 milliliters ( 0.3 milligrams ) intramuscularly in OUTE... (REFER TO PRESCRIPTION NOTES). 09/13/19 22 Active fluticasone (FLONASE) 50 MCG/ACT nasal spray 1 spray by Nasal route daily 11/19/19 23 Active amoxicillin (AMOXIL) 500 MG capsuleIndicati ons:Prophylacti c antibiotic Take 2 tabs 1 hour prior to appointment time, and 1 tab twice daily until gone 6 capsule 1 07/20/20 24 Active erythromycin base (E-MYCIN) 500 MG tabletIndicatio ns:Need for antibiotic prophylaxis for dental procedure,Histo ry of total hip arthroplasty, right Take 2 capsules 1 hour prior to appointment, then 1 capsule twice a day until gone. 6 tablet 10/01/19 25 Active Active Problems Problem Noted Date Diagnosed Date Presence of right artificial hip joint Posttraumatic stress disorder 01/21/2024 Migraine headache 01/21/2024 Menopause present 01/21/2024 History of spinal surgery 01/21/2024 History of endometrial ablation 01/21/2024 Foodborne gastroenteritis 01/21/2024 Disease due to severe acute respiratory syndrome coronavirus 2 (SARS-CoV-2) 01/21/2024 Degeneration of lumbosacral intervertebral disc 01/21/2024 Carpal tunnel syndrome of right wrist 01/21/2024 Aftercare following surgery of the musculoskelet al system 01/21/2024 Disease of gallbladder, unspecified 01/21/2024 Gastroesophageal reflux disease 07/08/2023 Dysfunction of eustachian tube 12/31/2022 Lumbosacral spinal stenosis 01/18/2022 Primary osteoarthritis of right hip 06/02/2018 History of colonic polyps 02/12/2018 Family history of malignant neoplasm of colon Postoperative state Resolved Problems Problem Noted Date Diagnosed Date Resolved Date Backache 12/24/2023 12/24/2023 DJD (degenerative joint disease) 12/24/2023 12/24/2023 Obese 12/24/2023 12/24/2023 Chronic myringitis of left ear 01/16/2023 12/24/2023 Deviated nasal septum 01/16/20232023 Dysfunction of both eustachian tubes 01/16/2023 12/24/2023 Hypertrophy of nasal turbinates 01/16/2023 12/24/2023 Perforation of tympanic membrane 01/16/2023 12/24/2023 Personal history of COVID-19 01/02/2023 12/24/2023 Diastasis recti 11/09/2020 12/24/2023 PAC (premature atrial contraction) 12/14/2018 12/24/2023 Palpitation 12/14/2018 12/24/2023 Acquired hypothyroidism 04/30/2018 05/0 08/2023 Disorder of sacrum 11/17/2017 Overview (12/24/2023): Added automatically from request for surgery [id number] Family History Medical History Relation Name Comments Colon Cancer Father High Blood Pressure Father High Cholesterol Father Colon Cancer Maternal Grandfather Kidney Cancer Maternal Grandfather Other Maternal Grandfather aneurys m Breast Cancer Maternal Grandmother Other Maternal Grandmother aneurys m Atrial Fibrillation Mother COPD Mother Heart Failure Mother High Blood Pressure Mother Kidney Cancer Mother Stroke Mother Breast Cancer Paternal Aunt Cancer Paternal Aunt liver High Cholesterol Paternal Grandfather High Cholesterol Paternal Grandmother Stroke Sister 2 Relation Name Status Comments Father Alive Maternal Grandfather Maternal Grandmother Mother Alive Paternal Aunt Paternal Grandfather Paternal Grandmother Sister 1 Alive Sister 2 Alive Social History Tobacco Use Types Packs/Day Years Used Date Smoking Tobacco: Every Day Cigarettes 0.5 31 Smokeless Tobacco: Never Tobacco Cessation:Ready to Q uit: Yes; Counseling Given: Yes Alcohol Use Standard Drinks/Week Comments No 0 (1 standard drink = 0.6 oz pur e alcohol) PHQ-2 Answer Date Recorded PHQ-9 Total Score 0 01/21/2024 Comments No Sex and Gender Information Value Date Recorded Sex Assigned at Not on file Legal Sex Female 2:09 PM EST Gender Identity Not on file Sexual Orientation Not on file Last Filed Vital Signs Vital Sign Reading Time Taken Comments Blood Pressure 148/98 01/21/2024 11:17 AM EDT Pulse 81 03/10/2023 8:30 AM EDT Temperature 36.4 C (97.5 F) 01/20/2022 8:11 AM EDT Respiratory Rate 14 04/08/2023 10:01 AM EDT Oxygen Saturation 97% 03/10/2023 8:30 AM EDT Inhaled Oxygen Concentration - - Weight 87.5 kg (193 lb) 01/21/2024 11:08 AM EDT Height 157.5 cm (5' 2 ) 01/21/2024 11:08 AM EDT Body Mass Index 35.3 01/21/2024 11:08 AM EDT Plan of Treatment Upcoming Encounters Date Type Department Care Team (Late st Contact Info) Description 05/10/2025 11:00 AM EDT Office Visit [facility] Part of [address] [place] [address] Ene Martinez APRN - [place] [place] [address] yearly--last seen by Dr Asher Health Maintenance Due Date Last Done Comments HIV screen 1988 Hepatitis C screen 1991 Pneumococcal 50+ years Vaccine (1 of 2 - PCV) 1992 HPV (without or with Pap) 2003 Hepatitis B vaccine (3 of 3 - 19+ 3-dose series) 02/24/2004 12/28/2003, 08/26/2003 Lipids 2013 Colonoscopy 2018 Colorectal Cancer Screen 2018 FIT/FOBT: Average risk 2018 Fecal-DNA (Cologuard): Average risk 2018 Sigmoidoscopy/CT colonography 2018 Breast cancer screen 10/20/2019 10/20/2017 Shingles vaccine (1 of 2) 2023 COVID-19 Vaccine ( - season) 2024 Depression Screen 01/20/2025 01/21/2024 Cervical cancer screen 12/23/2026 Pap smear 12/23/2026 12/24/2023, 02/22, 03/13/2020, Additional history exists DTaP/Tdap/Td vaccine (2 - Td or Tdap) 04/15/2027 04/15/2017 Hepatitis A vaccine Aged Out No longe r eligible based on patient's age to complete this topic Hib vaccine Aged Out No longer eligi ble based on patient's age to complete this topic Meningococcal (ACWY) vaccine Aged Out No longer eligible based on patient's age to complete this topic Meningococcal B vaccine Aged Out No l onger eligible based on patient's age to complete this topic Polio vaccine Aged Out No longer elig ible based on patient's age to complete this topic Medical Devices Implanted Type Area Pets Salesperson Device Identifier Shelf Expiration Date Model / Serial / Lot Impl Hip Liner Acet Neut 36mm Sz E Implanted:Qty: 1 on 06/02/2018 by Bruce Nick MD at [facility] Hip Right: Hip [employer]PMM 01/02/2023 [id number] / / [id number] Impl Hip Shell Acet 3hl Finned 52mm Implanted:Qty: 1 on 06/02/2018 by Bruce Nick MD at [facility] Hip Right: Hip [employer]-PMM 02/02/2028 [id number] / / [id number] Impl Hip Stem Fem Std Offst/Tap [id number] Implanted:Qty: 1 on 06/02/2018 by Bruce Nick MD at [facility] Hip Right: Hip [employer]-PMM 01/23/2028 [id number] / / [id number] Impl Hip Head Cer Biol[employer] Option Hd 36mm Implanted:Qty: 1 on 06/02/2018 by Bruce Nick MD at [facility] Hip Right: Hip [employer]-PMM 12/13/2027 [id number] / / [id number] Impl Hip Sleeve Cer Option Type 1 Tpr Sz 3 Implanted:Qty: 1 on 06/02/2018 by Bruce Nick MD at [facility] Hip Right: Hip [employer]-PMM 01/21/2028 [id number] / / [id number] Set Scr Spnl Ti Streamline - [id number] Implanted:Qty: 6 on 01/18/2022 by Dileep Lozano MD at [facility] N/A: Spine Lumbar [employer] [id number] / / Screw Spnl L40mm Dia6.5mm Thorlum Ti Ally Polyax Streamline - [id number] Implanted:Qty: 2 on 01/18/2022 by Dileep Lozano MD at [facility] N/A: Spine Lumbar [employer] [id number] / / Screw Spnl L45mm Dia6.5mm 60deg Thorlum Pedcl Ti Ally - [id number] Implanted:Qty: 4 on 01/18/2022 by Dileep Lozano MD at [facility] N/A: Spine Lumbar [employer] [id number] / / Davis Spnl L60mm [id number] Thorlum Prebent For Fix Sys Qnt - [id number] Implanted:Qty: 2 on 01/18/2022 by Dileep Lozano MD at [facility] N/A: Spine Lumbar [employer] [id number] / / Procedures Procedure Name Priority Date/Time Associated Diagnosis Comments INDUSTRIAL HYGIENE MANAGER CYTOLOGY Routine 12/24/2023 12:00 AM EDT from Last 3 Months or Most Recently Relevant to Health Maintenance Results * INDUSTRIAL HYGIENE MANAGER Cytology (12/24/2023 12:00 AM EDT) Cytology Report Path Number: [id number] DIAGNOSIS Imaged ThinPrep Pap - Cervical (1 monolayer slide): Specimen Adequacy: Satisfactory for evaluation. - Endocervical/trans formation zone component present. Descriptive Diagnosis: Negative for intraepithelial lesion or malignancy. Comments: Specimen was screened at [facility], [address] [place] [address] Cytotech Screener: CS Electronically Signed Out CARLOS Khan(ASCP) cs/12/30/2023 Source of Specimen: A: Imaged ThinPrep Pap - Cervical (1 monolayer slide) HPV Reflex?........... ...........HPV if Abnormal Clinical History Tubal ligation LEEP Endometrial ablation Z01.419 Routine protohistorian exam without abnormal findings Processing Lab: [address] [id number] Interpretation performed at [facility], [address] [place], [place] [address] This Pap Test has been evaluated with the assistance of the Aviga SystemsPrep Pap Test Imaging System. The Pap smear is a screening test primarily for squamous epithelial lesions, which is subject to both false negative and false positive results. Your patient should be reminded to consult you immediately if she experiences any suspicious signs or symptoms, regardless of her Pap smear result. GYNECOLOGIC CYTOLOGY REPORT Patient Name: PIA HERNANDEZ. [facility] Rec: [id number] [facility] [employer] ANATOMIC PATHOLOGY [address] [place] [id number] [employer] CERVICAL MATERIAL 12/24/2023 024 9:32 AM EDT Griffin Lau MD PATHOLOGY/CYTOLOGY ORDERABLES Final Result [facility] [address] [place], [place] [id number] [phone] [facility] from Last 3 Months or Most Recently Relevant to Health Maintenance Insurance [facility] Advance Directives * Full Code (Latest Code Status on File) Date Activated Date Inactivated Comments 01/23/2022 12:11 PM * Full Code Date Activated Date Inactivated Comments 01/18/2022 9:06 AM 01/20/2022 4:37 PM * Full Code Date Activated Date Inactivated Comments 06/02/2018 4:10 PM 06/03/2018 4:21 PM * Full Code Date Activated Date Inactivated Comments 06/02/2018 10:40 AM 06/02/2018 4:00 PM Care Teams Bessemer Bottom Maker Relationship Specialty Start Date End Date Fausto Sweeney MD [address] [place] [address] PCP - General Family Medicine 07/22/16
--- OUTSIDE RECORDS SUMMARY | 2025-04-07 08:03 | XMS_ITS | Encounter Summary ---
Author Organization [facility] Address [address] [facility] [place] [address] Care Team Providers Care Dicer Operator Name Role Phone Todd Acosta DO Primary Care Provider [phone] Todd Acosta DO Primary Care Provider [phone] Encounter Details Date Type Department Care Team (Late st Contact Info) Description 01/18/2025 Abstract [facility] [address] [place] [address] Todd Acosta DO [address] [address] Social History Tobacco Use Types Packs/Day Years Used Date Smoking Tobacco: Every Day Cigarettes 0.5 33.6 Started: 08/25/1991 Smokeless Tobacco: Never Alcohol Use Standard Drinks/Week Comments Yes 1 (1 standard drink = 0.6 oz pure alcohol) caffeine intake: 1-2 cups per day AUDIT-C Answer Date Recorded Q1: How often do you have a drink containing alcohol? Never 01/18/2025 Q2: How many drinks containi ng alcohol do you have on a typical day when you are drinking? Patient does not drink Q3: How often do you have si x or more drinks on one occasion? Never 01/18/2025 PHQ-2 Answer Date Recorded Patient Health Questionnaire-2 Score 0 01/18/2025 Comments Unknown Sex and Gender Information Value Date Recorded Sex Assigned at Not on file Legal Sex Female 7:06 PM EDT Gender Identity Not on file Sexual Orientation Not on file documented as of this encounter Functional Status * Audit-C Score Answer Date of Assessment Author 0 01/18/2025 2:48 PM EDT Lauri Hewitt LPN * Question Answer Date of Assessment Author Q1: How often do you have a drink containing alcohol? Never 01/18/2025 2:48 PM EDT Belkys Hewitt LPN Q2: How many drinks containing alcohol do you have on a typical day when you are drinking? Patient does not drink 01/18/2025 2:48 PM EDT Belkys Hewitt LPN Q3: How often do you have six or more drinks on one occasion? Never 01/18/2025 2:48 PM EDT Belkys Hewitt LPN * Over the past 2 weeks, how often have you been bothered by any of the following problems? Question Answer Date of Assessment Author Little interest or pleasure in doing things Not at all 01/18/2025 2:48 PM EDT Belkys Hewitt LPN Feeling down, depressed, or hopeless Not at all 01/18/2025 2:48 PM EDT Belkys Hewitt LPN Patient Health Questionnaire -2 Score 0 01/18/2025 2:48 PM EDT Belkys Hewitt LP N documented as of this encounter Plan of Treatment Not on file documented as of this encounter Visit Diagnoses Not on filedocumented in this encounter Care Teams Dicer Operator Relationship Specialty Start Date End Date Todd Acosta DO PCP - General Family Medicine 01/18/25 02/14/25 Todd Acosta DO [address] [address] PCP - General Family Medicine 02/15/25 documented as of this encounter
--- OUTSIDE RECORDS SUMMARY | 2025-04-07 08:03 | XMS_ITS | Encounter Summary ---
Author Organization [facility] Address [id number] [address] [place] [address] Care Team Providers Care Tattoo Technician Name Role Phone Fausto Sweeney MD Primary Care Provider + [phone] Reason for Visit * Reason Comments Med Refill Encounter Details Date Type Department Care Team (Late st Contact Info) Description 12/04/2020 Refill [facility] [address] [place] [address] Fausto Sweeney MD [address]. Provider retired 11/23/24 [place] [address] Neuropathy Social History Tobacco Use [...] often do you attend chur ch or islam services? 1 to 4 times per year 04/12/2020 Do you belong to any clubs o r organizations such as jain groups, unions, fraternal or athletic groups, or [...] Answer Date Recorded Total Score 0 11/17/2020 [facility] Occupat ional Health - Occupational [...] Recorded Do you need help finding a [employer] al career center and/or a training program? [...] or suspected to have Coronavirus / COVID-19? Yes 11/17/2020 3:37 PM EDT documented as of this encounter Miscellaneous Notes * Telephone Encounter - Milton Velez CMA - 12/04/2020 9:49 AM EDT Pharmacy requesting refill of gabapentin documented in this encounter Plan of Treatment [...] documented as of this encounter Care Teams Tattoo Technician Relationship Specialty Start Date End Date Fausto Sweeney MD [address] Provider retired 11/23/24 [place] [address] PCP - General Family Medicine 10/13/24 10/19/24 documented as of this encounter
--- OUTSIDE RECORDS SUMMARY | 2025-04-07 08:04 | XMS_ITS | Encounter Summary ---
Author Organization [facility] Address [id number] [address] [place] [address] Care Team Providers Care Film Cutter Name Role Phone Fausto Sweeney MD Primary Care Provider + [phone] Reason for Visit * Reason Comments Med Refill Encounter Details Date Type Department Care Team (Late st Contact Info) Description 04/20/2022 Refill [facility] [address] [place] [address] Fausto Sweeney MD [address]. Provider retired 11/23/24 [place] [address] Neuropathy Social History Tobacco Use [...] often do you attend chur ch or mosque services? 1 to 4 times per year 04/12/2020 Do you belong to any clubs o r organizations such as sikhism groups, unions, fraternal or athletic groups, or [...] PHQ-2 Answer Date Recorded Total Score 0 01/08/2022 [facility] of Occupat ional Health - Occupational [...] Recorded Do you need help finding a [employer] al career center and/or a training program? [...] have Coronavirus / COVID-19? No / Unsure 04/03/2022 8:22 AM EDT documented as of this encounter Miscellaneous Notes * Telephone Encounter - Adwoa Quintero LPN - 04/20/2022 9:51 AM EDT [facility] Mcd[facility] requesting refill of Gabapentin documented in this encounter Plan of Treatment Not on file documented as of this encounter Visit Diagnoses Diagnosis Neuropathy Mononeuritis of unspecified site documented in this encounter Additional Health Concerns Infection Onset Date Last Indicated Resolved Time Respiratory Rule-Out 09/27/2024 09/27/2024 025 12:21 PM EST Assessment Noted Time PHQ-9 Depression Total Score: 0 01/09/20 22 10:00 AM EDT A Body Mass Index follow-up plan has been documented for the patient 02/07/2021 11:16 AM EDT documented as of this encounter Care Teams Film Cutter Relationship Specialty Start Date End Date Fausto Sweeney MD [address] Provider retired 11/23/24 [place] [address] PCP - General Family Medicine 10/13/24 10/19/24 documented as of this encounter
--- OUTSIDE RECORDS SUMMARY | 2025-04-07 08:04 | XMS_ITS | Encounter Summary ---
Author Organization [facility] [employer] [facility] Address [id number] [address] [place] [address] Care Team Providers Care Medical Superintendent Name Role Phone Fausto Sweeney MD Primary Care Provider + [phone] Reason for Visit * Reason Comments Med Refill Encounter Details Date Type Department Care Team (Late st Contact Info) Description 04/29/2021 Refill [facility] [address] [place] [address] Fausto Sweeney MD [address]. Provider retired 11/23/24 [place] [address] Neuropathy Social History Tobacco Use [...] often do you attend chur ch or latter day services? 1 to 4 times per year [...] Answer Date Recorded Total Score 0 02/07/2021 [facility] of Occupat ional Health - Occupational Stress [...] Recorded Do you need help finding a [employer] al career center and/or a training program? [...] encounter Miscellaneous Notes * Telephone Encounter - Jasmin Martinez CMA - 04/29/2021 9:49 AM EDT Requesting refill of gabapentin documented in this encounter [...] documented as of this encounter Care Teams Medical Superintendent Relationship Specialty Start Date End Date Fausto Sweeney MD [address] Provider retired 11/23/24 [place] [address] PCP - General Family Medicine 10/13/24 10/19/24 documented as of this encounter
--- OUTSIDE RECORDS SUMMARY | 2025-04-07 08:04 | XMS_ITS | Encounter Summary ---
Author Organization [facility] Address [id number] [address] [place] [address] Care Team Providers Care Telex Operator Name Role Phone Fausto Sweeney MD Primary Care Provider + [phone] Reason for Visit * Reason Comments Med Refill Encounter Details Date Type Department Care Team (Late st Contact Info) Description 12/11/2021 Refill [facility] [address] [place] [address] Fausto Sweeney MD [address]. Provider retired 11/23/24 [place] [address] Neuropathy Social History Tobacco Use [...] often do you attend chur ch or temple services? 1 to 4 times per year 04/12/2020 Do you belong to any clubs o r organizations such as confucianist groups, unions, fraternal or athletic groups, or [...] PHQ-2 Answer Date Recorded Total Score 0 11/05/2021 [facility] of Occupat ional Health - Occupational [...] Recorded Do you need help finding a [employer] al career center and/or a training program? [...] Exposure Response Date Recorded In the last 10 days, have yo u been in contact with someone who was confirmed or suspected to have Coronavirus/COVID-19? No / Unsure 11/23/2021 9:40 AM EDT documented as of this encounter Miscellaneous Notes * Telephone Encounter - Adwoa Quintero LPN - 12/11/2021 9:49 AM EDT [facility] Mcdaniels requesting refill of Gabapentin documented in this encounter Plan of Treatment Not on file documented as of this encounter Visit Diagnoses Diagnosis Neuropathy Mononeuritis of unspecified site documented in this encounter Additional Health Concerns Infection Onset Date Last Indicated Resolved Time Respiratory Rule-Out 09/27/2024 09/27/2024 025 12:21 PM EST Assessment Noted Time PHQ-9 Depression Total Score: 0 11/06/19 22 9:00 AM EDT A Body Mass Index follow-up plan has been documented for the patient 02/07/2021 11:16 AM EDT documented as of this encounter Care Teams Telex Operator Relationship Specialty Start Date End Date Fausto Sweeney MD [address] Provider retired 11/23/24 [place] [address] PCP - General Family Medicine 10/13/24 10/19/24 documented as of this encounter
--- OUTSIDE RECORDS SUMMARY | 2025-04-07 08:04 | XMS_ITS | Clinical Summary ---
Author Organization [employer] tem Address [id number] [address] [place] [address] Care Team Providers Care Vault Clerk Name Role Phone Unavailable Primary Care Provider Unavailabl e Allergies Active Allergy Reactions Criticality Noted Date Comments Adhesive Tape-Silicones Medium 05/19/2018 Other reaction(s): Dermatitis Do not usew clear plastic tape. Paper tape is OK to use. Cefaclor Hives Low 04/15/2017 ceclor Celecoxib Other (See Comments) 07/02/2021 Ciprofloxacin Hives 10/09/2021 Hydrocodone 06/17/2018 nausea, itching, hot flashes Iodides Hives High 05/19/2018 Iodinated Contrast Media Hives Low 04/15/2017 Even with pretreatment Nitrofurantoin Monohyd/M-Cryst Other (See Comments) 12/21/2021 Prednisone Palpitations Low 04/17/2018 Heart palpitation Sulfa (Sulfonamide Antibiotics) Hives Medium 05/04/2003 Sulfasalazine Hives Low 04/15/2017 Medications EPINEPHrine (EPIPEN) 0.3 mg/0.3 mL auto-injector inject 0.3 milliliters ( 0.3 milligrams ) intramuscularly in OUTE... (REFER TO PRESCRIPTION NOTES). 09/13/19 22 Active levothyroxine (SYNTHROID, LEVOTHROID) 50 MCG tablet Take 1 tablet (50 mcg total) by mouth in the morning. 90 tablet 3 09/04/19 24 Active pantoprazole (PROTONIX) 40 mg EC tablet take 1 tablet by mouth every morning 90 tablet 3 09/08/19 24 Active tiZANidine (ZANAFLEX) 4 mg tablet Take 1 tablet (4 mg total) by mouth every 8 (eight) hours as needed for muscle spasms. 9 tablet 05/03/20 24 Active sertraline (ZOLOFT) 100 mg tablet TAKE 1 TABLET BY MOUTH IN THE MORNING 90 tablet 09/20/19 25 Active benzonatate (TESSALON PERLES) 100 mg capsule Take 1 capsule (100 mg total) by mouth every 8 (eight) hours. 21 capsule 09/27/19 25 Active Additional Information Patient not taking.Reported on 04/05/2025 albuterol (PROVENTIL HFA;VENTOLIN HFA) 90 mcg/actuation inhalerIndicat ions:Viral URI with cough Inhale 2 puffs every 4 (four) hours as needed for wheezing. 18 g 09/27/19 25 Active Additional Information Patient not taking.Reported on 04/05/2025 ibuprofen (MOTRIN) 800 mg tablet Take 1 tablet (800 mg total) by mouth every 6 (six) hours as needed for pain. 30 tablet 10/13/19 25 Active Additional Information Patient not taking.Reported on 04/05/2025 orphenadrine (NORFLEX) 100 mg 12 hr tablet Take 1 tablet (100 mg total) by mouth 2 (two) times a day as needed for muscle spasms. 14 tablet 10/13/19 25 Active venlafaxine XR (EFFEXOR XR) 37.5 mg 24 hr capsule Take 1 capsule (37.5 mg total) by mouth in the morning. 02/17/20 25 025 Active atorvastatin (LIPITOR) 40 mg tablet Take 1 tablet (40 mg total) by mouth in the morning. 03/14/20 25 Active diclofenac (VOLTAREN) 75 mg EC tablet Take 1 tablet (75 mg total) by mouth in the morning and 1 tablet (75 mg total) before bedtime. 03/14/20 25 025 Active CEPHalexin (KEFLEX) 500 mg capsule Take 1 capsule (500 mg total) by mouth in the morning and 1 capsule (500 mg total) before bedtime. Do all this for 10 days. 20 capsule 04/05/20 25 025 Active Active Problems Problem Noted Date Diagnosed Date Diastasis recti 11/09/2020 Family history of colon cancer in father 021 Encounter for colonoscopy du e to history of adenomatous colonic polyps 11/09/2020 Palpitation 12/14/2018 PAC (premature atrial contraction) 12/14/2018 Postoperative state 11/07/2018 Primary osteoarthritis of right hip 06/02/2018 Acquired hypothyroidism 04/30/2018 Bilateral hip pain 02/18/2018 Overview (02/18/2018): Added automatically from request for surgery [id number] History of colon polyps 02/12/2018 Family history of colon cancer 02/12/2018 Disorder of sacrum 11/17/2017 Overview (11/17/2017): Added automatically from request for surgery [id number] Fibromyalgia 10/15/2017 Hypothyroid Obese Hiatal hernia GERD (gastroesophageal reflux disease) Arthritis DJD (degenerative joint disease) Back pain Encounters Date Type Department Care Team Description 04/05/2025 1:54 PM EDT - 04/05/2025 2:35 PM EDT Emergency [facility] - Emergency [address] [place] [address] Impetigo (Primary Dx) Discharge Disposition: Home 04/05/2025 Travel 02/15/2025 Travel from Last 3 Months Immunizations Immunization Administration Dates Next Due Hep B, Unspecified 12/28/2003,08/26/2003 Hepatitis B 12/28/2003,08/26/2003 Tdap 04/15/2017 Family History Medical History Relation Name Comments Colon cancer Father Jakob daniels Heart disease Father Jakob daniels Hyperlipidemia Father Jakob daniels Hypertension Father Jakob daniels Breast cancer Maternal Aunt Peg vandusen Cancer Maternal Grandfather Breast cancer Maternal Grandmother Vijaya cross Cancer Maternal Grandmother Vijaya cross Arthritis Mother Adilene daniels Asthma Mother Adilene daniels COPD Mother Adilene daniels Cancer Mother Adilene daniels Clotting disorder Mother Adilene daniels Heart disease Mother Adilene daniels Hypertension Mother Adilene daniels Stroke Mother Adilene daniels Vision loss Mother Adilene haleon Heart disease Paternal Grandfather Jamaal haar Aneurysm Paternal Grandmother Osteoporosis Paternal Grandmother Hypertension Sister 1 Eirka haar Stroke Sister 1 Erika haar Hypertension Sister 2 Yael thurmanugh Relation Name Status Comments Daughter Alive Father Jakob daniels Alive Maternal Aunt Peg vandusen Maternal Grandfather Maternal Grandmother Vijaya wang Mother Adilene daniels Alive Paternal Grandfather Jamaal daniels Paternal Grandmother Sister 1 Erika daniels Alive Sister 2 Yael sadler Alive Son Alive Social History Tobacco Use Types Packs/Day Years Used Date Smoking Tobacco: Every Day Cigarettes 0.5 20 Smokeless Tobacco: Never Tobacco Cessation:Ready to Q uit: Not Asked; Counseling Given: Not Answered Alcohol Use Standard Drinks/Week Comments Not Currently [...] often do you attend chur ch or orthodox services? 1 to 4 times per year [...] Answer Date Recorded Total Score 0 06/24/2023 [facility] [place] [facility] - Occupational Stress [...] Recorded Do you need help finding a [employer] center and/or a training program? No 04/12/2020 [...] Mass Index 31.89 04/05/2025 1:07 PM EDT Plan of Treatment Health Maintenance Due Date Last Done Comments Tobacco Counseling 1973 Adult BMI Follow Up Plan 1991 Zoster (Shingles) Vaccine (1 of 2) 2023 Depression Screening 06/24/2024 06/24/2023 Influenza Vaccine 04/25/2025 Colonoscopy 02/12/2026 02/12/2021 Adult BMI Screening 04/05/2026 04/05/2025 Tobacco Screening 04/05/2026 04/05/2025 Pap Smear 12/23/2026 12/24/2023, 02/22, 03/13/2020, Additional history exists DTaP,Tdap and Td Vaccines (2 - Td or Tdap) 04/15/2027 04/15/2017 Medical Devices Not on file Procedures Procedure Name Priority Date/Time Associated Diagnosis Comments THYROID PROFILE INCLUDES TSH FT4 Routine 02/15/2025 8:51 AM EDT Amenorrhea, unspecified Flushing Other wallcovering texturer (current) drug therapy Hypothyroidism, unspecified Gastro-esophageal reflux disease without esophagitis Cramp and spasm VITAMIN B12 Routine 02/15/2025 8:51 AM EDT Amenorrhea, unspecified [place]ushing Other wallcovering texturer (current) drug therapy Hypothyroidism, unspecified Gastro-esophageal reflux disease without esophagitis Cramp and spasm ESTRADIOL Routine 02/15/2025 8:51 AM EDT Amenorrhea, unspecified [place] Other intermediate (current) drug therapy Hypothyroidism, unspecified Gastro-esophageal reflux disease without esophagitis Cramp and spasm MAGNESIUM Routine 02/15/2025 8:51 AM EDT Amenorrhea, unspecified [place] Other intermediate (current) drug therapy Hypothyroidism, unspecified Gastro-esophageal reflux disease without esophagitis Cramp and spasm FOLLICLE STIMULATING HORMONE Routine 02/15/2025 8:51 AM EDT Amenorrhea, unspecified [place] Other intermediate (current) drug therapy Hypothyroidism, unspecified Gastro-esophageal reflux disease without esophagitis Cramp and spasm LUTEINIZING HORMONE Routine 02/15/2025 8 :51 AM EDT Amenorrhea, unspecified [place] Other intermediate (current) drug therapy Hypothyroidism, unspecified Gastro-esophageal reflux disease without esophagitis Cramp and spasm LIPID PROFILE Routine 02/15/2025 8:51 AM EDT Amenorrhea, unspecified Flushing Other wallcovering texturer (current) drug therapy Hypothyroidism, unspecified Gastro-esophageal reflux disease without esophagitis Cramp and spasm COMPREHENSIVE METABOLIC PANEL Routine 02/15/2025 8:51 AM EDT Amenorrhea, unspecified Flushing Other wallcovering texturer (current) drug therapy Hypothyroidism, unspecified Gastro-esophageal reflux disease without esophagitis Cramp and spasm from Last 3 Months Results * Thyroid profile includes TSH FT4 (02/15/2025 8:51 AM EDT) FREE T4 0.64 0.61 - 1.60 ng/dL 02/15/2025 6:35 PM EDT [facility] TSH 2.91 0.49 - 4.67 uIU/mL 02/15/2025 6:35 PM EDT [facility] Blood Venous blood / Unknown Venipuncture / Unknown 02/15/2025 8:51 AM EDT 02/15/2025 8:51 AM EDT Todd Acosta MD LAB BLOOD ORDERABLES Final Re sult [facility] [address] [place] [address], [place] [phone] * Estradiol (02/15/2025 8:51 AM EDT) ESTRADIOL <15.0 pg/mL 02/15/2025 6:59 PM EDT [facility] Blood Venous blood / Unknown Venipuncture / Unknown 02/15/2025 8:51 AM EDT 02/15/2025 8:51 AM EDT Narrative [facility] - 02/15/2025 6:59 PM EDT NON- FEMALES Mid follicular: 25-115 pg/mL Ovulatory Peak: 32.1-517 pg/mL Mid Luteal: 36.5-246 pg/mL Post-Menopausal Females: <15.0-25.1 pg/mL (Not on hormone therapy) The Access Sensitive Estradiol assay results are not intended to be used to measure the effectiveness of exogeneous Estradiol supplementation, for example, when the patient is on hormone replacement therapy. The presence of estradiol drug analogues and their metabolites could have an impact on estradiol recovery when using this assay. us Todd Acosta MD LAB BLOOD ORDERABLES Final Re sult [facility] [address] [place] [address], [place] [phone] * Magnesium (02/15/2025 8:51 AM EDT) MAGNESIUM 1.9 1.8 - 2.6 mg/dL 02/15/2025 6:36 PM EDT [facility] Blood Venous blood / Unknown Venipuncture / Unknown 02/15/2025 8:51 AM EDT 02/15/2025 8:51 AM EDT us Todd Acosta MD LAB BLOOD ORDERABLES Final Re sult [facility] [address] [place] [address], [place] [phone] * Luteinizing hormone (02/15/2025 8:51 AM EDT) LUTEINIZING HORMONE 55.4 mIU/mL 02/15/2025 6:58 PM EDT [facility] Blood Venous blood / Unknown Venipuncture / Unknown 02/15/2025 8:51 AM EDT 02/15/2025 8:51 AM EDT Narrative [facility] - 02/15/2025 6:58 PM EDT NORMAL FEMALE Follicular 2.1-10.9 mIU/mL Mid Cycle 19.2-103 mIU/mL Luteal 1.2-12.9 mIU/mL Post Joi 10.9-58.6 mIU/mL Todd Acosta MD LAB BLOOD ORDERABLES Final Re sult Performing Organization Address [facility] Co de Phone Number [facility] [address] [place] [address] [place] [address], * Follicle stimulating hormone (02/15/2025 8:51 AM EDT) FOLLICLE STIM HORMONE 30.1 mIU/mL 02/15/2025 6:57 PM EDT [facility] Blood Venous blood / Unknown Venipuncture / Unknown 02/15/2025 8:51 AM EDT 02/15/2025 8:51 AM EDT Narrative [facility] - 02/15/2025 6:57 PM EDT NORMAL FEMALE: Luteal 1.8-5.1 mIU/mL Follicular 3.8-8.8 mIU/mL Mid Cycle 4.5-22.5 mIU/mL Post [place] 16.7-113.6 mIU/mL us Todd Acosta MD LAB BLOOD ORDERABLES Final Re sult [facility] [address] [place] [address], [place] [phone] * Vitamin B12 (02/15/2025 8:51 AM EDT) VITAMIN B12 420 180 - 914 pg/mL 02/15/2025 6:41 PM EDT [facility] Blood Venous blood / Unknown Venipuncture / Unknown 02/15/2025 8:51 AM EDT 02/15/2025 8:51 AM EDT Todd Acosta MD LAB BLOOD ORDERABLES Final Re sult [facility] [address] [place] [address], [place] [phone] * (ABNORMAL) Lipid profile (02/15/2025 8:51 AM EDT) CHOLESTEROL 306(H) 150 - 200 mg/dL 02/15/2025 6:36 PM EDT [facility] TRIGLYCERIDE 143 27 - 150 mg/dL 02/15/2025 6:36 PM EDT [facility] HDL CHOLESTEROL 62 >39 mg/dL 6:36 PM EDT [facility] Comment: HDL <40 mg/dL - High Risk HDL > or = 40mg/dL- Desirable HDL >60 mg/dL - Negative Risk LDL (CALC) 215(H) <130 mg/dL 02/15/2025 6:36 PM EDT [facility] Comment: LDL <100 mg/dL - Desirable LDL >160 mg/dL - High Risk CHOLESTEROL:HDL 4.9 1.0 - 5.0 6:36 PM EDT [facility] VERY LOW LIPOPROTEIN 29 0 - 30 mg/dL 02/15/2025 6:36 PM EDT [facility] Blood Venous blood / Unknown Venipuncture / Unknown 02/15/2025 8:51 AM EDT 02/15/2025 8:51 AM EDT Todd Acosta MD LAB BLOOD ORDERABLES Final Re sult [facility] [address] [place] [address], [place] [phone] * (ABNORMAL) Comprehensive metabolic panel (02/15/2025 8:51 AM EDT) SODIUM 143 134 - 146 mmol/L 02/15/2025 6:36 PM EDT [facility] POTASSIUM 4.0 3.5 - 5.0 mmol/L 02/15/2025 6:36 PM EDT [facility] CHLORIDE 104 98 - 109 mmol/L 02/15/2025 6:36 PM EDT [facility] CARBON DIOXIDE 25 22 - 32 mmol/L 02/15/2025 6:36 PM EDT [facility] ANION GAP 14 5 - 15 mmol/L 02/15/2025 6:36 PM EDT [facility] BLOOD UREA NITROGEN 14 5 - 23 mg/dL 02/15/2025 6:36 PM EDT [facility] CREATININE 0.70 0.40 - 1.00 mg/dL 02/15/2025 6:36 PM EDT [facility] Comment:METHOD TRACEABLE TO IDMT STANDARD GLUCOSE 101(H) 65 - 99 mg/dL 02/15/2025 6:36 PM EDT [facility] CALCIUM 9.4 8.5 - 10.5 mg/dL 02/15/2025 6:36 PM EDT [facility] TOTAL PROTEIN 7.3 6.0 - 8.0 g/dL 02/15/2025 6:36 PM EDT [facility] ALBUMIN 4.4 3.2 - 5.3 g/dL 02/15/2025 6:36 PM EDT [facility] ALKALINE PHOSPHATASE 101 39 - 130 U/L 02/15/2025 6:36 PM EDT [facility] AST 15 <=41 U/L 02/15/2025 6:36 PM EDT [facility] ALT 17 <=31 U/L 02/15/2025 6:36 PM EDT [facility] BILIRUBIN,TOTAL 0.6 0.3 - 1.2 mg/dL 02/15/2025 6:36 PM EDT [facility] EGFR Non-Race Dependent >90 >=60 ml/min/1.7 3sq.m 02/15/2025 6:36 PM EDT [facility] Comment: Reported eGFR is based on the CKD-EPI 2020 equation that does not use a race coefficient. Blood Venous blood / Unknown Venipuncture / Unknown 02/15/2025 8:51 AM EDT 02/15/2025 8:51 AM EDT us Todd Acosta MD LAB BLOOD ORDERABLES Final Re sult [facility] [address] [place] [address], from Last 3 Months Insurance [employer]
--- OUTSIDE RECORDS SUMMARY | 2025-04-07 08:04 | XMS_ITS | Encounter Summary ---
Author Organization [employer] Address [id number] [address] [place] [address] Care Team Providers Care X Ray Operator Name Role Phone Fausto Sweeney MD Primary Care Provider + [phone] Reason for Visit * Reason Comments Med Refill Encounter Details Date Type Department Care Team (Late st Contact Info) Description 10/06/2021 Refill [facility] [address] [place] [address] Fausto Sweeney MD [address]. Provider retired 11/23/24 [place] [address] Neuropathy Social History Tobacco Use [...] often do you attend chur ch or confucianist services? 1 to 4 times per year 04/12/2020 Do you belong to any clubs o r organizations such as mandaeism groups, unions, fraternal or athletic groups, or [...] PHQ-2 Answer Date Recorded Total Score 0 10/09/2021 [facility] - [...] Recorded Do you need help finding a [employer] career center and/or a training program? [...] have Coronavirus / COVID-19? No / Unsure 10/09/2021 10:06 AM EST documented as of this encounter Miscellaneous Notes * Telephone Encounter - Jasmin Martinez CMA - 10/06/2021 9:49 AM EST Requesting refill of gabapentin documented in this encounter Plan of Treatment Not on file documented as of this encounter Visit Diagnoses Diagnosis Neuropathy Mononeuritis of unspecified site documented in this encounter Additional Health Concerns Infection Onset Date Last Indicated Resolved Time Respiratory Rule-Out 09/27/2024 09/27/2024 025 12:21 PM EST Assessment Noted Time PHQ-9 Depression Total Score: 0 07/24/20 21 10:00 AM EST A Body Mass Index follow-up plan has been documented for the patient 02/07/2021 11:16 AM EDT documented as of this encounter Care Teams X Ray Operator Relationship Specialty Start Date End Date Fausto Sweeney MD [address] Provider retired 11/23/24 [place] [address] PCP - General Family Medicine 10/13/24 10/19/24 documented as of this encounter
--- OUTSIDE RECORDS SUMMARY | 2025-04-07 08:04 | XMS_ITS | Encounter Summary ---
Author Organization [employer] Address [facility] [id number] [address] [place] [address] Care Team Providers Care Cat Wagon Operator Name Role Phone Fausto Sweeney MD Primary Care Provider + [phone] Reason for Visit * Reason Comments Med Refill Encounter Details Date Type Department Care Team (Late st Contact Info) Description 08/03/2021 Refill [facility] [address] [place] [address] Fausto Sweeney MD [address] Provider retired 11/23/24 [place] [address] Neuropathy Social History Tobacco Use [...] often do you attend chur ch or denominational services? 1 to 4 times per year [...] PHQ-2 Answer Date Recorded Total Score 0 07/24/2021 [facility] - Occupational [...] Recorded Do you need help finding a [employer] career center and/or a training program? [...] have Coronavirus / COVID-19? No / Unsure 07/24/2021 9:49 AM EST documented as of this encounter Miscellaneous Notes * Telephone Encounter - Adwoa Quintero LPN - 08/03/2021 9:50 AM EST Requesting refill of Gabapentin documented in this [...] documented as of this encounter Care Teams Cat Wagon Operator Relationship Specialty Start Date End Date Fausto Sweeney MD [address]. Provider retired 11/23/24 [place] [address] PCP - General Family Medicine 10/13/24 10/19/24 documented as of this encounter
--- OUTSIDE RECORDS SUMMARY | 2025-04-07 08:04 | XMS_ITS | Encounter Summary ---
Author Organization [facility] [employer] [facility] [employer] Address [facility] [id number] [address] [place] [address] Care Team Providers Care Supervisor Stitching Department Name Role Phone Fausto Sweeney MD Primary Care Provider + [phone] Encounter Details Date Type Department Care Team (Late st Contact Info) Description 10/28/2022 Orders Only [facility] [address] [place] [id number] Adwoa Quintero LPN Plantar fasciitis of right foot Social History Tobacco Use Types Packs/Day Years [...] often do you attend chur ch or sabianism services? 1 to 4 times per year 04/12/2020 Do you belong to any clubs o r organizations such as adventism groups, unions, fraternal or athletic groups, or [...] Answer Date Recorded Total Score 0 10/11/2022 [facility]at ional [facility] - [...] have Coronavirus / COVID-19? No / Unsure 10/11/2022 3:06 PM EST documented as of this encounter Plan of Treatment Not on file documented as of this encounter Procedures Procedure Name Priority Date/Time Associated Diagnosis Comments AMB REFERRAL TO PODIATRY Routine 10/16/2022 Plantar fasciitis of right foot documented in this encounter Results * Ambulatory referral to Podiatry (10/16/2022) 10/16/2022 us Fausto Sweeney MD OUTPATIENT REFERRAL ORDERABL ES Final Result MANUALLY TRANSCRIBED RESULTS documented in this encounter Visit Diagnoses Diagnosis Plantar fasciitis of right foot documented in this encounter Additional Health Concerns Infection Onset Date Last Indicated Resolved Time Respiratory Rule-Out 09/27/2024 09/27/2024 025 12:21 PM EST Assessment Noted Time PHQ-9 Depression Total Score: 0 10/11/19 23 7:00 AM EST A Body Mass Index follow-up plan has been documented for the patient 02/07/2021 11:16 AM EDT documented as of this encounter Care Teams Supervisor Stitching Department Relationship Specialty Start Date End Date Fausto Sweeney MD [address]. Provider retired 11/23/24 [place] [address] PCP - General Family Medicine 10/13/24 10/19/24 documented as of this encounter
--- OUTSIDE RECORDS SUMMARY | 2025-04-07 08:04 | XMS_ITS | Encounter Summary ---
Author Organization [facility] Address [address] [place] [address] Care Team Providers Care Sybase Developer Name Role Phone Todd Acosta DO Primary Care Provider [phone] Encounter Details Date Type Department Care Team (Late st Contact Info) Description 03/03/2025 [facility] [address], [address] [place] [phone] Todd Acosat DO [address] [place] [address] MR cervical spine wo contrast, MR thoracic spine wo contrast Social History Tobacco Use Types Packs/Day Years Used Date Smoking Tobacco: Every Day Cigarettes 0.5 33.6 Started: 08/25/1991 Smokeless Tobacco: Never Alcohol Use Standard Drinks/Week Comments Yes 1 (1 standard drink = 0.6 oz pure alcohol) caffeine intake: 1-2 cups per day B1300 Health Literacy Answer Date Recor ded How often do you need to hav e someone help you when you read instructions, pamphlets, or other written material from your doctor or pharmacy? Never 02/13/2025 Humiliation, Afraid, Rape, and Kick questionnair e Answer Date Recorded Within the last year, have y ou been afraid of your partner or ex-partner? No 02/13/2025 Within the last year, have y ou been humiliated or emotionally abused in other ways by your partner or ex-partner? No Within the last year, have y ou been kicked, hit, slapped, or otherwise physically hurt by your partner or ex-partner? No 02/13/2025 Within the last year, have y ou been raped or forced to have any kind of sexual activity by your partner or ex-partner? No 02/13/2025 Social Connection and Isolat ion Panel [NHANES] Answer Date Recorded In a typical week, how many times do you talk on the phone with family, friends, or neighbors? More than three times a week 02/13/2025 How often do you get togethe r with friends or relatives? Patient declined 02/13/2025 How often do you attend chur or bahai services? Patient declined 02/13/2025 Do you belong to any clubs o r organizations such as methodist groups, unions, fraternal or athletic groups, or school groups? No 02/13/2025 How often do you attend meet ings of the clubs or organizations you belong to? Never 02/13/2025 Are you , , di vorced, , never , or living with a partner? 02/13/2025 AUDIT-C Answer Date Recorded Q1: How often do you have a drink containing alcohol? Never 02/16/2025 Q2: How many drinks containi ng alcohol do you have on a typical day when you are drinking? Patient does not drink Q3: How often do you have si x or more drinks on one occasion? Never 02/16/2025 Overall Financial Resource Strain (CARDIA) Answe r Date Recorded How hard is it for you to pa y for the very basics like food, housing, medical care, and heating? Somewhat hard 02/13/2025 PHQ-2 Answer Date Recorded Patient Health Questionnaire-2 Score 0 02/16/2025 [facility] ionnh Health - Occupational Stress Questionnaire Answer Date Recorded Do you feel stress - tense, restless, nervous, or anxious, or unable to sleep at night because your mind is troubled all the time - these days? Rather much 02/13/2025 Exercise Vital Sign Answer Date Recorde d On average, how many days pe r week do you engage in moderate to strenuous exercise (like a brisk walk)? 4 days 02/13/2025 On average, how many minutes do you engage in exercise at this level? 30 min 02/13/2025 Hunger Vital Sign Answer Date Recorded Within the past 12 months, y ou worried that your food would run out before you got the money to buy more. Sometimes true Within the past 12 months, t he food you bought just didn't last and you didn't have money to get more. Sometimes true PRAPARE - Transportation Answer Date Re corded In the past 12 months, has l ack of transportation kept you from medical appointments or from getting medications? No 01/24 In the past 12 months, has l ack of transportation kept you from meetings, work, or from getting things needed for daily living? No 02/13/2025 Housing Stability Vital Sign Answer Fidel e Recorded In the last 12 months, was t here a time when you were not able to pay the mortgage or rent on time? Yes 02/13/2025 Number of Times Moved in the Last Year Not on fi le 02/13/2025 At any time in the past 12 [facility], were you homeless or living in a assisted (including now)? No 02/13/2025 Comments Unknown Sex and Gender Information Value Date Recorded Sex Assigned at Not on file Legal Sex Female 7:06 PM EDT Gender Identity Not on file Sexual Orientation Not on file documented as of this encounter Plan of Treatment Not on file documented as of this encounter Visit Diagnoses Not on filedocumented in this encounter Care Teams Sybase Developer Relationship Specialty Start Date End Date Todd Acosta DO [address] [address] PCP - General Family Medicine 02/15/25 documented as of this encounter
--- OUTSIDE RECORDS SUMMARY | 2025-04-07 08:04 | XMS_ITS | Encounter Summary ---
Author [facility] Address [id number] [address] [place] [address] Care Team Providers Care Material Expeditor Name Role Phone Fausto Sweeney MD Primary Care Provider + [phone] Reason for Visit * Reason Onset Date Comments Med Refill 01/04/2020 Encounter Details Date Type Department Care Team (Late st Contact Info) Description 01/04/2020 Refill [facility] [address] [place] [phone] Adwoa Quintero LPN Neuropathy Social History Tobacco Use Types Packs/Day Years Used Date Smoking Tobacco: Every Day Cigarettes Smokeless Tobacco: Never Alcohol Use Standard Drinks/Week Comments No 0 (1 standard drink = 0.6 oz pur e alcohol) PHQ-2 Answer Date Recorded PHQ-2 Score 0 08/19/2018 Childcare Answer Date Recorded Childcare Unknown 01/25/2019 Employment Answer Date Recorded Employment Unknown 01/25/2019 Comments No Sex and Gender Information Value Date Recorded Sex Assigned at Not on file Legal Sex Female 11:37 AM EDT Gender Identity Not on file Sexual Orientation Not on file documented as of this encounter Miscellaneous Notes * Telephone Encounter - Adwoa Quintero LPN - 01/04/2020 1:18 PM EDT Patient requesting refill of Gabapentin to Beverly Quintero LPN 01/04/20 1318 documented in this encounter Plan of Treatment Not on file documented as of this encounter Visit Diagnoses Diagnosis Neuropathy Mononeuritis of unspecified site documented in this encounter Additional Health Concerns Infection Onset Date Last Indicated Resolved Time Respiratory Rule-Out 09/27/2024 09/27/2024 025 12:21 PM EST Assessment Noted Time PHQ-9 Depression Total Score: 0 10/14/19 20 10:00 AM EST A Body Mass Index follow-up plan has been documented for the patient 01/25/2019 10:06 AM EDT documented as of this encounter Care Teams Material Expeditor Relationship Specialty Start Date End Date Fausto Sweeney MD [address] Provider retired 11/23/24 [place] [address] PCP - General Family Medicine 10/13/24 10/19/24 documented as of this encounter
--- OUTSIDE RECORDS SUMMARY | 2025-04-07 08:04 | XMS_ITS | Encounter Summary ---
Author Organization [facility] [employer] Sys tem Address [id number] [address] [place] [address] Care Team Providers Care Inspector Radar And Electronics Name Role Phone Fausto Sweeney MD Primary Care Provider + [phone] Reason for Visit * Reason Comments Med Refill Encounter Details Date Type Department Care Team (Late st Contact Info) Description 09/07/2021 Refill [facility] [address] [place] [address] Fausto Sweeney MD [address]. Provider retired 11/23/24 [place] [address] Neuropathy Social History Tobacco Use [...] often do you attend chur ch or methodist services? 1 to 4 times per year 04/12/2020 Do you belong to any clubs o r organizations such as worship groups, unions, fraternal or athletic groups, or [...] Answer Date Recorded Total Score 0 07/24/2021 [facility] of Occupat ional Health - Occupational Stress [...] Recorded Do you need help finding a [employer] al career center and/or a training program? [...] documented as of this encounter Care Teams Inspector Radar And Electronics Relationship Specialty Start Date End Date Fausto Sweeney MD [address]. Provider retired 11/23/24 [place] [address] PCP - General Family Medicine 10/13/24 10/19/24 documented as of this encounter
--- OUTSIDE RECORDS SUMMARY | 2025-04-07 08:04 | XMS_ITS | Encounter Summary ---
Author Organization [facility] Sys tem Address [id number] [address] [place] [address] Care Team Providers Care Community Marketing Manager Name Role Phone Fausto Sweeney MD Primary Care Provider + [phone] Encounter Details Date Type Department Care Team (Late st Contact Info) Description 07/13/2021 Orders Only [facility] [address] [place] [address] Fausto Sweeney MD [address]. Provider retired 11/23/24 [place] [address] Social History Tobacco Use Types [...] often do you attend chur ch or worship services? 1 to 4 times per year 04/12/2020 Do you belong to any clubs o r organizations such as denominational groups, unions, fraternal or athletic groups, or [...] Answer Date Recorded Total Score 0 07/09/2021 [facility] of Occupat ional Health - [...] have Coronavirus / COVID-19? No / Unsure 07/16/2021 9:23 AM EST documented as of this encounter Plan of Treatment Not on file documented as of this encounter Visit Diagnoses Not on filedocumented in this encounter Additional Health Concerns Infection Onset Date Last Indicated Resolved Time Respiratory Rule-Out 09/27/2024 09/27/2024 025 12:21 PM EST Assessment Noted Time PHQ-9 Depression Total Score: 0 07/09/20 10:00 AM EST A Body Mass Index follow-up plan has been documented for the patient 02/07/2021 11:16 AM EDT documented as of this encounter Care Teams Community Marketing Manager Relationship Specialty Start Date End Date Fausto Sweeney MD [address] Provider retired 11/23/24 [place] [address] PCP - General Family Medicine 10/13/24 10/19/24 documented as of this encounter
--- OUTSIDE RECORDS SUMMARY | 2025-04-07 08:04 | XMS_ITS | Encounter Summary ---
Author Organization [facility] [employer] [facility] Address [id number] [address] [place] [address] Care Team Providers Care Electronic Technologist Name Role Phone Fausto Sweeney MD Primary Care Provider + [phone] Reason for Visit * Reason Comments Med Refill Encounter Details Date Type Department Care Team (Late st Contact Info) Description 02/29/2020 Refill [facility] [address] [place] [address] Fausto Sweeney MD [address]. Provider retired 11/23/24 [place] [address] Neuropathy Social History Tobacco Use [...] Telephone Encounter - Adwoa Quintero LPN - 02/29/2020 9:49 AM EDT Requesting refill of Gabapentin Adwoa Quintero LPN 02/29/20 1044 documented in this encounter Plan of Treatment Not on file documented as of this encounter Visit Diagnoses Diagnosis Neuropathy Mononeuritis of unspecified site documented in this encounter Additional Health Concerns Infection Onset Date Last Indicated Resolved Time Respiratory Rule-Out 09/27/2024 09/27/2024 025 12:21 PM EST Assessment Noted Time PHQ-9 Depression Total Score: 0 01/14/20 20 11:00 AM EDT A Body Mass Index follow-up plan has been documented for the patient 01/25/2019 10:06 AM EDT documented as of this encounter Care Teams Electronic Technologist Relationship Specialty Start Date End Date Fausto Sweeney MD [address]. Provider retired 11/23/24 [place] [address] PCP - General Family Medicine 10/13/24 10/19/24 documented as of this encounter
--- OUTSIDE RECORDS SUMMARY | 2025-04-07 08:04 | XMS_ITS | Encounter Summary ---
Author Organization [facility] [employer] [facility] Address [id number] [address] [place] [address] Care Team Providers Care Market President Name Role Phone Fausto Sweeney MD Primary Care Provider + [phone] Reason for Visit * Reason Comments Med Refill Encounter Details Date Type Department Care Team (Late st Contact Info) Description 09/18/2018 Refill [facility] [address] [place] [address] Fausto Sweeney MD [address]. Provider retired 11/23/24 [place] [address] Neuropathy Social History Tobacco Use Types Packs/Day Years Used Date Smoking Tobacco: Every Day Cigarettes Smokeless Tobacco: Never Alcohol Use Standard Drinks/Week Comments No 0 (1 standard drink = 0.6 oz pur e alcohol) PHQ-2 Answer Date Recorded PHQ-2 Score 0 08/19/2018 Comments No Sex and Gender Information Value [...] Noted Time PHQ-9 Depression Total Score: 0 09/05/19 10:00 AM EST A Body Mass Index follow-up plan has been documented for the patient 10/15/2017 10:38 AM EST documented as of this encounter Care Teams Market President Relationship Specialty Start Date End Date Fausto Sweeney MD [address]. Provider retired 11/23/24 [place] [address] PCP - General Family Medicine 10/13/24 10/19/24 documented as of this encounter
--- OUTSIDE RECORDS SUMMARY | 2025-04-07 08:04 | XMS_ITS | Encounter Summary ---
Author Organization [facility] Address [address] [place] [address] Care Team Providers Care Quality Rep Name Role Phone Todd Acosta DO Primary Care Provider [phone] Encounter Details Date Type Department Care Team (Latest Contact Info) Description 02/16/2025 Results Follow-Up [facility] [address], [address] [place] [address] Todd Acosta DO [address] [place] [address] Comprehensive metabolic panel, Lipid panel, TSH, Additional followed-up results: 6 Social History Tobacco Use Types Packs/Day Years [...] declined 02/13/2025 How often do you attend [facility] or sabianism services? Patient declined 02/13/2025 Do you belong to any clubs o r organizations such as muslim groups, unions, fraternal or athletic groups, or [...] Recorded Patient Health Questionnaire-2 Score 0 02/16/2025 [facility] of Occupat ional Health - [...] any time in the past 12 m [facility], were you homeless or living in a skilled nursing (including now)? No 02/13/2025 Comments Unknown Sex and Gender Information Value Date Recorded Sex Assigned at Not on file Legal Sex Female 7:06 PM EDT Gender Identity Not on file Sexual Orientation Not on file documented as of this encounter Functional Status * Audit-C Score Answer Date of Assessment Author 0 02/16/2025 3:20 PM EDT Lauri Hewitt LPN * Question Answer Date of Assessment Author Q1: How often do you have a drink containing alcohol? Never 02/16/2025 3:20 PM EDT Belkys Hewitt LPN Q2: How many drinks containing alcohol do you have on a typical day when you are drinking? Patient does not drink 02/16/2025 3:20 PM RUMAT Belkys Hewitt LPN Q3: How often do you have six or more drinks on one occasion? Never 02/16/2025 3:20 PM RUMAT Belkys Hewitt LPN * Over the past 2 weeks, how often have you been bothered by any of the following problems? Question Answer Date of Assessment Author Little interest or pleasure in doing things Not at all 02/16/2025 3:20 PM EDT Belkys Hewitt LPN Feeling down, depressed, or hopeless Not at all 02/16/2025 3:20 PM EDT Belkys Hewitt LPN Patient Health Questionnaire -2 Score 0 02/16/2025 3:20 PM EDT Belkys Hewitt LPN documented as of this encounter Plan of Treatment Not on file documented as of this encounter Visit Diagnoses Not on filedocumented in this encounter Care Teams Quality Rep Relationship Specialty Start Date End Date Todd Acosta DO [address] [facility] [address] [place] [address] PCP - General Family Medicine 02/15/25 documented as of this encounter
--- OUTSIDE RECORDS SUMMARY | 2025-04-07 08:04 | XMS_ITS | Encounter Summary ---
Author Organization [employer] [facility] [employer] Address [id number] [address] [place] [address] Care Team Providers Care Software Administrator Name Role Phone Fausto Sweeney MD Primary Care Provider + [phone] Reason for Visit * Reason Comments Med Refill Encounter Details Date Type Department Care Team (Late st Contact Info) Description 06/10/2022 Refill [facility] [address] [place] [address] Fausto Sweeney MD [address]. Provider retired 11/23/24 [place] [address] Social History Tobacco Use Types [...] often do you attend chur ch or voodoo services? 1 to 4 times per year 04/12/2020 Do you belong to any clubs o r organizations such as mormonism groups, unions, fraternal or athletic groups, or [...] Answer Date Recorded Total Score 0 01/08/2022 [facility] of Occupat ional Health - Occupational [...] Recorded Do you need help finding a [employer] al career center and/or a training program? [...] documented as of this encounter Care Teams Software Administrator Relationship Specialty Start Date End Date Fausto Sweeney MD [address]. Provider retired 11/23/24 [place] [address] PCP - General Family Medicine 10/13/24 10/19/24 documented as of this encounter
--- OUTSIDE RECORDS SUMMARY | 2025-04-07 08:04 | XMS_ITS | Encounter Summary ---
Author Organization [facility] [employer] [facility] [employer] Address [id number] [address] [place] [address] Care Team Providers Care Fashion Consultant Name Role Phone Fausto Sweeney MD Primary Care Provider + [phone] Reason for Visit * Reason Comments Med Refill Encounter Details Date Type Department Care Team (Late st Contact Info) Description 02/10/2022 Refill [facility] [address] [place] [address] Fausto Sweeney MD [address]. Provider retired 11/23/24 [place] [address] Neuropathy Social History Tobacco Use [...] any clubs o r organizations such as pentecostalism groups, unions, fraternal or athletic groups, or [...] Date Recorded Total Score 0 01/08/2022 [facility] of Occupat ional Health - [...] Recorded Do you need help finding a [employer] al career center and/or a training program? [...] Telephone Encounter - Adwoa Quintero LPN - 02/10/2022 9:50 AM EDT [facility] requesting refill of Gabapentin documented in this [...] documented as of this encounter Care Teams Fashion Consultant Relationship Specialty Start Date End Date Fausto Sweeney MD [address] Provider retired 11/23/24 [place] [address] PCP - General Family Medicine 10/13/24 10/19/24 documented as of this encounter
--- OUTSIDE RECORDS SUMMARY | 2025-04-07 08:04 | XMS_ITS | Encounter Summary ---
Author Organization [employer] Sys tem Address [id number] [address] [place] [address] Care Team Providers Care Commercial Sales Director Name Role Phone Fausto Sweeney MD Primary Care Provider + [phone] Encounter Details Date Type Department Care Team (Late st Contact Info) Description 05/27/2022 [facility] [address] [place] [phone] Padmini Mckeon CMA Social History Tobacco Use Types Packs/Day Years [...] often do you attend chur ch or yarsani services? 1 to 4 times per year [...] Answer Date Recorded Total Score 0 01/08/2022 [facility] of Occupat ional Health - Occupational Stress [...] encounter Miscellaneous Notes * Telephone Encounter - Padmini Mckeon CMA - 05/27/2022 9:01 AM EDT ----- Message from Adwoa Quintero LPN sent at 05/27/2022 7:14 AM EDT ----- Regarding: Appointment Please call patient and schedule 3 month check up appointment. Thanks * Telephone Encounter - Padmini Mckeon CMA - 05/27/2022 9:01 AM EDT Left message to call and schedule appt. documented in this encounter Plan of Treatment [...] documented as of this encounter Care Teams Commercial Sales Director Relationship Specialty Start Date End Date Fausto Sweeney MD [address] Provider retired 11/23/24 [place] [address] PCP - General Family Medicine 10/13/24 10/19/24 documented as of this encounter
--- OUTSIDE RECORDS SUMMARY | 2025-04-07 08:04 | XMS_ITS | Encounter Summary ---
Author Organization [employer] Sys [employer] Address [id number] [address] [place] [address] Care Team Providers Care Sql Bi Developer Name Role Phone Fausto Sweeney MD Primary Care Provider + [phone] Encounter Details Date Type Department Care Team (Late st Contact Info) Description 07/24/2021 Telephone [facility] [address] [address] Vanda Gonzáles MA Social History Tobacco Use Types Packs/Day Years [...] often do you attend chur ch or protestant services? 1 to 4 times per year 04/12/2020 Do you belong to any clubs o r organizations such as sabianism groups, unions, fraternal or athletic groups, or [...] Answer Date Recorded Total Score 0 07/24/2021 [facility] of Occupat ional Health - Occupational Stress [...] encounter Miscellaneous Notes * Telephone Encounter - Vanda Gonzáles MA - 07/24/2021 9:53 AM EST Left vm to schedule new patient appointment. DIAGNOSIS: FIBROMYALGIA documented in this encounter Plan of Treatment [...] documented as of this encounter Care Teams Sql Bi Developer Relationship Specialty Start Date End Date Fausto Sweeney MD [address] Provider retired 11/23/24 [place] [address] PCP - General Family Medicine 10/13/24 10/19/24 documented as of this encounter
--- OUTSIDE RECORDS SUMMARY | 2025-04-07 08:04 | XMS_ITS | Encounter Summary ---
Author Organization [facility] [employer] [facility] [employer] Address [facility] [id number] [address] [place] [address] Care Team Providers Care Product Representative Name Role Phone Fausto Sweeney MD Primary Care Provider + [phone] Reason for Visit * Reason Comments Med Refill Encounter Details Date Type Department Care Team (Late st Contact Info) Description 01/31/2020 Refill [facility] [address] [place] [address] Fausto Sweeney MD [address]. Provider retired 11/23/24 [place] [address] Neuropathy Social History Tobacco Use [...] have Coronavirus / COVID-19? No / Unsure 01/14/2020 10:45 AM EDT documented as of this encounter Plan [...] documented as of this encounter Care Teams Product Representative Relationship Specialty Start Date End Date Fausto Sweeney MD [address]. Provider retired 11/23/24 [place] [address] PCP - General Family Medicine 10/13/24 10/19/24 documented as of this encounter
--- OUTSIDE RECORDS SUMMARY | 2025-04-07 08:04 | XMS_ITS | Encounter Summary ---
Author Organization [facility] Address [address] [place] [address] Care Team Providers Care Customer Success Advocate Name Role Phone DaveTodd Primary Care Provider [phone] Encounter Details Date Type Department Care Team (Late st Contact Info) Description 04/05/2025 Telephone [facility] [address], [facility] [place] [address] [place] [id number] Beverly Wynn MA Social History Tobacco Use Types Packs/Day [...] How often do you attend chur or baptist services? Patient declined 02/13/2025 Do you belong [...] Recorded Patient Health Questionnaire-2 Score 0 02/16/2025 [facility] Answer Date Recorded [...] any time in the past 12 m [facility], were you homeless or living in a snf (including now)? No 02/13/2025 Comments Unknown Sex and Gender Information Value Date Recorded Sex Assigned at Not on file Legal Sex Female 7:06 PM EDT Gender Identity Not on file Sexual Orientation Not on file documented as of this encounter Miscellaneous Notes * Telephone Encounter - Beverly Wynn MA - 04/05/2025 3:19 PM EDT Attempted to schedule ER follow up and complete KIMBERLY- Patient did not answer. LVM. Updated KIMBERLY basedon ER note. documented in this encounter Plan of Treatment Not on file documented as of this encounter Visit Diagnoses Not on filedocumented in this encounter Care Teams Customer Success Advocate Relationship Specialty Start Date End Date Todd Acosta DO [address] [place] [address] PCP - General Family Medicine 02/15/25 documented as of this encounter
--- OUTSIDE RECORDS SUMMARY | 2025-04-07 08:04 | XMS_ITS | Encounter Summary ---
Author Organization [facility] [employer] Address [id number] [address] [place] [address] Care Team Providers Care Keno Manager Name Role Phone Fausto Sweeney MD Primary Care Provider [phone] Reason for Visit * Reason Comments Med Refill Encounter Details Date Type Department Care Team (Late st Contact Info) Description 03/14/2022 Refill [facility] [address] [place] [address] Fausto Sweeney MD [address] Provider retired 11/23/24 [place] [address] Neuropathy Social History Tobacco Use [...] often do you attend chur ch or sikhism services? 1 to 4 times per year [...] Date Recorded Total Score 0 01/08/2022 [facility] - Occupational [...] Recorded Do you need help finding a Med ePad al career center and/or a training program? [...] Telephone Encounter - Adwoa Quintero LPN - 03/14/2022 9:50 AM EDT [facility] requesting refill [...] documented as of this encounter Care Teams Keno Manager Relationship Specialty Start Date End Date Fausto Sweeney MD [address] Provider retired 11/23/24 [place] [address] PCP - General Family Medicine 10/13/24 10/19/24 documented as of this encounter
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
--- OUTSIDE RECORDS SUMMARY | 2025-04-07 08:04 | XMS_ITS | Encounter Summary ---
Author Organization [facility] Address [id number] [address] [place] [address] Care Team Providers Care Medical Record Administrator Name Role Phone Fausto Sweeney MD Primary Care Provider + [phone] Reason for Visit * Reason Comments Med Refill Encounter Details Date Type Department Care Team (Late st Contact Info) Description 03/31/2020 Refill [facility] [address] [place] [address] Fausto Sweeney MD [address] [place]. Provider retired 11/23/24 [place] [address] Neuropathy Social History Tobacco Use [...] encounter Miscellaneous Notes * Telephone Encounter - Sanna Vargas CMA - 03/31/2020 9:48 AM EDT Patient requesting refill of gabapentin. Sanna Vargas CMA 03/31/20 1032 documented in this encounter Plan of Treatment [...] as of this encounter Care Teams Medical Record Administrator Relationship Specialty Start Date End Date Fausto Sweeney MD [address]. Provider retired 11/23/24 [place] [address] PCP - General Family Medicine 10/13/24 10/19/24 documented as of this encounter
--- OUTSIDE RECORDS SUMMARY | 2025-04-07 08:04 | XMS_ITS | Encounter Summary ---
Author Organization [facility] Address [id number] [address] [place] [address] Care Team Providers Care Bible Reader Name Role Phone Fausto Sweeney MD Primary Care Provider + [phone] Reason for Visit * Reason Comments Med Refill Encounter Details Date Type Department Care Team (Late st Contact Info) Description 05/26/2022 Refill [facility] [address] [place] [address] Fausto Sweeney MD [address] [place]. Provider retired 11/23/24 [place] [address] Neuropathy Social History Tobacco Use [...] Answer Date Recorded Total Score 0 01/08/2022 [facility] of Occupat ional Health - [...] Recorded Do you need help finding a [employer] al career center and/or a training program? [...] Telephone Encounter - Adwoa Quintero LPN - 05/26/2022 9:51 AM EDT [facility] requesting refill of [...] documented as of this encounter Care Teams Bible Reader Relationship Specialty Start Date End Date Fausto Sweeney MD [address] Provider retired 11/23/24 [place] [address] PCP - General Family Medicine 10/13/24 10/19/24 documented as of this encounter
--- OUTSIDE RECORDS SUMMARY | 2025-04-07 08:04 | XMS_ITS | Encounter Summary ---
Author Organization [email or web address] Address [facility] [id number] [address] [place] [address] Care Team Providers Care Cocoa Powder Mixer Operator Name Role Phone Fausto Sweeney MD Primary Care Provider + [phone] Reason for Visit * Reason Comments Med Refill Encounter Details Date Type Department Care Team (Late st Contact Info) Description 08/02/2018 Refill [facility] [address] [place] [address] Fausto Sweeney MD [address] [place]. Provider retired 11/23/24 [place] [address] Neuropathy (Primary Dx) Social History Tobacco Use Types Packs/Day Years Used Date Smoking Tobacco: Every Day Cigarettes Smokeless Tobacco: Never Alcohol Use Standard Drinks/Week Comments No 0 (1 standard drink = 0.6 oz pur e alcohol) Comments No Sex and Gender Information Value Date Recorded Sex Assigned at Not on file Legal Sex Female 11:37 AM EDT Gender Identity Not on file Sexual Orientation Not on file documented as of this encounter Miscellaneous Notes * Telephone Encounter - Eric Ojeda LPN - 08/02/2018 5:56 AM EST Needs appt. Last seen 04/30/18. * Telephone Encounter - Padmini Mckeon - 08/02/2018 5:56 AM EST Left message on voicemail documented in this encounter Plan of Treatment Not on file documented as of this encounter Visit Diagnoses Diagnosis Neuropathy- Primary Mononeuritis of unspecified site documented in this encounter Additional Health Concerns Infection Onset Date Last Indicated Resolved Time Respiratory Rule-Out 09/27/2024 09/27/2024 025 12:21 PM EST Assessment Noted Time PHQ-9 Depression Total Score: 0 04/30/20 18 10:00 AM EDT A Body Mass Index follow-up plan has been documented for the patient 10/15/2017 10:38 AM EST documented as of this encounter Care Teams Cocoa Powder Mixer Operator Relationship Specialty Start Date End Date Fausto Sweeney MD [address]. Provider retired 11/23/24 [place] [address] PCP - General Family Medicine 10/13/24 10/19/24 documented as of this encounter
--- OUTSIDE RECORDS SUMMARY | 2025-04-07 08:04 | XMS_ITS | Encounter Summary ---
Author Organization [email or web address] s tem Address [facility] [id number] [address] [place] [address] Care Team Providers Care Plumber And Tinner Name Role Phone Fausto Sweeney MD Primary Care Provider + [phone] Encounter Details Date Type Department Care Team (Late st Contact Info) Description 06/24/2022 [facility] [address] [place] [id number] Padmini Mckeon CMA Social History Tobacco Use [...] often do you attend chur ch or restorationist services? 1 to 4 times per year [...] Answer Date Recorded Total Score 0 01/08/2022 [facility] of Occupat ional Health - Occupational Stress [...] Telephone Encounter - Padmini Mckeon CMA - 06/24/2022 11:21 AM EDT ----- Message from Adwoa Quintero LPN sent at 06/24/2022 10:35 AM EDT ----- Regarding: Appointment Please call patient and schedule check up appointment. I am not refilling her Gabapentin until she has appointment. Thanks * Telephone Encounter - Padmini Mckeon CMA - 06/24/2022 11:21 AM EDT Left message to call and schedule documented in this encounter Plan of Treatment [...] documented as of this encounter Care Teams Plumber And Tinner Relationship Specialty Start Date End Date Fausto Sweeney MD [address] Provider retired 11/23/24 [place] [address] PCP - General Family Medicine 10/13/24 10/19/24 documented as of this encounter
--- OUTSIDE RECORDS SUMMARY | 2025-04-07 08:04 | XMS_ITS | Encounter Summary ---
Author Organization [facility] [facility] Address [facility] [id number] [address] [place] [address] Care Team Providers Care Sewing Machine Mechanic Name Role Phone Fausto Sweeney MD Primary Care Provider + [phone] Reason for Visit * Reason Comments Med Refill Encounter Details Date Type Department Care Team (Late st Contact Info) Description 03/31/2021 Refill [facility] [address] [place] [address] Fausto Sweeney MD [address] [place]. Provider retired 11/23/24 [place] [address] Neuropathy Social History Tobacco Use [...] often do you attend chur ch or gnosticist services? 1 to 4 times per year 04/12/2020 Do you belong to any clubs o r organizations such as voodoo groups, unions, fraternal or athletic groups, or [...] Answer Date Recorded Total Score 0 02/07/2021 [facility] of Occupat ional Health - Occupational Stress [...] Recorded Do you need help finding a [employer] al career center and/or a training program? [...] Telephone Encounter - Adwoa Quintero LPN - 03/31/2021 9:49 AM EDT Requesting refill of Gabapentin documented [...] documented as of this encounter Care Teams Sewing Machine Mechanic Relationship Specialty Start Date End Date Fausto Sweeney MD [address] Provider retired 11/23/24 [place] [address] PCP - General Family Medicine 10/13/24 10/19/24 documented as of this encounter
--- OUTSIDE RECORDS SUMMARY | 2025-04-07 08:04 | XMS_ITS | Encounter Summary ---
Author Organization [facility] [employer] [facility] Address [id number] [address] [place] [address] Care Team Providers Care Customs And Immigration Officer Name Role Phone Fausto Sweeney MD Primary Care Provider + [phone] Reason for Visit * Reason Comments Med Refill Encounter Details Date Type Department Care Team (Late st Contact Info) Description 11/24/2019 Refill [facility] [address] [place] [address] [place] [address] [place] [address] [place]. Provider retired 11/23/24 [place] [address] Neuropathy Social History Tobacco Use [...] documented as of this encounter Care Teams Customs And Immigration Officer Relationship Specialty Start Date End Date Fausto Sweeney MD [address] Provider retired 11/23/24 [place] [address] PCP - General Family Medicine 10/13/24 10/19/24 documented as of this encounter
--- OUTSIDE RECORDS SUMMARY | 2025-04-07 08:04 | XMS_ITS | Encounter Summary ---
Author Organization [facility] Address [id number] [address] [place] [address] Care Team Providers Care Staff Counselor Name Role Phone Fausto Sweeney MD Primary Care Provider + [phone] Reason for Visit * Reason Onset Date Comments Med Refill 01/08/2022 Encounter Details Date Type Department Care Team (Late st Contact Info) Description 01/08/2022 Refill [facility] [address] [place] [id number] Adwoa Quintero LPN Social History Tobacco Use Types Packs/Day Years [...] often do you attend chur ch or presybeterian services? 1 to 4 times per year [...] Answer Date Recorded Total Score 0 01/08/2022 [facility] of Occupat ional Health - Occupational Stress [...] suspected to have Coronavirus/COVID-19? No / Unsure 01/08/2022 10:14 AM EDT documented as of this encounter [...] documented as of this encounter Care Teams Staff Counselor Relationship Specialty Start Date End Date Fausto Sweeney MD [address]. Provider retired 11/23/24 [place] [address] PCP - General Family Medicine 10/13/24 10/19/24 documented as of this encounter
--- OUTSIDE RECORDS SUMMARY | 2025-04-07 08:04 | XMS_ITS | Encounter Summary ---
Author Organization [facility] [employer] [facility] [employer] Address [id number] [address] [place] [address] Care Team Providers Care Studio Control Operator Name Role Phone Fausto Sweeney MD Primary Care Provider + [phone] Reason for Visit * Reason Comments Med Refill Encounter Details Date Type Department Care Team (Late st Contact Info) Description 06/24/2022 Refill [facility] [address] [place] [address] Fausto Sweeney MD [address] [place]. Provider retired 11/23/24 [place] [address] Neuropathy Social History Tobacco Use [...] Answer Date Recorded Total Score 0 01/08/2022 [facility] of Occupat ional Health - [...] Recorded Do you need help finding a [email or web address] al career center and/or a training program? [...] documented as of this encounter Care Teams Studio Control Operator Relationship Specialty Start Date End Date Fausto Sweeney MD [address]. Provider retired 11/23/24 [place] [address] PCP - General Family Medicine 10/13/24 10/19/24 documented as of this encounter
--- OUTSIDE RECORDS SUMMARY | 2025-04-07 08:04 | XMS_ITS | Encounter Summary ---
Author Organization [facility] [employer] [facility] Address [id number] [address] [place] [address] Care Team Providers Care Javascript Application Developer Name Role Phone Fausto Sweeney MD Primary Care Provider + [phone] Reason for Visit * Reason Comments Med Refill Encounter Details Date Type Department Care Team (Late st Contact Info) Description 09/16/2019 Refill [facility] [address] [place] [address] Fausto Sweeney MD [address]. Provider retired 11/23/24 [place] [address] Neuropathy Social History Tobacco Use [...] Noted Time PHQ-9 Depression Total Score: 0 07/15/20 10:00 AM EST A Body Mass Index follow-up plan has been documented for the patient 01/25/2019 10:06 AM EDT documented as of this encounter Care Teams Javascript Application Developer Relationship Specialty Start Date End Date Fausto Sweeney MD [address] Provider retired 11/23/24 [place] [address] PCP - General Family Medicine 10/13/24 10/19/24 documented as of this encounter
--- OUTSIDE RECORDS SUMMARY | 2025-04-07 08:05 | XMS_ITS | Encounter Summary ---
Author Organization [facility] Address [facility] [id number] [address] [place] [address] Care Team Providers Care Grease Rack Worker Name Role Phone Fausto Sweeney MD Primary Care Provider + [phone] Reason for Visit * Reason Comments Med Refill Encounter Details Date Type Department Care Team (Late st Contact Info) Description 06/29/2020 Refill [facility] [address] [place] [address] Fausto Sweeney MD [address]. Provider retired 11/23/24 [place] [address] Neuropathy Social History Tobacco Use [...] often do you attend chur ch or taoism services? 1 to 4 times per year 04/12/2020 Do you belong to any clubs o r organizations such as rastafari groups, unions, fraternal or athletic groups, or [...] at all 04/12/2020 PHQ-2 Answer Date Recorded PHQ-2 Score 0 08/19/2018 [facility] of Occupat ional Health - Occupational Stress [...] Recorded Do you need help finding a [facility] career center and/or a training program? No 04/12/2020 Education Answer Date Recorded What is the [...] Telephone Encounter - Adwoa Quintero LPN - 06/29/2020 9:49 AM EST Requesting refill of Gabapentin Adwoa Quintero LPN 06/29/20 0952 documented in this encounter Plan of Treatment Not on file documented as of this encounter Visit Diagnoses Diagnosis Neuropathy Mononeuritis of unspecified site documented in this encounter Additional Health Concerns Infection Onset Date Last Indicated Resolved Time Respiratory Rule-Out 09/27/2024 09/27/2024 025 12:21 PM EST Assessment Noted Time PHQ-9 Depression Total Score: 0 04/12/20 20 1:35 PM EDT A Body Mass Index follow-up plan has been documented for the patient 01/25/2019 10:06 AM EDT documented as of this encounter Care Teams Grease Rack Worker Relationship Specialty Start Date End Date Fausto Sweeney MD [address]. Provider retired 11/23/24 [place] [address] PCP - General Family Medicine 10/13/24 10/19/24 documented as of this encounter
--- OUTSIDE RECORDS SUMMARY | 2025-04-07 08:05 | XMS_ITS | Encounter Summary ---
Author Organization [facility] Address [id number] [address] [place] [address] Care Team Providers Care Dermatologist Managing Partner Name Role Phone Fausto Sweeney MD Primary Care Provider + [phone] Reason for Visit * Reason Onset Date Comments Med Refill 07/05/2019 Encounter Details Date Type Department Care Team (Late st Contact Info) Description 07/05/2019 Refill [facility] [address] [place] [address] Eric Ojeda LPN Social History Tobacco Use Types Packs/Day [...] Noted Time PHQ-9 Depression Total Score: 0 01/26/20 19 9:00 AM EDT A Body Mass Index follow-up plan has been documented for the patient 01/25/2019 10:06 AM EDT documented as of this encounter Care Teams Dermatologist Managing Partner Relationship Specialty Start Date End Date Fausto Sweeney MD [address]. Provider retired 11/23/24 [place] [address] PCP - General Family Medicine 10/13/24 10/19/24 documented as of this encounter
--- OUTSIDE RECORDS SUMMARY | 2025-04-07 08:05 | XMS_ITS | Clinical Summary ---
Author Organization [facility] Address [address] [place], [place] [address] Care Team Providers Care Relocation Associate Name Role Phone Fausto Mcfarlane Primary Care Provider [phone] Wagner Tiwari Unavailable +[phone]- [phone] Allergies Active Allergy Reactions Criticality Noted Date Comments Cefaclor 05/04/2003 ceclor Contrast Dye Hives 12/17/2005 Prednisone Other: See Comments 04/17/2018 Heart palpitation Sulfa (Sulfonamide Antibiotics) 05/04/2003 Medications SOMA 350 MG TAB as necessary 0 6 Active NAPRELAN 500 MG TABIndications:O ther and unspecified disc disorder of lumbar region,Nonallopa thic lesion of sacral region, not elsewhere classified one po bid 60 0 6 Active Additional Information Patient not taking.Reason: Course of Therapy Completed, Reported on 04/17/2018 levothyroxine (LEVOXYL) 50 mcg tablet Take 50 mcg by mouth daily before breakfast. Active pantoprazole DR (PROTONIX) 40 mg tablet Take 40 mg by mouth once daily. Active gabapentin (NEURONTIN) 800 mg tablet Take 800 mg by mouth three times daily. Active traMADol (ULTRAM) 50 mg tablet Take 50 mg by mouth every 6 hours as needed. Active ibuprofen (MOTRIN) 800 mg tablet Take 800 mg by mouth every 6 hours as needed. Active folic acid 800 mcg tablet Take 400 mcg by mouth once daily. Active cyanocobalamin (VITAMIN B-12) 500 mcg tab tab(s) Take by mouth once daily. Active diclofenac, EC, (VOLTAREN) 75 mg EC tablet Take 1 tablet by mouth twice daily. for pain. 60 tablet 1 8 Active Social History Tobacco Use Types Packs/Day Years Used Date Smoking Tobacco: Every Day Cigarettes 0.5 7 Smokeless Tobacco: Current Comments:off and on, not reg ular Alcohol Use Standard Drinks/Week Comments No 0 (1 standard drink = 0.6 oz pur e alcohol) Area Deprivation Index Answer Date Andrzej rded National Score (1-100), lower number is lower ri sk Not on file 08/02/2020 State Score (1-10), lower number is lower risk N ot on file 08/02/2020 Data from: https://www.neighborhoodatlas.medicine.[facility]/. Last address used for calculation Not on file 08/02/2020 Comments No Sex and Gender Information Value Date Recorded Sex Assigned at Not on file Legal Sex Female 9:59 AM EST Gender Identity Not on file Sexual Orientation Not on file Last Filed Vital Signs Vital Sign Reading Time Taken Comments Blood Pressure 116/80 12/17/2005 1:45 PM EDT Pulse 80 12/17/2005 1:45 PM EDT Temperature - - Respiratory Rate 16 12/17/2005 1:45 PM EDT Oxygen Saturation - - Inhaled Oxygen Concentration - - Weight - - Height - - Body Mass Index - - Plan of Treatment Health Maintenance Due Date Last Done Comments Anxiety Screening 1991 Depression Screening 1991 HIV Screening 1991 Hepatitis C Screening 1991 Cervical Cancer Screening 1994 Hepatitis B Vaccine (3 of 3 - 19+ 3-dose series) 02/24/2004 12/28/2003, 08/26/[address] Colonography 2018 Cologuard (FIT-DNA) 2018 Diabetes Screening 2018 Fecal Occult Blood 2018 Lipid Screening 2018 Sigmoidoscopy 2018 Colonoscopy 02/06/2019 02/06/2018 Colorectal Cancer Screening 02/06/2019 Pneumococcal Vaccine: 50+ (1 of 1 - PCV) 2023 Shingrix Vaccine (1 of 2) 2023 Influenza Vaccine (#1) 2025 DTaP,Tdap,Td Vaccine (2 - Td or Tdap) 04/15/2027 Insurance [employer] PPO Care Teams Relocation Associate Relationship Specialty Start Date End Date Fausto Mcfarlane [address] [place] [address] PCP - General Family Medicine 04/06/18 Wagner Tiwari PA [address] [place] [address] Referring Pain Management 04/06/18
--- OUTSIDE RECORDS SUMMARY | 2025-04-07 08:05 | XMS_ITS | CCD ---
Author Organization [facility] Informat ion Partnership [facility] Care Team Providers Care Supervisor [place] Name Role Phone LUISANA ANG Unavailable Unavailable KALYANI JERRY ([place]) Unavailable Unavail able Charlotte Sweeney Primary Care Provider BRUCE RODRIGUEZ Referring Unavailable CHARLOTTE SWEENEY Primary Care Unavailable Charlotte Sweeney MD Primary Care Provider [phone] POLLO, ANGELIVONeema F Referring Unavailable CHARLOTTE SWEENEY Primary Care Unavailable POLLODILEEP ALFARO Referring Unavailable CHARLOTTE SWEENEY Primary Care Unavailable GAMAL DOMINGUEZ Consulting Unavailab le POLLO, SELNITHYA F Attending Unavailable POLLODILEEP ALFARO Admitting Unavailable CHARLOTTE SWEENEY Primary Care Unavailable MARY ALONSO Consulting UnavailANDI Blunt A Consulting Unavailable TIMMIS, DR MICHAELS Attending Unavailable TIMMIS, DR MICHAELS Consulting Unavailable TIMMIS, DR MICHAELS Admitting Unavailable DEFRANCE, DR PORTER Primary Care Unavailable CHARLOTTE BEAR Consulting Unavailable NINI II, BETSY Consulting Unavailable TIMMIS, DR MICHAELS Attending Unavailable TIMMIS, DR MICHAELS Consulting Unavailable TIMMIS, DR MICHAELS Admitting Unavailable DEFRANCE, DR PORTER Primary Care Unavailable CRISTOBAL CRUZ Consulting Unavailable NINI II, BETSY Consulting Unavailable Defrance Charlotte SANZ Primary Care Provider Noel Gould Unavailable MD Neel Fernandes Attending Provider MD Charlotte Sweeney Primary Care Provider KAY LAU Referring Unavailable CHARLOTTE SWEENEY Primary Care Unavailable BRUCE RODRIGUEZ Referring Unavailable CHARLOTTE SWEENEY Primary Care Unavailable CHARLOTTE PRUITT Referring Unavailable DEFRANCE, CHARLOTTE Langston Primary Care Unavailable BRUCE RODRIGUEZ Referring Unavailable DEFRANCE, CHARLOTTE Langston Primary Care Unavailable Charlotte Sweeney MD Primary Care Provider [phone] Charlotte Sweeney MD Primary Care Provider [phone] Coleman Olviares MD Emergency Provider Zahra SANZ, Charlotte Primary Care Provider [phone] Charlotte Sweeney MD Primary Care Provider Unavailable Primary Care Provider Unavailba e Charlotte Sweeney Primary Care Unavailable Coleman Olivares Attending Unavailable Coleman Olivares Admitting Unavailable DaveTodd langston DO Primary Care Provider Todd Acosta DO Primary Care Provider TODD ACOSTA Attending Unavailable DAVETODD Attending Unavailable RUSHER, PASHA Callejas Attending Unavailable RUSHERPASHA Referring Unavailable DAVETODD Langston Referring Unavailable DAVETODD Referring Unavailable DEFNICK CHARLOTTE Kristy Primary Care Unavailable ANADEJUN E Attending Unavailable CHEHADE, JUN E Attending Unavailable CHEHADE JUN E Referring Unavailable DEFRANCE, CHARLOTTE Kristy Primary Care Unavailable DEFNICK, CHARLOTTE Kristy Primary Care Unavailable DEFNICK, CHARLOTTE Kristy Primary Care Unavailable FLY TAMEZ S Referring Unavailable DASHAWNFLY S Referring Unavailable DAVETODD Referring Unavailable Allergies Allergy Classification Reported Allergen(s) Allergy Type Date of Onset Reaction(s) Facility Adhesive Tape (1 source) Adhesive Tape Substance Allergy [facility] Cephalosporins (antibiotic) (1 source) Cefaclor Drug Allergy [facility] Corticosteroids (1 source) predniSONE Drug Allergy 018 Palpitations [facility] Opioid Agonists (1 source) HYDROcodone Drug Allergy [facility] sulfaSALAzine (1 source) sulfaSALAzine Drug Allergy 017 [facility] Sulfonamides (antibiotic) (1 source) Sulfonamides (Antibiotic) Drug Allergy [facility] (20 sources) cefaclor; Translations: [CEFACLOR] Drug Allergy [facility] Repository (1 source) Contrast media; Translations: [CONTRAST DYE] Propensity to adverse reactions to drug (disorder) 006 AOF [facility] Repository (12 sources) Sulfonamides (Antibiotic); Translations: [SULFA (SULFONAMIDE ANTIBIOTICS)] Propensity to adverse reactions to drug (disorder) 003 [facility] Repository (7 sources) Adhesive Tape; Translations: [Adhesive tape] Propensity to adverse reactions to drug 014 Dermatitis [place], [place] (14 sources) HYDROcodone; Translations: [HYDROCODONE] Drug Allergy 018 Itching, Nausea And Vomiting [place], [place] (14 sources) predniSONE; Translations: [PREDNISONE] Drug Allergy 018 Palpitations [place], [place] (14 sources) sulfaSALAzine; Translations: [SULFASALAZINE] Drug Allergy 017 [place], [place] (5 sources) Sulfonamides (Antibiotic) Propensity to adverse reactions to drug [place], [place] (14 sources) Iodides; Translations: [IODIDES] Propensity to adverse reactions to drug 018 Hives, Swelling [place], [place] (2 sources) Other Propensity to adverse reactions 015 [place], [place] (3 sources) Acetaminophen / Codeine Drug Allergy 022 Nausea And Vomiting [facility] [employer] Phone: (11 sources) celecoxib; Translations: [CELECOXIB] Drug Allergy 021 Hives, Swelling, Other (See Comments) [email or web address] Phone: (19 sources) Ciprofloxacin; Translations: [CIPROFLOXACIN] Drug Allergy 022 [facility] [email or web address] Phone: (3 sources) Nitrofurantoin Drug Allergy 022 Hives, Other (See Comments) [email or web address] Phone: (3 sources) Cefaclor Drug Allergy 014 Unknown [facility] Repository (1 source) celecoxib Drug Allergy [facility] Repository (1 source) Influenza virus vaccine Drug Allergy [facility] Repository (1 source) Iodine (And Iodine Containting Drugs) Drug allergy (disorder) [facility] Repository (1 source) methylPREDNISolone Drug Allergy [facility] Repository (1 source) Nitrofurantoin Drug Allergy [facility] Repository (1 source) Sulfonamides (Antibiotic) Drug allergy (disorder) [facility] Repository (10 sources) Sulfonamides (Antibiotic) Propensity to adverse reactions to drug Hives [facility] (17 sources) Iodides Propensity to adverse reactions to drug Hives, Swelling [facility] (2 sources) Contrast media Propensity to adverse reactions Unknown [facility] Other (2 sources) Sulfacetamide / Sulfur Drug Allergy Unknown [facility] Other (4 sources) Iodinated [employer]; Translations: [Iodinated Contrast Media] Allergy to substance Anaphylaxis [facility] (9 sources) celecoxib Drug Allergy [facility] (8 sources) NITROFURANTOIN, MACROCRYSTALS / Nitrofurantoin, Monohydrate; Translations: [NITROFURANTOIN MONOHYD/M-CRYST] Drug Allergy Other (See Comments) [email or web address] (8 sources) Adhesive Tape-Silicones; Translations: [ADHESIVE TAPE-SILICONES] Propensity to adverse reactions to drug [employer] (2 sources) Sulfacetamide; Translations: [sulfacetamide] Drug Allergy Unknown Reaction [facility] (2 sources) Sulfur; Translations: [sulfur] Drug Allergy Unknown Reaction [facility] NEGATED: Highlighted row has been ruled out!Unclassified (1 source) Other Propensity to adverse reactions [facility] Medications Current Medications Medication Drug Class(es) Dates Sig (Normalized) Sig (Original) acetaminophen 325 mg / oxyCODONE hydrochloride 5 mg oral tablet (2 sources) Opioid Agonist Start: 10-03-2024 take 1 tablet by mouth every four to six hours as needed for pain Oxycodone-Acetami nophen (Percocet) 5-325 mg tablet Active 1 TAB PO EVERY 4-6 HOURS as needed for pain 14 3 October 03, 2024 Start: 01-19-2022 End: 01-26-2022 oxyCODONE-acetaminophen (PER COCET) 5-325 MG per tablet Indications: Lumbosacral spinal stenosis Take 1 tablet by mouth every 6 hours as needed for Pain for up to 7 days. Intended supply: 7 days. Take lowest dose possible to manage pain 28 tablet 0 01/19/2022 01/26/2022 Active [id number] 200 actuat albuterol 0.09 mg/actuat metered dose inhaler (1 source) beta2-Adrenergic Agonist Start: 09-27-2024 take 2 puff(s) by inhalation every four hours as needed for wheezing albuterol (PROVENTIL HFA;VENTOLIN HFA) 90 mcg/actuation inhaler Indications: Viral URI with cough Inhale 2 puffs every 4 (four) hours as needed for wheezing. 18 g 09/27/2024 Active amoxicillin 500 mg oral capsule (4 sources) Penicillin-class Antibacterial Start: 05-02-2021 amoxicillin (AMOXIL) 500 MG capsule Indications: Prophylactic antibiotic Take 2 tabs 1 hour prior to appointment time, and 1 tab twice daily until gone 6 capsule 0 05/02/2021 Active atorvastatin 40 mg oral tablet (4 sources) HMG-CoA Reductase Inhibitor Start: 03-14-2025 take 1 tablet by mouth once daily atorvastatin (Lipitor) 40 MG tablet Indications: Hyperlipidemia, unspecified hyperlipidemia type Take 1 tablet by mouth once daily 90 tablet 03/14/2025 Active Start: 02-16-2025 End: 05-17-2025 take 1 tablet by mouth once daily atorvastatin (Lipitor) 40 MG tablet Indications: Hyperlipidemia, unspecified hyperlipidemia type Take 1 tablet (40 mg) by mouth Daily 90 tablet 02/16/2025 03/14/2025 Discontinued benzonatate 100 mg oral capsule (1 source) Non-narcotic Antitussive Start: 09-27-2024 take 1 capsule by mouth every eight hours benzonatate (TESSALON PERLES) 100 mg capsule Take 1 capsule (100 mg total) by mouth every 8 (eight) hours. 21 capsule 09/27/2024 Active 5 ml bupivacaine hydrochloride 5 mg/ml injection (2 sources) Amide Local Anesthetic Start: 03-10-2023 bupivacaine (PF) (MARCAINE) 0.5 % injection Start: 05-09-2020 End: 05-09-2020 bupivacaine (PF) (MARCAINE) 0.5 % injection 20 mg diclofenac sodium 75 mg delayed release oral tablet (10 sources) Nonsteroidal Anti-inflammatory Drug Start: 02-16-2025 End: 04-17-2025 take 1 tablet by mouth in the morning diclofenac (Voltaren) 75 MG EC tablet Indications: Chronic neck pain , Chronic bilateral thoracic back pain Take 1 tablet (75 mg) by mouth in the morning and 1 tablet (75 mg) before bedtime. 60 tablet 03/14/2025 04/13/2025 Active Start: 05-19-2019 End: 01-19-2022 take 1 tablet by mouth twice daily diclofenac (VOLTAREN) 50 MG EC tablet Indications: Pain, joint, hip, right Take 1 tablet by mouth 2 times daily 60 tablet 3 05/19/2019 01/19/2022 Discontinued (Stop Taking at Discharge) [id number] 0.3 ml EPINEPHrine 1 mg/ml auto-injector (13 sources) alpha-Adrenergic Agonist, beta-Adrenergic Agonist, Catecholamine Start: 08-06-2024 Epinephrine 0.3 mg/0.3 mL auto-injector Active 0.3 MG IM every 5 to 15 minutes as needed for anaphylaxis August 06, 2024 12:00am do not exceed 3 doses per episode Start: 09-13-2021 EPINEPHrine (E PIPEN) 0.3 mg/0.3 mL auto-injector inject 0.3 milliliters ( 0.3 milligrams ) intramuscularly in OUTE... (REFER TO PRESCRIPTION NOTES). 09/13/2021 Active EPINEPHrine (EPI PEN 2-KASEY IJ) Inject 1 Dose as directed if needed (As needed for bee sting) Active hydrOXYzine hydrochloride 25 mg oral tablet (7 sources) Antihistamine Start: 01-18-2025 End: 02-17-2025 hydrOXYzine HCl (Atarax) 25 MG tablet Indications: Generalized anxiety disorder Take 1 tablet (25 mg) by mouth as needed at bedtime for anxiety 30 tablet 01/18/2025 Active Start: 01-19-2022 End: 01-27-2022 take 1 capsule by mouth three times daily as needed for muscle spasms hydrOXYzine (VISTARIL) 25 MG capsule Take 1 capsule by mouth 3 times daily as needed (muscle spasms) 21 capsule 0 01/20/2022 01/27/2022 Active ibuprofen 800 mg oral tablet (7 sources) Nonsteroidal Anti-inflammatory Drug Start: 10-13-2024 take 1 tablet by mouth every six hours as needed for pain ibuprofen (MOTRIN) 800 mg tablet Take 1 tablet (800 mg total) by mouth every 6 (six) hours as needed for pain. 30 tablet 10/13/2024 Active Start: 08-13-2018 End: 01-19-2022 ibuprofen (ADVIL;MOTRIN) 800 MG tablet Take 800 mg by mouth 0 08/13/2018 01/19/2022 Discontinued (Stop Taking at Discharge) levothyroxine sodium 0.05 mg oral tablet (20 sources) l-Thyroxine Start: 03-14-2025 take 1 tablet by mouth once daily levothyroxine (Synthroid, Levoxyl) 50 MCG tablet Indications: Hypothyroidism, unspecified type TAKE 1 TABLET BY MOUTH ONCE DAILY AT THE SAME TIME EACH DAY 90 tablet 03/14/2025 Active Start: 02-10-2025 End: 05-11-2025 take 1 tablet by mouth once daily levothyroxine (Synthroid) 50 MCG tablet Indications: Hypothyroidism, unspecified type Take 1 tablet (50 mcg) by mouth 1 (one) time each day at the same time 90 tablet 02/10/2025 03/14/2025 Discontinued Start: 01-19-2022 End: 09-04-2023 take 1 tablet by mouth in the morning levothyroxine (SYNTHROID, LEVOTHROID) 50 MCG tablet Take 1 tablet (50 mcg total) by mouth in the morning. 90 tablet 3 09/04/2023 Active Levothyroxine So dium 50 MCG Oral for 90 Days Active 10 ml lidocaine hydrochloride 10 mg/ml injection (3 sources) Antiarrhythmic, Amide Local Anesthetic Start: 03-10-2023 lidocaine 1 % injection Start: 05-09-2020 End: 05-09-2020 lidocaine 1 % injection Start: 05-09-2020 End: 05-09-2020 lidocaine PF 1 % injection 4 mL meloxicam 15 mg oral tablet (4 sources) Nonsteroidal Anti-inflammatory Drug Start: 06-29-2024 End: 07-20-2024 take 1 tablet by mouth once daily meloxicam (Mobic) 15 MG tablet Indications: Plantar fasciitis , Sinus tarsi syndrome of right foot Take 1 tablet (15 mg) by mouth Daily for 21 days 21 tablet 06/29/2024 07/20/2024 Active Start: 09-13-2020 End: 01-03-2022 take 1 tablet by mouth once daily meloxicam (MOBIC) 15 MG tablet Indications: Right hip pain Take 1 tablet by mouth daily 30 tablet 3 09/13/2020 01/03/2022 Discontinued (Therapy completed) omeprazole 40 mg delayed release oral capsule (5 sources) Proton Pump Inhibitor take 1 capsule by mouth before mealtime omeprazole (PriLOSEC) [address] capsule Take 40 mg by mouth in the morning. Take before meals. Do not crush or chew. Active ondansetron (ZOFRAN-ODT) disintegrating tablet 4 mg (1 source) Start: 01-19-20 ondansetron (ZOFRAN-ODT) disintegrating tablet 4 mg 12 hr orphenadrine citrate 100 mg extended release oral tablet (1 source) Muscle Relaxant Start: 10-13-19 25 take 1 tablet by mouth twice daily as needed for muscle spasms orphenadrine (NORFLEX) 100 mg 12 hr tablet Take 1 tablet (100 mg total) by mouth 2 (two) times a day as needed for muscle spasms. 14 tablet 10/13/2024 Active oxyCODONE (2 sources) Opioid Agonist Start: 01-20-20 22 oxyCODONE (ROXICODONE) immediate release tablet 5 mg Start: 01-18-2022 End: 01-19-2022 oxyCODONE (ROXICODONE) immed iate release tablet 5 mg pantoprazole 40 mg delayed release oral tablet (20 sources) Proton Pump Inhibitor Start: 07-20-2018 End: 09-08-2023 take 1 tablet by mouth once daily in the morning pantoprazole (PROTONIX) 40 mg EC tablet take 1 tablet by mouth every morning 90 tablet 3 09/08/2023 Active End: 01-18-2025 take 1 tablet by mouth once daily pantoprazole (Protonix) 20 MG EC tablet Take 20 mg by mouth 1 (one) time each day at the same time. 01/18/2025 Discontinued (Therapy completed) 72 hr scopolamine 0.0139 mg/hr transdermal system (1 source) Anticholinergic Start: 01-18-2022 scopolamine (TRANSDERM-SCOP) transdermal patch 1 patch sertraline 100 mg oral tablet (20 sources) Serotonin Reuptake Inhibitor Start: 01-14-2020 End: 02-16-2025 take 1 tablet by mouth in the morning sertraline (ZOLOFT) 100 mg tablet TAKE 1 TABLET BY MOUTH IN THE MORNING 90 tablet 09/20/2024 Active Start: 01-14-2020 End: 01-03-2022 take 1 tablet by mouth once daily sertraline (ZOLOFT) 50 MG tablet Take 50 mg by mouth daily 0 01/14/2020 01/03/2022 Discontinued (Therapy completed) End: 02-16-2025 take 1 tablet by mouth once daily sertraline (Zoloft) 25 MG tablet Take 25 mg by mouth Daily 02/16/2025 Discontinued tiZANidine 4 mg oral tablet (3 sources) Central alpha-2 Adrenergic Agonist Start: 05-03-2024 take 1 tablet by mouth every eight hours as needed tiZANidine (ZANAFLEX) 4 mg tablet Take 1 tablet (4 mg total) by mouth every 8 (eight) hours as needed for muscle spasms. 9 tablet 05/03/2024 Active traMADol hydrochloride 50 mg oral tablet (3 sources) Opioid Agonist Start: 03-14-2025 End: 03-29-2025 take 0.5 tablet by mouth once daily as needed for pain traMADol (Ultram) 50 MG tablet Indications: Chronic neck pain , Chronic bilateral thoracic back pain Take 0.5 tablets (25 mg) by mouth Daily as needed for severe pain for up to 15 days 15 tablet 03/14/2025 03/29/2025 Active Start: 02-16-2025 End: 03-03-2025 take 0.5 tablet by mouth every six hours for pain traMADol (Ultram) 50 MG tablet Indications: Chronic neck pain , Chronic bilateral thoracic back pain Take 0.5 tablets (25 mg) by mouth every 6 (six) hours if needed for severe pain for up to 15 days 15 tablet 02/16/2025 03/03/2025 Active 24 hr venlafaxine 37.5 mg extended release oral capsule (3 sources) Serotonin and Norepinephrine Reuptake Inhibitor Start: 02-16-2025 End: 04-17-2025 take 1 capsule by mouth once daily venlafaxine XR (Effexor XR) 37.5 MG 24 hr capsule Indications: Menopausal hot flushes , Generalized anxiety disorder Take 1 capsule (37.5 mg) by mouth Daily Do not crush or chew. 30 capsule 1 02/16/2025 04/17/2025 Active Completed/Discontinued Medications Medication Drug Class(es) Dates Sig [...] from all sources in 24 hours. Post-op azithromycin 250 mg oral tablet (4 sources) Macrolide Antimicrobial Start: 01-18-2025 End: 02-16-2025 azithromycin (Zithromax Z-Kasey) 250 MG tablet Indications: Acute non-recurrent sinusitis, unspecified location Take as directed 6 tablet 01/18/2025 02/16/2025 Discontinued (Therapy completed) betamethasone 3 mg/ml / betamethasone acetate 3 [...] Start: 01-18-2022 take 10 mg rectal ro cadd[place] once daily as needed 10 mg, Rectal, [...] at 1452, Until Discontinued, Muscle spasms, Post-op docusate sodium 50 mg / sennosides, group home 8.6 mg oral tablet (1 source) Start: [...] (Therapy completed) gabapentin 600 mg oral tablet (14 sources) Anti-epileptic Agent Start: 01-18-2022 take 600 mg by mouth three times daily 600 mg, Oral, 3 TIMES DAILY, First dose on Fri01/18/22 at 2100, Until Discontinued Start: 09-18-2018 End: 01-03-2022 take 1 tablet by mouth every month gabapentin (NEURONTIN) 800 MG tablet Take 800 mg by mouth.. 0 09/18/2018 01/03/2022 Discontinued (DOSE ADJUSTMENT) End: 01-18-2025 take 1 capsule by mouth every twelve hours gabapentin (Neurontin) 300 MG capsule Take 300 mg by mouth every 12 (twelve) hours. 01/18/2025 Discontinued (Therapy completed) 1 ml HYDROmorphone hydrochloride 1 mg/ml cartridge (3 sources) Opioid Agonist Start: 01-18-2022 End: 01-18-2022 HYDROmorphone (DILAUDID) 1 MG/ML injection Start: 01-18-2022 End: 01-19-2022 HYDROmorphone (DILAUDID) inj ection 0.5 mg methylPREDNISolone (8 sources) Corticosteroid Start: 06-29-2024 End: 01-18-2025 methylPREDNISolone (Medrol Dospak) 4 MG tablets Indications: Plantar fasciitis , Sinus tarsi syndrome of right foot Take as directed on package. 21 tablet 06/29/2024 01/18/2025 Discontinued (Therapy completed) Start: 06-29-2024 methylPREDNISo lone (Medrol Dospak) 4 MG tablets Indications: Plantar fasciitis , Sinus tarsi syndrome of right foot Take as directed on package. 21 tablet 06/29/2024 Active Start: 03-10-2023 methylPREDNISo lone acetate (DEPO-MEDROL) injection End: 01-18-2025 take 1 tablet by mouth once daily methylPREDNISolone (Medrol) 4 MG tablet Take 4 mg by mouth Daily 01/18/2025 Discontinued (Therapy completed) ondansetron 4 mg disintegrating oral tablet (1 source) Serotonin-3 Receptor Antagonist Start: 08-06-2024 End: 10-03-2024 take 1 tablet by mouth every eight hours as needed for nausea and vomiting Ondansetron 4 mg tablet,disintegrating Discontinued 4 MG PO Every 8 hours as needed for nausea and vomiting 06 01August 06, 2024 12:00am October 03, 2024 3:04pm polyethylene glycol [id number] [id number] mg powder for oral solution (1 source) Osmotic Laxative Start: 01-18-2022 17 g, Oral, DAILY, First dose on Fri01/18/22 at 1730, Until Discontinued, Post-op saccharomyces boulardii 250 mg oral capsule (6 sources) End: 01-18-2025 take 1 capsule by mouth in the morning saccharomyces boulardii (Florastor) 250 MG capsule Take 250 mg by mouth in the morning and 250 mg before bedtime. 01/18/2025 Discontinued (Therapy completed) Sodium Chloride (5 sources) Start: 01-19-2022 End: [...] Date Documented Da te Episodic/Chronic Abdominal hernia (11 sources) Hiatal hernia; Translations: [Diaphragmatic hernia without obstruction or gangrene] Episodic Anxiety disorders (9 sources) Generalized anxiety disorder; Translations: [Generalized anxiety disorder] Onset: 5 01-18-2025 Chronic Biliary tract disease (1 source) Disease of gallbladder, unspecified Episodic Cardiac dysrhythmias (7 sources) Premature atrial contraction; Translations: [Atrial premature depolarization] Onset: 9 12-14-2018 Chronic Disorders of lipid metabolism (3 sources) Hyperlipidemia; Translations: [Hyperlipidemia, unspecified] 02-16-2025 Chronic Esophageal disorders (18 sources) Gastroesophageal reflux disease; Translations: [Gastro-esophageal reflux disease without esophagitis] Onset: 5 Chronic Headache; including migraine (2 sources) Headache; Translations: [Headache] 08-06-2024 Episodic Headache; including migraine (1 source) Headache; including migraine; Translations: [Headache, unspecified] Onset: 5 Influenza (1 source) Influenza Onset: 5 Menopausal disorders (2 sources) Menopausal flushing; Translations: [Menopausal and female climacteric states] 02-16-2025 Chronic Menopausal disorders (1 source) Hormone replacement therapy; Translations: [HORMONE REPLACEMENT THERAPY] Onset: 3 Episodic Menstrual disorders (3 sources) Amenorrhea; Translations: [Amenorrhea, unspecified] Onset: 5 01-18-2025 Chronic Osteoarthritis (20 sources) Osteoarthritis of right hip joint; Translations: [Unilateral primary osteoarthritis, right hip] Onset: 8 Resolved: 3 06-02-2018 Chronic Osteoarthritis (2 sources) Osteoarthritis of right hip joint; Translations: [Primary osteoarthritis of right hip] Onset: 8 06-02-2018 Other acquired deformities (2 sources) Equinus contracture of the ankle; Translations: [Contracture, right ankle] 06-29-2024 Chronic Other aftercare (2 sources) Other terminal block assembler (current) drug therapy; Translations: [OTH [facility] CURRENT DRUG THERAPY] Onset: 3 Episodic Other aftercare (2 sources) Drug therapy finding; Translations: [Other half-way (current) drug therapy] 01-18-2025 Episodic Other congenital anomalies (2 sources) Right metatarsus adductus; Translations: [Congenital metatarsus adductus, right foot] 06-29-2024 Chronic Other connective tissue disease (1 source) Fibromyalgia; Translations: [FIBROMYALGIA] Onset: 3 Episodic Other connective tissue disease (2 sources) Plantar fasciitis; Translations: [Plantar fascial fibromatosis] 06-29-2024 Episodic Other connective tissue disease (2 sources) Pain in right foot; Translations: [Pain in right foot] 06-29-2024 Episodic Other connective tissue disease (2 sources) Cramp; Translations: [Cramp and spasm] 01-18-2025 Episodic Other connective tissue disease (1 source) Cramp and spasm; Translations: [Cramp and spasm] Onset: 5 Episodic Other ear and sense organ disorders (1 source) Sensorineural hearing loss, bilateral; Translations: [SENSORINEURAL HEAR LOSS BILATERAL] Onset: 3 Chronic Other ear and sense organ disorders (9 sources) Chronic left myringitis; Translations: [Chronic myringitis, left ear] Onset: 3 01-16-2023 Chronic Other gastrointestinal disorders (3 sources) Food-borne gastroenteritis; Translations: [Toxic gastroenteritis and colitis] 08-06-2024 Episodic Other injuries and conditions due to external causes (1 source) Minor head injury; Translations: [Unspecified injury of head, initial encounter] 10-03-2024 Episodic Other nervous system disorders (2 sources) Right-sided piriformis syndrome; Translations: [Lesion of sciatic nerve, right lower limb] 01-18-2025 Chronic Other non-traumatic joint disorders (1 source) Pain of left hip joint; Translations: [Pain in left hip] Episodic Other non-traumatic joint disorders (2 sources) Sinus tarsi syndrome of right ankle; Translations: [Pain in right ankle and joints of right foot] 06-29-2024 Episodic Other non-traumatic joint disorders (9 sources) Hip pain; Translations: [Pain in right hip] Onset: 8 02-18-2018 Episodic Other non-traumatic joint disorders (1 source) Pain of left hip joint; Translations: [Pain of left hip joint] Other nutritional; endocrine; and metabolic disorders (7 sources) Obesity; Translations: [Obesity, unspecified] 12-10-2018 Chronic Other screening for suspected conditions (not mental disorders or infectious disease) (9 sources) History of adenomatous polyp of colon; Translations: [Encounter for screening for malignant neoplasm of colon] Onset: 1 11-09-2020 Episodic Other skin disorders (1 source) Facial swelling Onset: 5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 may occur with specimen-associated inhibition unable to be resolved with specimen repeat. Fact Sheet for Healthcare Providers: https://www.fda.gov/media /564018/download Fact Sheet for Patients: https://www.fda.gov/media /386817/download Normal [facility] Comment on above: Performed By: #### C OVFLR #### [facility] ([id number]) [address] [facility] [place] [address] Influenza virus A and B and SARS-CoV-2 (COVID-19) RNA panel - Respiratory system specon 08-06-2024 Influenza virus A and B RNA and SARS-CoV-2 (COVID-19) N gene panel BESSIE+probe (Resp) Influenza virus A and B and SARS-CoV-2 (COVID-19) RNA panel - Respiratory system spec [facility] Laboratory - Microbiology an d Antimicrobial susceptibilityon 08-06-2024 SARS-CoV-2 (COVID-19) RNA BESSIE+probe Ql (Unsp spec) Negative [facility] No Panel Informationon 08-06 POC Influenza B (BESSIE) Negative [facility] XR Foot - right 3 [facility] Result: AP, medial oblique, lateral views are weight-bearing. Slightly decreased calcaneal inclination and increased talar declination. Accessory ossicle versus dorsal osteophyte over the dorsal talonavicular joint. Small enthesophyte at the insertion of the plantar fascia. Small os trigonum noted over the posterior talar process. There is slight metatarsus adductus. No fractures or dislocations. [facility] Radiology Study observation (narrative) [facility] XR RIBS LT 3 VWS W PA CHESTo n 05-03-2024 XR RIBS LT 3 VWS W PA CHEST XR RIBS LT 3 VWS W PA CHEST XR RIBS LT 3 VWS W PA CHEST INDICATION: Sternal and left rib pain COMPARISON: None FINDINGS: Cardiomediastinal silhouette and pulmonary vasculature are within normal limits. Lungs and pleural space are clear. There is no pleural effusion or pneumothorax. No displaced left-sided rib fractures. Posterior lumbar fusion hardware. IMPRESSION: No acute cardiopulmonary process. No displaced left-sided rib fractures. Finalized by Micky Walker on 05/03/2024 10:13 AM Normal [facility] Cytology Reporton 12-24-2023 Cytology report Cyto stain.thin prep Doc (Cvx/Vag) (NOTE) Path Number: [id number] DIAGNOSIS Imaged ThinPrep Pap - Cervical (1 monolayer slide): Specimen Adequacy: Satisfactory for evaluation. - Endocervical/transformati on zone component present. Descriptive Diagnosis: Negative for intraepithelial lesion or malignancy. Comments: Specimen was screened at [facility], [address] [place] [address] Cytotech Screener: RAJENDRA Electronically Signed Out CARLOS Khan(ASCP) cs/12/30/2023 Source of Specimen: A: Imaged ThinPrep Pap - Cervical (1 monolayer slide) HPV Reflex?.................. 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 The Pap smear is a screening test primarily for squamous epithelial lesions, which is subject to both false negative and false positive results. Your patient should be reminded to consult you immediately if she experiences any suspicious signs or symptoms, regardless of her Pap smear result. GYNECOLOGIC CYTOLOGY REPORT Patient Name: T[facility] GATESPatricia [facility] Rec: [id number] [facility] ANATOMIC PATHOLOGY [address] [place] [address]. [place], [place] [address] Normal [facility] HCG ( test) IA.rapi d Ql (U)Ordered By: Neel Fernandes on 07-08-2023 HCG ( test) Ql (U) Negative [facility] XR LUMBAR SPINE (2-3 VIEWS)o n 04-22-2023 XR LUMBAR SPINE (2-3 VIEWS) AP lateral lumbar spine status post L4 to sacrum PLIF status post right total hip arthroplasty left hip with some mild to moderate arthritis Interpreted by: Charlotte Pruitt MD Signed by: Charlotte Pruitt MD 04/22/23 Final result Normal [facility] IR ARTHR/ASP/INJ MAJOR JT/BU RSA LEFT WO USon 03-10-2023 IR ARTHR/ASP/INJ MAJOR JT/BURSA LEFT WO US EXAMINATION: FLUOROSCOPIC GUIDED INJECTION OF THE LEFT HIP 03/10/2023 9:00 am HISTORY: ORDERING SYSTEM PROVIDED HISTORY: Pain of left hip joint FLUOROSCOPY DOSE AND TYPE: Radiation Exposure Index: Fluoro time 0.3 minutes DAP 29.28 cGy cm 2 Views: 4 PROCEDURE: LOG HANDLING EQUIPMENT OPERATOR: Aj Larry This procedure was performed by [...] Gennaro Lamb MD 03/10/23 Final result Normal [facility] Successful fluoroscopic-guided left hip injection. [facility] RIS CONSOLIDATED EXAMINATION: FLUOROSCOPIC GUIDED INJECTION OF THE LEFT HIP 03/10/2023 9:00 am HISTORY: ORDERING SYSTEM PROVIDED HISTORY: Pain of left hip joint FLUOROSCOPY DOSE AND TYPE: Radiation Exposure Index: Fluoro time 0.3 minutes DAP 29.28 cGy cm 2 Views: 4 PROCEDURE: LOG HANDLING EQUIPMENT OPERATOR: Aj Larry This procedure was performed by [...] and left the Department in stable condition. [facility] RIS Gennaro Sanchez MD - 03/10/2023 EXAMINATION: FLUOROSCOPIC GUIDED INJECTION OF THE LEFT HIP 03/10/2023 9:00 am HISTORY: ORDERING SYSTEM PROVIDED HISTORY: Pain of left hip joint FLUOROSCOPY DOSE AND TYPE: Radiation Exposure Index: Fluoro time 0.3 minutes DAP 29.28 cGy cm 2 Views: 4 PROCEDURE: LOG HANDLING EQUIPMENT OPERATOR: Aj Larry This procedure was performed by [...] condition. IMPRESSION: Successful fluoroscopic-guided left hip injection. [facility] Radiology Study observation (narrative) [facility] IR ARTHR/ASP/INJ MAJOR JT/BU RSA LEFT WO USOrdered By: Gennaro Lamb on 03-10-2023 [facility] Work Phone: XR PELVIS (1-2 VIEWS)on XR [...] Bruce Rodriguez MD 02/27/23 Final result Normal [facility] PREG HCG QUALon 12-31-2022 , QUAL Negative Normal NEGATIVE [facility] Comment on above: Performed By: #### P REG #### [facility] [address] [place] [address] Dr. Eusebio Augustine XR CHEST 2 Von [...] CHARLOTTE BEAR Date: 2022-12-26 08:25 Normal [facility] CBC AUTO DIFFon 12-24-2022 BASO # 0.1 103/ul Normal 0.0-0.[address] [facility] Comment on above: Performed By: #### C BC #### [facility] [address] [place] [address] [address] Eusebio Augustine Basophils/100 WBC (Bld) 0.5 % Normal 0.2-2.[address] [facility] Comment on above: Performed By: #### C BC #### [facility] [address] [place] [address] [address] Eusebio Augustine EO # 0.1 103/ul Normal 0.0-0.[address] [facility] Comment on above: Performed By: #### C BC #### [facility] [address] [place] [address] Dr. Eusebio Augustine Eosinophils/100 WBC (Bld) 0.6 % Critically low 0.9-7.[address] [facility] Comment on above: Performed By: #### C BC #### [facility] [address] [place] [address] Dr. Eusebio Augustine Erythrocyte distribution width (RBC) [Ratio] 13.5 % Normal 11.0-15.[address] [facility] Comment on above: Performed By: #### C BC #### [facility] [address] [place] [address] Dr. Eusebio Augustine Hematocrit (Bld) [Volume fraction] 43.6 % Normal 36.0-48.[address] [facility] Comment on above: Performed By: #### C BC #### [facility] [address] [place] [address] Dr. Eusebio Augustine Hemoglobin (Bld) [Mass/Vol] 14.6 g/dL Normal 12.0-16.0 [facility] Comment on above: Performed By: #### C BC #### [facility] [address] [place] [address] Dr. Eusebio Augustine IG # 0.02 10e3/ul Normal 0.00-0.[address] [facility] Comment on above: Performed By: #### C BC #### [facility] [address] [place] [address] Dr. Eusebio Augustine IG % 0.2 % Normal 0.0-0.[address] [facility] Comment on above: Performed By: #### C BC #### [facility] [address] [place] [address] Dr. Eusebio Augustine LYMPH # 3.5 103/ul Normal 1.2-3.[address] [facility] Comment on above: Performed By: #### C BC #### [facility] [address] [place] [address] Dr. Eusebio Augustine Lymphocytes/100 WBC (Bld) 30.5 % Normal 20.5-60.[address] [facility] Comment on above: Performed By: #### C BC #### [facility] [address] [place] [address] Dr. Eusebio Augustine MANUAL DIFF REQ NO Normal [facility] Comment on above: Performed By: #### C BC #### [facility] [address] [place] [address] Dr. Eusebio Augustine MCH (RBC) [Entitic mass] 31.5 pg Normal 26.7-34.[address] [facility] Comment on above: Performed By: #### C BC #### [facility] [address] [place] [address] Dr. Eusebio Augustine MCHC (RBC) [Mass/Vol] 33.5 g/dL Normal 29.9-35.[address] [facility] Comment on above: Performed By: #### C BC #### [facility] [address] [place] [address] Dr. Eusebio Augustine MCV (RBC) [Entitic vol] 94.0 fL Normal 81.0-99.[address] [facility] Comment on above: Performed By: #### C BC #### [facility] [address] [place] [address] Dr. Eusebio Augustine MONO # 0.8 103/ul Normal 0.3-0.[address] [facility] Comment on above: Performed By: #### C BC #### [facility] [address] [place] [address] Dr. Eusebio Augustine Monocytes/100 WBC (Bld) 7.0 % Normal 1.7-12.[address] [facility] Comment on above: Performed By: #### C BC #### [facility] [address] [place] [address] Dr. Eusebio Augustine NEUT # 6.9 103/ul Critically high 1.4-6.5 [facility] Comment on above: Performed By: #### C BC #### [facility] [address] [place] [address] Dr. Eusebio Augustine Neutrophils/100 WBC (Bld) 61.2 % Normal 43.0-75.[address] [facility] Comment on above: Performed By: #### C BC #### [facility] [address] [place] [address] Dr. Eusebio Augustine Platelet mean volume (Bld) [Entitic vol] 10.2 fL Normal 9.5-13.[address] [facility] Comment on above: Performed By: #### C BC #### [facility] [address] [place] [address] Dr. Eusebio Augustine PLT 334 103/ul Normal 150-450 [facility] Comment on above: Performed By: #### C BC #### [facility] [address] [place] [address] Dr. Eusebio Augustine RBC 4.64 106/ul Normal 4.20-5.[address] [facility] Comment on above: Performed By: #### C BC #### [facility] [address] [place] [address] Dr. Eusebio Augustine WBC 11.3 103/ul Critically high 4.0-11.0 [facility] Comment on above: Performed By: #### C BC #### [facility] [address] [place] [address] Dr. Eusebio Augustine ANION GAPon 01-20-2022 Anion gap [Moles/Vol] 8.0 mmol/L Normal 8.0-16.0 [facility] Comment on above: Result Comment: ANIO N GAP = Sodium -(Chloride + CO2) Performed By: #### H H, BMP, ANION, EGFR1 #### [facility] [address] [place] [address] Anion Gapon 01-20-2022 Anion gap [Moles/Vol] 8.0 mmol/L 8.0 - 16.0 meq/L [facility] Comment on above: ANION GAP = Sodium - (Chloride + CO2) Performed at [facility] [address] [place] [address] BASIC METABOL PANELon 2021 Calcium [Mass/Vol] 8.2 mg/dL Low 8.5-10.5 [facility] Comment on above: Performed By: #### H H, BMP, ANION, EGFR1 #### [facility] [address] [place] [phone] Chloride [Moles/Vol] 108 mmol/L Normal 98-111 [facility] Comment on above: Performed By: #### H H, BMP, ANION, EGFR1 #### [facility] [address] [place] [address] CO2 [Moles/Vol] 25 mmol/L Normal 23-33 [facility] Comment on above: Performed By: #### H H, BMP, ANION, EGFR1 #### [facility] [address] [place] [phone] Creatinine [Mass/Vol] 0.6 mg/dL Normal 0.4-1.2 [facility] Comment on above: Performed By: #### H H, BMP, ANION, EGFR1 #### [facility] [address] [place] [address] Glucose [Mass/Vol] 91 mg/dL Normal 70-108 [facility] Comment on above: Performed By: #### H H, BMP, ANION, EGFR1 #### [facility] [address] [place] [address] Potassium [Moles/Vol] 4.0 mmol/L Normal 3.5-5.2 [facility] Comment on above: Performed By: #### H H, BMP, ANION, EGFR1 #### [facility] [address] [place] [address] Sodium [Moles/Vol] 141 mmol/L Normal 135-145 [facility] Comment on above: Performed By: #### H H, BMP, ANION, EGFR1 #### [facility] [address] [place] [address] Urea nitrogen [Mass/Vol] 11 mg/dL Normal 7- [facility] Comment on above: Performed By: #### H H, BMP, ANION, EGFR1 #### [facility] [address] [place] [address] Basic Metabolic Panelon 12-24 Calcium [Mass/Vol] 8.2 mg/dL Low 8.5 - 10. 5 mg/dL [facility] Comment on above: Performed at [facility] [address] [place] [address] Chloride [Moles/Vol] 108 mmol/L 98 - 11 1 meq/L [facility] [employer] CO2 [Moles/Vol] 25 mmol/L 23 - 33 meq/L [facility] Creatinine [Mass/Vol] 0.6 mg/dL 0.4 - 1.2 mg/dL [facility] [employer] Glucose [Mass/Vol] 91 mg/dL 70 - 108 mg/dL [facility] Interpretation and review of laboratory results Abnormal [facility] Potassium [Moles/Vol] 4.0 mmol/L 3.5 - 5.2 meq/L [facility] Sodium [Moles/Vol] 141 mmol/L 135 - 145 meq/L [facility] Urea nitrogen (BldV) [Mass/Vol] 11 mg/dL 7 - 22 mg/dL [facility] [employer] [facility] GFR, ESTIMATEDon 01-20-2022 GFR/1.73 sq M.predicted MDRD (S/P/Bld) [Vol rate/Area] mL/min/{1.73_m2} Normal [facility] Comment on above: Result Comment: Stag [...] BCND, PT, BMP, ANION, EGFR1, APTT #### [facility] [address] [place] [address] Glomerular Filtration Rate, Estimatedon 01-20-2022 GFR/1.73 sq M.predicted MDRD (S/P/Bld) [Vol rate/Area] mL/min/{1.73_m2} ml/min/1.7 3m2 [facility] [employer] Comment on above: Stage Description GF R, [...] Vol. 139 (2) pg 137-147. Performed at [facility] [address] [place] [address] HGB,HCTon 01-20-2022 Hematocrit (Bld) [Volume fraction] 32.8 % Low 37.0-47.0 [facility] Comment on above: Performed By: #### H H, BMP, ANION, EGFR1 #### [employer] [address] [place] [address] Hemoglobin (Bld) [Mass/Vol] 10.5 g/dL Low 12.0-16.0 [facility] Comment on above: Performed By: #### H H, BMP, ANION, EGFR1 #### [facility] [address] [place] [address] Hemoglobin and hematocrit, b loodon 01-20-2022 Hematocrit (Bld) [Volume fraction] 32.8 % Low 37.0 - 47.0 % [facility] Comment on above: Performed at [facility] [employer] [facility] [address] [place] [address] 29284 Hemoglobin.gastrointes tinal spec 1 Ql (Stl) 10.5 Low [place] [employer] [facility] [employer] Interpretation and review of laboratory results Abnormal [facility] No Panel Informationon 01-20 [facility] ANION GAPon 01-19-2022 Anion gap [Moles/Vol] 11.0 mmol/L Normal 8.0-16.0 [facility] Comment on above: Result Comment: ANIO N GAP = Sodium -(Chloride + CO2) Performed By: #### C BCND, PT, BMP, ANION, EGFR1, APTT #### [facility] [address] [place] [address] Anion Gapon 01-19-2022 Anion gap [Moles/Vol] 11.0 mmol/L 8.0 - 16.0 meq/L [facility] Comment on above: ANION GAP = Sodium - (Chloride + CO2) Performed at [facility] [address] [place] [address] BASIC METABOL PANELon 2021 Calcium [Mass/Vol] 8.5 mg/dL Normal 8.5-10.5 [facility] Comment on above: Performed By: #### C BCND, PT, BMP, ANION, EGFR1, APTT #### [facility] [address] [place] [address] Chloride [Moles/Vol] 106 mmol/L Normal 98-111 [facility] Comment on above: Performed By: #### C BCND, PT, BMP, ANION, EGFR1, APTT #### [facility] [address] [place] [address]19 CO2 [Moles/Vol] 25 mmol/L Normal 23-33 [facility] Comment on above: Performed By: #### C BCND, PT, BMP, ANION, EGFR1, APTT #### [facility] [address] [place] [address]3679 Creatinine [Mass/Vol] 0.5 mg/dL Normal 0.4-1.2 [facility] Comment on above: Performed By: #### C BCND, PT, BMP, ANION, EGFR1, APTT #### [facility] [address] [place] [address]13 Glucose [Mass/Vol] 117 mg/dL High 70-108 [facility] Comment on above: Performed By: #### C BCND, PT, BMP, ANION, EGFR1, APTT #### [facility] [address] [place] [address]185 Potassium [Moles/Vol] 4.5 mmol/L Normal 3.5-5.2 [facility] Comment on above: Performed By: #### C BCND, PT, BMP, ANION, EGFR1, APTT #### [facility] [address] [place] [address] 14273 Sodium [Moles/Vol] 142 mmol/L Normal 135-145 [facility] Comment on above: Performed By: #### C BCND, PT, BMP, ANION, EGFR1, APTT #### [address] [address] Urea nitrogen [Mass/Vol] 11 mg/dL Normal 7-22 [facility] Comment on above: Performed By: #### C BCND, PT, BMP, ANION, EGFR1, APTT #### [address] [address] Basic Metabolic Panelon 12-24 Calcium [Mass/Vol] 8.5 mg/dL 8.5 - 10. 5 mg/dL [facility] Comment on above: Performed at [facility] [address] [place] [address]315 Chloride [Moles/Vol] 106 mmol/L 98 - 11 1 meq/L [facility] CO2 [Moles/Vol] 25 mmol/L 23 - 33 meq/L [facility] Creatinine [Mass/Vol] 0.5 mg/dL 0.4 - 1.2 mg/dL [facility] Glucose [Mass/Vol] 117 mg/dL High 70 - 108 mg/dL [facility] Interpretation and review of laboratory results Abnormal [facility] Potassium [Moles/Vol] 4.5 mmol/L 3.5 - 5.2 meq/L [facility] Sodium [Moles/Vol] 142 mmol/L 135 - 145 meq/L [facility] Urea nitrogen (BldV) [Mass/Vol] 11 mg/dL 7 - 22 mg/dL [facility] GFR, ESTIMATEDon 01-19-2022 GFR/1.73 sq M.predicted MDRD (S/P/Bld) [Vol rate/Area] mL/min/{1.73_m2} Normal [facility] Comment on above: Result Comment: Stag [...] BCND, PT, BMP, ANION, EGFR1, APTT #### [employer] [address] [place] [address]22 Glomerular Filtration Rate, Estimatedon 01-19-2022 GFR/1.73 sq M.predicted MDRD (S/P/Bld) [Vol rate/Area] mL/min/{1.73_m2} ml/min/1.[address] [place] [address] Comment on above: Stage Description GF R, [...] Vol. 139 (2) pg 137-147. Performed at [facility] [address] [place] [address] HGB,HCTon 01-19-2022 Hematocrit (Bld) [Volume fraction] 35.7 % Low 37.0-47.0 [facility] Comment on above: Performed By: #### C BCND, PT, BMP, ANION, EGFR1, APTT #### [employer] [address] [place] [address]13 Hemoglobin (Bld) [Mass/Vol] 11.7 g/dL Low 12.0-16.0 [facility] Comment on above: Performed By: #### C BCND, PT, BMP, ANION, EGFR1, APTT #### [employer] [address] [place] [address] Hemoglobin and hematocrit, b loodon 01-19-2022 Hematocrit (Bld) [Volume fraction] 35.7 % Low 37.0 - 47.0 % [facility] Comment on above: Performed at [facility] [address] [place] [address] Hemoglobin.gastrointes tinal spec 1 Ql (Stl) 11.7 Low [email or web address] Interpretation and review of laboratory results Abnormal [employer] No Panel Informationon 01-19 [facility] TYPE AND SCREENon 01-18-2022 ABO O [facility] Rh Factor Positive [employer] TYPE AND SCREEN CAPTUREon ABO CAPTURE O Normal [facility] Comment on above: Performed By: #### C BCND, PT, BMP, ANION, EGFR1, APTT #### [employer] [address] [place] [address] INDIRECT GREG CAPTURE Negative Normal [facility] Comment on above: Performed By: #### C BCND, PT, BMP, ANION, EGFR1, APTT #### [employer] [address] [place] [address] RH CAPTURE (2 D CLONES) Positive Normal [facility] Comment on above: Performed By: #### C BCND, PT, BMP, ANION, EGFR1, APTT #### [employer] [address] [place] [address] XR LUMBAR SPINE 1 VWon 01-18 Limited intraoperati ve images demonstrating L4 S1 laminectomy and fusion This report has been created using voice recognition software. It may contain minor errors which are inherent in voice recognition technology. Final report electronically signed by Dr. Gennaro Hernandez on 01/18/2022 3:33 PM [facility] Gennaro Sr MD - 01/18/2022 PROCEDURE: XR LUMBAR SPINE [...] Dr. Gennaro Hernandez on 01/18/2022 3:33 PM [facility] [employer] Phone: Radiology Study observation (narrative) [facility] [employer] Phone: XR LUMBAR SPINE 1 VWOrdered By: Gennaro Hernandez on 01-18-2022 [facility] [employer] Phone: ANION GAPon 01-03-2022 Anion gap [Moles/Vol] 10.0 mmol/L Normal 8.0-16.0 [facility] Comment on above: Result Comment: ANIO N GAP = Sodium -(Chloride + CO2) Performed By: #### C BCND, PT, BMP, ANION, EGFR1, APTT #### [facility] [employer] [address] [place] [address] APTTon 01-03-2022 aPTT Coag (Bld) [Time] 37.6 s Normal 22.0-38.0 [facility] Comment on above: Result Comment: Ther apeutic Heparin Reference Range= 60-95 seconds (corresponds to 0.3 to 0.7 u/mL Anti-Xa factor activity) Performed By: #### C BCND, PT, BMP, ANION, EGFR1, APTT #### [employer] [address] [place] [address] aPTT Coag (Bld) [Time] 37.6 s [facility] Comment on above: Therapeutic Heparin Reference Range= 60-95 seconds (corresponds to 0.3 to 0.7 u/mL Anti-Xa factor activity) Performed at [facility] [address] [place] [address] Anion Gapon 01-03-2022 Anion gap [Moles/Vol] 10.0 mmol/L 8.0 - 16.0 meq/L [facility] Comment on above: ANION GAP = Sodium - (Chloride + CO2) Performed at [address] [address] BASIC METABOL PANELon 2021 Calcium [Mass/Vol] 9.6 mg/dL Normal 8.5-10.5 [facility] Comment on above: Performed By: #### C BCND, PT, BMP, ANION, EGFR1, APTT #### [address] [address] Chloride [Moles/Vol] 103 mmol/L Normal 98-111 [facility] Comment on above: Performed By: #### C BCND, PT, BMP, ANION, EGFR1, APTT #### [facility] [address] [place] [address] 15377 CO2 [Moles/Vol] 26 mmol/L Normal 23-33 [facility] Comment on above: Performed By: #### C BCND, PT, BMP, ANION, EGFR1, APTT #### [facility] [address] [place] [address]552 Creatinine [Mass/Vol] 0.5 mg/dL Normal 0.4-1.2 [facility] Comment on above: Performed By: #### C BCND, PT, BMP, ANION, EGFR1, APTT #### [facility] [address] [place] [address] 78229 Glucose [Mass/Vol] 92 mg/dL Normal 70-108 [facility] Comment on above: Performed By: #### C BCND, PT, BMP, ANION, EGFR1, APTT #### [address] [address] Potassium [Moles/Vol] 4.6 mmol/L Normal 3.5-5.2 [facility] Comment on above: Performed By: #### C BCND, PT, BMP, ANION, EGFR1, APTT #### [address] [address] Sodium [Moles/Vol] 139 mmol/L Normal 135-145 [facility] Comment on above: Performed By: #### C BCND, PT, BMP, ANION, EGFR1, APTT #### [facility] [address] [place] [address] Urea nitrogen [Mass/Vol] 12 mg/dL Normal 7-22 [facility] Comment on above: Performed By: #### C BCND, PT, BMP, ANION, EGFR1, APTT #### [facility] [address] [place] [address] Basic Metabolic Panelon 12-23 Calcium [Mass/Vol] 9.6 mg/dL 8.5 - 10. 5 mg/dL [facility] Comment on above: Performed at [facility] [address] [place] [address] Chloride [Moles/Vol] 103 mmol/L 98 - 11 1 meq/L [facility] [employer] CO2 [Moles/Vol] 26 mmol/L 23 - 33 meq/L [facility] [employer] Creatinine [Mass/Vol] 0.5 mg/dL 0.4 - 1.2 mg/dL [facility] [employer] Glucose [Mass/Vol] 92 mg/dL 70 - 108 mg/dL [facility] [employer] Potassium [Moles/Vol] 4.6 mmol/L 3.5 - 5.2 meq/L [facility] [employer] Sodium [Moles/Vol] 139 mmol/L 135 - 145 meq/L [facility] Urea nitrogen (BldV) [Mass/Vol] 12 mg/dL 7 - 22 mg/dL [facility] [employer] CBCon 01-03-2022 Erythrocyte distribution width (RBC) [Ratio] 12.9 % 11.5 - 14.5 % [facility] Erythrocyte distribution width (RBC) [Ratio] 44.8 fL 35.0 - 45.0 fL [facility] Hematocrit (Bld) [Volume fraction] 44.2 % 37.0 - 47.0 % [facility] Hemoglobin.gastrointes tinal spec 1 Ql (Stl) 15.0 [facility] th MCH (RBC) [Entitic mass] 32.3 pg 26.0 - 33.0 pg [facility] MCHC (RBC) [Mass/Vol] 33.9 g/dL [facility] MCV (RBC) [Entitic vol] 95.1 fL 81.0 - 99.0 fL [facility] Platelet mean volume (Bld) [Entitic vol] 9.7 fL 9.4 - 12.4 fL [facility] Comment on above: Performed at [facility] [address] [place] [address] Platelets (Bld) [#/Vol] 332 10*3/uL [facility] RBC (Bld) [#/Vol] 4.65 10*6/uL [facility] WBC (Bld) [#/Vol] 10.5 10*3/uL [facility] CBC NO DIFFERENTIALon 2021 Erythrocyte distribution width (RBC) [Ratio] 12.9 % Normal 11.5-14.5 [facility] Comment on above: Performed By: #### C BCND, PT, BMP, ANION, EGFR1, APTT #### [address] [address] Hematocrit (Bld) [Volume fraction] 44.2 % Normal 37.0-47.0 [facility] Comment on above: Performed By: #### C BCND, PT, BMP, ANION, EGFR1, APTT #### [address] [address] Hemoglobin (Bld) [Mass/Vol] 15.0 g/dL Normal 12.0-16.0 [facility] Comment on above: Performed By: #### C BCND, PT, BMP, ANION, EGFR1, APTT #### [address] [address] MCH (RBC) [Entitic mass] 32.3 pg Normal 26.0-33.0 [facility] Comment on above: Performed By: #### C BCND, PT, BMP, ANION, EGFR1, APTT #### [address] [address] MCHC (RBC) [Mass/Vol] 33.9 g/dL Normal 32.2-35.5 [facility] Comment on above: Performed By: #### C BCND, PT, BMP, ANION, EGFR1, APTT #### [address] [address] MCV (RBC) [Entitic vol] 95.1 fL Normal 81.0-99.0 [facility] Comment on above: Performed By: #### C BCND, PT, BMP, ANION, EGFR1, APTT #### [place] [address] PLATELET 332 thou/mm3 Normal 130-400 [facility] Comment on above: Performed By: #### C BCND, PT, BMP, ANION, EGFR1, APTT #### [place] [address] Platelet mean volume (Bld) [Entitic vol] 9.7 fL Normal 9.4-12.4 [facility] Comment on above: Performed By: #### C BCND, PT, BMP, ANION, EGFR1, APTT #### [place] [address] RBC 4.65 mill/mm3 Normal 4.20-5.[address] [facility] Comment on above: Performed By: #### C BCND, PT, BMP, ANION, EGFR1, APTT #### [place] [address] RDW-SD 44.8 fL Normal 35.0-45.0 [facility] Comment on above: Performed By: #### C BCND, PT, BMP, ANION, EGFR1, APTT #### [address] [address] WBC 10.5 thou/mm3 Normal 4.8-10.[address] [facility] Comment on above: Performed By: #### C BCND, PT, BMP, ANION, EGFR1, APTT #### [place] [address] EKG 12 LeadOrdered By: Gavin Guerrero on 01-03-2022 Atrial Rate 65 BPM [employer] Phone: P [place] 53 degrees [employer] Phone: P-R Interval 162 ms [employer] Phone: Q-T Interval 430 ms [employer] Phone: QRS Duration 92 ms [email or web address] Phone: QTc Calculation (Bazett) 447 ms [email or web address] Phone: R [place] 4 degrees [employer] Phone: T [place] 15 degrees [email or web address] Phone: Ventricular Rate 65 BPM [employer] Work Phone: [employer] Phone: EKG 12 Leadon 01-03-2022 Normal sinus rhythm Normal ECG No previous ECGs available Confirmed by MICHAELLE GUERRERO ([id number]) on 01/03/2022 1:51:07 PM [facility] Michaelle Marin MD - 01/03/2022 Normal sinus rhythm Normal ECG No previous ECGs available Confirmed by MICHAELLE GUERRERO ([id number]) on 01/03/2022 1:51:07 PM [email or web address] Phone: EKG 12-LEADon 01-03-2022 EKG 12-LEAD 65 65 162 [phone] Normal sinus rhythm Normal ECG No previous ECGs available Confirmed by MICHAELLE GUERRERO ([id number]) on 01/03/2022 1:51:07 PM [email or web address] N=[id number]&Date=07-29-20 22&Time=[id number]%3a00 &TestType=ECG&Site=3&Outp utType=PDF&Ext=PDF Normal [facility] GFR, ESTIMATEDon 01-03-2022 GFR/1.73 sq M.predicted MDRD (S/P/Bld) [Vol rate/Area] mL/min/{1.73_m2} Normal [facility] Comment on above: Result Comment: Stag diamond Description GFR, ml/min/1.73 m2 - At increased [...] BCND, PT, BMP, ANION, EGFR1, APTT #### [place] [address] Glomerular Filtration Rate, Estimatedon 01-03-2022 GFR/1.73 sq M.predicted MDRD (S/P/Bld) [Vol rate/Area] mL/min/{1.73_m2} ml/min/1.[address] [place] [address] Comment on above: Stage Description GF R, [...] Vol. 139 (2) pg 137-147. [place] [address] NASAL COMPLETE SCREEN RT-PCR on 01-03-2022 MRSA SCREEN RT-PCR Negative Normal [facility] Comment on above: Result Comment: MRSA target DNA NOT DETECTED by Real Time - Polymerase Chain Reaction. A MRSA NEGATIVE, test result does not preclude MRSA nasal colonization. . Performed By: #### N ASCP #### [place] [address] SA SCREEN RT-PCR Positive Abnormal [facility] Comment on above: Result Comment: Stap hylococcus aureus (SA) target DNA DETECTED by Real Time - Polymerase Chain Reaction. A positive test result does not necessarily indicate the presence of viable organisms. It is, however presumptive for the presence of SA DNA. Performed By: #### N ASCP #### [address] [place] [address] Nasal Complete Screen RT-PCR on 01-03-2022 Interpretation and review of laboratory results Abnormal [facility] MRSA Nasal Screen RT-PCR Negative [facility] Comment on above: MRSA target DNA NOT DETECTED by Real Time - Polymerase Chain Reaction. A MRSA NEGATIVE, test result does not preclude MRSA nasal colonization. . Staph Aureus Screen RT-PCR Positive Abnormal [facility] Comment on above: Staphylococcus aureu s (SA) target DNA DETECTED by Real Time - Polymerase Chain Reaction. A positive test result does not necessarily indicate the presence of viable organisms. It is, however presumptive for the presence of SA DNA. Performed at [facility] [address] [place] [address] No Panel Informationon 01-03 [facility] [employer] PROTHOMBIN TIMEon 01-03-2022 INR Coag (Bld) [Relative time] 1.00 {INR} Normal 0.85-1.13 [facility] Comment on above: Result Comment: ---- -----INDICATION INR Reference Range DVT, PE, AF, AMI, tissue heart valve 2.0 to 3.0 Mechanical prosthetic valves 2.5 to 3.5 Performed By: #### C BCND, PT, BMP, ANION, EGFR1, APTT #### [employer] [address] [place], [place] [id number] [employer]Ron 01-03-2022 INR Coag (Bld) [Relative time] 1.00 {INR} [facility] Comment on above: ---------INDICATION- INR Reference Range DVT, PE, AF, AMI, tissue heart valve 2.0 to 3.0 Mechanical prosthetic valves 2.5 to 3.5 Performed at [facility] [address] [place] [address] [employer] XR CHEST (2 VW)on 01-03-2022 There is no acute intrathoracic process. This report has been created using voice recognition software. It may contain minor errors which are inherent in voice recognition technology. Final report electronically signed by Dr Carl rToy on 01/03/2022 1:32 PM [facility] Carl Lentz MD - 01/03/2022 PROCEDURE: [...] Dr Carl Troy on 01/03/2022 1:32 PM [employer] Phone: Radiology Study observation (narrative) [email or web address] Phone: XR CHEST (2 VW)Ordered By: Eduard Troy on 01-03-2022 [employer] Coding Summaryon 05-23-2021 Coding Summary [employer] 64 SxbsvmwjSKm6zXx+PGhlYWQ+P E7ADHMmW04haINotS5OD7yIXY 2JZYERAUYJHN3YGL2rtCS0NAr aK0WlekAw NfjsdQZuWN62YYl1IXY7oBcpE MyifA7heFRbZ7e4KnEtTK34cQ 27EHwhPAHyHkM9ZpJbtenzmFO y Z6lfAjElmJAvRbn+PHRhYmxlI HdpZHRoPScxMDAlJyBzdHlsZT 3oLr8xVULgXFZjnSmhzBEoIqI j t0auZJScJKwnCV5anHsyE2Xmg BO8YBVfh9e9Zu81wXS+PHRkIH H5jDrdZBpeu409PcRgq0ghETA 3 nBLfEAngXJC5A87jp9W0JIHrX VUdAML6gHN7mP3jkRamigcxA4 KmfSDxKjR2GSV2cBRyqF7agQu n nyptkL5oWfn+E69YVA0OXHWET K6XUtn1Y2YoRfylgIJ+PC90YW KeRJ89wZAkwXKqd0vnsMz8HsA w GEReNKH2yBueMAzjx0GzJHXeW 81ubGBsx4F9QFJbdKsvyYIeJb CflCA4gA7qFJavwwdbs9cjone n Iftou0gbtn29uN83H28hFGsmT ZQkOVC7ICTpJOAeyXnbzh1ycM 9wIi8+ZStki6wiw6vdvNr4XkG w AHLdtuPqdHxbAVH7i6RlOm77E 0HvrFzkl2ScUcw9xk87mQYln7 S9vZE3IGdnQUTnnY1fNTxfEcR 6 IMWsLjJkmT82vYRxLFbkUv1dy AmmcNsiUO9lMNZwjocgPDJapH 4vWOEmtNAgyTylPY8rSSGayjn m s204YvDyRZY0WDSrrQYrD1Tsy O1mPuGkWMOaMCAtC9XxfYWoOB wbN805RDcsJgP9SABgkrByV3N s YMQrsSpgFnX8z3R5Ec3Ip5Jyy bsxPOD9UXbgMJM3IuD9EmIhJw N8A7BfCkk9PYSrqBgjUP5uJ1A h TUOjtqgfelbvxZH4CTFaDQCsw A97gITkSVyrOe8bs1X1w751LQ XtHSKzsJ89Jp6omLfxNTMbuVV U mR8ffgori8yohaklMeSmKMPyY Hy8NGc4FYFklFhaRaSeUKG3Bv Y7DTN3gWSdkS1jhZgslcbyyH1 w Oyc+O50tvA0xPHK2GVS1xhteF XDmlfVjAJ39OV78Y0ZqMpdrtS FibGU+BQIabtVprLakAS0nHoI j g1dkh4HpWPgkM8RjIVBrQMdyB pe6NEWySWJ6kBA1dZ9iCEOzLX yhr7P8lFR3J2OgjlIbrl5yc7d s EXCfQGulO18opPVsf3H7AIWkp VI1YQEsrApyOlDxeR67Fgx+PG TmsWxgt5VbKsqmn3aob8lsgEz 9 TjMoHGHvklAepOqqJNP8f4TfU u33G13mLVtkKRAsUUMnIPIfWX WeeBaljd4ydN3eLb8+PGNvbCB 3 kFB7eG2bTJCjSsQ4XXlyG074T cWpxIGlXrpch0rpx2oibLi4Wy EfSVYedmMhgJcwAQK2k0McPd6 8 L33vNXosTJZlXNVrAEBkLTPzx Ljeag0xiD6cYn0+IS5yy6ojpt 89iX41tUY+DNMoTVV7iIobOFp w RLRmbY2jAOhcNiR8ZJObMmGif N33zIMvEIzoQe0anFgqxSmgXU 7gDXVjekhiy384KbMzg1pgULX w lGWvYEpwVTK9Y02bx4M2KOQlV BSnZYK1pLN5yO6vqGbrgrmckH IzbNaledZpqHykJPdrTTwyT69 6 IHRvcDsnPlBhdGllbnQgTmFtZ Ai6T7YmSfu8OJDwuTrsJU5wmA WcVIkkTf7duIcijZjbHA8tQZX p umvbu960StKsr1baFWFcaBBqD XorQLU9N80qk9I6BVKrVPOfOM V5pZE2bU4vqIprvjorjUYlaZs g ztGclIvqWTckYCwrN421ZVWxh UlbFtWvgwNqMRKpjKO5SU64WS 29tTApo8J8gUA9X5HwWJOxzpw t qdodkZE5GRFsNKOmwY48Aw0zx EduWs7sJLCdSGV9RJTumJFnF0 XgcT2mCeDtRAWjKCBiT0EpgZD t RMrcC633RMwtDtC5GHStssGbH 2YuBUUlxQcrZvN3s9Q5Ke8EF5 A0DN66WR38fSIct9E8aLZ7J8D h GHZwhaacmxgqjKN8UAYcZREts O57Xb8hgDijZw1tGMYvBNC4QT PxkFKzK8KrhJ6fTtRlPCCjIIG w L7UxtESiVFahF703BByoCuW4E ZYhkvXzC1TvFYVfxEvxEuX9p5 S5Pj2IFLq1SM93JB61qKOkt4N 5 wGX2W9QyMWMpcpzzmpgtlDX9B MElMMGnyA81Gk2hyBwkSx1kAS IwFCF0XSItcFMuZ4DtfD5tSlY j JDXvAKEmS3VbqGBwWWbbS066T UtkFeG2UIYsdwWiK5KlMTUfeQ fmBkP1q9M0Xg3WVEPnCH83LZH 5 pFF9NK69AA46Q3ExUyhwwFZjo +PHRhYmxlIHdpZHRoPScxMD ZgIiNzvNshOP1nFu0wSTIcLDS v kVcjeLUkEaCkm3psZPUaOGriN S6mvHevJ5JncJF2DDSvj5r2Ik 56K72xD2NjaOZ+SZFpsPA2wXI 0 eG1uUeKoFcG9WQkpN495IjXxh IFfPivbf8qaz3ylsJf9CaR4KJ ZwvnLphOeeYUC9v5BxKz61H61 s IHdpZHRoPSIxNSUiIHZhbGlnb w4chE1qYm4+JRUiiYZ9cXN4aR 7wFwZmYoT6NEryM325XhGzqDO v Afboz0gun7hslHr3StZbTCZff wXcoVbbKGA7v9JsMp81B5NrxL jwn6TrVcq6zb54uMTvr0J1iXI 9 G1GjLVUjhiryyAXagIwiQT5dA YXeuwzkMYRxfW4yVIZqN3a6Du KqOqK6SVldQ7TezoB7XKWimCD g ULskEXO7O48la7X3EDNkXJDuJ PE3mEC4hW7tmIksgemrjGEheD aqmnLtyGgyQRapMYaeR528VOO v fRzbUNDunA9yVVLyjMZwrOytQ C1bZPBfwcnfCioJKDEuAEyFBR iPGKm7E3UvZsd8XBDtfJdaMA4 n vYVjGHqmSy4drOuifMqsWM2rN CCpynryNXCepZ9iGYWnnHMhcK tcSB7kYBNoemgcx559XwQkUTW 0 CMNvbWBgU7XtoW7nJkJsYTKnB GYvJ1PfxWQkCUtdZ846VVxuPi G6ENZlxeFnV3OvRGGalOugDwF 0 x4Z2Wl4bTE9zEY8xDZcuIE79H Z00wFKiv9Q4xZD4C1HrRHCpcq cfoavchVA0BGHzMQYdsH77qDQ k GHozEt8em4F8u841PBQcMUDih Q00Yh3imCjtZPAbfCPTaI9xbb wee2hhhsklRxGxEYKmTKo9HHp 0 UAGsbSnhNiUpNPH0AuP0YHU2s CWmvT8cnRgexzjbiR9tRoh+ND icLATbohY6K6UzKwv2MOBnrBf s RR1rtMIiXEzoFc3nvKmbtDjnP R8jXLGbigxnXMZfsP7yEABkdW ClxVfjHF0fWRTyiguzl807LkZ x XPL1OGMkbVQfN2VwvQ5oEmVgN KEbEZBiI2LvrQPfZNzbZ141NE fiVkY1JGNldtJoL1LwSHRocMf u QuM1u8W7Qe0RGE7KSCE3R8ZhQ lv4PHEtrRtjTA5abSBoXSrdPz 7kuScdwYbmVA4bSDRpuhhlGLN k wL6zVWKhuGRquNskES0nCVMob qlcl039UpBcIKY9ZMLemYReU3 CdmL3bGyNsUEMsDBMyZ7VwqPD t HOvhB828NDvxRwE4OWReybZsW 2RyXNWhfMixSyA5z6G9Pn5WYB wvdGQ+PT40zu01V7SyCvoqZrr 0 LYYaJGV7xJZ6aI3uFNDcKSpyy 9C1lHF7Z4JvplOjdf4vc4hsDQ JgYJmmU18kaCBxd0Y2GTZapID 5 XWIgiMsdWjNhqQ15Rvu+PGNvb Whfv7RpRcrgy1jat2xasDx8Sd GmJDDowoMaqPvvEBL3e0EuGn6 8 F89nXVteBCNmFWBfBKBpQMUns Hmomj6hrS9wNm7+DWZueGX9jB I8rB4zCkWdHtY6GCwxK596EtM v sBWrYwoxa0hbt2fttPv2FnWtD UMqoqHgrNwbBHO5k2FcNe71J9 SptDubb0BmMdb2zc14eNXsc5L 5 bLR4X3NvIHOpzzgimWKqtBtkC X0lFEPidineXVQxiV8fDMTsD4 i6AoVmApY7JWpmF4YpbmG5YCM v kTYqRMElqUEYaT8nvecoy2aew bkcFsZsOZRoPDv1JVd9TEMebE lzJrTjPAC5XsJ2YXP7iWLgpA3 h kJndmlkteE1eTbf+UHq0y5icm GZcXZ9nmLF3IC13TH62kHSkz0 R5gCT8A3ZlPCSzcyrwgehvwWZ 6 QJXsJIOvpC02Ee7jpJsqNr3cQ YEtWMS7MIShwJLhD1YybP6zLm BjNYKqRNTjE9FgnDNzPWqgD59 6 TPwcLwS7XSGjvwCmW4QjGWNym JtsUgP5s2O6Ju6BKP24RP23TK 91sDTbb3N7yPY0A5XxWPSddja t ginzrXH0RAYsYNSoiX37Dz3cx XxtWg3wVTGoEOZ5AOCljHIkT9 CesR3vQsAvMCLmQWQwF7FqbLC t FDlyH316APhlNhZ9CBEvbxJaT 7UpAJFmnRiaJgM4m4P4Gl8HHm 25QA41UX39gUCqc3V1kSG6F2V h GKLjfllmeimnoAH7INNmWPTdh V27Ma5zaXkqIx0kDITyYTP1SZ LeuERlN7PjtP5dIeBzYYZdNTT w S1IdcWDmJQsgM840BEalJpH4W COmsdMhB2AlSMEslUicNyA3j8 Q6Xn8XQUdqbup5Z6DhYhjmgAS + FJ67VLMcKX71oSUzfDBia8ixn Wy3AeXzDTElLIQ3oMjqVObpo0 DzZMVgZ17efYXno8H4CJNqxAd h cHN (more content not included)... Normal [facility] ED Clinical Summaryon 2020 ED Clinical Summary [facility] ? Urgent Care [address] [place] [address] [id number] Clinical Summary PERSON INFORMATION Name: TORY GATES Age: 46 Years Sex: FEMALE : 1975 MRN: Acct#: Visit Reason: UC - Allergic Reaction: minor; RASH ALL OVER BODY/POSS ALLERGIC REACTION Arrival: 05/19/2021 20:15:53 Discharge: 05/19/2021 20:44:00 LOS: 000 00:29 Check In: 05/19/2021 20:15:53 Checkout: 05/19/2021 20:44:00 Address: [address] [place] [id number] PCP: CHARLOTTE SWEENEY PROVIDER INFORMATION Provider Role [...] EDUCATION INFORMATION Instructions: Drug Rash; Drug Allergy, Cjse-oi-Ofzd Follow-Up: With: Address: When: CHARLOTTE SWEENEY [address] [place], [place] [phone] Business (1) Within 1 week Comments: Please follow-up with Dr. Sweeney, call the office schedule an appointment to be seen in a week or sooner for continued care, take your prednisone as prescribed, take ihlq-mdx-njeeofe Benadryl every 8 hours as needed there are 25 mg tablets, please and forget that Benadryl can cause sedation, try not to work or drive while you are taking Benadryl, and return back to the urgent care center for any worsening symptoms, concerns, or complications. DIAGNOSIS: 1:Medication reaction Patient Understands: Yes - Patient/family/caregiver verbalizes understanding of instructions given Comment: Normal [facility] ED Patient Summaryon 021 ED Patient Summary [facility] ? Urgent Care [address] [place] [address] PATIENT DISCHARGE INSTRUCTIONS Patient Information Name: TORY GATES Age: 46 Years Date of : 1975 Reason For Visit: UC - Allergic Reaction: minor; RASH ALL OVER BODY/POSS ALLERGIC REACTION Arrival Time: 05/19/2021 20:15:53 Primary Care Physician: CHARLOTTE SWEENEY Attending Physician: Tay Peña PA-C Comment: Patient Education With: Address: When: CHARLOTTE SWEENEY [address] [place] [address] [facility] (1) Within 1 week Comments: Please follow-up with Dr. Sweeney, call the office schedule an appointment to be seen in a week or sooner for continued care, take your prednisone as prescribed, take thtv-syx-mxhftbb Benadryl every 8 hours as needed there [...] Follow these instructions at home: ? Take ayxz-hzc-fodxklr and prescription medicines only as told by [...] cool compress to relieve itchiness. ? Take qzbl-esr-pbrffyf antihistamines, as recommended by your health care [...] Education ? 2019 (more content not included)... [facility] 021 Urgent Care Record [facility] ? Urgent Care [address] [place] [address] PATIENT DISCHARGE INSTRUCTIONS Patient Information Name: TORY GATES Age: 46 Years Date of : 1975 Reason For Visit: RASH ALL OVER BODY/POSS ALLERGIC REACTION Arrival Time: 05/19/2021 20:15:53 Primary Care Physician: CHARLOTTE SWEENEY Attending Physician: Tay Peña PA-C Comment: Visit Diagnosis: Diagnoses This Visit Medication reaction (T50.680Y) If you received any narcotics, sedation, or [...] legal documents With: Address: When: CHARLOTTE SWEENEY [address] [place] [address] [phone] Business (1) Within 1 week Comments: Please follow-up with Dr. Sweeney, call the office schedule an appointment to be seen in a week or sooner for continued care, take your prednisone as prescribed, take jcsh-gii-cnxkkkf Benadryl every 8 hours as needed there are 25 mg tablets, please and forget that Benadryl can cause sedation, try not to work or drive while you are taking Benadryl, and return back to the urgent care center for any worsening symptoms, concerns, or complications. Medication Information: The exam and treatment you received today in the [facility] were for an urgent problem and are not intended as complete care. It is important for you to follow up with a doctor, nurse practitioner, or physician?s assistant refinery operator for ongoing care. If your symptoms become [...] so we can reach you if necessary. [facility] has provided you with a complete list of medications post discharge. Please inform your farm loan representative/provider of your visit and for further instruction on these medications. Any specific questions regarding your chronic medications and dosages should be discussed with your primary care physician(s) and/or pharmacist. New Medications [facility], [address] [place], [place] [id number], [phone] predniSONE (predniSONE 20 mg oral tablet) 2 [...] treated with medicines, (more content not included)... Normal [facility] IR ARTHR/ASP/INJ MAJOR JT/BU RSA LEFT WO USon 05-09-2020 IR ARTHR/ASP/INJ MAJOR JT/BURSA LEFT WO US EXAMINATION: FLUOROSCOPIC GUIDED INJECTION OF THE LEFT HIP 05/09/2020 11:06 am HISTORY: ORDERING SYSTEM PROVIDED HISTORY: Pain of left hip joint TECHNOLOGIST PROVIDED HISTORY: Is the patient ?->No FLUOROSCOPY DOSE AND TYPE OR TIME AND EXPOSURES: 33 seconds; D AP 79 cGy cm2 PROCEDURE: LOG HANDLING EQUIPMENT OPERATOR: Goyo Guerrero MD Informed consent was obtained [...] Goyo Guerrero MD 05/09/20 Final result Normal [facility] Successful fluoroscopic-guided left hip intra-articular medication injection. [facility], [place] EXAMINATION: FLUOROS COPIC GUIDED INJECTION OF THE LEFT HIP 05/09/2020 11:06 am HISTORY: ORDERING SYSTEM PROVIDED HISTORY: Pain of left hip joint TECHNOLOGIST PROVIDED HISTORY: Is the patient ?->No FLUOROSCOPY DOSE AND TYPE OR TIME AND EXPOSURES: 33 seconds; D AP 79 cGy cm2 PROCEDURE: LOG HANDLING EQUIPMENT OPERATOR: Goyo Guerrero MD Informed consent was obtained [...] joint was then passively exercised. EBL: None [place], [place], [facility] Incoming Radiant Results From [email or web address] - 05/09/2020 1:53 PM EDT EXAMINATION: FLUOROSCOPIC GUIDED INJECTION OF THE LEFT HIP 05/09/2020 11:06 am HISTORY: ORDERING SYSTEM PROVIDED HISTORY: Pain of left hip joint TECHNOLOGIST PROVIDED HISTORY: Is the patient ?->No FLUOROSCOPY DOSE AND TYPE OR TIME AND EXPOSURES: 33 seconds; D AP 79 cGy cm2 PROCEDURE: LOG HANDLING EQUIPMENT OPERATOR: Goyo Guerrero MD Informed consent was obtained [...] Successful fluoroscopic-guided left hip intra-articular medication [facility]. [facility] [place] KATINA Prema 04-17-2018 CNOV Office Visit ([facility]) CLINTON DODD ([id number]) 1975 FDate Time Provider Department04/17/18 8:45 AM LUISANA ANG [facility] During your visit today, we recorded the [...] file.No past surgical history on file.Current Outpatient Prescriptions:levothyroxi ne (LEVOXYL) 50 mcg tablet Take 50 mcg [...] back painSKIN: Negative for lesions, rash, and itchingHEMATOLOGY/LYMPHOL OGY: Negative for prolonged bleeding, bruising easily orswollen nodesENDOCRINE: Negative for cold or heat intolerance, polyuria, polydipsia andgoiterRADIOGRAPHS:Righ t hip series dated within 90 days revealed [...] applicableIMPRESSION:1. right Hip Osteoarthritis.PLAN:1. Medication: voltaren rx.2. Test(s)/Imaging/Referral( s): Adult reconstruction referral.3. Intervention: Continue conservative treatment.4. Follow-up: PRN.Luisana Ang [facility]/Orthopaedic SurgeryReferring Provider: KALYANI JERRY [[id number]]Allergies As of Date: 04/17/2018 Noted Allergy ReactionCEFACLOR 05/04/2003 Comments: ceclorCONTRAST DYE 12/17/2005 4 - HivesPREDNISONE 04/17/2018 14 - Other: See Comments Comments: Heart palpitationSULFA (SULFONAMIDE ANTIBIOTICS) 05/04/2003Date Reviewed: 04/17/2018Reviewed by: Heidi Ahn - Fully AssessedReason for Visit: Right Hip Pain [1554]Primary Visit Diagnosis:Primary osteoarthritis of right hip [M16.11]Order(s):CONSULT TO ORTHOPAEDIC SURGERY [19990925] Order #: [id number]: 1 diclofenac, EC, (VOLTAREN) 75 mg EC [...] No sig reportedProblem List As Of Date: 04/17/2018(None)Prescript ions ordered this encounter Disp Refills Start End DICLOFENAC SODIUM 75 MG TABLET,DELAY* 60 t* 1 04/17/2018 Route: ORAL Sig: Take 1 tablet by mouth twice daily. for pain.Letter Paco Ibarra, [facility] / [id number] [place], [place] [address]Jlngxi: [phone] Fax: [phone]/17/2018To Whom It May Concern: Tory Dueñas had an appointment at the [facility] today.Please allow Tory to park her car closer to the bus in order to limit herwalking until she can be seen regarding a hip replacement.Luisana Ang MDEncounter Number: [id number] Status:Closed by LUISANA ANG MD on 04/17/18 Normal [facility] PROGRESSon 04-17-2018 Protein mass conc HNO ID: [id number] thor: Luisana Little: (none)Author Type: PhysicianType: Progress [...] file.No past surgical history on file.Current Outpatient Prescriptions:levothyroxi ne (LEVOXYL) 50 mcg tablet Take 50 mcg [...] back painSKIN: Negative for lesions, rash, and itchingHEMATOLOGY/LYMPHOL OGY: Negative for prolonged bleeding, bruising easily orswollen nodesENDOCRINE: Negative for cold or heat intolerance, polyuria, polydipsia andgoiterRADIOGRAPHS:Righ t hip series dated within 90 days revealed [...] applicableIMPRESSION:1. right Hip Osteoarthritis.PLAN:1. Medication: voltaren rx.2. Test(s)/Imaging/Referral( s): Adult reconstruction referral.3. Intervention: Continue conservative treatment.4. Follow-up: BIMAL.Luisana Ang [facility] Medicine/Orthopaedic Surgery Normal [facility] MR OUTSIDE CD DICOM IMPORT - NBNRon 04-01-2018 MR OUTSIDE CD DICOM IMPORT -NBNR Images were obtained outside of [facility] [id number] Normal [facility] XR OUTSIDE CD DICOM IMPORT - NBNRon 02-18-2018 XR OUTSIDE CD DICOM IMPORT -NBNR Images were obtained outside of [facility] [id number] Normal [facility] Vital Signs Date Time Vital Sign Value Performing Clinician Facility 02-16-2025 15:20-0400 Body height 160 cm Todd Acosta DO Work Phone: [facility] 02-16-2025 15:20-0400 Body mass index (BMI) [Ratio] 33.69 kg/m2 Todd Acosta DO Work Phone: [facility] 02-16-2025 15:20-0400 Body temperature 98.01 [degF] Todd Gallegot DO Work Phone: [facility] 02-16-2025 15:20-0400 Body weight 86.27 kg Todd Gallegot DO Work Phone: [facility] 02-16-2025 15:20-0400 Diastolic blood pressure 84 mm[Hg] Toddviktor Gallegot DO Work Phone: [facility] 02-16-2025 15:20-0400 Heart rate 82 /min Todd Gallegot DO Work Phone: [facility] 02-16-2025 15:20-0400 Respiratory rate 20 /min Todd Gallegot DO Work Phone: [facility] 02-16-2025 15:20-0400 SaO2% (BldA) [Mass fraction] 98 % Todd Dave DO Work Phone: [facility] 02-16-2025 15:20-0400 Systolic blood pressure 130 mm[Hg] Todd Gallegot DO Work Phone: [facility] 01-18-2025 14:53-0400 Body height 160 cm Todd Gallegot DO Work Phone: [facility] 01-18-2025 14:53-0400 Body mass index (BMI) [Ratio] 33.66 kg/m2 Todd Urrutiauitt DO Work Phone: [facility] 01-18-2025 14:53-0400 Body temperature 98.01 [degF] Todd Gallegot DO Work Phone: [facility] 01-18-2025 14:53-0400 Body weight 86.18 kg Todd Gallegot DO Work Phone: [facility] 01-18-2025 14:53-0400 Diastolic blood pressure 86 mm[Hg] Todd Urrutiauitt DO Work Phone: [facility] 01-18-2025 14:53-0400 Heart rate 70 /min Todd Gallegot DO Work Phone: [facility] 01-18-2025 14:53-0400 Respiratory rate 20 /min Todd Gallegot DO Work Phone: [facility] 01-18-2025 14:53-0400 SaO2% (BldA) [Mass fraction] 98 % Todd Urrutiauitt DO Work Phone: [facility] 01-18-2025 14:53-0400 Systolic blood pressure 132 mm[Hg] Todd Urrutiauitt DO Work Phone: [facility] 10-03-2024 18:02-0500 Diastolic blood pressure 62 mm[Hg] Coleman Olivares MD Work Phone: [facility] 10-03-2024 18:02-0500 Heart rate 80 /min Coleman Olivares MD Work Phone: [facility] 10-03-2024 18:02-0500 Respiratory rate 16 /min Coleman Olivares MD Work Phone: [facility] 10-03-2024 18:02-0500 SaO2% (BldA) [Mass fraction] 97 % Coleman Olivares MD Work Phone: [facility] 10-03-2024 18:02-0500 Systolic blood pressure 130 mm[Hg] Coleman Olivares MD Work Phone: [facility] 10-03-2024 15:05-0500 Body temperature 98.4 [degF] Coleman Olivares MD Work Phone: [facility] 10-03-2024 15:03-0500 Body height 160.02 cm Coleman Olivares MD Work Phone: [facility] 10-03-2024 15:03-0500 Body weight 89.8 kg Coleman Olivares MD Work Phone: [facility] 08-06-2024 14:15-0500 Body height 160.02 cm Coleman Olivares MD Work Phone: [facility] 08-06-2024 14:15-0500 Body mass index (BMI) [Ratio] 32.8 kg/m2 Coleman Olivares MD Work Phone: [facility] 08-06-2024 14:15-0500 Body temperature 97.7 [degF] Coleamn Olivares MD Work Phone: [facility] 08-06-2024 14:15-0500 Body weight 83.91 kg Coleman Olivares MD Work Phone: [facility] 08-06-2024 14:15-0500 Diastolic blood pressure 93 mm[Hg] Coleman Olivares MD Work Phone: [facility] 08-06-2024 14:15-0500 Heart rate 76 /min Coleman Olivares MD Work Phone: [facility] 08-06-2024 14:15-0500 Respiratory rate 18 /min Coleman Olivares MD Work Phone: [facility] 08-06-2024 14:15-0500 SaO2% (BldA) [Mass fraction] 98 % Coleman Olivares MD Work Phone: [facility] 08-06-2024 14:15-0500 Systolic blood pressure 156 mm[Hg] Coleman Olivares MD Work Phone: [facility] 07-08-2023 13:18-0500 Diastolic blood pressure 83 mm[Hg] MD Charlotte Sweeney Work Phone: [facility] 07-08-2023 13:18-0500 Heart rate 75 /min MD Charlotte Sweeney Work Phone: [facility] 07-08-2023 13:18-0500 Respiratory rate 16 /min MD Charlotte Sweeney Work Phone: [facility] 07-08-2023 13:18-0500 SaO2% (BldA) [Mass fraction] 98 % MD Charlotte Sweeney Work Phone: [facility] 07-08-2023 13:18-0500 Systolic blood pressure 151 mm[Hg] MD Charlotte Sweeney Work Phone: [facility] 07-08-2023 12:01-0500 Body height 160.02 cm MD Charlotte Sweeney Work Phone: [facility] 07-08-2023 12:01-0500 Body temperature 98.6 [degF] MD Charlotte Sweeney Work Phone: [facility] 07-08-2023 12:01-0500 Body weight 81.64 kg MD Charlotte Sweeney Work Phone: [facility] 07-01-2023 14:20-0500 Body height 158.75 cm Noel Gould Other [facility] Other 07-01-2023 14:20-0500 Body mass index (BMI) [Ratio] 39.59 kg/m2 Noel Gould Other [facility] Other 07-01-2023 14:20-0500 Body weight 99.79 kg Noel Imeldajoshua Other [facility] Other 07-01-2023 14:20-0500 Diastolic blood pressure 80 mm[Hg] Noel Gould Other [facility] Other 07-01-2023 14:20-0500 Systolic blood pressure 127 mm[Hg] Noel Bryanna Other [facility] Other 03-10-2023 08:30-0400 Heart rate 81 /min Stv 2 [facility] 03-10-2023 08:30-0400 Respiratory rate 18 /min Stv 2 [facility] 03-10-2023 08:30-0400 SaO2% (BldA) [Mass fraction] 97 % Stv 2 [facility] 01-20-2022 08:11-0400 Body temperature 97.5 [degF] Dileep Abad MD Work Phone: [facility] 01-20-2022 08:11-0400 Diastolic blood pressure 67 mm[Hg] Dileep Abad MD Work Phone: [facility] 01-20-2022 08:11-0400 Heart rate 83 /min Dileep Abad MD Work Phone: [facility] 01-20-2022 08:11-0400 Respiratory rate 18 /min Dileep Abad MD Work Phone: [facility] 01-20-2022 08:11-0400 SaO2% (BldA) [Mass fraction] 98 % Dileep Abad MD Work Phone: [facility] 01-20-2022 08:11-0400 Systolic blood pressure 113 mm[Hg] Dileep Abad MD Work Phone: [facility] 01-18-2022 09:30-0400 Body height 157.5 cm Dileep Abad MD Work Phone: [facility] 01-18-2022 09:30-0400 Body mass index (BMI) [Ratio] 33.25 kg/m2 Dileep Abad MD Work Phone: [facility] 01-18-2022 09:30-0400 Body weight 82.46 kg Dileep Abad MD Work Phone: [facility] 01-03-2022 15:52-0400 Body height [address] [facility] 15:52-0400 Body mass index (BMI) [Ratio]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 langston Referred To Contact Radiology Diagnoses Pain of left hip joint Procedures IR ARTHR/ASP/INJ MAJOR JT/BURSA LEFT WO US Bruce Rodriguez MD [address] [place] [address] Referral ID Status Reason Start Date Expiration Date Visits Re quested Visits Authorized [id number] Open 02/27/2023 02/27/2024 1 1 Reason Comments Foot Pain Established pt prese nts today with pain in right foot. States she was having cramps in the foot, ongoing for about a week, states she dropped her sweeper on her toes on Friday, states she is having a lot of pain. Pt has been icing and elevating. Reason Comments Med Refill Reason Onset Date Comments Med Refill 06/28/2024 Reason Comments Establish Care Care Teams (unrecognized sec tion and content) Supervisor [employer] Relationship Specialty Start Date End Date Charlotte Sweeney MD [address] [place], [place] [address] [address] PCP - General Family Medicine 07/22/16 Supervisor [employer] Relationship Specialty Start Date End Date Charlotte Sweeney MD [address] [place], [place] [address]sh[place] [address] PCP - General Family Medicine 07/22/16 Supervisor [employer] Relationship Specialty Start Date End Date Charlotte Sweeney MD [facility] [place] [address] PCP - General [facility] Medicine 07/22/16 Supervisor [employer] Relationship Specialty Start Date End Date Charlotte Seweney MD [address] [place], [place] [address]sh[place] [address] PCP - General [facility] Medicine 07/22/16 Team Status: Active Member Role Status Dates Charlotte Sweeney MD Primary Care Provider Active Team Status: Inactive Member Role Status Dates Neel Fernandes MD Attending Provider Active Charlotte Sweeney MD Primary Care Provider Active Supervisor [employer] Relationship Specialty Start Date End Date Charlotte Sweeney MD [address] [place] [address] PCP - General [facility] Medicine 08/26/23 Supervisor [employer] Relationship Specialty Start Date End Date Charlotte Sweeney MD [address] [place] [address] PCP - General Family Medicine 08/26/23 Supervisor [employer] Relationship Specialty Start Date End Date Charlotte Sweeney MD [address] [place], [place] [id number] PCP - General [facility] Medicine 05/03/24 Team Status: Inactive Member Role Status Dates Charlotte Sweeney MD Primary Care Provider Active Start: August 06, 2024 End: August 06, 2024 Gisselle Siegel APRN Attending Provider Active Start: August 06, 2024 End: August 06, 2024 Team Status: Inactive Member Role Status Dates Coleman Olivares MD Emergency Provider Active St art: October 03, 2024 End: October 03, 2024 Charlotte Sweeney MD Primary Care Provider Active Start: October 03, 2024 End: October 03, 2024 Supervisor [employer] Relationship Specialty Start Date End Date Charlotte Sweeney MD [address] [place] [address] PCP - General Family Medicine 11/18/22 Supervisor [employer] Relationship Specialty Start Date End Date Todd Acosta DO [address] [place] [address] PCP - General Family Medicine 01/18/25 Supervisor [employer] Relationship Specialty Start Date End Date Todd Acosta DO [address] [place] [address] PCP - General Family Medicine 01/18/25 Supervisor [employer] Relationship Specialty Start Date End Date Todd Acosta DO [address] [place] [address] PCP - General Family Medicine 02/15/25 Supervisor [employer] Relationship Specialty Start Date End Date Todd Acosta DO [address] [place] [address] PCP - General Family Medicine 02/15/25 Ordered Prescriptions (unrec ognized section and content) Prescription Sig Dispensed Refills Start Date End Da hydrOXYzine (VISTARIL) 25 MG capsule Take 1 [...] mL/hr, Administer over 180 Minutes, ONCE, On Fri01/19/22 at 2115, For 1 dose 2101 (New Bag - Provider: Jessica Arroyo RN)2329 (Stopped - Provider: Betsy Zaman LPN) bisacodyl (DULCOLAX) EC tablet 5 mg 5 mg, Oral, DAILY, First dose on Fri01/18/22 at 1730, Until Discontinued, Do not crush or break., Post-op 1730 (Due) 0902 (Not Given - Provider: Geovanna Arzate LPN - Reason: Patient/family refused) 0821 (Given - Provider: Coleman Caldwell RN) gabapentin (NEURONTIN) tablet 600 mg 600 mg, Oral, 3 TIMES DAILY, First dose on Fri01/18/22 at 2100, Until Discontinued 2130 (Given - Provider: Naomi Mantilla RN) 09 (Given - Provider: Geovanna Arzate LPN)131 (Given - Provider: Geovanna Arzate LPN)2103 (Given - Provider: Jessica Arroyo, BASIA) 08 (Given - Provider: Coleman Caldwell, RN)1400 (Due)2100 (Due) levothyroxine (SYNTHROID) tablet 50 mcg [...] on Fri01/18/22 at 1730, Until Discontinued, Post-op 1730 (Due) 09 (Given - Provider: Geovanna Arzate LPN) 08 (Given - Provider: Coleman Caldwell, BASIA) scopolamine (TRANSDERM-SCOP) transdermal patch 1 patch 1 patch, TransDERmal, Administer over 72 Hours, ONCE, On Fri01/18/22 at 1015, For 1 dose 1006 (Patch Applied - Provider: Sophy Vargas, BASIA) sennosides-docusate sodium (SENOKOT-S) 8.6-50 MG tablet 1 tablet 1 tablet, Oral, 2 TIMES DAILY, First dose on Fri01/18/22 at 2100, Until Discontinued, Post-op 2105 (Given - Provider: Naomi Mantilla RN) 09 (Not Given - Provider: Geovanna Arzate LPN - Reason: Patient/family refused)2103 (Given - Provider: Jessica Arroyo RN) 08 (Given - Provider: Coleman Caldwell, BASIA)2100 (Due) sertraline (ZOLOFT) tablet 100 mg 100 mg, Oral, DAILY, First dose on Fri01/19/22 at 0900, Until Discontinued 0902 (Given - Provider: Geovanna Arzate LPN) 0821 (Given - Provider: Coleman Caldwell, RN) sodium chloride flush 0.9 % injection 5-40 [...] Infusing)2103 (Given - Provider: Jessica Arroyo RN) 0823 (Given - Provider: Coleman Caldwell, BASIA)2100 (Due) vancomycin (VANCOCIN) 1,500 mg in dextrose 5 % 500 mL IVPB (COMPLETED) 1,500 mg, IntraVENous, RESISTANCE WELDING MACHINE OPERATOR TO O.R., 1 dose, On Fri01/18/22 at 0930, Antimicrobial Indications: Surgical Prophylaxis, Administer within 1 hour prior to incision., Pre-op (day of surgery) 1232 (New Bag - Provider: Saranya Meléndez APRN - LUMBER STACKER OPERATOR - Comment: Administered slowly over 1 hr) [...] PACU only 1445 (Given - Provider: Luis Monsalve, BASIA)1450 (Given - Provider: Luis Monsalve, BASIA) HYDROmorphone (DILAUDID) injection 0.5 mg (CANCELED) HYDROmorphone (DILAUDID) 1.5mg IV is equivalent to morphine 10mg IV, 0.5 mg, IntraVENous, EVERY 4 HOURS PRN, Starting on Fri01/18/22 at 1743, Until 01/19/22 at 0907, Pain Severe (7-10), If oral [...] Itching 1220 (Given - Provider: Geovanna Arzate LPN)2329 (Given - Provider: Betsy Zaman LPN) morphine [...] Provider: Naomi Mantilla RN)0824 (Given - Provider: Coleman Caldwell RN) oxyCODONE (ROXICODONE) immediate release tablet 10 mg(Linked Group 2) 10 mg, Oral, EVERY 4 HOURS PRN, Starting on 01/19/22 at 1230, Until Discontinued, Pain Severe (7-10), Post-op 1223 (Given - Provider: Coleman Caldwell RN)1638 (Given - Provider: Coleman Caldwell RN)2329 (Given - Provider: Betsy Zaman LPN) 0521 [...] Naomi Mantilla RN)0824 (See Alternative - Provider: Coleman Caldwell RN) oxyCODONE (ROXICODONE) immediate release tablet 5 mg(Linked Group 2) 5 mg, Oral, EVERY 4 HOURS PRN, Starting on Fri01/19/22 at 1230, Until Discontinued, Pain Moderate (4-6), Post-op 1223 (See Alternative - Provider: Coleman Caldwell RN)1638 (See Alternative - Provider: Coleman Caldwell RN)2329 (See Alternative - Provider: Betsy [...] 1230, Until Discontinued, Pain Severe (7-10), Post-op Goals (unrecognized section and content) Goals may be documented in a n alternate section FOR RECORDS PERTAINING TO PATIENTS WHO ARE [...] BE BASED ON THE PRIMARY CLINICAL RECORDS. [employer] provides no warranty or guarantee of the accuracy or completeness of information in this document.
--- OUTSIDE RECORDS SUMMARY | 2025-04-07 08:05 | XMS_ITS | Encounter Summary ---
Author Organization [employer] Address [facility] [id number] [address] [place] [address] Care Team Providers Care Technology Integration Specialist Name Role Phone Fausto Sweeney MD Primary Care Provider + [phone] Reason for Visit * Reason Comments Med Refill Encounter Details Date Type Department Care Team (Late st Contact Info) Description 10/31/2020 Refill [facility] [address] [place] [address] Fausto Sweeney MD [address]. Provider retired 11/23/24 [place] [address] Neuropathy Social History Tobacco Use [...] often do you attend chur ch or episcopalian services? 1 to 4 times per year 04/12/2020 Do you belong to any clubs o r organizations such as advent groups, unions, fraternal or athletic groups, or [...] Answer Date Recorded PHQ-2 Score 0 08/19/2018 [facility] [place] of Occupat ional Health - Occupational Stress [...] Recorded Do you need help finding a [employer] al career center and/or a training program? [...] have Coronavirus / COVID-19? No / Unsure 10/27/2020 9:39 AM EST documented as of this encounter Miscellaneous Notes * Telephone Encounter - Adwoa Quintero LPN - 10/31/2020 9:49 AM EST Requesting refill of Gabapentin Adwoa Quintero LPN 10/31/20 1037 documented in this encounter Plan of Treatment Not on file documented as of this encounter Visit Diagnoses Diagnosis Neuropathy Mononeuritis of unspecified site documented in this encounter Additional Health Concerns Infection Onset Date Last Indicated Resolved Time Respiratory Rule-Out 09/27/2024 09/27/2024 025 12:21 PM EST Assessment Noted Time PHQ-9 Depression Total Score: 0 10/28/19 21 9:00 AM EST A Body Mass Index follow-up plan has been documented for the patient 01/25/2019 10:06 AM EDT documented as of this encounter Care Teams Technology Integration Specialist Relationship Specialty Start Date End Date Fausto Sweeney MD [address] Provider retired 11/23/24 [place] [address] PCP - General Family Medicine 10/13/24 10/19/24 documented as of this encounter
--- OUTSIDE RECORDS SUMMARY | 2025-04-07 08:05 | XMS_ITS | Encounter Summary ---
Author Organization [employer] Address [facility] [id number] [address] [place] [address] Care Team Providers Care Metal Sander Name Role Phone Fausto Sweeney MD Primary Care Provider + [phone] Reason for Visit * Reason Onset Date Comments Med Refill 09/08/2017 Encounter Details Date Type Department Care Team (Late st Contact Info) Description 09/08/2017 Refill [facility] [address] [facility] [place] [id number] Adwoa Quintero LPN Chronic bilateral low back pain, with sciatica presence unspecified (Primary Dx) Social History Tobacco Use Types Packs/Day Years Used Date Smoking Tobacco: Every Day Alcohol Use Standard Drinks/Week Comments No 0 (1 standard drink = 0.6 oz pur e alcohol) Comments Unknown Sex and Gender Information Value Date Recorded Sex Assigned at Not on file Legal Sex Female 11:37 AM EDT Gender Identity Not on file Sexual Orientation Not on file documented as of this encounter Plan of Treatment Not on file documented as of this encounter Visit Diagnoses Diagnosis Chronic bilateral low back pain, with sciatica presence unspecified- Primary documented in this encounter Additional Health Concerns Infection Onset Date Last Indicated Resolved Time Respiratory Rule-Out 09/27/2024 09/27/2024 025 12:21 PM EST documented as of this encounter Care Teams Metal Sander Relationship Specialty Start Date End Date Fausto Sweeney MD [address] Provider retired 11/23/24 [place] [address] PCP - General Family Medicine 10/13/24 10/19/24 documented as of this encounter
--- OUTSIDE RECORDS SUMMARY | 2025-04-07 08:05 | XMS_ITS | Encounter Summary ---
Author Organization [employer] Address [id number] [address] [place] [address] Care Team Providers Care Keeler Polygraph Operator Name Role Phone Fausto Sweeney MD Primary Care Provider + [phone] Reason for Visit * Reason Comments Med Refill Encounter Details Date Type Department Care Team (Late st Contact Info) Description 04/30/2020 Refill [facility] [address] [place] [address] Fausto Sweeney MD [address]. Provider retired 11/23/24 [place] [address] Neuropathy Social History Tobacco Use [...] often do you attend chur ch or jew services? 1 to 4 times per year 04/12/2020 Do you belong to any clubs o r organizations such as mandaen groups, unions, fraternal or athletic groups, or [...] Answer Date Recorded PHQ-2 Score 0 08/19/2018 [facility] of Occupat ional Health - Occupational [...] Recorded Do you need help finding a [facility] career center and/or a training program? No [...] have Coronavirus / COVID-19? No / Unsure 04/13/2020 12:54 PM EDT documented as of this encounter [...] documented as of this encounter Care Teams Keeler Polygraph Operator Relationship Specialty Start Date End Date Fausto Sweeney MD [address] Provider retired 11/23/24 [place] [address] PCP - General Family Medicine 10/13/24 10/19/24 documented as of this encounter
--- OUTSIDE RECORDS SUMMARY | 2025-04-07 08:05 | XMS_ITS | Encounter Summary ---
Author Organization [employer] Address [facility] [id number] [address] [place] [address] Care Team Providers Care Used Car Lot Porter Name Role Phone Fausto Sweeney MD Primary Care Provider + [phone] Reason for Visit * Reason Comments Med Refill Encounter Details Date Type Department Care Team (Late st Contact Info) Description 06/23/2017 Refill [facility] [address] [place] [address] Fausto Sweeney MD [address] Provider retired 11/23/24 [place] [address] Social History Tobacco Use Types [...] documented as of this encounter Care Teams Used Car Lot Porter Relationship Specialty Start Date End Date Fausto Sweeney MD [address] Provider retired 11/23/24 [place] [address] PCP - General Family Medicine 10/13/24 10/19/24 documented as of this encounter
--- OUTSIDE RECORDS SUMMARY | 2025-04-07 08:05 | XMS_ITS | Encounter Summary ---
Author Organization [facility] [employer] [facility] tem Address [facility] [id number] [address] [place] [address] Care Team Providers Care Internet Assessor Name Role Phone Fausto Sweeney MD Primary Care Provider + [phone] Reason for Visit * Reason Comments Med Refill Encounter Details Date Type Department Care Team (Late st Contact Info) Description 03/03/2018 Refill [facility] [address] [place] [id number] Wagner Tiwari, SEJAL [address] [facility], [address] [place], [place] [id number] Disorder of sacrum Social History Tobacco Use Types Packs/Day Years [...] as of this encounter Visit Diagnoses Diagnosis Disorder of sacrum Disorders of sacrum documented in this encounter Additional Health Concerns Infection Onset Date Last Indicated Resolved Time Respiratory Rule-Out 09/27/2024 09/27/2024 025 12:21 PM EST Assessment Noted Time PHQ-9 Depression Total Score: 0 11/05/19 18 10:00 AM EDT A Body Mass Index follow-up plan has been documented for the patient 10/15/2017 10:38 AM EST documented as of this encounter Care Teams Internet Assessor Relationship Specialty Start Date End Date Fausto Sweeney MD [address]. Provider retired 11/23/24 [place] [address] PCP - General Family Medicine 10/13/24 10/19/24 documented as of this encounter
--- OUTSIDE RECORDS SUMMARY | 2025-04-07 08:05 | XMS_ITS | Encounter Summary ---
Author Organization [facility] Address [id number] [address] [place] [address] Care Team Providers Care Armor Senior Sergeant Name Role Phone Fausto Sweeney MD Primary Care Provider + [phone] Reason for Visit * Reason Onset Date Comments Med Refill Med Refill 10/27/2020 Encounter Details Date Type Department Care Team (Late st Contact Info) Description 10/02/2020 Refill [facility] [address] [place] [address] Fausto Sweeney MD [address]. Provider retired 11/23/24 [place], [place] [id number] Neuropathy Social History Tobacco Use Types Packs/Day [...] any clubs o r organizations such as moravian groups, unions, fraternal or athletic groups, or [...] Answer Date Recorded PHQ-2 Score 0 08/19/2018 [facility] [place] of Occupat ional Health - Occupational Stress [...] Telephone Encounter - Adwoa Quintero LPN - 10/02/2020 9:49 AM EST Requesting refill of Gabapentin Adwoa Quintero LPN 10/02/20 1118 documented in this encounter Plan of Treatment Not on file documented as of this encounter Visit Diagnoses Diagnosis Neuropathy Mononeuritis of unspecified site documented in this encounter Additional Health Concerns Infection Onset Date Last Indicated Resolved Time Respiratory Rule-Out 09/27/2024 09/27/2024 025 12:21 PM EST Assessment Noted Time PHQ-9 Depression Total Score: 0 07/24/20 20 9:00 AM EST A Body Mass Index follow-up plan has been documented for the patient 01/25/2019 10:06 AM EDT documented as of this encounter Care Teams Armor Senior Sergeant Relationship Specialty Start Date End Date Fausto Sweeney MD [address]. Provider retired 11/23/24 [place] [address] PCP - General Family Medicine 10/13/24 10/19/24 documented as of this encounter
--- OUTSIDE RECORDS SUMMARY | 2025-04-07 08:05 | XMS_ITS | Encounter Summary ---
Author Organization [employer] Address [id number] [address] [place] [address] Care Team Providers Care Mattress Filling Machine Tender Name Role Phone Fausto Sweeney MD Primary Care Provider + [phone] Reason for Visit * Reason Comments Med Refill Encounter Details Date Type Department Care Team (Late st Contact Info) Description 11/23/2022 Refill [facility] [address] [place] [address] Fausto Sweeney MD [address]. Provider retired 11/23/24 [place] [address] Neuropathy Social History Tobacco Use [...] often do you attend chur ch or holiness services? 1 to 4 times per year 04/12/2020 Do you belong to any clubs o r organizations such as yarsani groups, unions, fraternal or athletic groups, or [...] Answer Date Recorded Total Score 0 10/11/2022 [facility] of Occupat ional Health - [...] Recorded Do you need help finding a [employer] al career center and/or a training program? [...] have Coronavirus / COVID-19? No / Unsure 11/18/2022 3:15 PM EDT documented as of this encounter Miscellaneous Notes * Telephone Encounter - Adwoa Quintero LPN - 11/23/2022 9:49 AM EDT Beverly Mcdaniels requesting refill [...] documented as of this encounter Care Teams Mattress Filling Machine Tender Relationship Specialty Start Date End Date Fausto Sweeney MD [address] Provider retired 11/23/24 [place] [address] PCP - General Family Medicine 10/13/24 10/19/24 documented as of this encounter
--- OUTSIDE RECORDS SUMMARY | 2025-04-07 08:05 | XMS_ITS | Encounter Summary ---
Author Organization [facility] [facility] Address [id number] [address] [place] [address] Care Team Providers Care Welding Machine Operator Thermit Name Role Phone Fausto Sweeney MD Primary Care Provider + [phone] Encounter Details Date Type Department Care Team (Late st Contact Info) Description 07/05/2019 Refill [facility] [address] [place] [phone] Eric Ojeda LPN Neuropathy Social History Tobacco Use Types [...] Telephone Encounter - Eric Ojeda LPN - 07/05/2019 1:38 PM EST Patient last seen in January. Would like Gabapentin refilled. She did schedule an appt, but it is not until 07/15/19. Is this refill ok? Eric Ojeda LPN 07/05/19 6420 documented in this encounter Plan of Treatment [...] documented as of this encounter Care Teams Welding Machine Operator Thermit Relationship Specialty Start Date End Date Fausto Sweeney MD [address]. Provider retired 11/23/24 [place] [address] PCP - General Family Medicine 10/13/24 10/19/24 documented as of this encounter
--- OUTSIDE RECORDS SUMMARY | 2025-04-07 08:05 | XMS_ITS | Encounter Summary ---
Author Organization [employer] Address [id number] [address] [place] [address] Care Team Providers Care Stenographer Secretary Name Role Phone Fausto Sweeney MD Primary Care Provider + [phone] Reason for Visit * Reason Comments Med Refill Encounter Details Date Type Department Care Team (Late st Contact Info) Description 08/28/2020 Refill [facility] [address] [place] [address] Fausto Sweeney MD [address]. Provider retired 11/23/24 [place] [address] Neuropathy Social History Tobacco Use [...] often do you attend chur ch or sikh services? 1 to 4 times per year 04/12/2020 Do you belong to any clubs o r organizations such as rastafarian groups, unions, fraternal or athletic groups, or [...] Answer Date Recorded PHQ-2 Score 0 08/19/2018 [facility] of Occupat ional Health - Occupational [...] Recorded Do you need help finding a [employer] al career center and/or a training program? [...] Telephone Encounter - Adwoa Quintero LPN - 08/28/2020 9:49 AM EST Requesting refill of Gabapentin Adwoa Quintero LPN 08/28/20 1013 documented in this encounter Plan of Treatment [...] documented as of this encounter Care Teams Stenographer Secretary Relationship Specialty Start Date End Date Fausto Sweeney MD [address]. Provider retired 11/23/24 [place] [address] PCP - General Family Medicine 10/13/24 10/19/24 documented as of this encounter
--- OUTSIDE RECORDS SUMMARY | 2025-04-07 08:05 | XMS_ITS | Encounter Summary ---
Author Organization [facility] Address [id number] [address] [place] [address] Care Team Providers Care Brass Sorter Name Role Phone Fausto Sweeney MD Primary Care Provider + [phone] Reason for Visit * Reason Onset Date Comments Med Refill 06/29/2020 Encounter Details Date Type Department Care Team (Late st Contact Info) Description 06/29/2020 Refill [facility] [address] [place] [phone] Adwoa Quintero LPN Social History Tobacco Use [...] often do you attend chur ch or taoist services? 1 to 4 times per year 04/12/2020 Do you belong to any clubs o r organizations such as bahai groups, unions, fraternal or athletic groups, or [...] Answer Date Recorded PHQ-2 Score 0 08/19/2018 [facility] [place] of Occupat ional Health - Occupational Stress [...] documented as of this encounter Care Teams Brass Sorter Relationship Specialty Start Date End Date Fausto Sweeney MD [address]. Provider retired 11/23/24 [place] [address] PCP - General Family Medicine 10/13/24 10/19/24 documented as of this encounter
--- NOTE | 2025-04-07 08:44 | ED_ITS ---
HPI HPI - General Adult General Chief complaint: Skin/Abscess/Foreign Body Stated complaint: LOCALIZED SWELLING - CHIN Time Seen by Provider: 04/07/25 07:54 Source: patient Mode of arrival: walk-in History of Present Illness HPI narrative: 49-year-old female presents for redness and swelling and drainage from her chin. She has had this for a few days. She was put on Keflex but it does not seem to have gotten better. Related Data Home Medications ?Medication ?Instructions ?Recorded ?Confirmed levothyroxine 50 mcg tablet 50 mcg PO DAILY 09/09/23 0 04/07/25 Effexor 04/07/25 atorvastatin 40 mg tablet mg 04/07/25 cephalexin 500 mg capsule mg 04/07/25 diclofenac sodium 75 mg mg PO 04/07/25 tablet,delayed release omeprazole 40 mg capsule,delayed mg 04/07/25 release Previous Rx's ?Medication ?Instructions ?Recorded doxycycline hyclate 100 mg capsule 100 mg PO BID 10 da ys #20 caps 04/07/25 Allergies Allergy/AdvReac Type Severity Reaction Status Date / Time latex Allergy Unknown itching Verified 04/07/25 07:57 cefaclor (From Ceclor) Allergy Rash Verified 04/07/25 07:57 celecoxib (From Celebrex) Allergy Unknown Verified 04/07/25 07:57 Iodinated Contrast Media Allergy Hives Verified 04/07/25 07:57 methylprednisolone Allergy Palpitation Verified 04/07/25 07:57 s Sulfa (Sulfonamide Allergy Hives Verified 04/07/25 07:57 Antibiotics) Review of Systems ROS Narrative A ten point review of systems is negative except as noted above. [facility] Medical History (Updated 04/07/25 @ 10:02 by Prince Adair MD) Menopause ?Z78.0 - Asymptomatic menopausal state (ICD-10) Anxiety ?F41.9 - Anxiety disorder, unspecified (ICD-10) PTSD (post-traumatic stress disorder) ?F43.10 - Post-traumatic stress disorder, unspecified (ICD-10) COVID-19 ?U07.1 - COVID-19 (ICD-10) Migraine ?G43.909 - Migraine, unspecified, not intractable, without status migrainosus (ICD-10) GERD (gastroesophageal reflux disease) ?K21.9 - Gastro-esophageal reflux disease without esophagitis (ICD-10) Hypothyroidism ?E03.9 - Hypothyroidism, unspecified (ICD-10) Delayed recovery from anesthesia Dysfunction of right eustachian tube ?H69.91 - Unspecified Eustachian tube disorder, right ear (ICD-10) Surgical History (Updated 09/09/23 @ 10:57 by Elvira Rivera NP) History of esophagogastroduodenoscopy (EGD) ?Z98.890 - Other specified postprocedural states (ICD-10) H/O hand surgery ?Z98.890 - Other specified postprocedural states (ICD-10) History of endometrial ablation ?Z98.890 - Other specified postprocedural states (ICD-10) History of spinal surgery ?Z98.890 - Other specified postprocedural states (ICD-10) History of total hip arthroplasty ?Z96.649 - Presence of unspecified artificial hip joint (ICD-10) History of myringotomy ?Z98.890 - Other specified postprocedural states (ICD-10) Family History (Updated 09/09/23 @ 10:54 by Elvira Rivera NP) Other Family history of breast cancer Family history of colon cancer Family history of diabetes mellitus Family history of heart disease Family history of hypertension Family history of kidney cancer Family history of stroke Social History (Updated 09/09/23 @ 10:49 by Elvira Rivera NP) Within the past year, how often did you have a drink containing alcohol: never Score interpretation: A score less than 3 is consistent with normal alcohol consumption. 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 General: The patient appears well and in no apparent distress. Patient is resting comfortably on cart. Skin: Warm, dry, no pallor noted. There is erythema and swelling on her chin. There is a small open area with minimal drainage. Head: Normocephalic, atraumatic Eye: Normal conjunctiva, no drainage Ears, Nose, Mouth, and Throat: oral mucosa is moist. Nares patent. Cardiovascular: Regular Rate and Rhythm Respiratory: Patient is in no distress, no accessory muscle use, lungs are clear to auscultation, no wheezing, rales or rhonchi Back: non-tender GI: Soft and nontender Musculoskeletal: The patient has no evidence of calf tenderness, no pitting edema, symmetrical pulses noted bilaterally Neurological: A&O, normal speech Psychiatric: Cooperative Constitutional Vital Signs, click to edit/add: Last Vital Signs Temp 98.4 F 04/07/25 08:01 Pulse 78 04/07/25 08:01 Resp 16 04/07/25 08:01 BP 167/93 H 04/07/25 08:01 Pulse Ox 97 04/07/25 08:01 O2 Del Method Room Air 04/07/25 08:01 Course Vital Signs Vital signs: Vital Signs Temperature 98.4 F 04/07/25 08:01 Pulse Rate 78 04/07/25 08:01 Respiratory Rate 16 04/07/25 08:01 Blood Pressure 167/93 H 04/07/25 08:01 Pulse Oximetry 97 04/07/25 08:01 Oxygen Delivery Method Room Air 04/07/25 08:01 Temperature 98.4 F 04/07/25 08:01 Pulse Rate 78 04/07/25 08:01 Respiratory Rate 16 04/07/25 08:01 Blood Pressure 167/93 H 04/07/25 08:01 Pulse Oximetry 97 04/07/25 08:01 Oxygen Delivery Method Room Air 04/07/25 08:01 Medical Decision Making [facility] Narrative Medical decision making narrative: My clinical impression is that she has a facial abscess on her chin. The following procedure was performed by me after topical anesthetic had been applied. Local filtration was carried out with 1% lidocaine without epinephrine resulting in good skin anesthesia. The area was prepped with Betadine x 3 and draped sterilely and using a #11 blade a small incision was made with extraction of some purulent material. Curved hemostats were then placed inside to open the area. There were no complications. The patient is already on Keflex and is prescribed doxycycline and she was given IV vancomycin here. Treatment diagnosis and follow-up were discussed with the patient. Differential Diagnosis Differential Diagnosis: Abscess, cellulitis Lab Data Lab results reviewed: Yes I reviewed the patient's lab results Labs: Lab Results 04/07/25 Range/Units 08:05 WBC 11.7 H (4.0-11.0) 10^3/uL RBC 4.08 L (4.20-5.40) 10^6/uL Hgb 13.2 (12.0-16.0) g/dL Hct 38.4 (36.0-48.0) % MCV 94.1 (81.0-99.0) fL MCH 32.4 (26.7-34.0) pg MCHC 34.4 (29.9-35.2) g/dL RDW 13.7 (11.0-15.0) % Plt Count 274 (150-450) 10^3/uL MPV 10.6 (9.5-13.5) fL Neut % (Auto) 69.8 (43.0-75.0) % Lymph % (Auto) 19.4 L (20.5-60.0) % [place] % (Auto) 9.1 (1.7-12.0) % Eos % (Auto) 1.0 (0.9-7.0) % Baso % (Auto) 0.4 (0.2-2.0) % Neut # (Auto) 8.1 H (1.4-6.5) 10^3/uL Lymph # (Auto) 2.3 (1.2-3.8) 10^3/uL [place] # (Auto) 1.1 H (0.3-0.8) 10^3/uL Eos # (Auto) 0.1 (0.0-0.7) 10^3/uL Baso # (Auto) 0.1 (0.0-0.1) 10^3/uL Abs Immat Gran (auto) 0.03 (0.00-0.03) 10^3/uL Imm/Tot Granulo (auto) 0.3 (0.0-0.5) % Sodium 144 (136-145) mmol/L Potassium 4.2 (3.5-5.1) mmol/L Chloride 106 (98-107) mmol/L Carbon Dioxide 31.8 (21.0-32.0) mmol/L Anion Gap 10.4 BUN 12.0 (7.0-18.0) mg/dL Creatinine 0.61 (0.55-1.02) mg/dL Est GFR ( Amer) >60 (>=60 mL/min/1.73m^2) Est GFR (Non-Af Amer) >60 (>=60 mL/min/1.73m^2) BUN/Creatinine Ratio 19.7 Glucose 132 H (74-106) mg/dL Calcium 8.8 (8.5-10.1) mg/dL Discharge Plan Discharge Chief Complaint: Skin/Abscess/Foreign Body Clinical Impression: Abscess Patient Disposition: Home, Self-Care Time of Disposition Decision: 10:02 Condition: Good Mode of Transportation: Private Vehicle Prescriptions / Home Meds: New doxycycline hyclate 100 mg capsule 100 mg PO BID 10 Days Qty: 20 0RF No Action atorvastatin 40 mg tablet omeprazole 40 mg capsule,delayed release(DR/EC) cephalexin 500 mg capsule diclofenac sodium 75 mg tablet,delayed release (DR/EC) PO Effexor levothyroxine 50 mcg tablet 50 mcg PO DAILY Print Language: Sami Instructions: Abscess (ED) Referrals: Todd Acosta DO [Primary Care Provider] - 1 week
[2025-04-07 08:47] LABS: Hematocrit 38.4 % (36.0-48.0); Hemoglobin 13.2 g/dL (12.0-16.0); Immature Granulocytes Abs Auto 0.03 10^3/uL (0.00-0.03); Immature Granulocytes Pct Auto 0.3 % (0.0-0.5); Lymphocytes Absolute Auto 2.3 10^3/uL (1.2-3.8); Mean Corpuscular HGB Conc 34.4 g/dL (29.9-35.2); Mean Corpuscular Hemoglobin 32.4 pg (26.7-34.0); Mean Corpuscular Volume 94.1 fL (81.0-99.0); Platelet Count 274 10^3/uL (150-450); Red Blood Count 4.08 10^6/uL (4.20-5.40); White Blood Count 11.7 10^3/uL (4.0-11.0)
[2025-04-07] MEDS: VANCOMYCIN HCL 1,750 MG in 0.9 % SODIUM CHLORIDE 500 ML 250 MG IV (08:50)
[2025-04-07 08:58] LABS: Anion Gap 10.4; Blood Urea Nitrogen 12.0 mg/dL (7.0-18.0); Calcium 8.8 mg/dL (8.5-10.1); Carbon Dioxide 31.8 mmol/L (21.0-32.0); Chloride 106 mmol/L (98-107); Estimated GFR (African America >60 (>=60 mL/min/1.73m^2); Estimated GFR (Non-African Ame >60 (>=60 mL/min/1.73m^2); Glucose 132 mg/dL (74-106); Potassium 4.2 mmol/L (3.5-5.1); Sodium 144 mmol/L (136-145)
[2025-04-07] MEDS: LIDOCAINE/EPINEPHRINE/TETRACAINE 3 ML GEL.PF.APP 1.5 ML TOPICAL (09:26)
[2025-04-07] MEDS: LIDOCAINE HCL 1% 100 MG/10 ML MDV INJ (09:26)
[2025-04-07] MEDS: ACETAMINOPHEN 325 MG TABLET 650 MG PO (10:13)
[2025-04-07 11:30] VITALS: BP 113/82; PULSE 74; O2SAT 97
== END 2025-04-07 11:30 | disposition home or self-care (01) ==
PROVIDERS: Emergency Provider Emergency Medicine; PCP Student in an Organized Health Care Education/Training Program
DX: L02.01 Cutaneous abscess of face (principal)
CPT/HCPCS: 36415; 80048; 85025; 96365; 96366; 99284; J3373